=== PATIENT | female | born 1965 | race Caucasian/White ===

== ENCOUNTER 2020-08-06 10:39 | Outpatient (REF) | payer OTHER, SELFPAY ==
[2020-08-07 11:37] LABS: BV Int Neg Control Negative (Negative); BV Int Pos Control Positive (Positive)
[2020-08-08 18:33] LABS: HPV mRNA E6/E7 rflx Not Detected (Not Detected)
== END 2020-08-06 10:40 | disposition home or self-care (01) ==
LOC: HO.LAB 10:39
PROVIDERS: PCP Internal Medicine; Visit Provider Advanced Practice Midwife
DX: Z01.419 Encounter for gynecological examination (general) (routine) without abnormal findings (principal); N81.10 Cystocele, unspecified; N94.9 Unspecified condition associated with female genital organs and menstrual cycle; Z79.899 Other long term (current) drug therapy
CPT/HCPCS: 87480; 87510; 87624; 87625; 87660; 88142

== ENCOUNTER 2020-08-29 08:09 | Outpatient (REF) | payer OTHER, SELFPAY ==
--- NOTE | 2020-08-29 08:12 | MM_ITS ---
EXAMINATION: MM SCREENING DIGITAL BREAST TOMOSYNTHESIS, BILATERAL CLINICAL INFORMATION: Screening. Asymptomatic. The lifetime risk of breast cancer based on the Tyrer-Cuzick Model is 7%. COMPARISON: Mammography: 07/27/2018; outside exam 10/10/2008 ([facility] [place]). TECHNIQUE: Digital breast tomosynthesis is performed in both the craniocaudal and mediolateral oblique views along with computer-aided detection (CAD). Synthesized 2D images are generated from the tomosynthesis. FINDINGS: There are scattered areas of fibroglandular density (ACR BI-RADS breast composition Category b). There are no significant masses, abnormal calcifications, or other abnormalities. Parenchymal pattern is similar to prior exam. No developing density. No significant changes. MM/MM tomosynthesis screening BI IMPRESSION: No mammographic evidence of malignancy. ASSESSMENT: BI-RADS 1: Negative RECOMMENDATION: Routine annual mammography screening. This patient's information was entered into a reminder system with a target due date for their next mammogram.
== END 2020-08-29 08:10 | disposition home or self-care (01) ==
LOC: HO.MAMMO 08:09
PROVIDERS: PCP Internal Medicine; Visit Provider Internal Medicine
DX: Z12.31 Encounter for screening mammogram for malignant neoplasm of breast (principal)
CPT/HCPCS: 77063; 77067

== ENCOUNTER 2021-09-10 11:27 | Outpatient (REF) | payer OTHER, SELFPAY ==
[2021-09-10 13:49] LABS: Basophils Absolute Auto 0.1 X10*3/uL (0.0-0.2); Basophils Percent Auto 0.5 % (0-2); Eosinophils Absolute Auto 0.2 X10*3/uL (0.0-0.4); Eosinophils Percent Auto 1.9 % (0-4); Hematocrit 43.3 % (37.0-47.0); Hemoglobin 14.8 g/dl (12.0-16.0); Imm Gran Abs Auto 0.03 X10*3/uL (0.00-0.03); Imm Gran Pct Auto 0.3 % (0.0-0.4); Lymphocytes Absolute Auto 2.8 X10*3/uL (1.2-4.9); Lymphocytes Percent Auto 30.1 % (20-40); MANUAL DIFF FLAG NO; Mean Corpuscular HGB Conc 34.2 g/dl (31.0-35.0); Mean Corpuscular Hemoglobin 32.7 pg (27.0-33.0); Mean Corpuscular Volume 95.6 fL (80.0-98.0); Mean Platelet Volume 11.4 fL (9.4-12.3); Monocytes Absolute Auto 0.6 X10*3/uL (0.1-1.2); Monocytes Percent Auto 6.8 % (2-11); Neutrophils Absolute Auto 5.6 x10*3/uL (2.0-8.3); Neutrophils Percent Auto 60.4 % (45-73); Platelet Count 249 X10*3/uL (160-400); Red Blood Count 4.53 X10*6/uL (4.20-5.50); Red Cell Distribution Width 13.5 % (11.0-16.0); White Blood Count 9.3 X10*3/uL (4.8-10.8)
[2021-09-10 14:17] LABS: Alanine Aminotransferase 19 U/L (0-31); Albumin Level 4.4 g/dL (3.5-5.0); Alkaline Phosphatase 105 U/L (39-117); Anion Gap 13 (12-20); Aspartate Amino Transferase 19 U/L (5-31); Bilirubin Total 0.3 mg/dL (0.0-1.0); Blood Urea Nitrogen 17 mg/dL (9-16); Calcium 9.6 mg/dL (8.4-10.2); Carbon Dioxide 30 mmol/L (22-29); Chloride 105 mmol/L (96-108); Cholesterol 248 mg/dL; Estimated Glomerular Filt Rate > 60; Glucose Fasting 78 mg/dL (60-99); HDL Cholesterol 65 mg/dL; LDL Cholesterol Calculated 155 mg/dl; Potassium 4.4 mmol/L (3.3-5.1); Sodium 144 mmol/L (135-145); Total Protein 7.3 g/dL (6.5-8.0); Triglycerides 142 mg/dL
[2021-09-10 14:38] LABS: Ferritin 301 ng/mL (10-250)
[2021-09-10 14:52] LABS: Vitamin B12 729 pg/mL (200-900)
[2021-09-15 11:02] LABS: Vitamin D 25-OH, D2 <4 ng/mL; Vitamin D 25-OH, D3 26 ng/mL; Vitamin D 25-OH, Total 26 ng/mL (30-100)
== END 2021-09-10 11:28 | disposition home or self-care (01) ==
LOC: HO.HMGCLDS 11:27
PROVIDERS: PCP Internal Medicine; Visit Provider Internal Medicine
DX: Z00.01 Encounter for general adult medical examination with abnormal findings (principal); M79.7 Fibromyalgia; M19.90 Unspecified osteoarthritis, unspecified site; K21.9 Gastro-esophageal reflux disease without esophagitis; F40.10 Social phobia, unspecified; E66.09 Other obesity due to excess calories
CPT/HCPCS: 36415; 80053; 80061; 82306; 82607; 82728; 84443; 85025

== ENCOUNTER 2021-10-06 08:58 | Outpatient (REF) | payer OTHER, SELFPAY ==
--- NOTE | ~2021-10-06 | US_ITS ---
EXAMINATION: US ABDOMEN COMPLETE CLINICAL INFORMATION: Right upper quadrant pain. COMPARISON: None. TECHNIQUE: Real-time imaging of the abdominal viscera. FINDINGS: PANCREAS: Normal. ABDOMINAL AORTA: The proximal, mid, and distal segments are normal in caliber. INFERIOR VENA CAVA: Visualized portions are normal. LIVER: The liver is normal in size. The liver contour is normal. There is mild increased hepatic echogenicity. No focal hepatic lesion. There is no intrahepatic biliary duct dilatation seen. GALLBLADDER: The gallbladder is physiologically distended. Multiple mobile gallstones are present. No evidence of gallbladder wall thickening or pericholecystic fluid. Gallbladder wall thickness is 0.32 cm. COMMON BILE DUCT: Normal in caliber measuring 0.93 cm in diameter. RIGHT KIDNEY: Normal. No hydronephrosis. No renal calculi or focal parenchymal lesions. The kidney measures 10.7 cm in maximum dimension. LEFT KIDNEY: There is anechoic cyst midpole measuring 1.8 x 2.3 x 2.0 cm and upper pole cyst measuring 1.7 x 1.7 x 1.7 cm with echogenic wall calcification/septation likely complex cyst. No hydronephrosis or renal calculi. The kidney measures 10.5 cm in maximum dimension. SPLEEN: Normal. The spleen measures 9.5 cm in maximum dimension. FREE FLUID: None. US/US abdomen complete IMPRESSION: Simple and complex cysts left kidney. Cholelithiasis with mild wall thickening. Hepatic steatosis without focal lesion.
== END 2021-10-06 08:59 | disposition home or self-care (01) ==
LOC: HO.HMGCX 08:58
PROVIDERS: PCP Internal Medicine; Visit Provider Internal Medicine
DX: R10.11 Right upper quadrant pain (principal)
CPT/HCPCS: 76700

== ENCOUNTER 2021-10-17 15:11 | Outpatient (REF) | payer OTHER, SELFPAY ==
--- NOTE | ~2021-10-17 | MM_ITS ---
EXAMINATION: MM SCREENING DIGITAL BREAST TOMOSYNTHESIS, BILATERAL CLINICAL INFORMATION: Screening. Asymptomatic. The lifetime risk of breast cancer based on the Tyrer-Cuzick Model is 7%. COMPARISON: Mammography: 08/29/2020, 07/27/2018, outside exam 10/10/2008 ([place], [place] TECHNIQUE: Digital breast tomosynthesis is performed in both the craniocaudal and mediolateral oblique views along with computer-aided detection (CAD). Synthesized 2D images are generated from the tomosynthesis. FINDINGS: There are scattered areas of fibroglandular density (ACR BI-RADS breast composition Category b). There are no significant masses, abnormal calcifications, or other abnormalities. Parenchymal pattern is similar to prior studies. There is no developing density or architectural abnormality. The axilla and skin contours are unremarkable. No significant changes. MM/MM tomosynthesis screening BI IMPRESSION: No mammographic evidence of malignancy. ASSESSMENT: BI-RADS 1: Negative RECOMMENDATION: Routine annual mammography screening. This patient's information was entered into a reminder system with a target due date for their next mammogram.
== END 2021-10-17 15:12 | disposition home or self-care (01) ==
LOC: HO.MAMMO 15:11
PROVIDERS: Visit Provider Internal Medicine
DX: Z12.31 Encounter for screening mammogram for malignant neoplasm of breast (principal)
CPT/HCPCS: 77063; 77067

== ENCOUNTER → 2021-11-20 11:08 | Outpatient (BNVA) | payer OTHER, SELFPAY | PROVIDERS: PCP Internal Medicine; Referring Provider Internal Medicine; Visit Provider Surgery | DX: K80.20 Calculus of gallbladder without cholecystitis without obstruction (principal); K80.50 Calculus of bile duct without cholangitis or cholecystitis without obstruction | CPT/HCPCS: 99202 ==

== ENCOUNTER 2021-12-17 06:53 | Day surgery (SDC) | payer OTHER, SELFPAY ==
[2021-12-10 18:56] VITALS: BMI 35.7
--- NOTE | 2021-12-16 09:02 | P.CONAN_ITS ---
Documented by User: Cait Robertson NP 12/16/21 09:04 HPI - Anesthesia Eval Consult details Narrative: 56yo F for Cholecystectomy Laparoscopic,poss open PMFSH Active Problems Active Problems: All Active Problems (Updated 12/10/21 @ 18:55 by Maribel Fonseca RN) Well woman exam with routine gynecological exam (Acute) Cystocele without uterine prolapse (Acute) Vaginal burning (Acute) Fibromyalgia (Acute) Encounter for general adult medical examination with abnormal findings (Acute) Arthrosis (Acute) Obesity due to excess calories (Acute) Social anxiety disorder (Acute) Acid reflux (Acute) RUQ abdominal pain (Acute) Cholelithiasis (Acute) Complex renal cyst (Acute) Fatty liver (Acute) Biliary colic (Acute) Past Medical History Medical History (Updated 12/10/21 @ 18:55 by Maribel Fonseca RN) Arthritis Depression with anxiety GERD (gastroesophageal reflux disease) History of fibromyalgia Hypothyroid Family History Family History Mother Hypertension Other Mental health disorder Substance use disorder Surgical History Surgical History Hx of gastric bypass Hx of tubal ligation Social History Social History Housing: Apartment Alcohol intake: never Patient Tobacco Use Status: Never used Tobacco Use of substances other than those prescribed or required for medical reasons: No Are you DNR?: No Advance Directives: No Advance Directives Information Provided: No Advance Directives on File: No Recently lost weight without trying: No Nutrition Risks: No Nutritional Risk Patient : No Current occupational status: unemployed Meds Allergies Allergy/AdvReac Type Severity Reaction Status Date / Time Seasonal Allergy Unknown Unknown Uncoded 12/16/21 08:57 Home Medications Medication Instructions Recorded Confirmed Last Taken Type amitriptyline 75 mg tablet 75 mg PO BEDTIME 08/06/20 12/10/21 Unknown History duloxetine 30 mg capsule,delayed 30 mg PO QPM 11/20/21 12/10/21 Unknown History release duloxetine 60 mg capsule,delayed 60 mg PO DAILY 11/20/21 12/10/21 12/17/21 History release trazodone 100 mg tablet 100 mg PO BEDTIME 11/20/21 12/10/21 Unknown History Exam Exam Date and Time: December 16, 2021 0902 Height,Weight and Vital Signs: Height 4 ft 11 in Weight 80.286 kg Pertinent Lab Results Pertinent Lab Results: Laboratory Tests 09/10/21 09/10/21 11:34 11:34 WBC 9.3 Hgb 14.8 Hct 43.3 Plt Count 249 Sodium 144 Potassium 4.4 Chloride 105 Carbon Dioxide 30 H BUN 17 H Creatinine 0.82 Assessment and Plan Assessment Anesthesia Assessment: Chart Reviewed Documented by User: Austyn Coker MD 12/17/21 08:12 [facility] Past Medical History Medical History (Updated 12/10/21 @ 18:55 by Maribel Fonseca RN) Arthritis Depression with anxiety GERD (gastroesophageal reflux disease) History of fibromyalgia Hypothyroid Functional capacity: independent ambulation Family History Family History Mother Hypertension Other Mental health disorder Substance use disorder Family history of problems with anesthesia: No Surgical History Surgical History Hx of gastric bypass Hx of tubal ligation History of Problems with Anesthesia: No Social History Social History Housing: Apartment Alcohol intake: never Patient Tobacco Use Status: Never used Tobacco Use of substances other than those prescribed or required for medical reasons: No Are you DNR?: No Advance Directives: No Advance Directives Information Provided: No Advance Directives on File: No Recently lost weight without trying: No Nutrition Risks: No Nutritional Risk Patient : No Current occupational status: unemployed Meds Allergies Allergy/AdvReac Type Severity Reaction Status Date / Time Seasonal Allergy Unknown Unknown Uncoded 12/16/21 08:57 Home Medications Medication Instructions Recorded Confirmed Last Taken Type amitriptyline 75 mg tablet 75 mg PO BEDTIME 08/06/20 12/10/21 Unknown History duloxetine 30 mg capsule,delayed 30 mg PO QPM 11/20/21 12/10/21 Unknown History release duloxetine 60 mg capsule,delayed 60 mg PO DAILY 11/20/21 12/10/21 12/17/21 History release trazodone 100 mg tablet 100 mg PO BEDTIME 11/20/21 12/10/21 Unknown History Exam Airway Mallampati Class: I TM Dist: >3cm Neck ROM: Full Loose/Missing/Broken Teeth: Yes Heart: RRR Lungs: b/l breath sounds Assessment and Plan Assessment Anesthesia Assessment: Anesthesia Plan Discussed Final Anesthetic Review Family History of Problems with Anesthesia: No History of Problems with Anesthesia: No NPO: Yes ASA Class: II Final Preanesthetic Review: No Changes in Pt Med Stat, Meds/Allgs Chart Reviewed, Consent Obtained/Reviewed and Anes Risks/Benef Reviewed Patient Risk: Intermediate Procedure Risk: Intermediate Anesthetic Plan Anesthetic Plan: GA Disposition: Standard PACU
[2021-12-17] VITALS (14 sets, daily range): BP systolic 120–158; BP diastolic 67–87; PULSE 82–97; RESP 14–16; TEMP 36.4–37.3; O2SAT 93–100
[2021-12-17] MEDS: Lactated Ringers 1,000 ML 100 ML IVCONT (07:43)
--- NOTE | 2021-12-17 08:20 | MHC.SHP ---
Pre-Procedural Eval Section A Date of Service: 12/17/21 The patient is an INPATIENT: No Changes since office visit: Yes Patient answered all questions; No Cold of Flu in the past 2 weeks, No New Medical Problems and No Changes in Medication The History & Physical has been completed within 30 days and I have reviewed it.: Yes Section B Chief Complaint: calculus of bile duct and gallbladder Allergies: Allergies Allergy/AdvReac Type Severity Reaction Status Date / Time Seasonal Allergy Unknown Unknown Uncoded 12/16/21 08:57 Plan Diagnosis/Plan: Unchanged I have reviewed the history and physical and performed a pertinent physical examination on my patient. No changes have occurred unless specified.
--- NOTE | 2021-12-17 09:41 | W.PM.OPN ---
Operative Note Operative Note Date of Service: 12/17/21 Narrative: Preoperative diagnosis: Postoperative diagnosis: Same Procedure: Laparoscopic cholecystectomy Surgeon: Yovany Law MD Football Pad Repairer: JOHN Rodríguez Anesthesia: General endotracheal Indications for procedure: Operative findings: Specimen: gallbladder Estimated blood loss: Complications: Procedure details: Patient was brought to the OR and placed in a supine position. After administering general anesthesia the patient's abdomen was prepped with ChloraPrep and draped in a sterile fashion. Local anesthesia consisting of 0.5% Sensorcaine without epinephrine was infiltrated in a periumbilical region. A 5 mm incision was made above the umbilicus in a transverse fashion. The Veress needle was then inserted while elevating abdominal cavity with towel clips. After positive drop test the abdomen was insufflated to a pressure of 15 mm of mercury. The Veress needle was then removed and a 5 mm trocar inserted. The camera was inserted in the abdomen explored. A 12 mm trocar was then placed in the epigastrium. Two 5 mm trocars placed in the right upper quadrant by the pharmacy innovation assistant. The patient was placed in reverse Trendelenburg positioning and rotated to the left. The gallbladder was grasped with the fundus and retracted cephalad by the pharmacy innovation assistant. The infundibulum was then grasped and retracted away from the liver bed, also by the pharmacy innovation assistant. The Dolgracen dissector was then used by the surgeon to dissect the peritoneum off the infundibulum to reveal the junction with the cystic duct. Cystic artery was noted slightly medial and posterior to the cystic duct. After obtaining a critical view the cystic duct was doubly clipped and divided. The cystic artery was then doubly clipped and divided. The gallbladder was then dissected off the liver bed using electrocautery with an L hook. Hemostasis was assured all times using the electrocautery. When the gallbladder is completely dissected off the liver bed was placed in an Endo-Catch bag and brought out through the epigastric incision. The gallbladder was sent to pathology for further examination. The abdomen was then re-examined. The liver bed was irrigated and suctioned dry. No bleeding or bile leak could be identified. CO2 was then evacuated and all trocars removed. Fascia was closed at the epigastric incision using a [id number] 0 Polysorb suture. Skin was closed in all incisions using a subcuticular 4 0 Polysorb suture by both the surgeon and pharmacy innovation assistant. Sterile dressings consisting of Steri-Strips, 2 x 2 gauze, and Tegaderm were then applied. The patient tolerated the procedure well. Sponge instrument and needle counts reported as correct. The patient was transferred to PACU in stable condition.
[2021-12-17] MEDS: fentaNYL citrate/PF 100 MCG/2 ML VIAL 25 MCG IVPUSH ×4 (10:41→10:56)
[2021-12-17] MEDS: oxyCODONE HCl Immed Release 5 MG TABLET PO (10:44)
[2021-12-17] MEDS: Acetaminophen 325 MG TABLET 650 MG PO (10:44)
== END 2021-12-17 12:44 | disposition home or self-care (01) ==
PROVIDERS: PCP Internal Medicine; Visit Provider Surgery
PROC: 0FT44ZZ Resection of Gallbladder, Percutaneous Endoscopic Approach (ICD-10-PCS; CPT 47562; principal; 2021-12-17 08:40)
DX: K80.66 Calculus of gallbladder and bile duct with acute and chronic cholecystitis without obstruction (principal); E03.9 Hypothyroidism, unspecified; M79.7 Fibromyalgia; Z79.899 Other long term (current) drug therapy; Z98.84 Bariatric surgery status
CPT/HCPCS: 47562; 88304; J1100; J2250; J2405; J3010

== ENCOUNTER → 2021-12-25 11:11 | Outpatient (BNVA) | payer OTHER, SELFPAY | PROVIDERS: PCP Internal Medicine; Referring Provider Internal Medicine; Visit Provider Surgery | DX: Z09 Encounter for follow-up examination after completed treatment for conditions other than malignant neoplasm (principal); Z87.19 Personal history of other diseases of the digestive system; Z90.49 Acquired absence of other specified parts of digestive tract | CPT/HCPCS: 99212 ==

== ENCOUNTER 2022-01-21 10:19 | Outpatient (REF) | payer OTHER, SELFPAY ==
[2022-01-21 14:39] LABS: CT PCR NOT DETECTED (Not Detect.); NG PCR NOT DETECTED (Not Detect.)
[2022-01-22 09:18] LABS: BV Int Neg Control Negative (Negative); BV Int Pos Control Positive (Positive)
[2022-01-28 06:58] LABS: HPV 16 RNA NOT DETECTED (NOT DETECTED); HPV mRNA E6/E7 rflx Detected (Not Detected)
== END 2022-01-21 10:20 | disposition home or self-care (01) ==
LOC: HO.LAB 10:19
PROVIDERS: PCP Internal Medicine; Visit Provider Advanced Practice Midwife
DX: Z01.411 Encounter for gynecological examination (general) (routine) with abnormal findings (principal); Z11.51 Encounter for screening for human papillomavirus (HPV); Z20.2 Contact with and (suspected) exposure to infections with a predominantly sexual mode of transmission; N93.9 Abnormal uterine and vaginal bleeding, unspecified
CPT/HCPCS: 87480; 87491; 87510; 87591; 87624; 87625; 87660; 88142

== ENCOUNTER 2022-02-03 08:29 | Outpatient (REF) | payer OTHER, SELFPAY ==
--- NOTE | ~2022-02-03 | US_ITS ---
EXAMINATION: US PELVIS CLINICAL INFORMATION: Abnormal vaginal bleeding. LMP 2 years ago. COMPARISON: No similar priors. TECHNIQUE: Ultrasound of the pelvis is performed using both transabdominal and transvaginal transducers along with Doppler. Transvaginal imaging is performed due to inadequate visualization transabdominally. FINDINGS: Uterus: The uterus is anteverted and measures 8.2 x 4 x 4.9 cm. No fibroids are identified. The endometrium measures 0.5 cm in thickness without discrete focal abnormalities. A 0.6 cm Nabothian cyst is identified in the pelvic. Adnexa: Both ovaries are visualized. There is normal color flow to the adnexa. There is no pelvic ascites or fluid collection. Right ovary measures 2 x 1.0 x 1.5 cm. Left ovary measures 2.5 x 1.5 x 1.5 cm. US/US pelvic and transvaginal IMPRESSION: The endometrium is thickened for a postmenopausal patient. Recommend [employer] consultation to determine further management.
== END 2022-02-03 08:30 | disposition home or self-care (01) ==
LOC: HO.HMGCX 08:29
PROVIDERS: Visit Provider Advanced Practice Midwife
DX: N93.9 Abnormal uterine and vaginal bleeding, unspecified (principal)
CPT/HCPCS: 76830; 76856

== ENCOUNTER 2022-02-17 09:20 | Outpatient (REF) | payer OTHER, SELFPAY | END 2022-02-17 09:21 | disposition home or self-care (01) | LOC: HO.LAB 09:20 | PROVIDERS: PCP Internal Medicine; Visit Provider Advanced Practice Midwife | DX: N93.9 Abnormal uterine and vaginal bleeding, unspecified (principal); N95.0 Postmenopausal bleeding; Z71.2 Person consulting for explanation of examination or test findings | CPT/HCPCS: 58100; 88305 ==

== ENCOUNTER 2022-02-20 08:37 | Outpatient (REF) | payer OTHER, SELFPAY ==
[2022-02-20 08:50] LABS: MANUAL DIFF FLAG NO
[2022-02-20 10:30] LABS: Basophils Absolute Auto 0.1 X10*3/uL (0.0-0.2); Basophils Percent Auto 0.5 % (0-2); Eosinophils Absolute Auto 0.4 X10*3/uL (0.0-0.4); Eosinophils Percent Auto 3.9 % (0-4); Hematocrit 41.6 % (37.0-47.0); Hemoglobin 14.3 g/dl (12.0-16.0); Imm Gran Abs Auto 0.04 X10*3/uL (0.00-0.03); Imm Gran Pct Auto 0.4 % (0.0-0.4); Lymphocytes Absolute Auto 3.5 X10*3/uL (1.2-4.9); Lymphocytes Percent Auto 38.4 % (20-40); Mean Corpuscular HGB Conc 34.4 g/dl (31.0-35.0); Mean Corpuscular Volume 93.1 fL (80.0-98.0); Monocytes Absolute Auto 0.6 X10*3/uL (0.1-1.2); Monocytes Percent Auto 6.9 % (2-11); Neutrophils Absolute Auto 4.6 x10*3/uL (2.0-8.3); Neutrophils Percent Auto 49.9 % (45-73); Platelet Count 305 X10*3/uL (160-400); Red Blood Count 4.47 X10*6/uL (4.20-5.50); Red Cell Distribution Width 13.3 % (11.0-16.0); White Blood Count 9.2 X10*3/uL (4.8-10.8)
== END 2022-02-20 08:38 | disposition home or self-care (01) ==
LOC: HO.LAB 08:37
PROVIDERS: PCP Internal Medicine; Visit Provider Advanced Practice Midwife
DX: N95.0 Postmenopausal bleeding (principal); Z71.2 Person consulting for explanation of examination or test findings
CPT/HCPCS: 36415; 85025; 99212

== ENCOUNTER → 2022-02-26 08:52 | Outpatient (BNVA) | payer OTHER, SELFPAY | PROVIDERS: PCP Internal Medicine; Visit Provider Advanced Practice Midwife | DX: N95.0 Postmenopausal bleeding (principal) | CPT/HCPCS: 99212 ==

== ENCOUNTER 2022-04-27 10:16 | Outpatient (REF) | payer OTHER, SELFPAY ==
--- NOTE | ~2022-04-27 | XR_ITS ---
EXAMINATION: XR KNEE, BILATERAL XR HIP, BILATERAL CLINICAL INFORMATION: Chronic bilateral hip and knee pain. COMPARISON: None TECHNIQUE: 3 views each knee. 2 views each hip. FINDINGS: Right Hip: There is normal right hip alignment. No visible acute fracture, dislocation or bony erosive changes. The soft tissues are normal. Left Hip: The left hip joint space is maintained normal. No fracture, dislocation or bony erosive changes seen. Right Knee: There is minimal loss of medial compartment joint space. No bony erosive changes, acute fracture or lytic process. There is mild suprapatellar spurring. No joint effusion seen. Left Knee: Minimal loss of medial compartment joint space seen. The lateral and the patellofemoral compartment joint spaces are normal. There is no abnormal joint effusion. No bony erosive changes. No loose bodies. XR/XR knee RT 3V IMPRESSION: Medial compartment both knees. No visible acute fracture, bony erosive changes or joint effusion. Unremarkable bilateral hip exam.
--- NOTE | ~2022-04-27 | XR_ITS ---
EXAMINATION: XR KNEE, BILATERAL XR HIP, BILATERAL CLINICAL INFORMATION: Chronic bilateral hip and knee pain. COMPARISON: None TECHNIQUE: 3 views each knee. 2 views each hip. FINDINGS: Right Hip: There is normal right hip alignment. No visible acute fracture, dislocation or bony erosive changes. The soft tissues are normal. Left Hip: The left hip joint space is maintained normal. No fracture, dislocation or bony erosive changes seen. Right Knee: There is minimal loss of medial compartment joint space. No bony erosive changes, acute fracture or lytic process. There is mild suprapatellar spurring. No joint effusion seen. Left Knee: Minimal loss of medial compartment joint space seen. The lateral and the patellofemoral compartment joint spaces are normal. There is no abnormal joint effusion. No bony erosive changes. No loose bodies. XR/XR hip RT min 2V IMPRESSION: Medial compartment both knees. No visible acute fracture, bony erosive changes or joint effusion. Unremarkable bilateral hip exam.
--- NOTE | ~2022-04-27 | XR_ITS ---
EXAMINATION: XR KNEE, BILATERAL XR HIP, BILATERAL CLINICAL INFORMATION: Chronic bilateral hip and knee pain. COMPARISON: None TECHNIQUE: 3 views each knee. 2 views each hip. FINDINGS: Right Hip: There is normal right hip alignment. No visible acute fracture, dislocation or bony erosive changes. The soft tissues are normal. Left Hip: The left hip joint space is maintained normal. No fracture, dislocation or bony erosive changes seen. Right Knee: There is minimal loss of medial compartment joint space. No bony erosive changes, acute fracture or lytic process. There is mild suprapatellar spurring. No joint effusion seen. Left Knee: Minimal loss of medial compartment joint space seen. The lateral and the patellofemoral compartment joint spaces are normal. There is no abnormal joint effusion. No bony erosive changes. No loose bodies. XR/XR knee LT 3V IMPRESSION: Medial compartment both knees. No visible acute fracture, bony erosive changes or joint effusion. Unremarkable bilateral hip exam.
--- NOTE | ~2022-04-27 | XR_ITS ---
EXAMINATION: XR KNEE, BILATERAL XR HIP, BILATERAL CLINICAL INFORMATION: Chronic bilateral hip and knee pain. COMPARISON: None TECHNIQUE: 3 views each knee. 2 views each hip. FINDINGS: Right Hip: There is normal right hip alignment. No visible acute fracture, dislocation or bony erosive changes. The soft tissues are normal. Left Hip: The left hip joint space is maintained normal. No fracture, dislocation or bony erosive changes seen. Right Knee: There is minimal loss of medial compartment joint space. No bony erosive changes, acute fracture or lytic process. There is mild suprapatellar spurring. No joint effusion seen. Left Knee: Minimal loss of medial compartment joint space seen. The lateral and the patellofemoral compartment joint spaces are normal. There is no abnormal joint effusion. No bony erosive changes. No loose bodies. XR/XR hip LT min 2V IMPRESSION: Medial compartment both knees. No visible acute fracture, bony erosive changes or joint effusion. Unremarkable bilateral hip exam.
== END 2022-04-27 10:17 | disposition home or self-care (01) ==
LOC: HO.XRAY 10:16
PROVIDERS: PCP Internal Medicine; Visit Provider Internal Medicine Rheumatology
DX: M25.561 Pain in right knee (principal); M25.562 Pain in left knee; M25.552 Pain in left hip; M25.551 Pain in right hip; M79.7 Fibromyalgia; Z79.899 Other long term (current) drug therapy
CPT/HCPCS: 73502; 73562; 99202

== ENCOUNTER 2022-06-09 08:41 | Outpatient (REF) | payer OTHER, SELFPAY ==
[2022-06-09 12:22] LABS: Alanine Aminotransferase 30 U/L (0-31); Albumin Level 4.1 g/dL (3.5-5.0); Alkaline Phosphatase 98 U/L (39-117); Anion Gap 18 (12-20); Aspartate Amino Transferase 23 U/L (5-31); Bilirubin Total 0.3 mg/dL (0.0-1.0); Blood Urea Nitrogen 17 mg/dL (9-16); Calcium 9.4 mg/dL (8.4-10.2); Carbon Dioxide 25 mmol/L (22-29); Chloride 105 mmol/L (96-108); Estimated Glomerular Filt Rate > 60; Glucose Random 95 mg/dL (60-115); Potassium 5.1 mmol/L (3.3-5.1); Sodium 143 mmol/L (135-145); Total Protein 6.4 g/dL (6.5-8.0)
[2022-06-09 12:23] LABS: TSH reflex Free T4 3.66 uIU/mL (0.32-4.0)
[2022-06-11 03:56] LABS: LDL Cholesterol Direct 138 mg/dL (<100)
== END 2022-06-09 08:42 | disposition home or self-care (01) ==
LOC: HO.HMGCLDS 08:41
PROVIDERS: PCP Internal Medicine; Visit Provider Internal Medicine
DX: E66.09 Other obesity due to excess calories (principal); E78.9 Disorder of lipoprotein metabolism, unspecified; F40.10 Social phobia, unspecified; G25.81 Restless legs syndrome; K21.9 Gastro-esophageal reflux disease without esophagitis; M79.7 Fibromyalgia; R87.619 Unspecified abnormal cytological findings in specimens from cervix uteri; Z91.09 Other allergy status, other than to drugs and biological substances
CPT/HCPCS: 36415; 80053; 83721; 84443

== ENCOUNTER → 2022-08-17 08:54 | Outpatient (BNVA) | payer OTHER, SELFPAY | PROVIDERS: PCP Internal Medicine; Referring Provider Internal Medicine; Visit Provider Internal Medicine Rheumatology | DX: M17.0 Bilateral primary osteoarthritis of knee (principal); M79.7 Fibromyalgia; G25.81 Restless legs syndrome; M18.0 Bilateral primary osteoarthritis of first carpometacarpal joints; Z79.899 Other long term (current) drug therapy; Z23 Encounter for immunization | CPT/HCPCS: 90471; 90686; 99212 ==

== ENCOUNTER 2022-10-23 10:18 | Outpatient (REF) | payer OTHER, SELFPAY ==
--- NOTE | ~2022-10-23 | MM_ITS ---
EXAMINATION: MM SCREENING DIGITAL BREAST TOMOSYNTHESIS, BILATERAL CLINICAL INFORMATION: Screening. Asymptomatic. The lifetime risk of breast cancer based on the Tyrer-Cuzick Model is 7%. COMPARISON: Mammography: 10/17/2021, 08/29/2020, 07/27/2018 TECHNIQUE: Digital breast tomosynthesis is performed in both the craniocaudal and mediolateral oblique views along with computer-aided detection (CAD). Synthesized 2D images are generated from the tomosynthesis. Additional bilateral CC views are provided. FINDINGS: There are scattered areas of fibroglandular density (ACR BI-RADS breast composition Category b). Parenchymal pattern shows some scattered minor asymmetries similar to prior studies. No developing density or interval mass or architectural abnormality. There are scattered benign-appearing relatively coarse calcifications. The axilla and skin contours are unremarkable. No significant changes. MM/MM tomosynthesis screening BI IMPRESSION: No mammographic evidence of malignancy. ASSESSMENT: BI-RADS 2: Benign RECOMMENDATION: Routine annual mammography screening. This patient's information was entered into a reminder system with a target due date for their next mammogram.
== END 2022-10-23 10:19 | disposition home or self-care (01) ==
LOC: HO.MAMMO 10:18
PROVIDERS: Visit Provider Internal Medicine
DX: Z12.31 Encounter for screening mammogram for malignant neoplasm of breast (principal)
CPT/HCPCS: 77063; 77067

== ENCOUNTER 2022-12-21 11:43 | Outpatient (REF) | payer OTHER, SELFPAY ==
[2022-12-21 14:12] LABS: MANUAL DIFF FLAG NO
[2022-12-21 14:18] LABS: Basophils Absolute Auto 0.1 X10*3/uL (0.0-0.2); Basophils Percent Auto 0.8 % (0-2); Eosinophils Absolute Auto 0.4 X10*3/uL (0.0-0.4); Eosinophils Percent Auto 5.5 % (0-4); Hematocrit 40.3 % (37.0-47.0); Hemoglobin 13.9 g/dl (12.0-16.0); Imm Gran Abs Auto 0.02 X10*3/uL (0.00-0.03); Imm Gran Pct Auto 0.3 % (0.0-0.4); Lymphocytes Absolute Auto 2.5 X10*3/uL (1.2-4.9); Lymphocytes Percent Auto 37.4 % (20-40); Mean Corpuscular HGB Conc 34.5 g/dl (31.0-35.0); Mean Corpuscular Hemoglobin 32.4 pg (27.0-33.0); Mean Corpuscular Volume 93.9 fL (80.0-98.0); Mean Platelet Volume 11.5 fL (9.4-12.3); Monocytes Absolute Auto 0.6 X10*3/uL (0.1-1.2); Monocytes Percent Auto 8.4 % (2-11); Neutrophils Absolute Auto 3.1 x10*3/uL (2.0-8.3); Neutrophils Percent Auto 47.6 % (45-73); Platelet Count 279 X10*3/uL (160-400); Red Blood Count 4.29 X10*6/uL (4.20-5.50); Red Cell Distribution Width 12.8 % (11.0-16.0); White Blood Count 6.6 X10*3/uL (4.8-10.8)
[2022-12-21 14:38] LABS: Alanine Aminotransferase 24 U/L (0-31); Alkaline Phosphatase 91 U/L (39-117); Anion Gap 9 (12-20); Aspartate Amino Transferase 19 U/L (5-31); Bilirubin Total 0.4 mg/dL (0.0-1.0); Blood Urea Nitrogen 19 mg/dL (9-16); Calcium 9.2 mg/dL (8.4-10.2); Carbon Dioxide 32 mmol/L (22-29); Chloride 109 mmol/L (96-108); Estimated Glomerular Filt Rate > 60; Glucose Random 92 mg/dL (60-115); Potassium 4.9 mmol/L (3.3-5.1); Sodium 145 mmol/L (135-145); Total Protein 6.1 g/dL (6.5-8.0)
[2022-12-21 14:59] LABS: TSH reflex Free T4 1.01 uIU/mL (0.32-4.0)
== END 2022-12-21 11:44 | disposition home or self-care (01) ==
LOC: HO.HMGCLDS 11:43
PROVIDERS: PCP Internal Medicine; Visit Provider Internal Medicine
DX: G25.81 Restless legs syndrome (principal); J30.9 Allergic rhinitis, unspecified; K21.9 Gastro-esophageal reflux disease without esophagitis; M79.7 Fibromyalgia; Z91.09 Other allergy status, other than to drugs and biological substances
CPT/HCPCS: 36415; 80053; 84443; 85025

== ENCOUNTER 2022-12-29 13:48 | Outpatient (REF) | payer OTHER, SELFPAY ==
--- NOTE | ~2022-12-29 | US_ITS ---
EXAMINATION: US ABDOMEN COMPLETE CLINICAL INFORMATION: Epigastric pain. COMPARISON: Ultrasound abdomen complete 10/06/2021. TECHNIQUE: Real-time imaging of the abdominal viscera. FINDINGS: PANCREAS: The pancreatic tail is obscured by gas. The head and body are homogeneous in echotexture. ABDOMINAL AORTA: The proximal, mid, and distal segments are normal in caliber. INFERIOR VENA CAVA: Visualized portions are normal. LIVER: Normal. The liver is normal in size. The liver contour is normal. Parenchymal echogenicity is normal. No focal hepatic lesion. There is no intrahepatic biliary duct dilatation seen. GALLBLADDER: Surgically absent. COMMON BILE DUCT: Normal in caliber measuring 0.7 cm in diameter. RIGHT KIDNEY: Normal. No hydronephrosis. No renal calculi or focal parenchymal lesions. The kidney measures 11.0 cm in maximum dimension. LEFT KIDNEY: There is an anechoic cyst in the upper pole measuring 2.2 x 2.3 x 2.3 cm which has echogenic wall calcification. No hydronephrosis or renal calculi. The kidney measures 10.1 cm in maximum dimension. SPLEEN: Normal. The spleen measures 10.6 cm in maximum dimension. FREE FLUID: None. US/US abdomen complete IMPRESSION: 1. Complex Bosniak type II cyst upper pole left kidney. 2. The rest of the abdominal ultrasound is unremarkable.
== END 2022-12-29 13:49 | disposition home or self-care (01) ==
LOC: HO.HMGCX 13:48
PROVIDERS: PCP Internal Medicine; Visit Provider Internal Medicine
DX: R10.13 Epigastric pain (principal)
CPT/HCPCS: 76700

== ENCOUNTER 2023-01-26 10:59 | Outpatient (REF) | payer OTHER, SELFPAY ==
[2023-01-29 02:29] LABS: HPV mRNA E6/E7 rflx Not Detected (Not Detected)
== END 2023-01-26 11:00 | disposition home or self-care (01) ==
LOC: HO.LNP 10:59
PROVIDERS: PCP Internal Medicine; Visit Provider Advanced Practice Midwife
DX: Z01.419 Encounter for gynecological examination (general) (routine) without abnormal findings (principal)
CPT/HCPCS: 87624; 88142

== ENCOUNTER → 2023-02-02 09:10 | Outpatient (BNVA) | payer OTHER, SELFPAY | PROVIDERS: PCP Internal Medicine; Visit Provider Internal Medicine Rheumatology | DX: M79.7 Fibromyalgia (principal); M18.0 Bilateral primary osteoarthritis of first carpometacarpal joints; M17.0 Bilateral primary osteoarthritis of knee; Z79.899 Other long term (current) drug therapy | CPT/HCPCS: 99212 ==

== ENCOUNTER 2023-06-09 09:08 | Outpatient (AMB) | payer OTHER, SELFPAY ==
--- NOTE | 2023-06-09 09:05 | A.OFFPC_ITS ---
Intake Visit Reasons: 4 month follow up [facility] [phone] Allergies Seasonal Allergy (Unknown, Uncoded 02/02/23 09:21) Unknown Tobacco use date assessed: 06/09/23 Dental Screening Dental Screen Date: 06/09/23 Did you have a dental visit in the last 12 months?: No Did you have a dental problem in the last 6 months where you did not have access to dental care?: No Was dental information given to patient?: Patient has dentist HPI 4 month follow up Iphone [phone] [facility] Details Patient is a 58-year-old female this is a telemedicine video conference follow-up Patient was last seen January of this year She is currently taking duloxetine 60 mg which is helping her with her mood stability as well as pain She has a diagnosis of fibromyalgia and osteoarthritis multiple joints she is currently seeing a field nurse case manager and is taking gabapentin as well through them. Sleeping difficulty: She is to continue mirtazapine 15 mg which has helped her. Hypothyroidism is treated with levothyroxine 88 mcg Allergies: Patient is on cetirizine 10 mg and montelukast 10 mg which is helping her. GERD is stable with omeprazole 20 mg Restless leg syndrome: Patient is taking ropinirole 0.5 mg at bedtime and is benefitting from it. She will be seen again in 3 months. She offers no new complaints today. [facility] Medical History Arthritis GERD (gastroesophageal reflux disease) Depression with anxiety Hypothyroid History of fibromyalgia Surgical History History of laparoscopic cholecystectomy (12/17/21) Hx of gastric bypass Hx of tubal ligation Family History Mother Hypertension Other Mental health disorder Substance use disorder Social History Housing: Apartment Alcohol intake: never Patient Tobacco Use Status: Never used Tobacco e-Cigarette/Vaping Use: Never Used service: No Current occupational status: unemployed Sexual orientation: Straight/Heterosexual Gender identity: Female Cognitive needs: No Hearing needs: No Vision needs: Yes Female Reproductive History Menstrual Age of Menarche: 11 Questionnaire PHQ-9 Over the last 2 weeks, how often have you been bothered by any of the following problems? 1. Little interest or pleasure in doing things: several days 2. Feeling down, depressed, or hopeless: several days 3. Trouble falling or staying asleep, or sleeping too much: not at all 4. Feeling tired or having little energy: several days 5. Poor appetite or overeating: not at all 6. Feeling bad about yourself - or that you are a failure or have let yourself or your family down: not at all 7. Trouble concentrating on things, such as reading the newspaper or watching television: several days 8. Moving or speaking so slowly that other people could have noticed. Or the opposite - being so fidgety or restless that you have been moving around a lot more than usual: not at all 9. Thoughts that you would be better off or of hurting yourself in some way: not at all Total score: 4 Depression Screening Interpretation: Negative Depression Screening Done: Yes 10563 - PHQ-9 Billing: Yes Source: Developed by Drs. Rios Lim, Katalina Martin, Jasper Main and colleagues, with an educational stacie from [email or web address]. Thrive Questionnaire Date Thrive assessed: 12/23/22 AUDIT C Alcohol Use Questionnaire (AUDIT-C) 1. How often do you have a drink containing alcohol?: Never 3. How often do you have six or more drinks on one occasion?: Never Total Score: 0 Score Reviewed/Action Taken: Yes JOHNNY-7 AMB Questionnaire JOHNNY-7 Date JOHNNY - 7 assessed: 12/23/22 Source: Developed by Drs. Rios Lim, Jasper Berumen and colleagues, with an educational stacie from [email or web address]. Review of Systems Const Denies chills and Denies fever(s) ENT Denies epistaxis and Denies nasal discharge Card Denies chest pain Resp Denies chest congestion, Denies cough and Denies hemoptysis GI Denies diarrhea and Denies nausea Skin/Breast Denies rash Neuro Reports no additional complaints Psych Reports no additional complaints Endo Reports no additional complaints Physical exam (Primary Care) Tobacco/Smoking Status: Tobacco use Status Tobacco use date assessed 06/09/23 06/09/23 09:08 Patient Tobacco Use Status Never used Tobacco 06/09/23 09:08 e-Cigarette/Vaping Use Never Used 06/09/23 09:08 PHQ-9: PHQ-9 Score PHQ-9: Total score 4 06/09/23 09:08 Depression Screening Interpretation: Negative Thrive Assessment: Date of Thrive Assessment Date Thrive assessed 12/23/22 06/09/23 09:08 Telehealth Telehealth Location of provider rendering services: practice address Location of patient: address on file Patient Identification confirmed using: Name, : Yes Telehealth method: video Patient verbally consented to treatment: Yes Patient verbally consented to billing insurance company: Yes Patient informed of any privacy concerns related to visit: Yes Assessment and Plan Assessment & Plan (1) Difficulty sleeping: Code(s): G47.9 - Sleep disorder, unspecified (2) Anxiety, generalized: Code(s): F41.1 - Generalized anxiety disorder (3) Chronic GERD: Code(s): K21.9 - Gastro-esophageal reflux disease without esophagitis (4) Environmental allergies: Code(s): Z91.09 - Other allergy status, other than to drugs and biological substances (5) Restless leg syndrome: Code(s): G25.81 - Restless legs syndrome (6) Fibromyalgia: Code(s): M79.7 - Fibromyalgia (7) Osteoarthritis of knees, bilateral: Code(s): M17.0 - Bilateral primary osteoarthritis of knee Qualifiers: Osteoarthritis type: primary Qualified Code(s): M17.0 - Bilateral primary osteoarthritis of knee (8) Environmental allergies: Code(s): Z91.09 - Other allergy status, other than to drugs and biological substances (9) Fibromyalgia, secondary: Code(s): M79.7 - Fibromyalgia Plan Patient is a 58-year-old female this is a telemedicine video conference follow- up Patient was last seen January of this year She is currently taking duloxetine 60 mg which is helping her with her mood stability as well as pain She has a diagnosis of fibromyalgia and osteoarthritis multiple joints she is currently seeing a field nurse case manager and is taking gabapentin as well through them. Sleeping difficulty: She is to continue mirtazapine 15 mg which has helped her. Hypothyroidism is treated with levothyroxine 88 mcg Allergies: Patient is on cetirizine 10 mg and montelukast 10 mg which is helping her. GERD is stable with omeprazole 20 mg Restless leg syndrome: Patient is taking ropinirole 0.5 mg at bedtime and is benefitting from it. She will be seen again in 3 months. She offers no new complaints today. Coding Level of Care Code Tele Est Pt Level 4 (05656) Diagnoses Difficulty sleeping G47.9 Anxiety, generalized F41.1 Chronic GERD K21.9 Environmental allergies Z91.09 Restless leg syndrome G25.81 Fibromyalgia M79.7 Primary osteoarthritis of both knees M17.0 Osteoarthritis type: primary Fibromyalgia, secondary M79.7 Comment 5 prep, 14 with patient. 7 charting
== END 2023-06-09 10:08 | disposition home or self-care (01) ==
LOC: HO.HMGC 09:08
PROVIDERS: PCP Internal Medicine; Visit Provider Internal Medicine
DX: G47.9 Sleep disorder, unspecified (principal); F41.1 Generalized anxiety disorder; K21.9 Gastro-esophageal reflux disease without esophagitis; Z91.09 Other allergy status, other than to drugs and biological substances; G25.81 Restless legs syndrome; M79.7 Fibromyalgia; M17.0 Bilateral primary osteoarthritis of knee
CPT/HCPCS: 99214

== ENCOUNTER 2023-06-16 09:27 | Outpatient (AMB) | payer OTHER, SELFPAY ==
--- NOTE | 2023-06-16 09:36 | A.OFFVIS_ITS ---
Intake Vital Signs 06/16/23 09:51 Height 5 ft Weight 144 lb 2.917 oz BMI 28.2 BP 114/60 Blood Pressure Location Lt brachial Position Sitting Pulse 98 Pulse Source Pulse Oximeter Temp 97.7 F Temp Source Skin Pulse Oximetry (%) 96 Oxygen Delivery Method Room Air Intake Visit Reasons: fm Intake Note: Patient presents today for fibromyalgia follow up. Student Financial Services Counselor Required: No Accompanied by: Self / Same As Patient Allergies Seasonal Allergy (Unknown, Uncoded 06/16/23 09:40) Unknown Medication List - Last Reconciled 06/16/23 by José Miguel Muller MD cetirizine 10 mg PO DAILY duloxetine 60 mg PO DAILY 90 days gabapentin One capsule every morning, one cap in afternoon and 2 capsules every evening levothyroxine 88 mcg PO DAILY 90 days mirtazapine 15 mg PO BEDTIME montelukast 10 mg PO DAILY 30 days omeprazole 20 mg PO DAILY ropinirole 0.5 mg PO BEDTIME 30 days HPI HPI Comments History of Present Illness Details The patient returns for evaluation of her fibromyalgia and osteoarthritis. She remains on duloxetine, mirtazapine, ropinirole and gabapentin. We had increased her gabapentin up to 300 b.i.d. and 600 mg at night. That seems to be helpful. She is taking still quite a bit of ibuprofen, sometimes as much as 800 mg 4 times a day on some days she says she takes 6 of the 650 mg Tylenol Arthritis tablets. This is mostly for shoulder, back, and knee pain. [facility] Medical History Arthritis GERD (gastroesophageal reflux disease) Depression with anxiety Hypothyroid History of fibromyalgia Surgical History History of laparoscopic cholecystectomy (12/17/21) Hx of gastric bypass Hx of tubal ligation Family History Mother Hypertension Other Mental health disorder Substance use disorder Social History Housing: Apartment Alcohol intake: never Patient Tobacco Use Status: Never used Tobacco e-Cigarette/Vaping Use: Never Used service: No Current occupational status: unemployed Sexual orientation: Straight/Heterosexual Gender identity: Female Cognitive needs: No Hearing needs: No Vision needs: Yes Female Reproductive History Menstrual Age of Menarche: 11 Review of Systems Const Details: Negative for appetite change, weight change, fever, chills, malaise and fatigue Eyes Details: Negative for vision change, dry eyes,headaches and dizziness Card Details: Negative chest pain, edema and syncope Resp Details: Negative for SOB, cough and wheezing GI Details: Negative indigestion/heartburn, nausea, abdominal pain, bowel changes, diarrhea, constipation and bloody stool. Endo Details: Negative for polyuria and polydypsia Mikael/Lymph Details: Negative for excessive bruising or bleeding. Physical Exam Vital Signs: Last Vital Signs Temp 97.7 F 06/16/23 09:51 Pulse 98 06/16/23 09:51 BP 114/60 06/16/23 09:51 Pulse Ox 96 06/16/23 09:51 Oxygen Delivery Method Room Air 06/16/23 09:51 BMI result Body Mass Index 28.2 APPEARANCE: Patient in no acute distress EYES no redness, pupils equal and reactive to light, eyelids normal EXTREMITIES:? No edema, no calf tenderness, normal peripheral pulses. JOINT EXAM: Cervical Spine:.? Full range of motion with mild discomfort.? There is some posterior cervical muscle tenderness. Thoracic Spine:.? No scoliosis.? No tenderness on palpation. Lumbar Spine:.? Alignment normal.? Full range of motion with mild pain at 75 degrees flexion.? No tenderness. Chest Wall:.? No tenderness, swelling, increased warmth or erythema. Hands:.? Right:? There is slight tenderness with minimal swelling at the base of the thumb.? There is mild bony enlargement without tenderness at the thumb IP joint and the 3rd PIP joint. There is some nontender but slight bony enlargement at the PIP joints 2, 3, and 5. Elsewhere range of motion is normal without pain.? There is no swelling or tenderness, thenar atrophy, or sensory loss.? Left: Slight tenderness without swelling at the base of the thumb.? Elsewhere no tenderness or swelling.? Pain-free range of motion with no flexor tendon triggering, thenar atrophy or sensory loss. Wrists:.? Mild pain with 75 degrees flexion or the extension with some slight dorsal tenderness but no swelling, increased warmth or erythema. Elbows: Normal pain-free range of motion without tenderness, swelling, increased warmth or erythema. Shoulders:?Full range of motion with slight pain felt over the trapezius at the extremes of normal range of motion.? There is some mild tenderness anteriorly and over the trapezius muscle.? No abductor weakness, swelling or adenopathy. Hips:.? Full range of motion with slight pain laterally and in the buttocks with the extremes of normal range of motion.? No groin pain with range of motion.? No adenopathy. Hip bursa:.? [id number] right and slight left trochanteric tenderness. Knees:.?? Normal pain-free range of motion with mild to moderate patellofemoral crepitus.? There is mild medial tenderness without effusion, increased warmth or erythema.? Ankles:.? Normal pain-free range of motion without tenderness, swelling, increased warmth or erythema. Feet:.? Normal pain-free range of motion with some slight tenderness on the proximal part of the 5th metatarsal bilaterally.? That metatarsal may be a bit more prominent.? Elsewhere there is no tenderness, swelling, increased warmth or erythema. Tender points.? Mild tenderness to digital palpation at the occiput, trapezius, second rib, lateral epicondyle, knees, greater trochanter and gluteal area bilaterally. ? Results Reviewed Results Reviewed: [address] [address] XRay Report Signed Patient: Ninfa Miner MR#: [id number] : 1965 Acct:[id number] Age/Sex: 57 / F ADM Date: 04/27/[address]: José Miguel Muller MD Ordering Physician: José Miguel Muller MD Date of Service: 04/27/22 Procedure(s): XR knee RT 3V Accession Number(s): [id number] cc: José Miguel Muller MD~ EXAMINATION: XR KNEE, BILATERAL XR HIP, BILATERAL CLINICAL INFORMATION: Chronic bilateral hip and knee pain. COMPARISON: None TECHNIQUE: 3 views each knee. 2 views each hip. FINDINGS: Right Hip: There is normal right hip alignment. No visible acute fracture, dislocation or bony erosive changes. The soft tissues are normal. Left Hip: The left hip joint space is maintained normal. No fracture, dislocation or bony erosive changes seen. Right Knee: There is minimal loss of medial compartment joint space. No bony erosive changes, acute fracture or lytic process. There is mild suprapatellar spurring. No joint effusion seen. Left Knee: Minimal loss of medial compartment joint space seen. The lateral and the patellofemoral compartment joint spaces are normal. There is no abnormal joint effusion. No bony erosive changes. No loose bodies. XR/XR knee RT 3V IMPRESSION: Medial compartment both knees. No visible acute fracture, bony erosive changes or joint effusion. Unremarkable bilateral hip exam. Dictated By: Bob Giron MD Assessment & Plan Assessment & Plan (1) Osteoarthritis of knees, bilateral: Code(s): M17.0 - Bilateral primary osteoarthritis of knee Qualifiers: Osteoarthritis type: primary Qualified Code(s): M17.0 - Bilateral primary osteoarthritis of knee (2) NSAID long-term use: Code(s): Z79.1 - half-way (current) use of non-steroidal anti-inflammatories (NSAID) (3) Osteoarthritis of thumbs, bilateral: Code(s): M18.0 - Bilateral primary osteoarthritis of first carpometacarpal joints (4) Fibromyalgia: Code(s): M79.7 - Fibromyalgia Plan Overall her widespread pains do continue although she seems to be functioning. She is exercising regularly but says she gets muscle pains in her legs when she does so. The patient has some signs of osteoarthritis in her hands and radiographic evidence of OA in the knees. She questions whether there are other medications to take. I said at present with her taking so much ibuprofen I would be worried about side effects with the GI tract so we will check Chem panel and CBC. There is also question whether she is taking too much acetaminophen. I told her not to take more than 5 of the 625 mg tablets per day. She should continue with light aerobic activity. She can continue with the antidepressants and the gabapentin as above. A follow-up in 6 months would be reasonable. Orders: Orders Complete Blood Count Auto Diff Today Z79.1 - half-way (current) use of non- steroidal anti-inflammatories (NSAID) Comprehensive Met. Panel Today Z79.1 - director software (current) use of non-steroidal anti-inflammatories (NSAID) Medications: New ibuprofen 400 - 800 mg (2 - 4 x 200 mg) PO Q8H 240 tabs 0RF M17.0 - Bilateral primary osteoarthritis of knee Coding Level of Care Code Est Pt Level 3 (67278) Diagnoses Primary osteoarthritis of both knees M17.0 Osteoarthritis type: primary NSAID long-term use Z79.1 Osteoarthritis of thumbs, bilateral M18.0 Fibromyalgia M79.7
[2023-06-16 09:51] VITALS: BP 114/60; PULSE 98; TEMP 36.5; O2SAT 96; BMI 28.2
== END 2023-06-16 10:20 | disposition home or self-care (01) ==
PROVIDERS: PCP Internal Medicine; Visit Provider Internal Medicine Rheumatology
DX: M17.0 Bilateral primary osteoarthritis of knee (principal); Z79.1 Long term (current) use of non-steroidal anti-inflammatories (NSAID); M18.0 Bilateral primary osteoarthritis of first carpometacarpal joints; M79.7 Fibromyalgia
CPT/HCPCS: 99213

== ENCOUNTER → 2023-06-16 09:27 | Outpatient (BNVA) | payer OTHER, SELFPAY | PROVIDERS: PCP Internal Medicine; Visit Provider Internal Medicine Rheumatology | DX: M17.0 Bilateral primary osteoarthritis of knee (principal); M18.0 Bilateral primary osteoarthritis of first carpometacarpal joints; M79.7 Fibromyalgia; Z79.1 Long term (current) use of non-steroidal anti-inflammatories (NSAID) | CPT/HCPCS: 99212 ==

== ENCOUNTER 2023-06-22 14:24 | Outpatient (REF) | payer OTHER, SELFPAY ==
[2023-06-22 16:15] LABS: MANUAL DIFF FLAG NO
[2023-06-22 16:25] LABS: Basophils Percent Auto 0.3 % (0-2); Eosinophils Absolute Auto 0.3 X10*3/uL (0.0-0.4); Eosinophils Percent Auto 3.5 % (0-4); Hematocrit 40.3 % (37.0-47.0); Hemoglobin 14.1 g/dl (12.0-16.0); Imm Gran Abs Auto 0.01 X10*3/uL (0.00-0.03); Imm Gran Pct Auto 0.1 % (0.0-0.4); Lymphocytes Absolute Auto 3.6 X10*3/uL (1.2-4.9); Lymphocytes Percent Auto 42.1 % (20-40); Mean Corpuscular Hemoglobin 31.1 pg (27.0-33.0); Mean Corpuscular Volume 88.8 fL (80.0-98.0); Mean Platelet Volume 10.7 fL (9.4-12.3); Monocytes Absolute Auto 0.7 X10*3/uL (0.1-1.2); Monocytes Percent Auto 7.8 % (2-11); Neutrophils Percent Auto 46.2 % (45-73); Platelet Count 323 X10*3/uL (160-400); Red Blood Count 4.54 X10*6/uL (4.20-5.50); Red Cell Distribution Width 13.2 % (11.0-16.0); White Blood Count 8.6 X10*3/uL (4.8-10.8)
[2023-06-22 16:43] LABS: Alanine Aminotransferase 23 U/L (0-31); Albumin Level 3.9 g/dL (3.5-5.0); Alkaline Phosphatase 119 U/L (39-117); Anion Gap 14 (12-20); Aspartate Amino Transferase 21 U/L (5-31); Bilirubin Total 0.2 mg/dL (0.0-1.0); Blood Urea Nitrogen 12 mg/dL (9-16); Calcium 9.5 mg/dL (8.4-10.2); Carbon Dioxide 27 mmol/L (22-29); Chloride 105 mmol/L (96-108); Estimated Glomerular Filt Rate > 60; Glucose Random 101 mg/dL (60-115); Potassium 4.9 mmol/L (3.3-5.1); Sodium 141 mmol/L (135-145); Total Protein 6.5 g/dL (6.5-8.0)
== END 2023-06-22 14:25 | disposition home or self-care (01) ==
LOC: HO.HMGCLDS 14:24
PROVIDERS: PCP Internal Medicine; Visit Provider Internal Medicine Rheumatology
DX: Z79.1 Long term (current) use of non-steroidal anti-inflammatories (NSAID) (principal)
CPT/HCPCS: 36415; 80053; 85025

== ENCOUNTER 2023-09-14 10:07 | Outpatient (AMB) | payer OTHER, SELFPAY ==
[2023-09-14 10:24] VITALS: BP 130/72; PULSE 91; O2SAT 97; BMI 27.1
--- NOTE | 2023-09-14 10:24 | A.OFFPC_ITS ---
Vital Signs 09/14/23 10:24 Height 5 ft 4 in Weight 158 lb 2 oz BMI 27.1 BP 130/72 Blood Pressure Location Rt brachial Position Sitting Pulse 91 Pulse Source Pulse Oximeter Pulse Oximetry (%) 97 Oxygen Delivery Method Room Air Intake Visit Reasons: 3 month follow up Allergies Seasonal Allergy (Unknown, Uncoded 06/16/23 09:40) Unknown Medication List - Last Reconciled 09/14/23 by Eddie Parks MD cetirizine 10 mg PO DAILY duloxetine 60 mg PO DAILY 90 days gabapentin Take one capsule by mouth every morning, one capsule in afternoon and 2 capsules every evening ibuprofen 400 - 800 mg (2 - 4 x 200 mg) PO Q8H levothyroxine 88 mcg PO DAILY 90 days mirtazapine 15 mg PO BEDTIME montelukast 10 mg PO DAILY 30 days omeprazole 20 mg PO DAILY ropinirole 0.5 mg PO BEDTIME 30 days Tobacco use date assessed: 09/14/23 Dental Screening Dental Screen Date: 09/14/23 Did you have a dental visit in the last 12 months?: Yes Did you have a dental problem in the last 6 months where you did not have access to dental care?: No Was dental information given to patient?: Patient has dentist HPI 3 month follow up HPI Details Patient is 58-year-old female came in today regular follow-up appointment Patient has history of anxiety, allergies, osteoarthritis multiple joints, lipid disorder, chronic GERD, fibromyalgia, fatty liver Patient is seeing Nephrology now for cyst on her kidney had a CT scan of abdomen with contrast That showed multiple left renal cysts measuring up to 2.2 cm But it also showed small bowel intussusception in the left upper quadrant Patient have a long history of cramping in her abdomen, I have placed a referral to Gastroenterology for further evaluation She is also complaining that ropinirole is no longer working for restless leg syndrome I have changed it to pramipexole 0.5 mg patient is to start with only half a tablet to see if that is enough. Medication list reviewed Lab order placed Patient has appointment for follow-up [facility] Medical History Arthritis GERD (gastroesophageal reflux disease) Depression with anxiety Hypothyroid History of fibromyalgia Surgical History History of laparoscopic cholecystectomy (12/17/21) Hx of gastric bypass Hx of tubal ligation Family History Mother Hypertension Other Mental health disorder Substance use disorder Social History Housing: Apartment Alcohol intake: never Patient Tobacco Use Status: Never used Tobacco e-Cigarette/Vaping Use: Never Used service: No Current occupational status: unemployed Sexual orientation: Straight/Heterosexual Gender identity: Female Cognitive needs: No Hearing needs: No Vision needs: Yes Female Reproductive History Menstrual Age of Menarche: 11 Questionnaire PHQ-9 Over the last 2 weeks, how often have you been bothered by any of the following problems? 1. Little interest or pleasure in doing things: several days 2. Feeling down, depressed, or hopeless: several days 3. Trouble falling or staying asleep, or sleeping too much: more than half the days 4. Feeling tired or having little energy: several days 5. Poor appetite or overeating: not at all 6. Feeling bad about yourself - or that you are a failure or have let yourself or your family down: not at all 7. Trouble concentrating on things, such as reading the newspaper or watching television: several days 8. Moving or speaking so slowly that other people could have noticed. Or the opposite - being so fidgety or restless that you have been moving around a lot more than usual: not at all 9. Thoughts that you would be better off or of hurting yourself in some way: not at all Total score: 6 Depression Screening Interpretation: Negative Depression Screening Done: Yes 82516 - PHQ-9 Billing: Yes Source: Developed by Drs. Rios Lim, Katalina Martin, Jasper Main and colleagues, with an educational stacie from [employer] Thrive Questionnaire Date Thrive assessed: 12/23/22 I am a: Patient What is your living situation today?: I have a steady place to live Within the past 12 months, did the food you bought not last and you didn't have the money to get more?: Never true Within the past 12 months, did you worry whether your food would run out before you got money to buy more?: Never true Do you have trouble paying for medicines?: No Do you have trouble getting transportation to medical appointments?: No Do you have trouble paying your heating and electricity bill?: No Do you have trouble taking care of your child, family member or friend?: No Do you have trouble with day-to-day activities such as bathing, preparing meals, shopping, managing finances, etc.?: No Are you currently unemployed and looking for a job?: No Are you interested in more education?: No Please select the resources that you would like help with: None Currently or been in a relationship where the following occur: no concerns reported AUDIT C Alcohol Use Questionnaire (AUDIT-C) 1. How often do you have a drink containing alcohol?: Never 3. How often do you have six or more drinks on one occasion?: Never Total Score: 0 Score Reviewed/Action Taken: Yes JOHNNY-7 AMB Questionnaire JOHNNY-7 Date JOHNNY - 7 assessed: 09/14/23 Feeling nervous, anxious, or on edge: 3 = Nearly every day Not being able to stop or control worryin = More than half the days Worrying too much about different things: 2 = More than half the days Trouble relaxin = Nearly every day Being so restless that it is hard to sit still: 1 = Several days Becoming easily annoyed or irritable: 2 = More than half the days Feeling afraid as if something awful might happen: 1 = Several days Total JOHNNY-7 score (0-4 normal; 5-9 mild; 10-14 moderate; 15-21 severe): 14 Source: Developed by Drs. Rios Lim, Katalina Martin, Jasper wright nd colleagues, with an educational stacie from [employer] JOHNNY-7 Assessment Billing JOHNNY-7 Assessment Tool: JOHNNY-7 Assessment 15065 Review of Systems Const Denies chills and Denies fever(s) ENT Denies epistaxis and Denies nasal discharge Card Denies chest pain Resp Denies chest congestion, Denies cough and Denies hemoptysis GI Denies diarrhea and Denies nausea Skin/Breast Denies rash Neuro Reports no additional complaints Psych Reports no additional complaints Endo Reports no additional complaints Physical exam (Primary Care) Vital Signs: Last Vital Signs Pulse 91 09/14/23 10:24 BP 130/72 09/14/23 10:24 Pulse Ox 97 09/14/23 10:24 Oxygen Delivery Method Room Air 09/14/23 10:24 BMI result Body Mass Index 27.1 Tobacco/Smoking Status: Tobacco use Status Tobacco use date assessed 09/14/23 09/14/23 10:29 Patient Tobacco Use Status Never used Tobacco 09/14/23 10:27 e-Cigarette/Vaping Use Never Used 09/14/23 10:27 PHQ-9: PHQ-9 Score PHQ-9: Total score 6 09/14/23 13:54 Depression Screening Interpretation: Negative Thrive Assessment: Date of Thrive Assessment Date Thrive assessed 12/23/22 09/14/23 10:27 Currently or been in a relationship where the following occur: no concerns reported Const General: cooperative, comfortable and no acute distress Orientation/consciousness: patient oriented x3 HENMT Head: Yes normocephalic Eyes General: appearance normal, both eyes and all related structures Neck Neck: Yes supple Resp Effort & Inspection: normal respiratory effort, no cough and no stridor Cardio Rhythm: regular rhythm Heart sounds: S1 normal heart sound present and S2 normal heart sound present GI Other: Abdomen soft nontender bowel sound positive Skin General skin exam: turgor normal Neuro General: patient oriented x3, tone normal and moves all extremities Extrem Right lower extremity: no edema Left lower extremity: no edema Assessment and Plan Assessment & Plan (1) Small bowel intussusception: Code(s): K56.1 - Intussusception (2) Anxiety, generalized: Code(s): F41.1 - Generalized anxiety disorder (3) Environmental allergies: Code(s): Z91.09 - Other allergy status, other than to drugs and biological substances (4) Osteoarthritis of knees, bilateral: Code(s): M17.0 - Bilateral primary osteoarthritis of knee Qualifiers: Osteoarthritis type: primary Qualified Code(s): M17.0 - Bilateral primary osteoarthritis of knee (5) Lipid disorder: Code(s): E78.9 - Disorder of lipoprotein metabolism, unspecified (6) Restless leg syndrome: Code(s): G25.81 - Restless legs syndrome (7) Chronic GERD: Code(s): K21.9 - Gastro-esophageal reflux disease without esophagitis (8) Fibromyalgia: Code(s): M79.7 - Fibromyalgia (9) Fatty liver: Code(s): K76.0 - Fatty (change of) liver, not elsewhere classified Plan Patient is 58-year-old female came in today regular follow-up appointment Patient has history of anxiety, allergies, osteoarthritis multiple joints, lipid disorder, chronic GERD, fibromyalgia, fatty liver Patient is seeing Nephrology now for cyst on her kidney had a CT scan of abdomen with contrast That showed multiple left renal cysts measuring up to 2.2 cm But it also showed small bowel intussusception in the left upper quadrant Patient have a long history of cramping in her abdomen, I have placed a referral to Gastroenterology for further evaluation She is also complaining that ropinirole is no longer working for restless leg syndrome I have changed it to pramipexole 0.5 mg patient is to start with only half a tablet to see if that is enough. Medication list reviewed Lab order placed Patient has appointment for follow-up Orders: Orders Complete Blood Count Auto Diff Today E78.9 - Disorder of lipoprotein metabolism, unspecified, F41.1 - Generalized anxiety disorder, G25.81 - Restless legs syndrome, K21.9 - Gastro-esophageal reflux disease without esophagitis, K56.1 - Intussusception, K76.0 - Fatty (change of) liver, not elsewhere classified, M17.0 - Bilateral primary osteoarthritis of knee, M79.7 - Fibromyalgia, Z91.09 - Other allergy status, other than to drugs and biological substances Comprehensive Met. Panel Today E78.9 - Disorder of lipoprotein metabolism, unspecified, F41.1 - Generalized anxiety disorder, G25.81 - Restless legs syndrome, K21.9 - Gastro-esophageal reflux disease without esophagitis, K56.1 - Intussusception, K76.0 - Fatty (change of) liver, not elsewhere classified, M17.0 - Bilateral primary osteoarthritis of knee, M79.7 - Fibromyalgia, Z91.09 - Other allergy status, other than to drugs and biological substances LDL Cholesterol Direct Today E78.9 - Disorder of lipoprotein metabolism, unspecified, F41.1 - Generalized anxiety disorder, G25.81 - Restless legs syndrome, K21.9 - Gastro-esophageal reflux disease without esophagitis, K56.1 - Intussusception, K76.0 - Fatty (change of) liver, not elsewhere classified, M17. 0 - Bilateral primary osteoarthritis of knee, M79.7 - Fibromyalgia, Z91.09 - Other allergy status, other than to drugs and biological substances Referrals Gastroenterology Referral K56.1 - Intussusception Medications: New pramipexole administer 2 - 3 hours before bedtime 0.5 mg PO QPM 30 tabs 0RF restless leg Refilled levothyroxine 88 mcg PO DAILY 90 tabs 0RF 90 days Discontinued ropinirole administer 1-3 hours before bedtime Discontinued Reason: Doctor's Order 0.5 mg PO BEDTIME 30 days 90 tabs 0RF Coding Level of Care Code Est Pt Level 4 (09291) Diagnoses Small bowel intussusception K56.1 Anxiety, generalized F41.1 Environmental allergies Z91.09 Primary osteoarthritis of both knees M17.0 Osteoarthritis type: primary Lipid disorder E78.9 Restless leg syndrome G25.81 Chronic GERD K21.9 Fibromyalgia M79.7 Fatty liver K76.0 Additional Codes JOHNNY-7 Assessment Billing - JOHNNY-7 Assessment Tool: JOHNNY-7 Assessment 16994 ([id number])
== END 2023-09-14 12:37 | disposition home or self-care (01) ==
PROVIDERS: PCP Internal Medicine; Visit Provider Internal Medicine
DX: K56.1 Intussusception (principal); F41.1 Generalized anxiety disorder; Z91.09 Other allergy status, other than to drugs and biological substances; M17.0 Bilateral primary osteoarthritis of knee; E78.9 Disorder of lipoprotein metabolism, unspecified; G25.81 Restless legs syndrome; K21.9 Gastro-esophageal reflux disease without esophagitis; M79.7 Fibromyalgia; K76.0 Fatty (change of) liver, not elsewhere classified
CPT/HCPCS: 99214

== ENCOUNTER 2023-10-28 10:12 | Outpatient (REF) | payer OTHER, SELFPAY ==
--- NOTE | ~2023-10-28 | MM_ITS ---
EXAMINATION: MM SCREENING DIGITAL BREAST TOMOSYNTHESIS, BILATERAL CLINICAL INFORMATION: Screening. Asymptomatic. COMPARISON: Mammography: 10/23/2022, 10/17/2021, 08/29/2020, 07/27/2018 TECHNIQUE: Digital breast tomosynthesis is performed in both the craniocaudal and mediolateral oblique views along with computer-aided detection (CAD). Synthesized 2D images are generated from the tomosynthesis. FINDINGS: There are scattered areas of fibroglandular density (ACR BI-RADS breast composition Category b). There are a few scattered bilateral dystrophic breast calcifications, benign. No suspicious calcifications are identified. There are a few parenchymal asymmetries which have remained stable from prior exams and are benign. Otherwise, there are no suspicious masses, suspicious grouped calcifications, or areas of architectural distortion in either breast. The parenchymal pattern is stable from prior exams. No skin or axillary abnormality. MM/MM tomosynthesis screening BI IMPRESSION: No mammographic evidence of malignancy. Stable benign findings. ASSESSMENT: BI-RADS BI-RADS 2 - Benign Findings RECOMMENDATION: Routine annual mammography screening. 1 year F/U This examination should not preclude the clinical evaluation of a suspicious palpable abnormality. This patient's information was entered into a reminder system with a target due date for their next mammogram.
== END 2023-10-28 10:13 | disposition home or self-care (01) ==
LOC: HO.MAMMO 10:12
PROVIDERS: PCP Internal Medicine; Visit Provider Internal Medicine
DX: Z12.31 Encounter for screening mammogram for malignant neoplasm of breast (principal)
CPT/HCPCS: 77063; 77067

== ENCOUNTER → 2023-10-28 10:30 | Outpatient (BNV) | payer OTHER, SELFPAY | PROVIDERS: PCP Internal Medicine; Visit Provider Radiology Diagnostic Radiology | DX: Z12.31 Encounter for screening mammogram for malignant neoplasm of breast (principal) | CPT/HCPCS: 77063; 77067 ==

== ENCOUNTER 2023-11-12 14:48 | Outpatient (AMB) | payer OTHER, SELFPAY ==
--- NOTE | 2023-11-12 15:02 | MHC.OFFVIS ---
Intake Vital Signs 11/12/23 15:03 Height 5 ft 4 in Weight 158 lb 11.725 oz BMI 27.2 BP 143/67 H Blood Pressure Location Lt brachial Position Sitting Pulse 77 Intake Visit Reasons: Intussusception Intake Note: Ninfa presents in the office as a new patient for intussusception. CC: She states that she had a CT scan because of cysts on her kidneys and they found a small bowel insection? She keeps getting pains from it so she was sent here. Scooter Mechanic Required: No Allergies Seasonal Allergy (Unknown, Uncoded 11/12/23 15:04) Unknown HPI HPI Comments History of Present Illness Details 58 y.o F with PMH of hypothyroidism, hx of RYGB possibly 2012 ([facility]), who is here for abnormal imaging. Pt reports having intermittent left upper sided abdominal pain, assoc with occ nausea no vomiting, no unitentional weight loss. Last colo 2018 - HP polyp. 10 year interval. Gets interval imaging for renal cysts which she had done in Jun 2023 which incidentally showed intussusception in the LUQ incidentally. Pt did not have any severe abd pain, nausea, vomiting, blood in stool or fevers. THis was an outpatient scan. Unfortinatley images are not available to review - done at [facility] and only written report available. [facility] Medical History (Updated 11/12/23 @ 15:38 by Claudia Constantino MD) Arthritis GERD (gastroesophageal reflux disease) Depression with anxiety Hypothyroid History of fibromyalgia Surgical History (Updated 11/12/23 @ 15:04 by DONOVAN Cruz) Hx of colonoscopy History of laparoscopic cholecystectomy (12/17/21) Hx of gastric bypass Hx of tubal ligation Family History Mother Hypertension Other Mental health disorder Substance use disorder Social History Housing: Apartment Alcohol intake: never Patient Tobacco Use Status: Never used Tobacco e-Cigarette/Vaping Use: Never Used service: No Current occupational status: unemployed Sexual orientation: Straight/Heterosexual Gender identity: Female Cognitive needs: No Hearing needs: No Vision needs: Yes Female Reproductive History Menstrual Age of Menarche: 11 Review of Systems Const All systems reviewed & are unremarkable except as noted in HPI and below Physical Exam Vital Signs: Last Vital Signs Pulse 77 11/12/23 15:03 BP 143/67 H 11/12/23 15:03 BMI result Body Mass Index 27.2 Results Reviewed Results Reviewed: Assessment & Plan Assessment & Plan (1) Abnormal findings on imaging test: Code(s): R93.89 - Abnormal findings on diagnostic imaging of other specified body structures (2) Small bowel intussusception: Code(s): K56.1 - Intussusception Plan Reviewed with the pt that true intussusception tends to be quite painful and often requires hospitalisation for acute abd. Imaging not available to review and therefore difficult to discern what finding prompted the interpretation of intussusception however given her age and chronic sx of intermittent abd pain and cramping in that location x 1 year, will get a CTE to r/o small bowel polyp or mass causing intermittent telescoping. Follow up after CTE Orders: Orders CT enterography 11/12/23 K56.1 - Intussusception Coding Level of Care Code New Pt Level 4 (43240) Diagnoses Abnormal findings on imaging test R93.89 Small bowel intussusception K56.1
[2023-11-12 15:03] VITALS: BP 143/67; PULSE 77; BMI 27.2
== END 2023-11-12 15:59 | disposition home or self-care (01) ==
PROVIDERS: PCP Internal Medicine; Visit Provider Internal Medicine
DX: R93.89 Abnormal findings on diagnostic imaging of other specified body structures (principal); K56.1 Intussusception
CPT/HCPCS: 99204

== ENCOUNTER → 2023-11-12 14:48 | Outpatient (BNVA) | payer OTHER, SELFPAY | PROVIDERS: PCP Internal Medicine; Visit Provider Internal Medicine | DX: R93.89 Abnormal findings on diagnostic imaging of other specified body structures (principal); K56.1 Intussusception | CPT/HCPCS: 99202 ==

== ENCOUNTER 2023-12-14 09:36 | Outpatient (REF) | payer OTHER, SELFPAY ==
[2023-12-14 10:29] LABS: MANUAL DIFF FLAG NO
[2023-12-14 10:35] LABS: Basophils Absolute Auto 0.1 X10*3/uL (0.0-0.2); Basophils Percent Auto 0.8 % (0-2); Eosinophils Absolute Auto 0.4 X10*3/uL (0.0-0.4); Eosinophils Percent Auto 4.8 % (0-4); Hematocrit 40.6 % (37.0-47.0); Imm Gran Abs Auto 0.04 X10*3/uL (0.00-0.03); Imm Gran Pct Auto 0.5 % (0.0-0.4); Lymphocytes Absolute Auto 3.2 X10*3/uL (1.2-4.9); Lymphocytes Percent Auto 40.6 % (20-40); Mean Corpuscular HGB Conc 34.5 g/dl (31.0-35.0); Mean Corpuscular Hemoglobin 31.7 pg (27.0-33.0); Mean Corpuscular Volume 91.9 fL (80.0-98.0); Mean Platelet Volume 9.8 fL (9.4-12.3); Monocytes Absolute Auto 0.5 X10*3/uL (0.1-1.2); Monocytes Percent Auto 6.5 % (2-11); Neutrophils Absolute Auto 3.7 x10*3/uL (2.0-8.3); Neutrophils Percent Auto 46.8 % (45-73); Platelet Count 315 X10*3/uL (160-400); Red Blood Count 4.42 X10*6/uL (4.20-5.50); Red Cell Distribution Width 13.8 % (11.0-16.0); White Blood Count 7.9 X10*3/uL (4.8-10.8)
[2023-12-14 12:18] LABS: Alanine Aminotransferase 29 U/L (0-31); Albumin Level 3.9 g/dL (3.5-5.0); Alkaline Phosphatase 123 U/L (39-117); Anion Gap 13 (12-20); Aspartate Amino Transferase 25 U/L (5-31); Bilirubin Total 0.3 mg/dL (0.0-1.0); Blood Urea Nitrogen 16 mg/dL (9-16); Calcium 8.9 mg/dL (8.4-10.2); Carbon Dioxide 29 mmol/L (22-29); Chloride 105 mmol/L (96-108); Estimated Glomerular Filt Rate > 60; Glucose Random 88 mg/dL (60-115); Potassium 4.9 mmol/L (3.3-5.1); Sodium 142 mmol/L (135-145); Total Protein 6.4 g/dL (6.5-8.0)
[2023-12-15 10:08] LABS: LDL Cholesterol Direct 148 mg/dL (<100)
== END 2023-12-14 09:37 | disposition home or self-care (01) ==
LOC: HO.HMGCLDS 09:36
PROVIDERS: PCP Internal Medicine; Referring Provider Internal Medicine; Visit Provider Internal Medicine
DX: K56.1 Intussusception (principal); F41.1 Generalized anxiety disorder; M17.0 Bilateral primary osteoarthritis of knee; E78.9 Disorder of lipoprotein metabolism, unspecified; G25.81 Restless legs syndrome; K21.9 Gastro-esophageal reflux disease without esophagitis; M79.7 Fibromyalgia; K76.0 Fatty (change of) liver, not elsewhere classified; Z91.09 Other allergy status, other than to drugs and biological substances
CPT/HCPCS: 36415; 80053; 83721; 85025

== ENCOUNTER 2023-12-16 09:10 | Outpatient (AMB) | payer OTHER, SELFPAY ==
--- NOTE | 2023-12-16 09:13 | MHC.OFFVIS ---
Vital Signs 12/16/23 09:21 Height 5 ft 4 in Weight 163 lb 12.855 oz BMI 28.1 BP 134/68 Blood Pressure Location Rt brachial Position Sitting Pulse 93 Pulse Source Pulse Oximeter Pulse Oximetry (%) 97 Oxygen Delivery Method Room Air Intake Visit Reasons: oa/fm with household cook Intake Note: Patient last seen 06/16/[address] Muller, presents today for follow up and test results. c/o neck and left shoulder pain, tingling, and numbness Receptionist Doctor'S Office Required: No Accompanied by: Self / Same As Patient Allergies Seasonal Allergy (Unknown, Uncoded 12/16/23 09:14) Unknown HPI Comments Details: Ms. Ocasio 58 yoF returns for follow-up of her fibromyalgia and osteoarthritis. She remains on duloxetine, mirtazapine, ropinirole and gabapentin. She things the medications are helping. She is taking still quite a bit of ibuprofen, sometimes as much as 800 mg 4 times a day on some days she says she takes 6 of the 650 mg Tylenol Arthritis tablets. This is mostly for shoulder, back, and knee pain. [facility] Medical History (Updated 12/26/23 @ 22:44 by SUNDEEP Narvaez-MONICA) Flexor tendinitis of hand Bilateral hand pain Decreased range of motion (ROM) of shoulder Recurrent knee instability Generalized weakness Arthritis GERD (gastroesophageal reflux disease) Depression with anxiety Hypothyroid History of fibromyalgia Surgical History Hx of colonoscopy History of laparoscopic cholecystectomy (12/17/21) Hx of gastric bypass Hx of tubal ligation Family History Mother Hypertension Other Mental health disorder Substance use disorder Social History Housing: Apartment Alcohol intake: never Patient Tobacco Use Status: Never used Tobacco e-Cigarette/Vaping Use: Never Used service: No Current occupational status: unemployed Sexual orientation: Straight/Heterosexual Gender identity: Female Cognitive needs: No Hearing needs: No Vision needs: Yes Female Reproductive History Menstrual Age of Menarche: 11 Review of Systems Const All systems reviewed & are unremarkable except as noted in HPI and below Physical Exam Vital Signs: Last Vital Signs Pulse 93 12/16/23 09:21 BP 134/68 12/16/23 09:21 Pulse Ox 97 12/16/23 09:21 Oxygen Delivery Method Room Air 12/16/23 09:21 BMI result Body Mass Index 28.1 APPEARANCE: Patient in no acute distress EYES no redness, pupils equal and reactive to light, eyelids normal EXTREMITIES:? No edema, no calf tenderness, normal peripheral pulses. JOINT EXAM: Cervical Spine:.? Full range of motion with mild discomfort.? There is some posterior cervical muscle tenderness. Thoracic Spine:.? No scoliosis.? No tenderness on palpation. Lumbar Spine:.? Alignment normal.? Full range of motion with mild pain at 75 degrees flexion.? No tenderness. Chest Wall:.? No tenderness, swelling, increased warmth or erythema. Hands:.? Right:? There is slight tenderness with minimal swelling at the base of the thumb.? There is mild bony enlargement with tenderness at the thumb IP joint and the 3rd PIP joint and 2nd and 3rd MCP. There is tenderness but slight bony enlargement at the PIP joints 2, 3, and 5. Cannot make a fist without discomfort.? There is no swelling or tenderness, thenar atrophy, or sensory loss.? Left: Mild tenderness without swelling at the base of the thumb.?2nd MCP enlarged. Elsewhere no tenderness or swelling.? Pain-free range of motion with no flexor tendon triggering, thenar atrophy or sensory loss. Wrists:.? Mild pain with 75 degrees flexion or the extension with some slight dorsal tenderness but no swelling, increased warmth or erythema. Elbows: Normal pain-free range of motion without tenderness, swelling, increased warmth or erythema. Shoulders:?decreased range of motion - cannot excced 100 degrees and all plains. Has pain in shoulder joint and over the trapezius at the extremes of normal range of motion.? There is some mild tenderness anteriorly and over the trapezius muscle.? No abductor weakness, swelling or adenopathy. Hips:.? Full range of motion with slight pain laterally and in the buttocks with the extremes of normal range of motion.? No groin pain with range of motion.? No adenopathy. Hip bursa:.? Moderate right and mild left trochanteric tenderness. Knees:.?? Normal pain-free range of motion with mild to moderate patellofemoral crepitus.? There is moderate medial tenderness without effusion, increased warmth or erythema.? Ankles:.? Normal pain-free range of motion without tenderness, swelling, increased warmth or erythema. Feet:.? Normal pain-free range of motion with some slight tenderness on the proximal part of the 5th metatarsal bilaterally.? That metatarsal may be a bit more prominent.? Elsewhere there is no tenderness, swelling, increased warmth or erythema. Tender points.? Mild tenderness to digital palpation at the occiput, trapezius, second rib, lateral epicondyle, knees, greater trochanter and gluteal area bilaterally. ? Office Procedures Tendon Injection Tendon Injection [id number] Tendon Sheath Injection All charges added?: Procedure code (CPT) selection complete Assessment & Plan Assessment & Plan (1) Osteoarthritis of knees, bilateral: Code(s): M17.0 - Bilateral primary osteoarthritis of knee Category: Medical Qualifiers: Osteoarthritis type: primary Qualified Code(s): M17.0 - Bilateral primary osteoarthritis of knee (2) NSAID long-term use: Code(s): Z79.1 - group home (current) use of non-steroidal anti-inflammatories (NSAID) Category: Medical (3) Osteoarthritis of thumbs, bilateral: Code(s): M18.0 - Bilateral primary osteoarthritis of first carpometacarpal joints Category: Medical (4) Fibromyalgia: Code(s): M79.7 - Fibromyalgia Category: Medical (5) Generalized weakness: Code(s): R53.1 - Weakness Category: Medical (6) Bilateral hand pain: Code(s): M79.641 - Pain in right hand; M79.642 - Pain in left hand Category: Medical (7) Flexor tendinitis of hand: Code(s): M77.8 - Other enthesopathies, not elsewhere classified Category: Medical Plan #Fibromyalgia: The patient seems to be managing her fibromyalgia with her current level of medications. She does continue with overall widespread but she she seems to be functioning. She is exercising regularly but says she gets muscle pains in her legs when she does so. #OA multiple joint: The patient has osteoarthritis in her hands and radiographic evidence of OA in the knees and she uses ibuprofen to manage. She can continue with the antidepressants and the gabapentin as above. A follow-up in 6 months would be reasonabl2 #Dupuytren's/Flexor Tendonitis of the hand: Thickened tendon to her palm. She has some tenderness to her 3rd and 4th flexor tendon. This is painful for her so I injected the right 3rd flexor tendon with Kenalog 20 mg. The patient consented, aseptic technique.She tolerated the procedure. I spent 30 minutes reviewing history, evaluating patient and documenting F/U 3 months Orders: Orders Comprehensive Met. Panel 12/17/23 M79.641 - Pain in right hand, M79.642 - Pain in left hand C Reactive Protein 12/17/23 M79.641 - Pain in right hand, M79.642 - Pain in left hand Immunoglobulins,IgG IgA IgM 12/17/23 M79.641 - Pain in right hand, M79.642 - Pain in left hand Immunofixation Pnl, Serum 12/17/23 M79.641 - Pain in right hand, M79.642 - Pain in left hand Protein Electrophoresis, Serum 12/17/23 M79.641 - Pain in right hand, M79.642 - Pain in left hand PT Evaluation and Treatment 12/16/23 R53.1 - Weakness, M23.50 - Chronic instability of knee, unspecified knee, M25.619 - Stiffness of unspecified shoulder, not elsewhere classified Erythrocyte Sedimentation Rate 12/17/23 M79.641 - Pain in right hand, M79.642 - Pain in left hand AMB Injection-Tendon 12/16/23 M79.641 - Pain in right hand, M79.642 - Pain in left hand
[2023-12-16 09:21] VITALS: BP 134/68; PULSE 93; O2SAT 97; BMI 28.1
== END 2023-12-16 09:54 | disposition home or self-care (01) ==
PROVIDERS: PCP Internal Medicine; Visit Provider Nurse Practitioner Family
DX: M17.0 Bilateral primary osteoarthritis of knee (principal); M79.7 Fibromyalgia; Z79.1 Long term (current) use of non-steroidal anti-inflammatories (NSAID); M18.0 Bilateral primary osteoarthritis of first carpometacarpal joints; R53.1 Weakness; M79.641 Pain in right hand; M79.642 Pain in left hand; M77.8 Other enthesopathies, not elsewhere classified
CPT/HCPCS: 20550; 99214

== ENCOUNTER → 2023-12-16 09:10 | Outpatient (BNVA) | payer OTHER, SELFPAY | PROVIDERS: PCP Internal Medicine; Visit Provider Nurse Practitioner Family ==

== ENCOUNTER 2023-12-17 10:24 | Outpatient (REF) | payer OTHER, SELFPAY ==
[2023-12-17 14:14] LABS: Alanine Aminotransferase 26 U/L (0-31); Albumin Level 3.9 g/dL (3.5-5.0); Alkaline Phosphatase 133 U/L (39-117); Anion Gap 11 (12-20); Aspartate Amino Transferase 23 U/L (5-31); Bilirubin Total 0.2 mg/dL (0.0-1.0); Blood Urea Nitrogen 15 mg/dL (9-16); C Reactive Protein 0.15 mg/dL (< or = 0.50); Calcium 8.7 mg/dL (8.4-10.2); Carbon Dioxide 29 mmol/L (22-29); Chloride 107 mmol/L (96-108); Estimated Glomerular Filt Rate > 60; Glucose Random 81 mg/dL (60-115); Potassium 4.3 mmol/L (3.3-5.1); Sodium 143 mmol/L (135-145); Total Protein 6.7 g/dL (6.5-8.0)
[2023-12-17 14:26] LABS: Erythrocyte Sedimentation Rate 9 MM/HR (0-20)
[2023-12-20 21:47] LABS: Prot Elec - Alpha1 0.3 g/dL (0.2-0.3); Prot Elec - Alpha2 0.7 g/dL (0.5-0.9); Prot Elec - Beta 1 0.4 g/dL (0.4-0.6); Prot Elec - Beta 2 0.3 g/dL (0.2-0.5); Prot Elec - Gamma 0.7 g/dL (0.8-1.7); Prot Elec - Total Protein 6.3 g/dL (6.1-8.1)
[2023-12-22 15:43] LABS: IgA 102 mg/dL (47-310); IgG 520 mg/dL (600-1640); IgM 489 mg/dL (50-300)
== END 2023-12-17 10:25 | disposition home or self-care (01) ==
LOC: HO.HMGCLDS 10:24
PROVIDERS: PCP Internal Medicine; Visit Provider Nurse Practitioner Family
DX: M79.641 Pain in right hand (principal); M79.642 Pain in left hand
CPT/HCPCS: 36415; 80053; 82784; 84165; 85652; 86140; 86334

== ENCOUNTER 2023-12-21 09:19 | Outpatient (REF) | payer OTHER, SELFPAY ==
[2023-12-21 10:53] LABS: Blood Urea Nitrogen 14 mg/dL (9-16); Estimated Glomerular Filt Rate > 60
[2023-12-21 11:22] LABS: TSH reflex Free T4 5.47 uIU/mL (0.32-4.0)
[2023-12-21 12:08] LABS: Free T4 (Free Thyroxine) 0.67 ng/dL (0.71-1.85)
== END 2023-12-21 09:20 | disposition home or self-care (01) ==
LOC: HO.HMGCLDS 09:19
PROVIDERS: PCP Internal Medicine; Visit Provider Internal Medicine
DX: E03.9 Hypothyroidism, unspecified (principal); R93.89 Abnormal findings on diagnostic imaging of other specified body structures
CPT/HCPCS: 36415; 82565; 84439; 84443; 84520

== ENCOUNTER 2023-12-30 08:22 | Outpatient (REF) | payer OTHER, SELFPAY ==
--- NOTE | ~2023-12-30 | CT_ITS ---
EXAMINATION: CT ENTEROGRAPHY ABDOMEN AND PELVIS WITH CONTRAST CLINICAL INFORMATION: Crohn's disease. COMPARISON: Abdominal ultrasound 12/29/2022 TECHNIQUE: Study performed with oral VoLumen (1350 mL) and 480 mL of water to distend the abdomen. The patient was injected with 85 mL Omnipaque 350 intravenous contrast which was administered without adverse effect. Coronal and sagittal reformatted images were obtained at the technologist's workstation. This CT examination was performed using dose optimization techniques as appropriate, variously including the following: *Automated exposure control *Adjustment of mA and/or kV according to patient size (this includes techniques or standardized protocols for targeted exams where dose is matched to indication/reason for exam; i.e. extremities or head) *Use of iterative reconstruction technique DLP: 547 mGy-cm FINDINGS: GASTROINTESTINAL FINDINGS: Stomach: Suboptimally distended. Status post gastric bypass. Moderate hiatal hernia with wall thickening. Small intestine: Satisfactorily distended. No focal bowel wall thickening or abnormal enhancement. No small bowel obstruction. Large intestine: Marked fecal impaction from the splenic flexure through the rectosigmoid colon. No perirectal changes demonstrated. The appendix is within normal limits. Additional findings: No abnormal enhancement of the vasa recta or significant mesenteric or retroperitoneal lymphadenopathy is seen. No abdominal abscess or fistulous tract demonstrated. ABDOMINAL AND PELVIC CT FINDINGS: Liver, gallbladder, biliary tract: The liver is normal in size and contour. No focal hepatic lesion. No biliary ductal dilatation. The gallbladder is surgically absent. Pancreas: Unremarkable. Spleen: Unremarkable. Adrenal glands and kidneys: No adrenal mass. The kidneys enhance symmetrically. There are left renal cysts requiring no further imaging follow-up. No hydronephrosis. Ureters and bladder: Unremarkable. Lymphovascular structures: No bulky lymphadenopathy. Normal caliber abdominal aorta. Pelvic viscera: Unremarkable. Bilateral fallopian tube occlusion clips. Bones: No destructive bone lesions. Lung bases: No significant pleural or pericardial effusion. CT/CT enterography IMPRESSION: Moderate hiatal hernia with wall thickening. Constipation.
[2023-12-30] MEDS: iohexoL 350 MG/ML 100 ML INFUS..BTL IV (09:59)
[2023-12-30] MEDS: Sorbitol/Mannit/Xanth Imaging 500 ML LIQUID 1500 ML PO (10:00)
== END 2023-12-30 08:23 | disposition home or self-care (01) ==
LOC: HO.CT 08:22
PROVIDERS: PCP Internal Medicine; Visit Provider Internal Medicine
DX: K56.1 Intussusception (principal)
CPT/HCPCS: 74177; Q9967

== ENCOUNTER 2023-12-31 09:53 | Outpatient (AMB) | payer OTHER, SELFPAY ==
[2023-12-31 10:00] VITALS: BP 130/72; PULSE 78; O2SAT 98; BMI 28.7
--- NOTE | 2023-12-31 10:00 | MHC.PC.OV ---
Vital Signs 12/31/23 10:00 Height 5 ft 4 in Weight 167 lb BMI 28.7 BP 130/72 Blood Pressure Location Lt brachial Position Sitting Pulse 78 Pulse Source Pulse Oximeter Pulse Oximetry (%) 98 Oxygen Delivery Method Room Air Intake Visit Reasons: PE Allergies Seasonal Allergy (Unknown, Uncoded 12/16/23 09:14) Unknown Medication List - Last Reconciled 12/31/23 by Eddie Parks MD cetirizine 10 mg PO DAILY duloxetine 60 mg PO DAILY 90 days gabapentin Take one capsule by mouth every morning, one capsule in afternoon and 2 capsules every evening ibuprofen 400 - 800 mg (2 - 4 x 200 mg) PO Q8H levothyroxine 100 mcg PO DAILY 90 days mirtazapine 15 mg PO BEDTIME montelukast 10 mg PO DAILY 30 days omeprazole 20 mg PO DAILY pramipexole 0.5 mg PO QPM Tobacco use date assessed: 12/31/23 Dental Screening Dental Screen Date: 12/31/23 Did you have a dental visit in the last 12 months?: Yes Did you have a dental problem in the last 6 months where you did not have access to dental care?: No Was dental information given to patient?: Patient has dentist HPI PE HPI Details Patient is a 58-year-old female came in today for physical exam Pap smear and breast exam through OBGYN Mammogram is up-to-date Colonoscopies up-to-date Patient suffers from fibromyalgia and is on gabapentin through Rheumatology She is also taking pramipexole for restless leg syndrome For the past 2 months she is suffering from left shoulder pain which has limited range of motion, I have placed a referral to orthopedic Meanwhile patient will have x-ray of her shoulder done and will start physical therapy Allergies are stable she is on cetirizine and montelukast Also take duloxetine for fibromyalgia and depression Hypothyroidism continue levothyroxine 100 mcg we recently adjusted the dose when her TSH level came back high She will repeat TSH again in 6 weeks Patient take mirtazapine to sleep at night GERD is stable with omeprazole 20 mg, refill sent Patient will return in 3 months for follow-up appointment [facility] Medical History Flexor tendinitis of hand Bilateral hand pain Decreased range of motion (ROM) of shoulder Recurrent knee instability Generalized weakness Arthritis GERD (gastroesophageal reflux disease) Depression with anxiety Hypothyroid History of fibromyalgia Surgical History Hx of colonoscopy History of laparoscopic cholecystectomy (12/17/21) Hx of gastric bypass Hx of tubal ligation Family History Mother Hypertension Other Mental health disorder Substance use disorder Social History Housing: Apartment Alcohol intake: never Patient Tobacco Use Status: Never used Tobacco e-Cigarette/Vaping Use: Never Used service: No Current occupational status: unemployed Sexual orientation: Straight/Heterosexual Gender identity: Female Cognitive needs: No Hearing needs: No Vision needs: Yes Female Reproductive History Menstrual Age of Menarche: 11 Questionnaire PHQ-9 Over the last 2 weeks, how often have you been bothered by any of the following problems? 1. Little interest or pleasure in doing things: more than half the days 2. Feeling down, depressed, or hopeless: nearly every day 3. Trouble falling or staying asleep, or sleeping too much: more than half the days 4. Feeling tired or having little energy: nearly every day 5. Poor appetite or overeating: nearly every day 6. Feeling bad about yourself - or that you are a failure or have let yourself or your family down: several days 7. Trouble concentrating on things, such as reading the newspaper or watching television: nearly every day 8. Moving or speaking so slowly that other people could have noticed. Or the opposite - being so fidgety or restless that you have been moving around a lot more than usual: several days 9. Thoughts that you would be better off or of hurting yourself in some way: not at all Total score: 18 Depression Screening Interpretation: Positive Depression Screening Follow-up: Existing condition and In treatment Depression Screening Done: Yes 45917 - PHQ-9 Billing: Yes Source: Developed by Drs. Rios Lim, Katalina Martin, Jasper Main and colleagues, with an educational stacie from [employer]. Thrive Questionnaire Date Thrive assessed: 12/31/23 I am a: Patient What is your living situation today?: I have a steady place to live Within the past 12 months, did the food you bought not last and you didn't have the money to get more?: Never true Within the past 12 months, did you worry whether your food would run out before you got money to buy more?: Never true Do you have trouble paying for medicines?: No Do you have trouble getting transportation to medical appointments?: No Do you have trouble paying your heating and electricity bill?: No Do you have trouble taking care of your child, family member or friend?: No Do you have trouble with day-to-day activities such as bathing, preparing meals, shopping, managing finances, etc.?: No Are you currently unemployed and looking for a job?: No Are you interested in more education?: No Please select the resources that you would like help with: None Currently or been in a relationship where the following occur: no concerns reported THRIVE Score: 0 AUDIT C Alcohol Use Questionnaire (AUDIT-C) 1. How often do you have a drink containing alcohol?: Never 3. How often do you have six or more drinks on one occasion?: Never Total Score: 0 Score Reviewed/Action Taken: Yes JOHNNY-7 AMB Questionnaire JOHNNY-7 Date JOHNNY - 7 assessed: 12/31/23 Feeling nervous, anxious, or on edge: 3 = Nearly every day Not being able to stop or control worryin = More than half the days Worrying too much about different things: 2 = More than half the days Trouble relaxin = More than half the days Being so restless that it is hard to sit still: 2 = More than half the days Becoming easily annoyed or irritable: 2 = More than half the days Feeling afraid as if something awful might happen: 0 = Not at all Total JOHNNY-7 score (0-4 normal; 5-9 mild; 10-14 moderate; 15-21 severe): 13 Source: Developed by Drs. Rios Lim, Katalina Martin, Jasper Main and colleagues, with an educational stacie from [employer]. JOHNNY-7 Assessment Billing JOHNNY-7 Assessment Tool: JOHNNY-7 Assessment 52945 Review of Systems Const Denies chills, Denies fever(s) and Denies headache(s) Eyes Denies blurry vision ENT Denies headache(s), Denies nasal discharge, Denies nasal obstruction, Denies odynophagia and Denies sinus pain Card Denies chest pain at rest and Denies chest pain with activity Resp Denies cough and Denies hemoptysis GI Denies diarrhea, Denies odynophagia, Denies vomiting and Denies hematemesis Reports as per HPI Musc Denies abnormal gait Skin/Breast Reports as per HPI Neuro Denies Neuro-related abnormal movements, Denies Abnormal speech present, Denies abnormal gait and Denies headache(s) Psych Denies mood swings and Denies paranoia Endo Reports as per HPI Mikael/Lymph Reports as per HPI Aller/Immun Reports as per HPI Physical exam (Primary Care) Vital Signs: Last Vital Signs Pulse 78 12/31/23 10:00 BP 130/72 12/31/23 10:00 Pulse Ox 98 12/31/23 10:00 Oxygen Delivery Method Room Air 12/31/23 10:00 BMI result Body Mass Index 28.7 Tobacco/Smoking Status: Tobacco use Status Tobacco use date assessed 12/31/23 12/31/23 10:03 Patient Tobacco Use Status Never used Tobacco 12/31/23 10:03 e-Cigarette/Vaping Use Never Used 12/31/23 10:03 PHQ-9: PHQ-9 Score PHQ-9: Total score 18 12/31/23 10:31 Depression Screening Interpretation: Positive Depression Screening Follow-up: Existing condition and In treatment Thrive Assessment: Date of Thrive Assessment Date Thrive assessed 12/31/23 12/31/23 10:11 Currently or been in a relationship where the following occur: no concerns reported Const General: cooperative, comfortable and no acute distress Orientation/consciousness: patient oriented x3 HENMT Head: Yes normocephalic and Yes atraumatic Eyes General: appearance normal, both eyes and all related structures Pupils: Equal, round and reactive pupils present EOM: EOMs intact bilaterally Neck Neck: Yes supple and No lymphadenopathy Thyroid: Thyroid normal Lymphatic: no lymphadenopathy noted Resp Effort & Inspection: normal respiratory effort and able to speak in complete sentences Auscultation: clear to auscultation bilaterally Cardio Heart sounds: S1 normal heart sound present and S2 normal heart sound present GI Palpation (GI): Soft to palpation and nontender Auscultation: normal bowel sounds General: Yes no CVA tenderness Back/Spine/Pelvis Back: no CVA tenderness Skin General skin exam: elasticity normal and turgor normal Neuro General: patient oriented x3 and gait normal Cranial nerves: Yes Equal, round and reactive pupils present Speech: No Abnormal speech present Coordination: tandem gait normal and Romberg test negative Extrem General: Yes normal exam except as noted and No edema Assessment and Plan Assessment & Plan (1) Encounter for general adult medical examination with abnormal findings: Code(s): Z00.01 - Encounter for general adult medical examination with abnormal findings (2) Hypothyroid: Code(s): E03.9 - Hypothyroidism, unspecified Qualifiers: Hypothyroidism type: other Qualified Code(s): E03.8 - Other specified hypothyroidism (3) Shoulder pain, left: Code(s): M25.512 - Pain in left shoulder Qualifiers: Chronicity: acute Qualified Code(s): M25.512 - Pain in left shoulder (4) Small bowel intussusception: Code(s): K56.1 - Intussusception (5) NSAID long-term use: Code(s): Z79.1 - nursing home (current) use of non-steroidal anti-inflammatories (NSAID) (6) Environmental allergies: Code(s): Z91.09 - Other allergy status, other than to drugs and biological substances (7) Anxiety, generalized: Code(s): F41.1 - Generalized anxiety disorder (8) Lipid disorder: Code(s): E78.9 - Disorder of lipoprotein metabolism, unspecified (9) Restless leg syndrome: Code(s): G25.81 - Restless legs syndrome (10) Chronic GERD: Code(s): K21.9 - Gastro-esophageal reflux disease without esophagitis (11) Fibromyalgia: Code(s): M79.7 - Fibromyalgia Plan Patient is a 58-year-old female came in today for physical exam Pap smear and breast exam through OBGYN Mammogram is up-to-date Colonoscopies up-to-date Patient suffers from fibromyalgia and is on gabapentin through Rheumatology She is also taking pramipexole for restless leg syndrome For the past 2 months she is suffering from left shoulder pain which has limited range of motion, I have placed a referral to orthopedic Meanwhile patient will have x-ray of her shoulder done and will start physical therapy Allergies are stable she is on cetirizine and montelukast Also take duloxetine for fibromyalgia and depression Hypothyroidism continue levothyroxine 100 mcg we recently adjusted the dose when her TSH level came back high She will repeat TSH again in 6 weeks Patient take mirtazapine to sleep at night GERD is stable with omeprazole 20 mg, refill sent Patient will return in 3 months for follow-up appointment Orders: Orders TSH reflex Free T4 6 Weeks E03.9 - Hypothyroidism, unspecified PT Evaluation and Treatment Today M25.512 - Pain in left shoulder XR shoulder LT min 2V Today M25.512 - Pain in left shoulder Referrals Orthopedics Referral M25.512 - Pain in left shoulder Medications: Refilled omeprazole 20 mg PO DAILY 90 caps 2RF Coding Level of Care Code Est Pt Prev Care 40-64y(22428) Diagnoses Encounter for general adult medical examination with abnormal findings Z00.01 Other specified hypothyroidism E03.8 Hypothyroidism type: other Acute pain of left shoulder M25.512 Chronicity: acute Small bowel intussusception K56.1 NSAID long-term use Z79.1 Environmental allergies Z91.09 Anxiety, generalized F41.1 Lipid disorder E78.9 Restless leg syndrome G25.81 Chronic GERD K21.9 Fibromyalgia M79.7 Additional Codes JOHNNY-7 Assessment Billing - JOHNNY-7 Assessment Tool: JOHNNY-7 Assessment 53074 ([id number])
== END 2023-12-31 10:29 | disposition home or self-care (01) ==
PROVIDERS: Visit Provider Internal Medicine
DX: Z00.00 Encounter for general adult medical examination without abnormal findings (principal); E03.8 Other specified hypothyroidism; M25.512 Pain in left shoulder; K56.1 Intussusception; Z79.1 Long term (current) use of non-steroidal anti-inflammatories (NSAID); Z91.09 Other allergy status, other than to drugs and biological substances; F41.1 Generalized anxiety disorder; E78.9 Disorder of lipoprotein metabolism, unspecified; G25.81 Restless legs syndrome; K21.9 Gastro-esophageal reflux disease without esophagitis; M79.7 Fibromyalgia
CPT/HCPCS: 99396

== ENCOUNTER 2023-12-31 10:30 | Outpatient (REF) | payer OTHER, SELFPAY ==
--- NOTE | ~2023-12-31 | XR_ITS ---
EXAMINATION: XR SHOULDER, LEFT CLINICAL INFORMATION: Pain in left shoulder COMPARISON: None available. TECHNIQUE: AP external rotation, Grashey, scapular Y, and axillary views of the left shoulder. FINDINGS: Mild arthrosis of the acromioclavicular joint. Glenohumeral joint normal. Surrounding bone and soft tissues unremarkable. XR/XR shoulder LT min 2V IMPRESSION: Mild arthrosis of the acromioclavicular joint.
== END 2023-12-31 10:31 | disposition home or self-care (01) ==
LOC: HO.HMGCX 10:30
PROVIDERS: PCP Internal Medicine; Visit Provider Internal Medicine
DX: M25.512 Pain in left shoulder (principal)
CPT/HCPCS: 73030

== ENCOUNTER 2024-01-21 09:51 | Outpatient (AMB) | payer OTHER, SELFPAY ==
--- NOTE | 2024-01-21 09:55 | MHC.OFFVIS ---
Vital Signs 01/21/24 10:00 Height 5 ft 4 in Weight 167 lb BMI 28.7 Intake Visit Reasons: New Pt - left shoulder pain Intake Note: Ninfa is a 58 year old right hand dominant female who presents today as anew patient for a evaluation of her left shoulder pain. Patient reports ongoing pain for 4 months. No hx of injury. She expresses hearing a popping when she lifted her arm. Pain is on the anterior aspect of the shoulder. She finds that her pain is worse at night and when she is pushing, pulling and lifting. Currently she is feeling some dull pain. Allergies Seasonal Allergy (Unknown, Uncoded 12/16/23 09:14) Unknown HPI HPI New Pt - left shoulder pain: Details: 58-year-old right hand dominant female who presents in the office today, as a new patient, for an evaluation of left shoulder pain. Patient was seen by her PCP on 12/31/2023 when she reported the pain has been present for 2 months, since 10/2023. While in the office today the patient reports ongoing pain for 4 months. She denies any known injury. Reports hearing a popping when lifting her right upper extremity. Pain along the anterior aspect of the right shoulder. Reports increase in pain at night and when pushing, pulling, or lifting. She describes her pain as dull in the office. Patient has a significant medical history of fibromyalgia. [facility] Medical History Flexor tendinitis of hand Bilateral hand pain Decreased range of motion (ROM) of shoulder Recurrent knee instability Generalized weakness Arthritis GERD (gastroesophageal reflux disease) Depression with anxiety Hypothyroid History of fibromyalgia Surgical History Hx of colonoscopy History of laparoscopic cholecystectomy (12/17/21) Hx of gastric bypass Hx of tubal ligation Family History Mother Hypertension Other Mental health disorder Substance use disorder Social History Housing: Apartment Alcohol intake: never Patient Tobacco Use Status: Never used Tobacco e-Cigarette/Vaping Use: Never Used service: No Current occupational status: unemployed Sexual orientation: Straight/Heterosexual Gender identity: Female Cognitive needs: No Hearing needs: No Vision needs: Yes Female Reproductive History Menstrual Age of Menarche: 11 Review of Systems Const All systems reviewed & are unremarkable except as noted in HPI and below Physical Exam Vital Signs: BMI result Body Mass Index 28.7 Const General: cooperative and no acute distress Orientation/consciousness: patient oriented x3 Resp Effort & Inspection: normal respiratory effort and able to speak in complete sentences Cardio Peripheral pulses: Peripheral pulses 2+ throughout Skin General skin exam: no rashes or lesions noted Neuro General: patient oriented x3 Extrem Other: Left shoulder: Normal to inspection. No ecchymosis, erythema, or edema. Forward flexion to 90 degrees. Abduction to 90 degrees. Stiffness noted with external rotation. Able to reach back pocket. Negative belly lift off. Negative cross-body reach. 3/5 strength with empty can. Negative drop arm. NVI. Office Procedures Joint Injection/Drain Joint Injection/Drain Primary Site: left shoulder Prep: site was prepped using aseptic technique, ethochloride spray was applied and injection warnings given Injected: 80 mg of, DepoMedrol, with 8 mL of (2% plain lido ) and in the subcromial space Approach Used: posterolateral Procedure: The patient tolerated the procedure well, but had some pain with the injection and there was some relief with the local anesthesia Coding 68900 - Large joint Procedure code (CPT) selection complete Assessment & Plan Assessment & Plan (1) Painful arc syndrome of left shoulder: Code(s): M75.102 - Unspecified rotator cuff tear or rupture of left shoulder, not specified as traumatic Category: Medical (2) Adhesive capsulitis of left shoulder: Code(s): M75.02 - Adhesive capsulitis of left shoulder Category: Medical Plan Ms. Miner is a 58-year-old right hand dominant female who presents in the office today, as a new patient, for an evaluation of left shoulder pain. Patient was seen by her PCP on 12/31/2023 when she reported the pain has been present for 2 months, since 10/2023. While in the office today the patient reports ongoing pain for 4 months. She denies any known injury. Reports hearing a popping when lifting her right upper extremity. Pain along the anterior aspect of the right shoulder. Reports increase in pain at night and when pushing, pulling, or lifting. She describes her pain as dull in the office. Patient has a significant medical history of fibromyalgia. The patient was offered a cortisone injection in the left shoulder with 80 mg of DepoMedrol. The patient was explained the risk, benefits, and alternatives to receiving this injection. After receiving consent for the injection, the patient had the procedure done while in the office today. The patient tolerated the procedure well with no complications. A referral to physical therapy was placed in the office today. Follow up will be in 6 weeks, or sooner if needed. X-rays of the left shoulder, obtained on 01/08/2024, and were reviewed by me revealed: No acute fracture or dislocation. Patient Instructions: Scribed by María Fuentes director of medical review, for Christiana Griffith PA-C on 01/21/2024 at 10:20 am, EST. Coding Level of Care Code New Pt Level 4 (52397) Diagnoses Painful arc syndrome of left shoulder M75.102 Adhesive capsulitis of left shoulder M75.02 CPT Codes Coding - 78310 Large joint: 58020 - Large joint ([id number])
[2024-01-21 10:00] VITALS: BMI 28.7
== END 2024-01-21 10:25 | disposition home or self-care (01) ==
PROVIDERS: PCP Internal Medicine; Visit Provider Physician Assistant
DX: M75.102 Unspecified rotator cuff tear or rupture of left shoulder, not specified as traumatic (principal); M75.02 Adhesive capsulitis of left shoulder
CPT/HCPCS: 20610; 99204

== ENCOUNTER → 2024-01-21 09:51 | Outpatient (BNVA) | payer OTHER, SELFPAY | PROVIDERS: PCP Internal Medicine; Visit Provider Physician Assistant | DX: M75.102 Unspecified rotator cuff tear or rupture of left shoulder, not specified as traumatic (principal); M75.02 Adhesive capsulitis of left shoulder; M79.7 Fibromyalgia | CPT/HCPCS: 20610; 99202; J1010 ==

== ENCOUNTER 2024-02-15 14:24 | Outpatient (REF) | payer OTHER, SELFPAY ==
[2024-02-15 17:04] LABS: TSH reflex Free T4 1.08 uIU/mL (0.32-4.0)
== END 2024-02-15 14:25 | disposition home or self-care (01) ==
LOC: HO.HMGCLDS 14:24
PROVIDERS: PCP Internal Medicine; Visit Provider Internal Medicine
DX: E03.9 Hypothyroidism, unspecified (principal)
CPT/HCPCS: 36415; 84443

== ENCOUNTER 2024-03-28 10:19 | Outpatient (AMB) | payer OTHER, SELFPAY ==
--- NOTE | 2024-03-28 10:32 | MHC.OFFVIS ---
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 She is doing well with no concerns. Attempting to eat a healthy diet with calcium and vitamin D and stays active with exercise. Currently not sexually active, has medical concerns. Denies any vaginal dryness or irritation. Last pap smear; 2019. Last mammogram; 2023. Colonoscopy is UTD. Denies any family history of breast, ovarian or colon cancer. REPLACED BY [facility] Medical History Flexor tendinitis of hand Bilateral hand pain Decreased range of motion (ROM) of shoulder Recurrent knee instability Generalized weakness Arthritis GERD (gastroesophageal reflux disease) Depression with anxiety Hypothyroid History of fibromyalgia Surgical History Hx of colonoscopy History of laparoscopic cholecystectomy (12/17/21) Hx of gastric bypass Hx of tubal ligation Family History Mother Hypertension Other Mental health disorder Substance use disorder Social History Housing: Apartment Alcohol intake: never Patient Tobacco Use Status: Never used Tobacco e-Cigarette/Vaping Use: Never Used service: No Current occupational status: unemployed Sexual orientation: Straight/Heterosexual Gender identity: Female Cognitive needs: No Hearing needs: No Vision needs: Yes Female Reproductive History Menstrual Age of Menarche: 11 control method: permanent sterilization Permanent Sterilization: BTL Total pregnancies: 3 Full term: 3 Number of Living Children: 3 Date of last pap smear: 01/26/23 (neg pap and hpv) History of abnormal pap smear: Yes (01/25 +hpv) Date of Mammogram: 10/30/23 (Birad 2) Review of Systems Const All systems reviewed & are unremarkable except as noted in HPI and below Reports as per HPI Eyes Reports no additional complaints ENT Reports no additional complaints Card Reports no additional complaints Resp Reports no additional complaints GI Reports as per HPI and Reports no additional complaints Reports as per HPI Musc Reports no additional complaints Skin/Breast Reports as per HPI Neuro Reports no additional complaints Psych Reports no additional complaints Endo Reports no additional complaints Mikael/Lymph Reports no additional complaints Aller/Immun Reports no additional complaints Physical Exam Vital Signs: Last Vital Signs BP 112/62 03/28/24 10:36 BMI result Body Mass Index 30.0 Const General: cooperative, healthy appearing, no acute distress, well developed and alert Orientation/consciousness: patient oriented x3 HEENT Head: Yes normal to inspection Eyes General: appearance normal, both eyes and all related structures Neck Neck: Yes normal visual inspection Thyroid: Thyroid normal Chest Chest palpation & inspection: normal inspection of the chest and other (no puckering, dimpling, peau de orange, retraction, discharge, masses) Breast/axilla inspection: normal inspection of the breasts Breast/axilla palpation: normal palpation of the breasts Resp Effort & Inspection: normal respiratory effort GI Inspection: Yes normal to inspection Palpation (GI): Soft to palpation Rectal Exam - Female: deferred General: Yes bladder normal to palpation External Female Exam: normal external appearance and normal appearance of the urethra Speculum Exam - Vagina: normal appearance of the vagina, normal palpation and normal vaginal discharge Speculum Exam - Cervix: normal appearance of the cervix and normal palpation Bimanual exam- vagina & uterus: normal bimanual exam, normal palpation, uterine size normal, bladder normal to palpation, normal palpation and non-tender Bimanual Exam- Adnexa, other: no masses Skin General skin exam: no rashes or lesions noted Rashes: no rashes Neuro General: patient oriented x3 Cognition (Neuro): normal cognition Extrem General: Yes normal to inspection Psych Attitude: cooperative Thought process: Normal thought process present Assessment & Plan Assessment & Plan (1) Well woman exam with routine gynecological exam: Code(s): Z01.419 - Encounter for gynecological examination (general) (routine) without abnormal findings Category: Medical Plan Discussed: Current recommendations for pap smears per ASCCP guidelines. Breast awareness, periodic self breast exams and yearly mammogram. Maintain a healthy lifestyle, well balanced diet including Calcium 1,200 mg and Vitamin D 600 IU daily, and routine exercise. Contact the office with any postmenopausal bleeding. Patient verbalizes understanding and agrees to the plan of care. She was given opportunity to ask questions and all questions were answered to the best of my ability. 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 This note is constructed using voice recognition software. While every effort has been made to ensure accuracy, centrifugal chiller technician errors may have been included. Coding Level of Care Code Est Pt Prev Care 40-64y(41951) Diagnoses Well woman exam with routine gynecological exam Z01.419
[2024-03-28 10:36] VITALS: BP 112/62
== END 2024-03-28 11:21 | disposition home or self-care (01) ==
PROVIDERS: PCP Internal Medicine; Visit Provider Advanced Practice Midwife
DX: Z01.419 Encounter for gynecological examination (general) (routine) without abnormal findings (principal)
CPT/HCPCS: 99396

== ENCOUNTER → 2024-03-28 10:19 | Outpatient (BNVA) | payer OTHER, SELFPAY | PROVIDERS: PCP Internal Medicine; Visit Provider Advanced Practice Midwife | DX: Z01.419 Encounter for gynecological examination (general) (routine) without abnormal findings (principal) | CPT/HCPCS: 99396 ==

== ENCOUNTER 2024-03-31 08:10 | Outpatient (AMB) | payer OTHER, SELFPAY ==
--- NOTE | 2024-03-31 08:12 | MHC.PC.OV ---
Vital Signs 03/31/24 08:13 Height 5 ft 4 in Weight 175 lb BMI 30.0 BP 124/62 Blood Pressure Location Rt brachial Position Sitting Pulse 95 Pulse Source Pulse Oximeter Pulse Oximetry (%) 98 Oxygen Delivery Method Room Air Intake Visit Reasons: 3 month follow up Allergies Seasonal Allergy (Unknown, Uncoded 03/31/24 08:15) Unknown Medication List - Last Reconciled 03/31/24 by Eddie Parks MD cetirizine 10 mg PO DAILY duloxetine 60 mg PO DAILY 90 days gabapentin Take one capsule by mouth every morning, one capsule in afternoon and 2 capsules every evening ibuprofen 400 - 800 mg (2 - 4 x 200 mg) PO Q8H levothyroxine 100 mcg PO DAILY 90 days mirtazapine 15 mg PO BEDTIME montelukast 10 mg PO DAILY omeprazole 20 mg PO DAILY pramipexole 0.5 mg PO QPM sucralfate (Carafate) 1 g PO BID Tobacco use date assessed: 03/31/24 Dental Screening Dental Screen Date: 12/31/23 HPI 3 month follow up HPI Details Patient is a 59-year-old female came in today with a chief complaint of not feeling well Patient says that she is feeling very tired which has started gradually since December She can fall asleep any where easily, she says that she does sleep well at night as well She does not know if she snores She also feels tingling in her lower extremity I noticed that she has gained more than 10 lb since December Patient says that it is because she is not exercising because she is not feeling well Last set of lab was in February when we repeated her thyroid test as it was abnormal before Currently she is on levothyroxine 100 mcg She is taking all her medications regularly Her blood pressure is stable pulse ox is 98 on room air However BMI is now 30.0 Allergies are stable Anxiety and depression is stable Patient have fibromyalgia and is taking gabapentin through Rheumatology She also take mirtazapine at night as a sleep aid Patient also have a GERD and is going to have endoscopy done in few days through Gastroenterology Restless leg syndrome: Taking pramipexole 0.5 mg at night I have ordered labs for today I am also ordering sleep study for the patient Further management after the reports [facility] Medical History Flexor tendinitis of hand Bilateral hand pain Decreased range of motion (ROM) of shoulder Recurrent knee instability Generalized weakness Arthritis GERD (gastroesophageal reflux disease) Depression with anxiety Hypothyroid History of fibromyalgia Surgical History Hx of colonoscopy History of laparoscopic cholecystectomy (12/17/21) Hx of gastric bypass Hx of tubal ligation Family History Mother Hypertension Other Mental health disorder Substance use disorder Social History Housing: Apartment Alcohol intake: never Patient Tobacco Use Status: Never used Tobacco e-Cigarette/Vaping Use: Never Used service: No Current occupational status: unemployed Sexual orientation: Straight/Heterosexual Gender identity: Female Cognitive needs: No Hearing needs: No Vision needs: Yes Female Reproductive History Menstrual Age of Menarche: 11 Questionnaire PHQ-9 Over the last 2 weeks, how often have you been bothered by any of the following problems? 1. Little interest or pleasure in doing things: several days 2. Feeling down, depressed, or hopeless: several days 3. Trouble falling or staying asleep, or sleeping too much: nearly every day 4. Feeling tired or having little energy: nearly every day 5. Poor appetite or overeating: several days 6. Feeling bad about yourself - or that you are a failure or have let yourself or your family down: not at all 7. Trouble concentrating on things, such as reading the newspaper or watching television: more than half the days 8. Moving or speaking so slowly that other people could have noticed. Or the opposite - being so fidgety or restless that you have been moving around a lot more than usual: not at all 9. Thoughts that you would be better off or of hurting yourself in some way: not at all Total score: 11 Depression Screening Interpretation: Positive Depression Screening Follow-up: Existing condition and In treatment Depression Screening Done: Yes 34586 - PHQ-9 Billing: Yes Source: Developed by Drs. Rios Lim, Katalina Martin, Jasper Main and colleagues, with an educational stacie from [employer]. Thrive Questionnaire Date Thrive assessed: 03/28/24 I am a: Patient What is your living situation today?: I have a steady place to live Within the past 12 months, did the food you bought not last and you didn't have the money to get more?: Never true Within the past 12 months, did you worry whether your food would run out before you got money to buy more?: Never true Do you have trouble paying for medicines?: No Do you have trouble getting transportation to medical appointments?: No Do you have trouble paying your heating and electricity bill?: No Do you have trouble taking care of your child, family member or friend?: No Do you have trouble with day-to-day activities such as bathing, preparing meals, shopping, managing finances, etc.?: No Are you currently unemployed and looking for a job?: No Are you interested in more education?: No Please select the resources that you would like help with: Housing/Detention Currently or been in a relationship where the following occur: No concerns reported THRIVE Score: 0 AUDIT C Alcohol Use Questionnaire (AUDIT-C) 1. How often do you have a drink containing alcohol?: Never 3. How often do you have six or more drinks on one occasion?: Never Total Score: 0 JOHNNY-7 AMB Questionnaire JOHNNY-7 Date JOHNNY - 7 assessed: 03/31/24 Feeling nervous, anxious, or on edge: 1 = Several days Not being able to stop or control worryin = Several days Worrying too much about different things: 1 = Several days Trouble relaxin = Several days Being so restless that it is hard to sit still: 1 = Several days Becoming easily annoyed or irritable: 1 = Several days Feeling afraid as if something awful might happen: 0 = Not at all Total JOHNNY-7 score (0-4 normal; 5-9 mild; 10-14 moderate; 15-21 severe): 6 Source: Developed by Drs. Rios Lim, Katalina Martin, Jasper Main and colleagues, with an educational stacie from [employer]. Review of Systems Const Denies chills and Denies fever(s) ENT Denies epistaxis and Denies nasal discharge Card Denies chest pain Resp Denies chest congestion, Denies cough and Denies hemoptysis GI Denies diarrhea and Denies nausea Skin/Breast Denies rash Neuro Reports no additional complaints Psych Reports no additional complaints Endo Reports no additional complaints Physical exam (Primary Care) Vital Signs: Last Vital Signs Pulse 95 03/31/24 08:13 BP 124/62 03/31/24 08:13 Pulse Ox 98 03/31/24 08:13 Oxygen Delivery Method Room Air 03/31/24 08:13 BMI result Body Mass Index 30.0 Tobacco/Smoking Status: Tobacco use Status Tobacco use date assessed 03/31/24 03/31/24 08:18 Patient Tobacco Use Status Never used Tobacco 03/31/24 08:18 e-Cigarette/Vaping Use Never Used 03/31/24 08:18 PHQ-9: PHQ-9 Score PHQ-9: Total score 11 03/31/24 08:28 Depression Screening Interpretation: Positive Depression Screening Follow-up: Existing condition and In treatment Thrive Assessment: Date of Thrive Assessment Date Thrive assessed 03/28/24 03/31/24 08:18 Currently or been in a relationship where the following occur: No concerns reported Const General: cooperative, comfortable and no acute distress Orientation/consciousness: patient oriented x3 HENMT Head: Yes normocephalic Eyes General: appearance normal, both eyes and all related structures Neck Neck: Yes supple Resp Effort & Inspection: normal respiratory effort, no cough and no stridor Cardio Rhythm: regular rhythm Heart sounds: S1 normal heart sound present and S2 normal heart sound present Skin General skin exam: turgor normal Neuro General: patient oriented x3, tone normal and moves all extremities Extrem Right lower extremity: no edema Left lower extremity: no edema Assessment and Plan Assessment & Plan (1) Feeling unwell: Code(s): R68.89 - Other general symptoms and signs (2) Tired: Code(s): R53.83 - Other fatigue (3) Excessive sleepiness: Code(s): G47.10 - Hypersomnia, unspecified (4) Paresthesia of lower extremity: Code(s): R20.2 - Paresthesia of skin (5) Fibromyalgia: Code(s): M79.7 - Fibromyalgia (6) Muscle cramping: Code(s): R25.2 - Cramp and spasm (7) Obesity due to excess calories: Code(s): E66.09 - Other obesity due to excess calories Qualifiers: Body mass index: BMI 30.0-30.9 Obesity classification: adult class 1 (BMI 30 - 34.9) Serious obesity comorbidity presence: without serious comorbidity Qualified Code(s): E66.09 - Other obesity due to excess calories; Z68.30 - Body mass index [BMI] 30.0-30.9, adult (8) Fatty liver: Code(s): K76.0 - Fatty (change of) liver, not elsewhere classified (9) Chronic GERD: Code(s): K21.9 - Gastro-esophageal reflux disease without esophagitis (10) Restless leg syndrome: Code(s): G25.81 - Restless legs syndrome (11) Lipid disorder: Code(s): E78.9 - Disorder of lipoprotein metabolism, unspecified (12) Environmental allergies: Code(s): Z91.09 - Other allergy status, other than to drugs and biological substances Plan Patient is a 59-year-old female came in today with a chief complaint of not feeling well Patient says that she is feeling very tired which has started gradually since December She can fall asleep any where easily, she says that she does sleep well at night as well She does not know if she snores She also feels tingling in her lower extremity I noticed that she has gained more than 10 lb since December Patient says that it is because she is not exercising because she is not feeling well Last set of lab was in February when we repeated her thyroid test as it was abnormal before Currently she is on levothyroxine 100 mcg She is taking all her medications regularly Her blood pressure is stable pulse ox is 98 on room air However BMI is now 30.0 Allergies are stable Anxiety and depression is stable Patient have fibromyalgia and is taking gabapentin through Rheumatology She also take mirtazapine at night as a sleep aid Patient also have a GERD and is going to have endoscopy done in few days through Gastroenterology Restless leg syndrome: Taking pramipexole 0.5 mg at night I have ordered labs for today I am also ordering sleep study for the patient Further management after the reports 45 minute spent in care of this patient, including reviewing , labs, previous notes [id number] with the patient and coordination of care Orders: Orders Comprehensive Met. Panel Today E66.09 - Other obesity due to excess calories, E78.9 - Disorder of lipoprotein metabolism, unspecified, G25.81 - Restless legs syndrome, K21.9 - Gastro-esophageal reflux disease without esophagitis, K76.0 - Fatty (change of) liver, not elsewhere classified, M79.7 - Fibromyalgia, Z91.09 - Other allergy status, other than to drugs and biological substances Vitamin B12 Today E66.09 - Other obesity due to excess calories, E78.9 - Disorder of lipoprotein metabolism, unspecified, G25.81 - Restless legs syndrome, K21.9 - Gastro-esophageal reflux disease without esophagitis, K76.0 - Fatty (change of) liver, not elsewhere classified, M79.7 - Fibromyalgia, Z91.09 - Other allergy status, other than to drugs and biological substances Magnesium Today E66.09 - Other obesity due to excess calories, E78.9 - Disorder of lipoprotein metabolism, unspecified, G25.81 - Restless legs syndrome, K21.9 - Gastro-esophageal reflux disease without esophagitis, K76.0 - Fatty (change of) liver, not elsewhere classified, M79.7 - Fibromyalgia, Z91.09 - Other allergy status, other than to drugs and biological substances C Reactive Protein Today R25.2 - Cramp and spasm RT home sleep study Today E66.09 - Other obesity due to excess calories, G47.10 - Hypersomnia, unspecified, Z68.30 - Body mass index [BMI] 30.0-30.9, adult Complete Blood Count Auto Diff Today E66.09 - Other obesity due to excess calories, E78.9 - Disorder of lipoprotein metabolism, unspecified, G25.81 - Restless legs syndrome, K21.9 - Gastro-esophageal reflux disease without esophagitis, K76.0 - Fatty (change of) liver, not elsewhere classified, M79.7 - Fibromyalgia, Z91.09 - Other allergy status, other than to drugs and biological substances TSH reflex Free T4 Today E66.09 - Other obesity due to excess calories, E78.9 - Disorder of lipoprotein metabolism, unspecified, G25.81 - Restless legs syndrome, K21.9 - Gastro-esophageal reflux disease without esophagitis, K76.0 - Fatty (change of) liver, not elsewhere classified, M79.7 - Fibromyalgia, Z91.09 - Other allergy status, other than to drugs and biological substances Vitamin D 25-OH (D2 and D3) Today E66.09 - Other obesity due to excess calories, E78.9 - Disorder of lipoprotein metabolism, unspecified, G25.81 - Restless legs syndrome, K21.9 - Gastro-esophageal reflux disease without esophagitis, K76.0 - Fatty (change of) liver, not elsewhere classified, M79.7 - Fibromyalgia, Z91.09 - Other allergy status, other than to drugs and biological substances Coding Level of Care Code Est Pt Level 5 (14102) Complex EM visit Add On G2211 Diagnoses Feeling unwell R68.89 Tired R53.83 Excessive sleepiness G47.10 Paresthesia of lower extremity R20.2 Fibromyalgia M79.7 Muscle cramping R25.2 Class 1 obesity due to excess calories without serious comorbidity with body mass index (BMI) of 30.0 to 30.9 in adult E66.09; Z68.30 Body mass index: BMI 30.0-30.9 Obesity classification: adult class 1 (BMI 30 - 34.9) Serious obesity comorbidity presence: without serious comorbidity Fatty liver K76.0 Chronic GERD K21.9 Restless leg syndrome G25.81 Lipid disorder E78.9 Environmental allergies Z91.09
[2024-03-31 08:13] VITALS: BP 124/62; PULSE 95; O2SAT 98
== END 2024-03-31 17:41 | disposition home or self-care (01) ==
PROVIDERS: PCP Internal Medicine; Visit Provider Internal Medicine
DX: R53.83 Other fatigue (principal); G47.10 Hypersomnia, unspecified; R20.2 Paresthesia of skin; M79.7 Fibromyalgia; R25.2 Cramp and spasm; E66.09 Other obesity due to excess calories; Z68.30 Body mass index [BMI] 30.0-30.9, adult; K76.0 Fatty (change of) liver, not elsewhere classified; K21.9 Gastro-esophageal reflux disease without esophagitis; G25.81 Restless legs syndrome; E78.9 Disorder of lipoprotein metabolism, unspecified
CPT/HCPCS: 99215; G2211

== ENCOUNTER 2024-03-31 08:28 | Outpatient (REF) | payer OTHER, SELFPAY ==
[2024-03-31 10:27] LABS: MANUAL DIFF FLAG NO
[2024-03-31 10:37] LABS: Basophils Percent Auto 0.6 % (0-2); Eosinophils Absolute Auto 0.3 X10*3/uL (0.0-0.4); Eosinophils Percent Auto 4.8 % (0-4); Hematocrit 38.8 % (37.0-47.0); Hemoglobin 13.2 g/dl (12.0-16.0); Imm Gran Abs Auto 0.08 X10*3/uL (0.00-0.03); Imm Gran Pct Auto 1.2 % (0.0-0.4); Lymphocytes Percent Auto 31.2 % (20-40); Mean Corpuscular Hemoglobin 31.7 pg (27.0-33.0); Mean Corpuscular Volume 93.3 fL (80.0-98.0); Mean Platelet Volume 10.5 fL (9.4-12.3); Monocytes Absolute Auto 0.5 X10*3/uL (0.1-1.2); Neutrophils Absolute Auto 3.6 x10*3/uL (2.0-8.3); Neutrophils Percent Auto 55.2 % (45-73); Platelet Count 299 X10*3/uL (160-400); Red Blood Count 4.16 X10*6/uL (4.20-5.50); Red Cell Distribution Width 13.2 % (11.0-16.0); White Blood Count 6.5 X10*3/uL (4.8-10.8)
[2024-03-31 11:13] LABS: Alanine Aminotransferase 22 U/L (0-31); Albumin Level 3.8 g/dL (3.5-5.0); Alkaline Phosphatase 144 U/L (39-117); Anion Gap 15 (12-20); Aspartate Amino Transferase 22 U/L (5-31); Bilirubin Total 0.2 mg/dL (0.0-1.0); Blood Urea Nitrogen 14 mg/dL (9-16); C Reactive Protein 0.24 mg/dL (< or = 0.50); Calcium 8.7 mg/dL (8.4-10.2); Carbon Dioxide 25 mmol/L (22-29); Chloride 109 mmol/L (96-108); Estimated Glomerular Filt Rate > 60; Glucose Random 131 mg/dL (60-115); Magnesium 2.2 mg/dL (1.6-2.6); Sodium 145 mmol/L (135-145); TSH reflex Free T4 0.26 uIU/mL (0.32-4.0); Total Protein 6.5 g/dL (6.5-8.0)
[2024-03-31 11:29] LABS: Vitamin B12 476 pg/mL (200-900)
[2024-03-31 11:44] LABS: Free T4 (Free Thyroxine) 1.09 ng/dL (0.71-1.85)
[2024-04-06 13:53] LABS: Vitamin D 25-OH, D2 <4 ng/mL; Vitamin D 25-OH, D3 29 ng/mL; Vitamin D 25-OH, Total 29 ng/mL (30-100)
== END 2024-03-31 08:29 | disposition home or self-care (01) ==
LOC: HO.HMGCLDS 08:28
PROVIDERS: PCP Internal Medicine; Visit Provider Internal Medicine
DX: K76.0 Fatty (change of) liver, not elsewhere classified (principal); E66.09 Other obesity due to excess calories; M79.7 Fibromyalgia; K21.9 Gastro-esophageal reflux disease without esophagitis; G25.81 Restless legs syndrome; E78.9 Disorder of lipoprotein metabolism, unspecified; Z91.09 Other allergy status, other than to drugs and biological substances; R25.2 Cramp and spasm
CPT/HCPCS: 36415; 80053; 82306; 82607; 83735; 84439; 84443; 85025; 86140

== ENCOUNTER 2024-04-27 09:47 | Day surgery (SDC) | payer OTHER, SELFPAY ==
[2024-04-27 10:32] VITALS: BMI 35.3
[2024-04-27 10:34] VITALS: BP 128/65; PULSE 80; RESP 16; TEMP 36.8; O2SAT 97
--- NOTE | 2024-04-27 10:47 | MHC.SHP ---
Pre-Procedural Eval Section A - 24 Hr Update-Section A only Date of Service: 04/27/24 Section B - Complete if H&P > 30 days Chief Complaint: gerd, small bowel intussusception Relevant Family History (Specify if Yes): No Relevant Social History: None Present Medications: see Short Stay Collaborative assessment Medical History: Significant History (Arthritis Depression with anxiety GERD (gastroesophageal reflux disease) History of fibromyalgia Hypothyroid) History of Previous Operations: Relevant previous surgery/procedure and date(s) (Hx of gastric bypass Hx of tubal ligation) Allergies: Allergies Allergy/AdvReac Type Severity Reaction Status Date / Time Seasonal Allergy Unknown Unknown Uncoded 03/31/24 08:15 Review of Systems Sugical H&P ROS: Negative: Constitution, Cardiovascular, Respiratory, Neurological, Psychiatric, Hem-Onc, Allergic/Immunologic, Gastrointestinal, Genitourinary, Musculoskeletal, Integumentary, Endocrine and Eyes/Ears/Nose/Throat Exam Surgical H&P Exam: Normal: HEENT, Normal: Heart, Normal: Lungs, Normal: Extremities, Normal: Abdomen, Normal: Skin and Normal: Neurological Plan Diagnosis/Plan: Unchanged I have reviewed the history and physical and performed a pertinent physical examination on my patient. No changes have occurred unless specified. EGD and push enteroscopy Time Spent With Patient Time: Total time managing care of this patient today ____ minutes.
[2024-04-27] MEDS: Lactated Ringers 1,000 ML 100 ML IVCONT (10:56)
--- NOTE | 2024-04-27 11:00 | HO.ANESPROP2 ---
[facility] Active Problems Active Problems: All Active Problems LFT elevation (Acute) Tired (Acute) Feeling unwell (Acute) Paresthesia of lower extremity (Acute) Excessive sleepiness (Acute) Muscle cramping (Acute) Adhesive capsulitis of left shoulder (Acute) Painful arc syndrome of left shoulder (Acute) Shoulder pain, left (Acute) Flexor tendinitis of hand (Acute) Hypothyroid (Acute) Bilateral hand pain (Acute) Decreased range of motion (ROM) of shoulder (Acute) Recurrent knee instability (Acute) Generalized weakness (Acute) Abnormal findings on imaging test (Acute) Small bowel intussusception (Acute) NSAID long-term use (Acute) Environmental allergies (Acute) Anxiety, generalized (Acute) Epigastric pain (Acute) Osteoarthritis of thumbs, bilateral (Acute) Osteoarthritis of knees, bilateral (Acute) Allergic sinusitis (Acute) Lipid disorder (Acute) Abnormal Pap smear of cervix (Acute) Restless leg syndrome (Acute) Chronic GERD (Acute) Postmenopausal bleeding (Acute) Cystocele without uterine prolapse (Acute) Fibromyalgia (Acute) Obesity due to excess calories (Acute) Cholelithiasis (Acute) Complex renal cyst (Acute) Fatty liver (Acute) Past Medical History Medical History Flexor tendinitis of hand Bilateral hand pain Decreased range of motion (ROM) of shoulder Recurrent knee instability Generalized weakness Arthritis GERD (gastroesophageal reflux disease) Depression with anxiety Hypothyroid History of fibromyalgia Family History Family History Mother Hypertension Other Mental health disorder Substance use disorder Family history of problems with anesthesia: No Surgical History Surgical History Hx of colonoscopy History of laparoscopic cholecystectomy (12/17/21) Hx of gastric bypass Hx of tubal ligation History of Problems with Anesthesia: No Social History Social History Housing: Apartment Alcohol intake: never Patient Tobacco Use Status: Never used Tobacco e-Cigarette/Vaping Use: Never Used Use of substances other than those prescribed or required for medical reasons: No Have you been hit, kicked, punched, or otherwise hurt by someone within the past year? If so, by whom?: No Are you DNR?: No Advance Directives: No Advance Directives Information Provided: Yes Recently lost weight without trying: No Nutrition Risks: No Nutritional Risk service: No Current occupational status: unemployed Sexual orientation: Straight/Heterosexual Gender identity: Female Cognitive needs: No Hearing needs: No Vision needs: Yes Meds Allergies Allergy/AdvReac Type Severity Reaction Status Date / Time Seasonal Allergy Unknown Unknown Uncoded 03/31/24 08:15 Active Medications: Current Medications Lactated Ringer's (Lr) 1,000 mls @ 100 mls/hr IVCONT .Q10H FRANCHESKA Last Admin: 04/27/24 10:56 Dose: 100 mls/hr Exam Height,Weight and Vital Signs: Height 4 ft 11 in Weight 79.379 kg Last Vital Signs Temp 98.2 F 04/27/24 10:34 Pulse 80 04/27/24 10:34 Resp 16 04/27/24 10:34 BP 128/65 04/27/24 10:34 Pulse Ox 97 04/27/24 10:34 O2 Del Method Room Air 04/27/24 10:34 Airway Mallampati Class: II TM Dist: >3cm Neck ROM: Full Loose/Missing/Broken Teeth: No Heart: RRR Lungs: CTA Assessment and Plan Assessment Anesthesia Assessment: Anesthesia Plan Discussed and Chart Reviewed Final Anesthetic Review Family History of Problems with Anesthesia: No History of Problems with Anesthesia: No NPO: Yes ASA Class: II Final Preanesthetic Review: Meds/Allgs Chart Reviewed, Consent Obtained/Reviewed and Anes Risks/Benef Reviewed Patient Risk: Low Procedure Risk: Intermediate Anesthetic Plan Anesthetic Plan: MAC: Disposition: Standard PACU
--- NOTE | 2024-04-27 11:43 | W.PM.OPN ---
Operative Note Operative Note Date of Service: 04/27/24 Narrative: Procedure Description: EGD Indication: abdominal pain and GERD Anesthesia: MAC FLEXIBLE TRANSORAL UPPER GASTROINTESTINAL ENDOSCOPY and Push enteroscopy UPPER ENDOSCOPY Consent: Indications for the procedure and potential complications of bleeding, perforation, reaction to medications and missed diagnosis were discussed with the patient and informed consent was obtained. Instrument: Olympus GIF H 190 J mid size upper endoscope, pediatric colonoscope Monitoring: Vital signs and clinical assessment, continuous EKG monitoring, Pulse oximetry, Carbon Dioxide monitoring and blood pressure monitoring were done throughout the procedure. Procedure: The patient was placed in the left lateral decubitis position and pre-procedure medications were administered and a bite block was placed. The endoscope was inserted into the mouth and advanced under direct vision to the jejuno jejunal anastomosis and duodenum. A careful inspection was made as the upper endoscope was withdrawn including a retroflexed examination of the proximal stomach; Findings and interventions are described below. Hx of gastric bypass Findings: Larynx:normal Esophagus: GE junction at 31 cm, diaphragm hiatus at 36 cm, consistent with 5 cm fixed hiatal hernia, possible short segment barretts with islands of salmon pink tissue, bx taken Stomach pouch: mild erythema . Biopsies were obtained. Grade 2 flap valve on retroflexed examination of the cardia. Jejunum: normal, random bx taken Jejuno jejunal anastomosis: vigorous small bowel activity with macerated and denuded epithelium, bx taken, scope was also navigated to distal duodenum and bx taken. Intervention: Biopsies as noted above, Impression/Findings: gastritis jejuno jejunal inflammation, prob from intussusception hiatal hernia PLAN: refer for surgical treatment, hernia repair and possible enteropexy GERD precautions PPI- open capsule and mix with apple sauce
[2024-04-27 11:47] VITALS: BP 112/53; PULSE 100; RESP 18; TEMP 36.4; O2SAT 98
[2024-04-27 12:03] VITALS: BP 136/66; PULSE 93; RESP 18; TEMP 36.1; O2SAT 99
== END 2024-04-27 12:29 | disposition home or self-care (01) ==
PROVIDERS: PCP Internal Medicine; Visit Provider Internal Medicine Gastroenterology
PROC: 0DJ08ZZ Inspection of Upper Intestinal Tract, Via Natural or Artificial Opening Endoscopic (ICD-10-PCS; CPT 43235; principal; 2024-04-27 13:00)
DX: K29.70 Gastritis, unspecified, without bleeding (principal); K56.1 Intussusception; Z98.0 Intestinal bypass and anastomosis status; K21.9 Gastro-esophageal reflux disease without esophagitis; K44.9 Diaphragmatic hernia without obstruction or gangrene; N28.1 Cyst of kidney, acquired; E03.9 Hypothyroidism, unspecified; M79.7 Fibromyalgia; F41.8 Other specified anxiety disorders; Z79.899 Other long term (current) drug therapy; Z98.84 Bariatric surgery status; Z90.49 Acquired absence of other specified parts of digestive tract; Z56.0 Unemployment, unspecified
CPT/HCPCS: 43239; 88305; 88313; J2704

== ENCOUNTER → 2024-04-27 09:47 | Outpatient (BNV) | payer OTHER, SELFPAY | PROVIDERS: PCP Internal Medicine; Visit Provider Internal Medicine Gastroenterology | DX: K21.9 Gastro-esophageal reflux disease without esophagitis (principal); K29.70 Gastritis, unspecified, without bleeding | CPT/HCPCS: 43239 ==

== ENCOUNTER 2024-05-12 11:32 | Outpatient (AMB) | payer OTHER, SELFPAY ==
--- NOTE | 2024-05-12 11:36 | MHC.OFFVISWM ---
VS Expanded 05/12/24 11:49 BP 134/63 Blood Pressure Location Rt brachial Blood Pressure Position Sitting Pulse 80 Pulse Source Pulse Oximeter Temp 95.8 F L Temperature Source Temporal Artery Scan Pulse Oximetry 99 Oxygen Delivery Method Room Air Height 4 ft 11 in Weight 171 lb 9.6 oz BMI 34.7 Body Fat % 41.8 Body Fat Mass 71.6 Fat Free Mass 99.8 Visceral Fat Rating 12.0 Body Water % 41.3 Body Water Mass 70.8 Muscle Mass/Score 94.8 Basal Metabolic Rate/Score 1,386 Intake Visit Reasons: OV Hiatal Hernia - Dr. Kern Ref. Allergies Seasonal Allergy (Unknown, Uncoded 05/12/24 19:18) Unknown Medication List - Last Reconciled 05/12/24 by Jonathan Cramer MD cetirizine 10 mg PO DAILY duloxetine 60 mg PO DAILY 90 days gabapentin Take one capsule by mouth every morning, one capsule in afternoon and 2 capsules every evening ibuprofen 400 - 800 mg (2 - 4 x 200 mg) PO Q8H levothyroxine 88 mcg PO DAILY 90 days mirtazapine 15 mg PO BEDTIME montelukast 10 mg PO DAILY omeprazole 20 mg PO DAILY pramipexole 0.5 mg PO QPM sucralfate (Carafate) 1 g PO BID HPI Comments Details: Patient was referred for a fixed hiatal hernia. The patient is s/p open gastric bypass about 20 years ago in [employer]. The patient complains of mid epigastric abdominal pain as well as GERD. The pain occurs with and without food. Does report use of ibuprofen EGD: 5cm fixed hiatal hernia with portion of the pouch in the chest CT enterography: mod GERD PFSH Medical History Flexor tendinitis of hand Bilateral hand pain Decreased range of motion (ROM) of shoulder Recurrent knee instability Generalized weakness Arthritis GERD (gastroesophageal reflux disease) Depression with anxiety Hypothyroid History of fibromyalgia Surgical History Hx of colonoscopy History of laparoscopic cholecystectomy (12/17/21) Hx of gastric bypass Hx of tubal ligation Family History (Updated 05/12/24 @ 11:46 by Rachel Martinez CMA) Mother Hypertension Father Diabetes Dementia Substance use disorder Daughter No problems noted. Daughter No problems noted. Son No problems noted. Other Mental health disorder Social History Housing: Apartment Alcohol intake: never Patient Tobacco Use Status: Never used Tobacco e-Cigarette/Vaping Use: Never Used service: No Current occupational status: unemployed Sexual orientation: Straight/Heterosexual Gender identity: Female Cognitive needs: No Hearing needs: No Vision needs: Yes Female Reproductive History Menstrual Age of Menarche: 11 Physical Exam Vital Signs: Last Vital Signs Temp 95.8 F L 05/12/24 11:49 Pulse 80 05/12/24 11:49 BP 134/63 05/12/24 11:49 Pulse Ox 99 05/12/24 11:49 Oxygen Delivery Method Room Air 05/12/24 11:49 BMI result Body Mass Index 34.7 GI Inspection: Yes normal to inspection (Android body habitus), Yes incision and Yes obesity (Well healed midline incision) Palpation (GI): Soft to palpation Extrem Right lower extremity: normal to inspection Left lower extremity: normal to inspection Assessment & Plan Assessment & Plan (1) Chronic GERD: Code(s): K21.9 - Gastro-esophageal reflux disease without esophagitis Category: Medical Plan: 1. As we discussed, I think that the best first approach is to improve the meal plan and achieve weight loss. These may improve the pain and the GERD. Please start with 2 Celbrate Rebuild protein shakes with HALF scoop each in 8oz almond milk at 5am-7am and 8am-10am, 2 Celebrate protein bars at 11am-1pm and 2pm-4pm, dinner at 5pm (6 forks of protein and 6 forks of salad or vegetables) and one more Celebrate Rebuild protein shake with HALF scoop in 8oz almond milk at 7pm-9pm 2. Stop Ibuprofen
[2024-05-12 11:49] VITALS: BP 134/63; PULSE 80; TEMP 35.4; O2SAT 99; BMI 34.7
== END 2024-05-12 19:35 | disposition home or self-care (01) ==
PROVIDERS: PCP Internal Medicine; Visit Provider Surgery
DX: K21.9 Gastro-esophageal reflux disease without esophagitis (principal)
CPT/HCPCS: 99204

== ENCOUNTER → 2024-05-12 11:32 | Outpatient (BNVA) | payer OTHER, SELFPAY | PROVIDERS: PCP Internal Medicine; Visit Provider Surgery | DX: K21.9 Gastro-esophageal reflux disease without esophagitis (principal); R10.13 Epigastric pain | CPT/HCPCS: 99202 ==

== ENCOUNTER → 2024-05-16 10:52 | Outpatient (REF) | payer OTHER, SELFPAY | LOC: HO.SL 10:52 | PROVIDERS: PCP Internal Medicine; Visit Provider Internal Medicine | DX: G47.10 Hypersomnia, unspecified (principal); E66.09 Other obesity due to excess calories; Z68.30 Body mass index [BMI] 30.0-30.9, adult | CPT/HCPCS: 95806 ==

== ENCOUNTER → 2024-05-16 11:00 | Outpatient (BNV) | payer OTHER, SELFPAY | PROVIDERS: PCP Internal Medicine; Visit Provider Internal Medicine | DX: R06.83 Snoring (principal); G47.10 Hypersomnia, unspecified | CPT/HCPCS: 95806 ==

== ENCOUNTER 2024-06-05 08:15 | Outpatient (AMB) | payer OTHER, SELFPAY ==
[2024-06-05 08:52] VITALS: BMI 34.4
--- NOTE | 2024-06-05 08:52 | MHC.OFFVISWM ---
VS Expanded 06/05/24 08:52 Height 4 ft 11 in Weight 170 lb 8 oz BMI 34.4 Body Fat % 46 Body Fat Mass 78.5 Fat Free Mass 92.2 Visceral Fat Rating 17 Body Water % 37 Body Water Mass 63.1 Basal Metabolic Rate/Score 1,262 Intake Visit Reasons: TV Follow Op Hiatal Hernia Allergies Seasonal Allergy (Unknown, Uncoded 05/12/24 19:18) Unknown HPI HPI TV Follow Op Hiatal Hernia: Details: Start time: 8.40am, End time: 9am ?I spent 15 minutes speaking with the patient on the phone plus an additional 5 minutes reviewing and updating records for a total of 20 minutes HPI Comments Details: Overall weight loss: 0.8lbs Pain has improved since she stopped the Motrin Is doing 2 Celebrate Rebuild shakes (1 scoop each in 8oz almond milk), 2 Celebrate protein bars and one meal (6 forks of protein and 6 forks of salad or vegetables) Exercise: treadmill x2/wk for 30 minutes PFSH Medical History (Updated 06/05/24 @ 08:58 by Jonathan Cramer MD) Hiatal hernia Flexor tendinitis of hand Bilateral hand pain Decreased range of motion (ROM) of shoulder Recurrent knee instability Generalized weakness Arthritis GERD (gastroesophageal reflux disease) Depression with anxiety Hypothyroid History of fibromyalgia Surgical History Hx of colonoscopy History of laparoscopic cholecystectomy (12/17/21) Hx of gastric bypass Hx of tubal ligation Family History (Updated 05/12/24 @ 11:46 by Rachel Martinez CMA) Mother Hypertension Father Diabetes Dementia Substance use disorder Daughter No problems noted. Daughter No problems noted. Son No problems noted. Other Mental health disorder Social History Housing: Apartment Alcohol intake: never Patient Tobacco Use Status: Never used Tobacco e-Cigarette/Vaping Use: Never Used service: No Current occupational status: unemployed Sexual orientation: Straight/Heterosexual Gender identity: Female Cognitive needs: No Hearing needs: No Vision needs: Yes Female Reproductive History Menstrual Age of Menarche: 11 Telehealth Telehealth Telehealth Platform: Telephone Location of provider rendering services: practice address Location of patient: address on file Patient Identification confirmed using: Name, : Yes Telehealth method: voice only Patient verbally consented to treatment: Yes Patient verbally consented to billing insurance company: Yes Patient informed of any privacy concerns related to visit: Yes Minutes spent on Phone/Video with Pt.: 20 Assessment & Plan Assessment & Plan (1) Hiatal hernia: Code(s): K44.9 - Diaphragmatic hernia without obstruction or gangrene Category: Medical Plan: 1. Continue same nutritional plan of 2 Celebrate Rebuild shakes (1 scoop each in 8oz almond milk), 2 Celebrate protein bars and one meal (6 forks of protein and 6 forks of salad or vegetables). 2. Send me a picture of your plate daily after you measure it but before you eat it. 3. Exercise: continue treadmill but increase to daily for 15 minutes per session, 3 times per day 4. Continue to avoid Motrin 5. Continue to send me weight measurements weekly on Saturdays
== END 2024-06-05 09:00 | disposition home or self-care (01) ==
LOC: HO.HBS 08:15
PROVIDERS: PCP Internal Medicine; Visit Provider Surgery
DX: K44.9 Diaphragmatic hernia without obstruction or gangrene (principal)
CPT/HCPCS: 99213

== ENCOUNTER → 2024-06-05 08:15 | Outpatient (BNVA) | payer OTHER, SELFPAY | PROVIDERS: PCP Internal Medicine; Visit Provider Surgery ==

== ENCOUNTER 2024-06-06 13:50 | Outpatient (AMB) | payer OTHER, SELFPAY ==
[2024-06-06 14:06] VITALS: BP 126/78; PULSE 91; O2SAT 97; BMI 35.3
--- NOTE | 2024-06-06 14:06 | A.OFFPC_ITS ---
Vital Signs 06/06/24 14:06 Height 4 ft 11 in Weight 175 lb BMI 35.3 BP 126/78 Blood Pressure Location Lt brachial Position Sitting Pulse 91 Pulse Source Pulse Oximeter Pulse Oximetry (%) 97 Oxygen Delivery Method Room Air Intake Visit Reasons: F/U Allergies Seasonal Allergy (Unknown, Uncoded 05/12/24 19:18) Unknown Medication List - Last Reconciled 06/06/24 by Eddie Parks MD cetirizine 10 mg PO DAILY duloxetine 60 mg PO DAILY 90 days gabapentin Take one capsule by mouth every morning, one capsule in afternoon and 2 capsules every evening ibuprofen 400 - 800 mg (2 - 4 x 200 mg) PO Q8H levothyroxine 88 mcg PO DAILY 90 days mirtazapine 15 mg PO BEDTIME montelukast 10 mg PO DAILY omeprazole 20 mg PO DAILY pramipexole 0.5 mg PO QPM sucralfate (Carafate) 1 g PO BID Tobacco use date assessed: 06/06/24 Dental Screening Dental Screen Date: 06/06/24 Did you have a dental visit in the last 12 months?: Yes Did you have a dental problem in the last 6 months where you did not have access to dental care?: No Was dental information given to patient?: Patient has dentist HPI F/U HPI Details Patient is a 59-year-old female came in today for her regular follow-up appointment On exam today patient's heart rate is elevated She says that she does feel palpitations every now and then We did the EKG today which shows normal sinus rhythm, no acute findings, 87 beats per minute Patient is currently seeing bariatric surgery provider And is enrolled in weight loss program Hypothyroidism: Levothyroxine was reduced to 88 mcg when her TSH level came back low We will be repeating labs again today Blood pressure is stable Allergies are stable Anxiety and depression is stable Patient have fibromyalgia and is taking gabapentin through Rheumatology She also take mirtazapine at night as a sleep aid Patient also have a GERD had endoscopy, patient is waiting to see Gastroenterology to do the report Restless leg syndrome: Taking pramipexole 0.5 mg at night Sleep study came back normal Medications from PCP office are Cetirizine Levothyroxine Mirtazapine Montelukast And pramipexole Follow-up 4 months [facility] Medical History Hiatal hernia Flexor tendinitis of hand Bilateral hand pain Decreased range of motion (ROM) of shoulder Recurrent knee instability Generalized weakness Arthritis GERD (gastroesophageal reflux disease) Depression with anxiety Hypothyroid History of fibromyalgia Surgical History Hx of colonoscopy History of laparoscopic cholecystectomy (12/17/21) Hx of gastric bypass Hx of tubal ligation Family History Mother Hypertension Father Diabetes Dementia Substance use disorder Daughter No problems noted. Daughter No problems noted. Son No problems noted. Other Mental health disorder Social History Housing: Apartment Alcohol intake: never Patient Tobacco Use Status: Never used Tobacco e-Cigarette/Vaping Use: Never Used service: No Current occupational status: unemployed Sexual orientation: Straight/Heterosexual Gender identity: Female Cognitive needs: No Hearing needs: No Vision needs: Yes Female Reproductive History Menstrual Age of Menarche: 11 Questionnaire Thrive Questionnaire Date Thrive assessed: 06/06/24 I am a: Patient What is your living situation today?: I have a steady place to live Within the past 12 months, did the food you bought not last and you didn't have the money to get more?: Never true Within the past 12 months, did you worry whether your food would run out before you got money to buy more?: Never true Do you have trouble paying for medicines?: No Do you have trouble getting transportation to medical appointments?: No Do you have trouble paying your heating and electricity bill?: No Do you have trouble taking care of your child, family member or friend?: No Do you have trouble with day-to-day activities such as bathing, preparing meals, shopping, managing finances, etc.?: No Are you currently unemployed and looking for a job?: No Are you interested in more education?: No Please select the resources that you would like help with: None Currently or been in a relationship where the following occur: No concerns reported THRIVE Score: 0 AUDIT C Alcohol Use Questionnaire (AUDIT-C) 1. How often do you have a drink containing alcohol?: Never 3. How often do you have six or more drinks on one occasion?: Never Total Score: 0 Score Reviewed/Action Taken: Yes JOHNNY-7 AMB Questionnaire JOHNNY-7 Date JOHNNY - 7 assessed: 03/31/24 Source: Developed by Drs. Rios Lim, Katalina Martin, Jasper Main and colleagues, with an educational stacie from [employer] Review of Systems Const Denies chills and Denies fever(s) ENT Denies epistaxis and Denies nasal discharge Card Denies chest pain Resp Denies chest congestion, Denies cough and Denies hemoptysis GI Denies diarrhea and Denies nausea Skin/Breast Denies rash Neuro Reports no additional complaints Psych Reports no additional complaints Endo Reports no additional complaints Physical exam (Primary Care) Vital Signs: Last Vital Signs Pulse 91 06/06/24 14:06 BP 126/78 06/06/24 14:06 Pulse Ox 97 06/06/24 14:06 Oxygen Delivery Method Room Air 06/06/24 14:06 BMI result Body Mass Index 35.3 Tobacco/Smoking Status: Tobacco use Status Tobacco use date assessed 06/06/24 06/06/24 14:11 Patient Tobacco Use Status Never used Tobacco 06/06/24 14:06 e-Cigarette/Vaping Use Never Used 06/06/24 14:06 Thrive Assessment: Date of Thrive Assessment Date Thrive assessed 06/06/24 06/06/24 14:11 Currently or been in a relationship where the following occur: No concerns reported Const General: cooperative, comfortable and no acute distress Orientation/consciousness: patient oriented x3 HENMT Head: Yes normocephalic Eyes General: appearance normal, both eyes and all related structures Neck Neck: Yes supple Resp Effort & Inspection: normal respiratory effort, no cough and no stridor Cardio Rhythm: regular rhythm Heart sounds: S1 normal heart sound present and S2 normal heart sound present Skin General skin exam: turgor normal Neuro General: patient oriented x3, tone normal and moves all extremities Extrem Right lower extremity: no edema Left lower extremity: no edema Office Procedures EKG [id number], Complete Coding Level of Care Code Est Pt Level 5 (39402) Complex EM visit Add On G2211 Diagnoses Tachycardia R00.0 Other specified hypothyroidism E03.8 Hypothyroidism type: other Chronic GERD K21.9 Class 1 obesity due to excess calories without serious comorbidity with body mass index (BMI) of 30.0 to 30.9 in adult E66.09; Z68.30 Body mass index: BMI 30.0-30.9 Obesity classification: adult class 1 (BMI 30 - 34.9) Serious obesity comorbidity presence: without serious comorbidity Lipid disorder E78.9 Primary osteoarthritis of both knees M17.0 Osteoarthritis type: primary Anxiety, generalized F41.1 Hiatal hernia K44.9 CPT Codes EKG - CPT: [id number], Complete ([id number]) Assessment & Plan Assessment & Plan (1) Tachycardia: Code(s): R00.0 - Tachycardia, unspecified Category: Medical (2) Hypothyroid: Code(s): E03.9 - Hypothyroidism, unspecified Category: Medical Qualifiers: Hypothyroidism type: other Qualified Code(s): E03.8 - Other specified hypothyroidism (3) Chronic GERD: Code(s): K21.9 - Gastro-esophageal reflux disease without esophagitis Category: Medical (4) Obesity due to excess calories: Code(s): E66.09 - Other obesity due to excess calories Category: Medical Qualifiers: Body mass index: BMI 30.0-30.9 Obesity classification: adult class 1 (BMI 30 - 34.9) Serious obesity comorbidity presence: without serious comorbidity Qualified Code(s): E66.09 - Other obesity due to excess calories; Z68.30 - Body mass index [BMI] 30.0-30.9, adult (5) Lipid disorder: Code(s): E78.9 - Disorder of lipoprotein metabolism, unspecified Category: Medical (6) Osteoarthritis of knees, bilateral: Code(s): M17.0 - Bilateral primary osteoarthritis of knee Category: Medical Qualifiers: Osteoarthritis type: primary Qualified Code(s): M17.0 - Bilateral primary osteoarthritis of knee (7) Anxiety, generalized: Code(s): F41.1 - Generalized anxiety disorder Category: Medical (8) Hiatal hernia: Code(s): K44.9 - Diaphragmatic hernia without obstruction or gangrene Category: Medical Plan Patient is a 59-year-old female came in today for her regular follow-up appointment On exam today patient's heart rate is elevated She says that she does feel palpitations every now and then We did the EKG today which shows normal sinus rhythm, no acute findings, 87 beats per minute Patient is currently seeing bariatric surgery provider And is enrolled in weight loss program Hypothyroidism: Levothyroxine was reduced to 88 mcg when her TSH level came back low We will be repeating labs again today Blood pressure is stable Allergies are stable Anxiety and depression is stable Patient have fibromyalgia and is taking gabapentin through Rheumatology She also take mirtazapine at night as a sleep aid Patient also have a GERD had endoscopy, patient is waiting to see Gastroenterology to do the report Endoscopy report reviewed from 04/27/[address] Kern Small into sign mucosa with active inflammation at jejunum anastomosis site Duodenum normal limit , small intestine within normal limit Stomach punch biopsy small intestinal mucosa within normal limit, GE junction, cardiac type mucosa with moderate chronic inactive inflammation, no intestinal metaplasia Squamous mucosa within normal limit Postop diagnosis: Possible Mcgrath's esophagus, hiatal hernia, jejunal anastomosis inflammation Restless leg syndrome: Taking pramipexole 0.5 mg at night Sleep study came back normal Medications from PCP office are Cetirizine Levothyroxine Mirtazapine Montelukast And pramipexole Follow-up 4 months 45 minutes spent in care of this patient, including reviewing chart, reports, EKG, charting Coordination of care Orders: Orders TSH reflex Free T4 Today E03.8 - Other specified hypothyroidism, E78.9 - Disord er of lipoprotein metabolism, unspecified, F41.1 - Generalized anxiety disorder, K21.9 - Gastro-esophageal reflux disease without esophagitis, M17.0 - Bilateral primary osteoarthritis of knee Comprehensive Met. Panel Today E03.8 - Other specified hypothyroidism, E78.9 - Disorder of lipoprotein metabolism, unspecified, F41.1 - Generalized anxiety disorder, K21.9 - Gastro-esophageal reflux disease without esophagitis, M17.0 - Bilateral primary osteoarthritis of knee Complete Blood Count Auto Diff Today E03.8 - Other specified hypothyroidism, E78.9 - Disorder of lipoprotein metabolism, unspecified, F41.1 - Generalized anxiety disorder, K21.9 - Gastro-esophageal reflux disease without esophagitis, M17.0 - Bilateral primary osteoarthritis of knee Vitamin D 25-OH (D2 and D3) Today E03.8 - Other specified hypothyroidism, E78.9 - Disorder of lipoprotein metabolism, unspecified, F41.1 - Generalized anxiety disorder, K21.9 - Gastro-esophageal reflux disease without esophagitis, M17.0 - Bilateral primary osteoarthritis of knee
== END 2024-06-06 15:31 | disposition home or self-care (01) ==
PROVIDERS: PCP Internal Medicine; Visit Provider Internal Medicine
DX: R00.0 Tachycardia, unspecified (principal); E03.8 Other specified hypothyroidism; K21.9 Gastro-esophageal reflux disease without esophagitis; E66.09 Other obesity due to excess calories; Z68.30 Body mass index [BMI] 30.0-30.9, adult; E78.9 Disorder of lipoprotein metabolism, unspecified; M17.0 Bilateral primary osteoarthritis of knee; F41.1 Generalized anxiety disorder; K44.9 Diaphragmatic hernia without obstruction or gangrene

== ENCOUNTER → 2024-06-06 13:50 | Outpatient (BNVA) | payer OTHER, SELFPAY | PROVIDERS: PCP Internal Medicine; Visit Provider Internal Medicine | DX: R00.0 Tachycardia, unspecified (principal); E03.8 Other specified hypothyroidism; K21.9 Gastro-esophageal reflux disease without esophagitis; E66.09 Other obesity due to excess calories; Z68.30 Body mass index [BMI] 30.0-30.9, adult; M17.0 Bilateral primary osteoarthritis of knee; E78.9 Disorder of lipoprotein metabolism, unspecified; F41.1 Generalized anxiety disorder; K44.9 Diaphragmatic hernia without obstruction or gangrene | CPT/HCPCS: 93005; 99212 ==

== ENCOUNTER 2024-06-07 08:54 | Outpatient (REF) | payer OTHER, SELFPAY ==
[2024-06-07 09:59] LABS: MANUAL DIFF FLAG NO
[2024-06-07 10:07] LABS: Basophils Percent Auto 0.5 % (0-2); Eosinophils Absolute Auto 0.3 X10*3/uL (0.0-0.4); Eosinophils Percent Auto 4.3 % (0-4); Hematocrit 42.3 % (37.0-47.0); Hemoglobin 14.7 g/dl (12.0-16.0); Imm Gran Abs Auto 0.05 X10*3/uL (0.00-0.03); Imm Gran Pct Auto 0.6 % (0.0-0.4); Lymphocytes Absolute Auto 2.3 X10*3/uL (1.2-4.9); Lymphocytes Percent Auto 29.6 % (20-40); Mean Corpuscular HGB Conc 34.8 g/dl (31.0-35.0); Mean Corpuscular Hemoglobin 30.7 pg (27.0-33.0); Mean Corpuscular Volume 88.3 fL (80.0-98.0); Mean Platelet Volume 10.1 fL (9.4-12.3); Monocytes Absolute Auto 0.6 X10*3/uL (0.1-1.2); Neutrophils Absolute Auto 4.5 x10*3/uL (2.0-8.3); Platelet Count 329 X10*3/uL (160-400); Red Blood Count 4.79 X10*6/uL (4.20-5.50); Red Cell Distribution Width 13.7 % (11.0-16.0); White Blood Count 7.8 X10*3/uL (4.8-10.8)
[2024-06-07 10:51] LABS: Alanine Aminotransferase 20 U/L (0-31); Alkaline Phosphatase 118 U/L (39-117); Anion Gap 15 (12-20); Aspartate Amino Transferase 22 U/L (5-31); Bilirubin Total 0.3 mg/dL (0.0-1.0); Blood Urea Nitrogen 22 mg/dL (9-16); Calcium 9.6 mg/dL (8.4-10.2); Carbon Dioxide 27 mmol/L (22-29); Chloride 104 mmol/L (96-108); Estimated Glomerular Filt Rate > 60; Glucose Random 132 mg/dL (60-115); Potassium 5.1 mmol/L (3.3-5.1); Sodium 141 mmol/L (135-145); TSH reflex Free T4 1.25 uIU/mL (0.32-4.0)
[2024-06-13 14:24] LABS: Vitamin D 25-OH, D2 <4 ng/mL; Vitamin D 25-OH, D3 41 ng/mL; Vitamin D 25-OH, Total 41 ng/mL (30-100)
== END 2024-06-07 08:55 | disposition home or self-care (01) ==
LOC: HO.HMGCLDS 08:54
PROVIDERS: PCP Internal Medicine; Visit Provider Internal Medicine
DX: K21.9 Gastro-esophageal reflux disease without esophagitis (principal); E78.9 Disorder of lipoprotein metabolism, unspecified; M17.0 Bilateral primary osteoarthritis of knee; F41.1 Generalized anxiety disorder; E03.8 Other specified hypothyroidism
CPT/HCPCS: 36415; 80053; 82306; 84443; 85025

== ENCOUNTER 2024-06-30 08:28 | Outpatient (AMB) | payer OTHER, SELFPAY ==
--- NOTE | 2024-06-30 08:36 | MHC.OFFVIS ---
Vital Signs 06/30/24 08:38 Height 4 ft 11 in Weight 178 lb 2.136 oz BMI 36.0 BP 120/70 Blood Pressure Location Lt brachial Position Sitting Pulse 79 Pulse Source Pulse Oximeter Pulse Oximetry (%) 99 Oxygen Delivery Method Room Air Intake Visit Reasons: OA/CM Intake Note: Patient presents for OA. Allergies Seasonal Allergy (Unknown, Uncoded 05/12/24 19:18) Unknown Medication List - Last Reconciled 06/30/24 by Sarah Mayer MD cetirizine 10 mg PO DAILY duloxetine 60 mg PO DAILY 90 days gabapentin Take one capsule by mouth every morning, one capsule in afternoon and 2 capsules every evening levothyroxine 88 mcg PO DAILY 90 days mirtazapine 15 mg PO BEDTIME montelukast 10 mg PO DAILY omeprazole 20 mg PO DAILY pramipexole 0.5 mg PO QPM sucralfate (Carafate) 1 g PO BID HPI Comments Details: This is a 59-year-old female with fibromyalgia and osteoarthritis who presents for follow-up. She states that she continues to have diffuse pain, fatigue. She had a sleep study last month which was unremarkable. She gets knee pain especially with walking and standing up after sitting for some time. ON LICENSE OF [facility] Medical History Hiatal hernia Flexor tendinitis of hand Bilateral hand pain Decreased range of motion (ROM) of shoulder Recurrent knee instability Generalized weakness Arthritis GERD (gastroesophageal reflux disease) Depression with anxiety Hypothyroid History of fibromyalgia Surgical History Hx of colonoscopy History of laparoscopic cholecystectomy (12/17/21) Hx of gastric bypass Hx of tubal ligation Family History Mother Hypertension Father Diabetes Dementia Substance use disorder Daughter No problems noted. Daughter No problems noted. Son No problems noted. Other Mental health disorder Social History Housing: Apartment Alcohol intake: never Patient Tobacco Use Status: Never used Tobacco e-Cigarette/Vaping Use: Never Used service: No Current occupational status: unemployed Sexual orientation: Straight/Heterosexual Gender identity: Female Cognitive needs: No Hearing needs: No Vision needs: Yes Female Reproductive History Menstrual Age of Menarche: 11 Review of Systems Const Reports fatigue Musc Reports myalgias and Reports arthralgias Endo Reports fatigue Physical Exam Vital Signs: Last Vital Signs Pulse 79 06/30/24 08:38 BP 120/70 06/30/24 08:38 Pulse Ox 99 06/30/24 08:38 Oxygen Delivery Method Room Air 06/30/24 08:38 BMI result Body Mass Index 36.0 Const General: cooperative, healthy appearing and comfortable Nutritional Appearance: obese morbidly obese Orientation/consciousness: patient oriented x3 Limitations: no limitations HEENT Head: Yes normocephalic and Yes atraumatic Mouth: moist mucous membranes Resp Effort & Inspection: normal respiratory effort and able to speak in complete sentences Auscultation: clear to auscultation bilaterally Skin General skin exam: no rashes or lesions noted Neuro General: patient oriented x3 Extrem Other: Right knee pain with flexion and full extension Assessment & Plan Assessment & Plan (1) Fibromyalgia: Code(s): M79.7 - Fibromyalgia Category: Medical Plan: This is a 59-year-old female with fibromyalgia who presents for follow-up. She had a sleep study last month and it did not show sleep apnea Discussed management of fibromyalgia with patient. Is a noninflammatory, non-autoimmune central afferent processing disorder leading to a diffuse pain syndrome. I suggested that patient try to address her underlying psychiatric issues, anxiety/depression. I suggested evaluation by a therapist and/or a psychiatrist. Try to follow sleep hygiene practices. Discuss CBT for sleep with psychotherapist. Patient would benefit from increased physical activity, either through formal physical therapy or by joining a gym. Advised patient that she should start activity slowly and increase as tolerated. Consider low-impact exercises such as swimming, aqua therapy stretching, yoga I refilled her gabapentin (2) Osteoarthritis of right knee: Code(s): M17.11 - Unilateral primary osteoarthritis, right knee Category: Medical Qualifiers: Osteoarthritis type: primary Qualified Code(s): M17.11 - Unilateral primary osteoarthritis, right knee Plan: This is Voltaren gel twice a day. Advised patient to use Voltaren gel 4 times a day as a therapeutic trial Plan I spent 25 minutes reviewing patient's chart, evaluating patient, counseling patient and documenting in the chart Medications: Refilled gabapentin Take one capsule by mouth every morning, one capsule in afternoon and 2 capsules every evening 120 caps 5RF M79.7 - Fibromyalgia Coding Level of Care Code Est Pt Level 4 (27318) Diagnoses Fibromyalgia M79.7 Primary osteoarthritis of right knee M17.11 Osteoarthritis type: primary
[2024-06-30 08:38] VITALS: BP 120/70; PULSE 79; O2SAT 99; BMI 36.0
== END 2024-06-30 09:01 | disposition home or self-care (01) ==
PROVIDERS: PCP Internal Medicine; Visit Provider Student in an Organized Health Care Education/Training Program
DX: M79.7 Fibromyalgia (principal); M17.11 Unilateral primary osteoarthritis, right knee
CPT/HCPCS: 99214

== ENCOUNTER → 2024-06-30 08:28 | Outpatient (BNVA) | payer OTHER, SELFPAY | PROVIDERS: PCP Internal Medicine; Visit Provider Student in an Organized Health Care Education/Training Program | DX: M79.7 Fibromyalgia (principal); M17.11 Unilateral primary osteoarthritis, right knee | CPT/HCPCS: 99212 ==

== ENCOUNTER 2024-09-27 07:36 | Outpatient (REF) | payer OTHER, SELFPAY ==
--- OUTSIDE RECORDS SUMMARY | 2024-09-27 07:38 | XMS_ITS | Clinical Summary ---
Author Organization [facility] Address [address] [address] Phone Care Team Providers Care Cafeteria Helper Name Role Phone Eddie Parks MD Primary Care Provider [phone] Allergies No known active allergies Medications cetirizine (ZyrTEC) 10 MG chewable tablet Chew 10 mg 1 (one) time each day Active gabapentin (NEURONTIN) 800 MG tablet Take 800 mg by mouth in the morning and 800 mg in the evening and 800 mg before bedtime. Active levothyroxine sodium (TIROSINT) 88 MCG capsule Take 88 mcg by mouth 1 (one) time each day Active omeprazole (PriLOSEC) [address] capsule Take 20 mg by mouth 1 (one) time each day Do not crush or chew. Active DULoxetine (CYMBALTA) [address] capsule Take 60 mg by mouth 1 (one) time each day Do not crush or chew. In the AM Active Active Problems Problem Noted Date Diagnosed Date Complex renal cyst 06/20/2024 Fibromyalgia 11/19/2021 Hypothyroidism 11/19/2021 Family History Medical History Relation Comments Hypertension Mother Mental illness Other Other Other substance abuse disorder Relation Status Comments Mother Other Alive Social History Tobacco Use Types Packs/Day Years Used Date Smoking Tobacco: Never Smokeless Tobacco: Never Tobacco Cessation:Counseling Given: Not Answered Alcohol Use Standard Drinks/Week Comments Never 0 (1 standard drink = 0.6 oz pur e alcohol) Comments Unknown Sex and Gender Information Value Date Recorded Sex Assigned at Not on file Legal Sex Female 3:00 PM EST Gender Identity Not on file Sexual Orientation Not on file Last Filed Vital Signs Vital Sign Reading Time Taken Comments Blood Pressure 124/76 06/20/2024 9:05 AM EDT Pulse 77 06/20/2024 8:47 AM EDT Temperature - - Respiratory Rate - - Oxygen Saturation 99% 06/20/2024 8:47 AM EDT Inhaled Oxygen Concentration - - Weight 79.9 kg (176 lb 3.2 oz) 06/20/2024 8:47 A M EDT Height - - Body Mass Index - - Plan of Treatment Health Maintenance Due Date Last Done Comments Breast Cancer Screening 1965 Pneumococcal Vaccine: Pediat rics (0 to 5 Years) and At-Risk Patients (6 to 64 Years) (1 of 2 - PCV) 1971 Hepatitis B Vaccine (1 of 3 - 19+ 3-dose series) 03/30 Colorectal Cancer Screening: Annual FOBT 2014 Colorectal Cancer Screening: Colonoscopy 2014 Colorectal Cancer Screening: Sigmoidoscopy 2014 Influenza Vaccine (#1) 2024 Insurance Care Teams Cafeteria Helper Relationship Specialty Start Date End Date Eddie Parks MD [address] [place] [id number] PCP - General Internal Medicine 10/29/21
[2024-09-27 11:18] LABS: Alanine Aminotransferase 26 U/L (0-31); Albumin Level 3.8 g/dL (3.5-5.0); Alkaline Phosphatase 131 U/L (39-117); Anion Gap 9 (12-20); Aspartate Amino Transferase 27 U/L (5-31); Bilirubin Total 0.4 mg/dL (0.0-1.0); Blood Urea Nitrogen 20 mg/dL (9-16); Calcium 9.7 mg/dL (8.4-10.2); Carbon Dioxide 30 mmol/L (22-29); Chloride 106 mmol/L (96-108); Estimated Glomerular Filt Rate 58; Glucose Random 109 mg/dL (60-115); Potassium 5.3 mmol/L (3.3-5.1); Sodium 140 mmol/L (135-145); Total Protein 6.8 g/dL (6.5-8.0)
[2024-09-27 11:25] LABS: TSH reflex Free T4 9.16 uIU/mL (0.32-4.0)
[2024-09-27 12:03] LABS: Free T4 (Free Thyroxine) 0.61 ng/dL (0.71-1.85)
== END 2024-09-27 07:37 | disposition home or self-care (01) ==
LOC: HO.HMGCLDS 07:36
PROVIDERS: PCP Internal Medicine; Visit Provider Internal Medicine
DX: R79.89 Other specified abnormal findings of blood chemistry (principal); E03.8 Other specified hypothyroidism
CPT/HCPCS: 36415; 80053; 84439; 84443

== ENCOUNTER 2024-10-03 08:38 | Outpatient (AMB) | payer OTHER, SELFPAY ==
[2024-10-03 08:41] VITALS: BP 128/72; PULSE 88; O2SAT 97; BMI 37.4
--- NOTE | 2024-10-03 08:41 | A.OFFPC_ITS ---
Vital Signs 10/03/24 08:41 Height 4 ft 11 in Weight 185 lb BMI 37.4 BP 128/72 Blood Pressure Location Lt brachial Position Sitting Pulse 88 Pulse Source Pulse Oximeter Pulse Oximetry (%) 97 Oxygen Delivery Method Room Air Intake Visit Reasons: 3m follow up Allergies Seasonal Allergy (Unknown, Uncoded 05/12/24 19:18) Unknown Medication List - Last Reconciled 10/03/24 by Eddie Parks MD cetirizine 10 mg PO DAILY duloxetine 60 mg PO DAILY 90 days gabapentin Take one capsule by mouth every morning, one capsule in afternoon and 2 capsules every evening levothyroxine 88 mcg PO DAILY 90 days mirtazapine 15 mg PO BEDTIME montelukast 10 mg PO DAILY omeprazole 20 mg PO DAILY pramipexole 0.5 mg PO QPM sucralfate 1 g PO BID Tobacco use date assessed: 10/03/24 Dental Screening Dental Screen Date: 10/03/24 Did you have a dental visit in the last 12 months?: Yes Did you have a dental problem in the last 6 months where you did not have access to dental care?: No Was dental information given to patient?: Patient has dentist HPI 3m follow up HPI Details Follow-up appointment - The patient is a 59-year-old female pr esenting with exhaustion. - Exhaustion is reported to have progres sively worsened, manifesting as excessive daytime sleepiness. - The patient mentions having a prior sl eep study but reports no significant findings or interventions occurred. Sleep study has been normal perform last year 2023 - Her sleep is described as generally ad equate, with occasional snoring. - The patient has been on 88 micrograms of levothyroxine for hypothyroidism for several years; current lab results indicate thyroid hormone levels are suboptimal. - Thyroid dysfunction may be contributin g to the exhaustion. - A previously diagnosed hiatal hernia h as not shown significant symptomatic deterioration. - The patient opted out of a recommended nutritional regimen due to financial constraints. Through bariatric surgery placed, she has a history of bariatric surgery - Management for Restless Legs Syndrome continues with the medication pramipexole. - Fibromyalgia is under rheumatologic ca re; the patient had a recent appointment with follow-up scheduled in January Medications from PCP office are Cetirizine - Levothyroxine, 88 micrograms for hypot hyroidism - Mirtazapine at night - Montelukast - Pramipexole for Restless Legs Syndrome Gabapentin for fibromyalgia through [facility] Omeprazole and sucralfate through Gastroenterology Dr. Kern for hiatal hernia and GERD Problem List - Exhaustion secondary to suboptimal TSH level does need to be adjusted - Hiatal Hernia - Restless Legs Syndrome - Fibromyalgia - Hypothyroidism - allergies - obesity - history of bariatric surgery [facility] - anxiety and depression Diagnostic results - Labs: - Potassium level is slightly el evated at 5.3 mmol/L (normal < 5.1 mmol/L). - Alkaline phosphatase, one of the liver enzymes, is elevated. - Thyroid function tests: thyroid off, b eyond the normal range. - Tests and Diagnostics: - Prior endosco py revealed a hiatal hernia. [place] of Care: Dr. Kern and [facility] Patient Instructions - Continue taking levothyroxine, and inc rease the dosage to 100 micrograms as advised, due to insufficient hormone levels. - Repeat blood tests in six weeks to tamiko ssess thyroid function and monitor potassium levels. - Maintain sufficient hydration, emphasi zing increased water intake. - continue medications as prescribed Follow-up in January with physical exam appointment Review of Systems - General: Reports exhaustion, excessive daytime sleepiness. - ENT: Denies regular snoring. - Gastrointestinal: Reports previous yahir gnosis of hiatal hernia, denies current significant symptoms. - Neurological: Reports Restless Legs Sy ndrome, managed with medication. - Musculoskeletal: Reports fibromyalgia. - Endocrine: Reports thyroid dysfunction . - Psychiatric: Denies anxiety. neurological: No headaches no dizziness cardiovascular: No syncope, no chest pain, no palpitations genitourinary: No dysuria skin: No new complaints Physical Exam general: No acute distress HEENT: No acute findings neck: Supple, no lumps or anything respiratory system: Able to talk in full sentences, no audible wheeze no stridor cardiovascular: S1-S2 gastrointestinal: No pain extremities: No new findings WELDER PIPE MAKING: Alert awake oriented x3 motor sensory intact skin: Normal turgor PFSH Medical History Hiatal hernia Flexor tendinitis of hand Bilateral hand pain Decreased range of motion (ROM) of shoulder Recurrent knee instability Generalized weakness Arthritis GERD (gastroesophageal reflux disease) Depression with anxiety Hypothyroid History of fibromyalgia Surgical History Hx of colonoscopy History of laparoscopic cholecystectomy (12/17/21) Hx of gastric bypass Hx of tubal ligation Family History Mother Hypertension Father Diabetes Dementia Substance use disorder Daughter No problems noted. Daughter No problems noted. Son No problems noted. Other Mental health disorder Social History Housing: Apartment Alcohol intake: never Patient Tobacco Use Status: Never used Tobacco e-Cigarette/Vaping Use: Never Used service: No Current occupational status: unemployed Sexual orientation: Straight/Heterosexual Gender identity: Female Cognitive needs: No Hearing needs: No Vision needs: Yes Female Reproductive History Menstrual Age of Menarche: 11 Questionnaire PHQ-9 Over the last 2 weeks, how often have you been bothered by any of the following problems? 1. Little interest or pleasure in doing things: more than half the days 2. Feeling down, depressed, or hopeless: more than half the days 3. Trouble falling or staying asleep, or sleeping too much: not at all 4. Feeling tired or having little energy: nearly every day 5. Poor appetite or overeating: more than half the days 6. Feeling bad about yourself - or that you are a failure or have let yourself or your family down: not at all 7. Trouble concentrating on things, such as reading the newspaper or watching television: not at all 8. Moving or speaking so slowly that other people could have noticed. Or the opposite - being so fidgety or restless that you have been moving around a lot more than usual: not at all 9. Thoughts that you would be better off or of hurting yourself in some way: not at all Total score: 9 Depression Screening Interpretation: Negative Depression Screening Done: Yes 50101 - PHQ-9 Billing: Yes Source: Developed by Drs. Rios Lim, Katalina Martin, Jasper Main and colleagues, with an educational stacie from [employer]. Thrive Questionnaire Date Thrive assessed: 10/03/24 I am a: Patient What is your living situation today?: I have a steady place to live Within the past 12 months, did the food you bought not last and you didn't have the money to get more?: Never true Within the past 12 months, did you worry whether your food would run out before you got money to buy more?: Never true Do you have trouble paying for medicines?: No Do you have trouble getting transportation to medical appointments?: No Do you have trouble paying your heating and electricity bill?: No Do you have trouble taking care of your child, family member or friend?: No Do you have trouble with day-to-day activities such as bathing, preparing meals, shopping, managing finances, etc.?: No Are you currently unemployed and looking for a job?: No Are you interested in more education?: No Please select the resources that you would like help with: None Currently or been in a relationship where the following occur: No concerns reported THRIVE Score: 0 AUDIT C Alcohol Use Questionnaire (AUDIT-C) 1. How often do you have a drink containing alcohol?: Never 3. How often do you have six or more drinks on one occasion?: Never Total Score: 0 Score Reviewed/Action Taken: Yes JOHNNY-7 AMB Questionnaire JOHNNY-7 Date JOHNNY - 7 assessed: 10/03/24 Feeling nervous, anxious, or on edge: 1 = Several days Not being able to stop or control worryin = Not at all Worrying too much about different things: 1 = Several days Trouble relaxin = Several days Being so restless that it is hard to sit still: 0 = Not at all Becoming easily annoyed or irritable: 1 = Several days Feeling afraid as if something awful might happen: 0 = Not at all Total JOHNNY-7 score (0-4 normal; 5-9 mild; 10-14 moderate; 15-21 severe): 4 Source: Developed by Drs. Rios Lim, Katalina Martin, Jasper Main and colleagues, with an educational stacie from [employer]. JOHNNY-7 Assessment Billing JOHNNY-7 Assessment Tool: JOHNNY-7 Assessment 63747 Physical exam (Primary Care) Vital Signs: Last Vital Signs Pulse 88 10/03/24 08:41 BP 128/72 10/03/24 08:41 Pulse Ox 97 10/03/24 08:41 Oxygen Delivery Method Room Air 10/03/24 08:41 BMI result Body Mass Index 37.4 Tobacco/Smoking Status: Tobacco use Status Tobacco use date assessed 10/03/24 10/03/24 08:45 Patient Tobacco Use Status Never used Tobacco 10/03/24 08:45 e-Cigarette/Vaping Use Never Used 10/03/24 08:45 PHQ-9: PHQ-9 Score PHQ-9: Total score 9 10/03/24 08:45 Depression Screening Interpretation: Negative Thrive Assessment: Date of Thrive Assessment Date Thrive assessed 10/03/24 10/03/24 08:45 Currently or been in a relationship where the following occur: No concerns reported Coding Level of Care Code Est Pt Level 4 (65811) Complex EM visit Add On G2211 Diagnoses Other specified hypothyroidism E03.8 Hyperkalemia E87.5 Anxiety, generalized F41.1 Chronic GERD K21.9 Class 1 obesity due to excess calories without serious comorbidity with body mass index (BMI) of 30.0 to 30.9 in adult E66.09; Z68.30 Obesity classification: adult class 1 (BMI 30 - 34.9) Serious obesity comorbidity presence: without serious comorbidity Body mass index: BMI 30.0-30.9 Lipid disorder E78.9 Primary osteoarthritis of both knees M17.0 Osteoarthritis type: primary Hiatal hernia K44.9 Additional Codes JOHNNY-7 Assessment Billing - JOHNNY-7 Assessment Tool: JOHNNY-7 Assessment [id number] ([id number]) PHQ-9 - 57152 - PHQ-9 Billing: Yes ([id number]) Assessment & Plan Assessment & Plan (1) Other specified hypothyroidism: Code(s): E03.8 - Other specified hypothyroidism Category: Medical (2) Hyperkalemia: Code(s): E87.5 - Hyperkalemia Category: Medical (3) Anxiety, generalized: Code(s): F41.1 - Generalized anxiety disorder Category: Medical (4) Chronic GERD: Code(s): K21.9 - Gastro-esophageal reflux disease without esophagitis Category: Medical (5) Obesity due to excess calories: Code(s): E66.09 - Other obesity due to excess calories Category: Medical Qualifiers: Obesity classification: adult class 1 (BMI 30 - 34.9) Serious obesity comorbidity presence: without serious comorbidity Body mass index: BMI 30.0- 30.9 Qualified Code(s): E66.09 - Other obesity due to excess calories; Z68.30 - Body mass index [BMI] 30.0-30.9, adult (6) Lipid disorder: Code(s): E78.9 - Disorder of lipoprotein metabolism, unspecified Category: Medical (7) Osteoarthritis of knees, bilateral: Code(s): M17.0 - Bilateral primary osteoarthritis of knee Category: Medical Qualifiers: Osteoarthritis type: primary Qualified Code(s): M17.0 - Bilateral primary osteoarthritis of knee (8) Hiatal hernia: Code(s): K44.9 - Diaphragmatic hernia without obstruction or gangrene Category: Medical Plan Follow-up appointment - The patient is a 59-year-old female presenting with exhaustion. - Exhaustion is reported to have progressively worsened, manifesting as excessive daytime sleepiness. - The patient mentions having a prior sleep study but reports no significant findings or interventions occurred. Sleep study has been normal perform last year 2023 - Her sleep is described as generally adequate, with occasional snoring. - The patient has been on 88 micrograms of levothyroxine for hypothyroidism for several years; current lab results indicate thyroid hormone levels are suboptimal. - Thyroid dysfunction may be contributing to the exhaustion. - A previously diagnosed hiatal hernia has not shown significant symptomatic deterioration. - The patient opted out of a recommended nutritional regimen due to financial constraints. Through bariatric surgery placed, she has a history of bariatric surgery - Management for Restless Legs Syndrome continues with the medication pramipexole. - Fibromyalgia is under rheumatologic care; the patient had a recent appointment with follow-up scheduled in January Medications from PCP office are Cetirizine - Levothyroxine, 88 micrograms for hypothyroidism - Mirtazapine at night - Montelukast - Pramipexole for Restless Legs Syndrome Gabapentin for fibromyalgia through [facility] Omeprazole and sucralfate through Gastroenterology Dr. Kern for hiatal hernia and GERD Problem List - Exhaustion secondary to suboptimal TSH level does need to be adjusted - Hiatal Hernia - Restless Legs Syndrome - Fibromyalgia - Hypothyroidism - allergies - obesity - history of bariatric surgery [facility] - anxiety and depression - slightly elevated potassium on recent labs need to be repeated in 6 weeks along with TSH Diagnostic results - Labs: - Potassium level is slightly elevated at 5.3 mmol/L (normal < 5.1 mmol/L). - Alkaline phosphatase, one of the liver enzymes, is elevated. - Thyroid function tests: thyroid off, beyond the normal range. - Tests and Diagnostics: - Prior endoscopy revealed a hiatal hernia. [place] of Care: Dr. Kern and [facility] Patient Instructions - Continue taking levothyroxine, and increase the dosage to 100 micrograms as advised, due to insufficient hormone levels. - Repeat blood tests in six weeks to reassess thyroid function and monitor potassium levels. - Maintain sufficient hydration, emphasizing increased water intake. - continue medications as prescribed Follow-up in January with physical exam appointment Orders: Orders TSH reflex Free T4 6 Weeks E03.8 - Other specified hypothyroidism, E87.5 - Hyperkalemia Comprehensive Met. Panel Today E03.8 - Other specified hypothyroidism, E87.5 - Hyperkalemia Medications: Changed From levothyroxine 88 mcg PO DAILY 90 days 90 tabs 0RF To levothyroxine 100 mcg PO DAILY 90 days 90 tabs 0RF
--- OUTSIDE RECORDS SUMMARY | 2024-10-03 09:00 | XMS_ITS | Clinical Summary ---
Author Organization [facility] Address [address] [address] Phone Care Team Providers Care Sound Effects Supervisor Name Role Phone Eddie Parks MD Primary Care Provider [phone] Allergies No known active allergies Medications cetirizine [...] Influenza Vaccine (#1) 2024 Insurance Care Teams Sound Effects Supervisor Relationship Specialty Start Date End Date Eddie Parks MD [address] [place] [id number] PCP - General Internal Medicine 10/29/21
== END 2024-10-03 09:04 | disposition home or self-care (01) ==
PROVIDERS: PCP Internal Medicine; Visit Provider Internal Medicine
DX: E03.8 Other specified hypothyroidism (principal); E87.5 Hyperkalemia; F41.1 Generalized anxiety disorder; K21.9 Gastro-esophageal reflux disease without esophagitis; E66.09 Other obesity due to excess calories; Z68.30 Body mass index [BMI] 30.0-30.9, adult; E78.9 Disorder of lipoprotein metabolism, unspecified; M17.0 Bilateral primary osteoarthritis of knee; K44.9 Diaphragmatic hernia without obstruction or gangrene

== ENCOUNTER → 2024-10-03 08:38 | Outpatient (BNVA) | payer OTHER, SELFPAY | PROVIDERS: PCP Internal Medicine; Visit Provider Internal Medicine | DX: E03.8 Other specified hypothyroidism (principal); E87.5 Hyperkalemia; F41.1 Generalized anxiety disorder; K21.9 Gastro-esophageal reflux disease without esophagitis; E78.9 Disorder of lipoprotein metabolism, unspecified; M17.0 Bilateral primary osteoarthritis of knee; K44.9 Diaphragmatic hernia without obstruction or gangrene | CPT/HCPCS: 96127; 99212 ==

== ENCOUNTER 2024-10-30 09:53 | Outpatient (REF) | payer OTHER, SELFPAY ==
--- OUTSIDE RECORDS SUMMARY | 2024-10-30 10:58 | XMS_ITS | Clinical Summary ---
Author Organization [facility] Address [address] [address] Phone Care Team Providers Care Game Advisor Name Role Phone Eddie Parks MD Primary Care Provider [phone] Allergies No known active allergies Medications cetirizine [...] Influenza Vaccine (#1) 2024 Insurance Care Teams Game Advisor Relationship Specialty Start Date End Date Eddie Parks MD [address] [place] [id number] PCP - General Internal Medicine 10/29/21
== END 2024-10-30 09:54 | disposition home or self-care (01) ==
LOC: HO.MAMMO 09:53
PROVIDERS: PCP Internal Medicine; Visit Provider Internal Medicine
DX: Z12.31 Encounter for screening mammogram for malignant neoplasm of breast (principal)
CPT/HCPCS: 77063; 77067

== ENCOUNTER → 2024-10-30 10:15 | Outpatient (BNV) | payer OTHER, SELFPAY | PROVIDERS: PCP Internal Medicine; Visit Provider Internal Medicine | DX: Z12.31 Encounter for screening mammogram for malignant neoplasm of breast (principal) | CPT/HCPCS: 77063; 77067 ==

== ENCOUNTER 2024-11-17 11:24 | Outpatient (REF) | payer OTHER, SELFPAY ==
--- OUTSIDE RECORDS SUMMARY | 2024-11-17 13:10 | XMS_ITS | Clinical Summary ---
Author Organization [facility] ity Address [address] [place] [address] Care Team Providers Care Lion Tamer Name Role Phone Unavailable Primary Care Provider Unavailabl e Encounters Date Type Department Care Team Description 11/10/2024 Telephone Infusion Center [address] [place] [address] [place] [address] Ninfa Rodriguez RN from Last 3 Months Social History Tobacco Use Types Packs/Day Years Used Date Smoking Tobacco: Never Assessed Comments Unknown Sex and Gender Information Value Date Recorded Sex Assigned at Not on file Legal Sex Female 11:44 AM EST Gender Identity Not on file Sexual Orientation Not on file Plan of Treatment Health Maintenance Due Date Last Done Comments Breast Cancer Screening 1965 DTaP,Tdap,and Td Vaccines (1 - Tdap) 1984 Hepatitis B Vaccines (1 of 3 - 19+ 3-dose series) 1984 Cervical Cancer Screening: P ap Smear 1986 Pneumococcal Vaccine: 50+ Ye ars (1 of 1 - PCV) 2015 Zoster Vaccines (1 of 2) 2015 Colorectal Cancer Screening: Colonoscopy 08/04/2022 Depression Screening 08/04/2022 HIV Screening 08/04/2022 Hepatitis C Screening 08/04/2022 Social Influencers of Health Screening 08/04/2022 COVID-19 Vaccine ( - 2023-2 5 season) 2024 Influenza Vaccine (#1) 2024 RSV Immunization Patients 60 + Years Old (1 - 1-dose 75+ series) 2040 HIB Vaccines Aged Out No longer eligi ble based on patient's age to complete this topic HPV Vaccines Aged Out No longer eligi ble based on patient's age to complete this topic Hepatitis A Vaccines Aged Out No long er eligible based on patient's age to complete this topic IPV Vaccines Aged Out No longer eligi ble based on patient's age to complete this topic MMR Vaccines Aged Out No longer eligi ble based on patient's age to complete this topic Meningococcal ACWY Vaccine Aged Out N o longer eligible based on patient's age to complete this topic Meningococcal B Vacine Aged Out No lo nger eligible based on patient's age to complete this topic Pneumococcal Vaccine: Pediat rics (0 to 5 Years) and At-Risk Patients (6 to 64 Years) Aged Out No longer eligible b ased on patient's age to complete this topic RSV Immunization Patients Un tayla 20 months Aged Out No longer eligible b ased on patient's age to complete this topic Varicella Vaccines Aged Out No longer eligible based on patient's age to complete this topic
--- OUTSIDE RECORDS SUMMARY | 2024-11-17 13:10 | XMS_ITS | Clinical Summary ---
Author Organization [facility] Address [address] [address] Phone Care Team Providers Care Laundry Operator Finishing Name Role Phone Eddie Parks MD Primary Care Provider [phone] Allergies No known active allergies Medications cetirizine [...] Influenza Vaccine (#1) 2024 Insurance Care Teams Laundry Operator Finishing Relationship Specialty Start Date End Date Eddie Parks MD [address] [place] [id number] PCP - General Internal Medicine 10/29/21
--- OUTSIDE RECORDS SUMMARY | 2024-11-17 13:10 | XMS_ITS | Encounter Summary ---
Author Organization [facility] Address [address] [place] [address] Care Team Providers Care Industrial Fabric Cutter Name Role Phone Unavailable Primary Care Provider Unavailabl e Encounter Details Date Type Department Care Team (Late st Contact Info) Description 11/10/2024 Telephone Infusion Center [address] [place] [address] [place] [address] Ninfa Rodriguez, RN Social History Tobacco Use Types Packs/Day Years Used Date Smoking Tobacco: Never Assessed Comments Unknown Sex and Gender Information Value Date Recorded Sex Assigned at Not on file Legal Sex Female 11:44 AM EST Gender Identity Not on file Sexual Orientation Not on file documented as of this encounter Plan of Treatment Not on file documented as of this encounter Visit Diagnoses Not on filedocumented in this encounter
[2024-11-17 14:14] LABS: Alanine Aminotransferase 19 U/L (0-31); Albumin Level 3.6 g/dL (3.5-5.0); Alkaline Phosphatase 125 U/L (39-117); Anion Gap 13 (12-20); Aspartate Amino Transferase 23 U/L (5-31); Bilirubin Total 0.3 mg/dL (0.0-1.0); Blood Urea Nitrogen 20 mg/dL (9-16); Calcium 8.6 mg/dL (8.4-10.2); Carbon Dioxide 25 mmol/L (22-29); Chloride 107 mmol/L (96-108); Estimated Glomerular Filt Rate > 60; Glucose Random 127 mg/dL (60-115); Potassium 4.3 mmol/L (3.3-5.1); Sodium 141 mmol/L (135-145); Total Protein 6.5 g/dL (6.5-8.0)
[2024-11-17 14:31] LABS: TSH reflex Free T4 0.32 uIU/mL (0.32-4.0)
== END 2024-11-17 11:25 | disposition home or self-care (01) ==
LOC: HO.HMGCLDS 11:24
PROVIDERS: PCP Internal Medicine; Visit Provider Internal Medicine
DX: E03.8 Other specified hypothyroidism (principal); E87.5 Hyperkalemia
CPT/HCPCS: 36415; 80053; 84443

== ENCOUNTER 2024-11-20 08:27 | Outpatient (AMB) | payer OTHER, SELFPAY ==
[2024-11-20 08:28] VITALS: BP 120/80; PULSE 96; TEMP 37.2; O2SAT 98; BMI 37.4
--- NOTE | 2024-11-20 08:28 | AM.OFFWIN_ITS ---
Intake Vital Signs 11/20/24 08:28 Height 4 ft 11 in Weight 185 lb BMI 37.4 BP 120/80 Blood Pressure Location Lt brachial Position Sitting Pulse 96 Pulse Source Pulse Oximeter Temp 99.0 F Temp Source Oral Pulse Oximetry (%) 98 Intake Visit Reasons: EP Sinus congestion, RT knee pain Intake Note: pt is here for sinus congestion, and also c/o right knee pain denies injury Patient Tobacco Use Status: Never used Tobacco Allergies Seasonal Allergy (Unknown, Uncoded 11/20/24 08:28) Unknown Do you need a note to return to daycare/school/sports/work: Yes HPI HPI Comments History of Present Illness Details History of Present Illness The patient is a 59-year-old female presenting with acute sinusitis and knee pain. She reports sinus congestion and watery eyes over the past two weeks, consistent with prior sinus infections treated with Tylenol Sinus and neti pot usage. Denies fever and ear pain but notes typical headaches. No respiratory symptoms reported. Knee pain was worsening over the past weeks, impacting mobility; historical osteoarthritis and prior bursitis in same knee noted. Recent fall (fwd off a step on both knees) due to knee instability, though no new trauma confirmed. Pain localized to knee sides, exacerbated by movement; self-treated with Aleve and ibuprofen. Has not used a brace. Denies trauma to the knee prior to her fall. Physical Exam General: Cooperative, healthy appearing, comfortable, no acute distress and well developed Orientation: Patient oriented x3 Limitations: Difficulty bending the knee, pain on the sides of the knee Head: Normal to inspection Ears: Hearing grossly normal bilaterally, no ear pain Nose: Normal external nose present Face and sinus: TTP of maxillary sinuses bilaterally Mouth: Posterior oropharynx erythema, Eyes: Watery eyes, appearance normal otherwise Neck: Normal visual inspection and Yes full ROM Respiratory: Normal respiratory effort and able to speak in complete sentences. Skin: No rashes or lesions noted Neuro: Patient oriented x3 Extremities: Full ROM right knee, TTP medial and lateral right knee, slight joint laxity both medial and laterally, no TTP on bursas, no edema, no skin changes. [facility] Medical History Hiatal hernia Flexor tendinitis of hand Bilateral hand pain Decreased range of motion (ROM) of shoulder Recurrent knee instability Generalized weakness Arthritis GERD (gastroesophageal reflux disease) Depression with anxiety Hypothyroid History of fibromyalgia Surgical History Hx of colonoscopy History of laparoscopic cholecystectomy (12/17/21) Hx of gastric bypass Hx of tubal ligation Family History Mother Hypertension Father Diabetes Dementia Substance use disorder Daughter No problems noted. Daughter No problems noted. Son No problems noted. Other Mental health disorder Social History Housing: Apartment Alcohol intake: never Patient Tobacco Use Status: Never used Tobacco e-Cigarette/Vaping Use: Never Used service: No Current occupational status: unemployed Sexual orientation: Straight/Heterosexual Gender identity: Female Cognitive needs: No Hearing needs: No Vision needs: Yes Female Reproductive History Menstrual Age of Menarche: 11 Review of Systems Const All systems reviewed & are unremarkable except as noted in HPI and below Physical Exam Vital Signs: Last Vital Signs Temp 99.0 F 11/20/24 08:28 Pulse 96 11/20/24 08:28 BP 120/80 11/20/24 08:28 Pulse Ox 98 11/20/24 08:28 BMI result Body Mass Index 37.4 Assessment & Plan Assessment & Plan (1) Acute bacterial sinusitis: Code(s): J01.90 - Acute sinusitis, unspecified; B96.89 - Other specified bacterial agents as the cause of diseases classified elsewhere Plan: As it has been over 2 weeks, treatment of the acute bacterial sinusitis will be managed with Augmentin, and I advised the patient on the supportive use of a neti pot to relieve sinus congestion. Patient was informed and verbally consented to the use of an ambient scribe for clinic note documentation during this visit. (2) Right knee pain: Code(s): M25.561 - Pain in right knee Qualifiers: Chronicity: acute Qualified Code(s): M25.561 - Pain in right knee Plan: For knee pain related to potential sprain and osteoarthritis aggravation, I recommended an Sam wrap for joint support, along with naproxen 500 mg every 12 hours for pain management, and rest alongside ice application to minimize inflammation. Sam wrapped knee. A referral to orthopedics will be made available if symptoms remain unrelieved or escalate, ensuring specialized follow-up. Monitoring for any adverse reactions or new developments is advised. Orders: Referrals Orthopedics Referral M25.561 - Pain in right knee Medications: New naproxen 500 mg PO Q12H PRN 20 tabs 0RF pain amoxicillin-pot clavulanate 875-125 mg 1 tab PO Q12H 10 tabs 0RF Coding Level of Care Code Est Pt Level 4 (21661) Diagnoses Acute bacterial sinusitis J01.90; B96.89 Acute pain of right knee M25.561 Chronicity: acute
== END 2024-11-20 09:02 | disposition home or self-care (01) ==
PROVIDERS: PCP Internal Medicine; Visit Provider Physician Assistant
DX: J01.90 Acute sinusitis, unspecified (principal); B96.89 Other specified bacterial agents as the cause of diseases classified elsewhere; M25.561 Pain in right knee

== ENCOUNTER → 2024-11-20 08:27 | Outpatient (BNVA) | payer OTHER, SELFPAY | PROVIDERS: PCP Internal Medicine; Visit Provider Physician Assistant | DX: J01.90 Acute sinusitis, unspecified (principal); B96.89 Other specified bacterial agents as the cause of diseases classified elsewhere; M25.561 Pain in right knee | CPT/HCPCS: 99212 ==

== ENCOUNTER 2024-12-21 08:16 | Outpatient (REF) | payer OTHER, SELFPAY ==
--- NOTE | ~2024-12-21 | XR_ITS ---
EXAMINATION: XR KNEE, RIGHT CLINICAL INFORMATION: M25.569 - Pain in unspecified knee COMPARISON: April 27, 2022. TECHNIQUE: Three views of the right knee. FINDINGS: No acute cortical disruption or malalignment. Joint involving mostly the medial compartment with sclerosis of the articular surface medial tibial plateau. Marginal osteophyte formation and lateral femoral condyle. No gross suprapatellar bursa joint effusion. Well-corticated calcification in the right popliteal fossa. No lytic or blastic lesions. XR/XR knee RT 3V IMPRESSION: Moderate medial compartment osteoarthrosis. Electronically signed by: Dg Mckinney MD 12/21/2024 01:23 PM EDT
--- OUTSIDE RECORDS SUMMARY | 2024-12-22 08:34 | XMS_ITS | Clinical Summary ---
Author Organization [facility] ity Address [address] [place] [address] Care Team Providers Care Cutter Operator Tile Name Role Phone Unavailable Primary Care Provider Unavailabl e Encounters Date Type Department Care Team Description 11/10/2024 Telephone Infusion Center [address] [place] [address] [place] [address] Ninfa Rodriguez RN from Last [...]
--- OUTSIDE RECORDS SUMMARY | 2024-12-22 08:34 | XMS_ITS | Clinical Summary ---
Author Organization [facility] Address [address] [address] Phone Care Team Providers Care Customs Appraiser Name Role Phone Eddie Parks MD Primary Care Provider [phone] Allergies No known active allergies Medications cetirizine [...] Vaccine (Season Ended) 2025 Insurance Care Teams Customs Appraiser Relationship Specialty Start Date End Date Eddie Parks MD [facility] [place] [address] PCP - General Internal Medicine 10/29/21
== END 2024-12-21 08:17 | disposition home or self-care (01) ==
LOC: HO.HOSX 08:16
PROVIDERS: Visit Provider Physician Assistant
DX: M17.0 Bilateral primary osteoarthritis of knee (principal)
CPT/HCPCS: 20610; 73562; 99212; J1010; J2003

== ENCOUNTER 2024-12-21 10:50 | Outpatient (AMB) | payer OTHER, SELFPAY ==
--- NOTE | 2024-12-21 11:12 | A.OFFVIS_ITS ---
Vital Signs 12/21/24 11:16 Height 4 ft 11 in Weight 185 lb BMI 37.4 Intake Visit Reasons: New prob- Right knee pain Intake Note: Ninfa is a 59 year old female who presents today for a evaluation of her right knee pain. patient reports ongoing pain for about 6 months. She states that her pain is through out her whole knee and it goes to the back of her knee. She informs me that her knee gives out through out thew day and she hears a crunching noise. Patient notices that her pain is worse when she is walking, bending, standing and going up and down the stairs. She has tried and failed heat, Tylenol, topical cream and icing. Allergies Seasonal Allergy (Unknown, Uncoded 11/20/24 08:28) Unknown HPI HPI New prob- Right knee pain: Details: The patient is a 59-year-old female who presents to the office today for evaluation of right knee pain. She reports that the pain is located throughout the entirety of the knee. She denies any injury or trauma. Pain has been present for the past 6 months. She has tried and failed topical pain creams with no relief. She is using a cane to assist with ambulation. Additionally, she reports episodes of giving out. [facility] Medical History Hiatal hernia Flexor tendinitis of hand Bilateral hand pain Decreased range of motion (ROM) of shoulder Recurrent knee instability Generalized weakness Arthritis GERD (gastroesophageal reflux disease) Depression with anxiety Hypothyroid History of fibromyalgia Surgical History Hx of colonoscopy History of laparoscopic cholecystectomy (12/17/21) Hx of gastric bypass Hx of tubal ligation Family History Mother Hypertension Father Diabetes Dementia Substance use disorder Daughter No problems noted. Daughter No problems noted. Son No problems noted. Other Mental health disorder Social History Housing: Apartment Alcohol intake: never Patient Tobacco Use Status: Never used Tobacco e-Cigarette/Vaping Use: Never Used service: No Current occupational status: unemployed Sexual orientation: Straight/Heterosexual Gender identity: Female Cognitive needs: No Hearing needs: No Vision needs: Yes Female Reproductive History Menstrual Age of Menarche: 11 Review of Systems Const All systems reviewed & are unremarkable except as noted in HPI and below Physical Exam Vital Signs: BMI result Body Mass Index 37.4 Const General: cooperative, healthy appearing and no acute distress Resp Effort & Inspection: normal respiratory effort and able to speak in complete sentences Cardio Rate: regular rate Peripheral pulses: Peripheral pulses 2+ throughout Skin Lesions: no lesions Rashes: no rashes Extrem Other: Right knee normal to inspection no ecchymosis erythema or joint effusion. Range of motion is 10-90 degrees. NVI. Office Procedures AMB Joint Injection/Aspiration Joint Injection/Aspiration Primary Site: right knee Prep: site was prepped using aseptic technique, ethochloride spray was applied and injection warnings given Injected: 80 mg of, DepoMedrol, with 8 mL of (2% plain lido ) and in the joint Approach Used: anterolateral Procedure: The patient tolerated the procedure well, but had some pain with the injection and there was some relief with the local anesthesia Coding - Large joint Procedure code (CPT) selection complete Assessment & Plan Assessment & Plan (1) Osteoarthritis of knees, bilateral: Code(s): M17.0 - Bilateral primary osteoarthritis of knee Category: Medical Qualifiers: Osteoarthritis type: primary Qualified Code(s): M17.0 - Bilateral primary osteoarthritis of knee Plan The patient was offered a cortisone injection in the right knee with 80 mg of DepoMedrol. The patient was explained the risks, benefits, and alternatives to receiving this injection. After receiving consent for the injection, the patient had the procedure done while in the office today. The patient tolerated the procedure well with no complications. Follow-up will be PRN, or sooner if needed X-rays of the right knee which were obtained while in the office today and were reviewed by me, Christiana Griffith PA-C, revealed arthritic changes. Orders: Orders XR knee RT 3V Today M25.569 - Pain in unspecified knee Coding Level of Care Code Est Pt Level 3 (45464) Diagnoses Primary osteoarthritis of both knees M17.0 Osteoarthritis type: primary CPT Codes Coding - 73978 Large joint: 21458 - Large joint ([id number])
[2024-12-21 11:16] VITALS: BMI 37.4
--- OUTSIDE RECORDS SUMMARY | 2024-12-21 13:08 | XMS_ITS | Clinical Summary ---
Author Organization [facility] Address [address] [address] Phone Care Team Providers Care Harbor Boat Pilot Name Role Phone Eddie Parks MD Primary Care Provider [phone] Allergies No known active allergies Medications cetirizine [...] Last Done Comments Breast Cancer Screening 1965 Hepatitis B Vaccine (1 of 3 - 19+ 3-dose series) 03/30 Pneumococcal Vaccine: 50+ Years (1 of 2 - PCV) 984 Colorectal Cancer Screening: Annual FOBT 2014 Colorectal Cancer Screening: Colonoscopy 2014 Colorectal Cancer Screening: Sigmoidoscopy 2014 Influenza Vaccine (Season Ended) 2025 Insurance Care Teams Harbor Boat Pilot Relationship Specialty Start Date End Date Eddie Parks MD [facility] [address] PCP - General Internal Medicine 10/29/21
--- OUTSIDE RECORDS SUMMARY | 2024-12-21 13:08 | XMS_ITS | Clinical Summary ---
Author Organization [facility] ity Address [address] [place] [address] Care Team Providers Care Senior Cytotechnologist Name Role Phone Unavailable Primary Care Provider Unavailabl e Encounters Date Type Department Care Team Description 11/10/2024 Telephone Infusion Center [address] [place] [address] [place] [address] Ninfa Rodriguez RN from Last [...] Influencers of Health Screening 08/04/2022 COVID-19 Vaccine (1 - 2023-2 5 season) 2024 Influenza Vaccine (Season Ended) 2025 RSV Immunization Adult Patie nts (1 - 1-dose 75+ series) 2040 HIB [...] age to complete this topic Meningococcal B Vaccine Aged Out No l onger eligible based on patient's age to complete [...]
== END 2024-12-21 11:47 | disposition home or self-care (01) ==
LOC: HO.HOS 10:51
PROVIDERS: PCP Internal Medicine; Visit Provider Physician Assistant
DX: M17.0 Bilateral primary osteoarthritis of knee (principal)
CPT/HCPCS: 20610; 99213

== ENCOUNTER → 2024-12-21 10:53 | Outpatient (BNV) | payer OTHER, SELFPAY | PROVIDERS: Visit Provider Radiology Diagnostic Radiology | DX: M17.11 Unilateral primary osteoarthritis, right knee (principal) | CPT/HCPCS: 73562 ==

== ENCOUNTER 2024-12-29 07:17 | Outpatient (REF) | payer OTHER, SELFPAY ==
--- NOTE | ~2024-12-29 | XR_ITS ---
EXAMINATION: XR CERVICAL SPINE CLINICAL INFORMATION: M54.12 - Radiculopathy, cervical region COMPARISON: None available. TECHNIQUE: 4views of the cervical spine were obtained. FINDINGS: No significant scoliosis. There is a mild reversal of the normal lordosis centered at C5. No fracture, compression deformity, or suspicious bone lesion evident. Craniocervical junction and C1-2 articulation are intact and normally aligned. There is moderate degenerative arthrosis at the atlantoaxial articulation. There is a 3 mm degenerative anterolisthesis of C3 on C4, and 2 mm of C4 on C5. Alignment is otherwise anatomic. Severe disc degeneration focally at C6-7. There is otherwise only mild to moderate disc degeneration. Normal facet alignment. Right greater than left hypertrophic degenerative facet arthropathy, most notable on the right at C2-3 and C3-4. There is no prevertebral or paravertebral soft tissue abnormality. Imaged lung apices are clear. XR/XR cervical spine 4V IMPRESSION: 1. No acute bony abnormalities. 2. Moderate degenerative spondylosis as discussed. Disc degeneration most significant C6-7. Electronically signed by: Dexter Stephens MD 01/01/2025 11:03 AM EDT
--- OUTSIDE RECORDS SUMMARY | 2024-12-29 08:05 | XMS_ITS | Clinical Summary ---
Author Organization [facility] Address [address] [place] [address] Care Team Providers Care Cell Stripper Name Role Phone Unavailable Primary Care Provider Unavailabl e Encounters Date Type Department Care Team Description 11/10/2024 Telephone Infusion Center [address] [place] [address] [place] [address] Ninfa Rodriguez RN from Last [...]
--- OUTSIDE RECORDS SUMMARY | 2024-12-29 08:05 | XMS_ITS | Clinical Summary ---
Author Organization [facility] Address [address] [address] Phone Care Team Providers Care Booking Supervisor Name Role Phone Eddie Parks MD Primary Care Provider [phone] Allergies No known active allergies Medications cetirizine [...] Vaccine (Season Ended) 2025 Insurance Care Teams Booking Supervisor Relationship Specialty Start Date End Date Eddie Parks MD [facility] [place] [address] PCP - General Internal Medicine 10/29/21
== END 2024-12-29 07:18 | disposition home or self-care (01) ==
LOC: HO.XRAY 07:17
PROVIDERS: PCP Internal Medicine; Visit Provider Student in an Organized Health Care Education/Training Program
DX: M47.22 Other spondylosis with radiculopathy, cervical region (principal); M15.9 Polyosteoarthritis, unspecified; M79.7 Fibromyalgia
CPT/HCPCS: 72050; 99212

== ENCOUNTER 2024-12-29 07:17 | Outpatient (AMB) | payer OTHER, SELFPAY ==
--- OUTSIDE RECORDS SUMMARY | 2024-12-29 07:19 | XMS_ITS | Clinical Summary ---
Author Organization [facility] ity Address [address] [place] [address] Care Team Providers Care Wire Charger Name Role Phone Unavailable Primary Care Provider Unavailabl e Encounters Date Type Department Care Team Description 11/10/2024 Telephone Infusion Center [address] [place] [address] [place] [address] Ninfa Rodriguez RN from Last [...]
--- OUTSIDE RECORDS SUMMARY | 2024-12-29 07:19 | XMS_ITS | Clinical Summary ---
Author Organization [facility] Address [address] [address] Phone Care Team Providers Care Assistant Dean Of Students Name Role Phone Eddie Parks MD Primary Care Provider [phone] Allergies No known active allergies Medications cetirizine [...] Vaccine (Season Ended) 2025 Insurance Care Teams Assistant Dean Of Students Relationship Specialty Start Date End Date Eddie Parks MD [facility] [place] [address] PCP - General Internal Medicine 10/29/21
--- NOTE | 2024-12-29 07:24 | A.OFFVIS_ITS ---
Vital Signs 12/29/24 07:34 Height 4 ft 11 in Weight 183 lb 6.793 oz BMI 37.0 BP 118/70 Blood Pressure Location Lt brachial Position Sitting Pulse 89 Pulse Source Pulse Oximeter Pulse Oximetry (%) 96 Oxygen Delivery Method Room Air Intake Visit Reasons: FMS Intake Note: Patient presents for FMS. Allergies Seasonal Allergy (Unknown, Uncoded 11/20/24 08:28) Unknown Medication List - Last Reconciled 12/29/24 by Terra Sparrow MD cetirizine 10 mg PO DAILY clobetasol 0.05% 1 appl topical BID duloxetine 60 mg PO DAILY 90 days gabapentin Take one capsule by mouth every morning, one capsule in afternoon and 2 capsules every evening levothyroxine 100 mcg PO DAILY 90 days mirabegron ER (Myrbetriq) 50 mg PO DAILY mirtazapine 15 mg PO BEDTIME montelukast 10 mg PO DAILY naproxen 500 mg PO Q12H PRN omeprazole 20 mg PO DAILY pramipexole 0.5 mg PO QPM sucralfate 1 g PO BID tacrolimus 0.1% 1 appl topical BID HPI Comments Details: Patient is a 59 y.o. female with hypothyroidism, overactive bladder, GERD, polyarticular osteoarthritis and fibromyalgia here today for follow up Interval History: Patient last seen 06/30/[address] Mayer. At that time she was following up for her fibromyalgia and osteoarthritis. She continued to have diffuse pain and fatigue particularly knee pain. Changes were made to her medication at that time Saw orthopedics and received a steroid injection in her right knee 1 week ago Today, Head is tingling Legs also tingle and feel cold but are not cold when she touches them Extreme fatigue. Sleep study was normal Rheumatologic History: Initial history: The patient presents for evaluation of osteoarthritis and fibromyalgia. She had been followed by a [facility] in [place], [place]; she had last been seen in the fall. She was on Cymbalta 90 mg a day, 100 mg trazodone at night, and gabapentin with 800 mg in the morning and 1600 mg at night. Those medicines were somewhat helpful for her pains. She still had pain in the lateral hips, knees, neck, and feet. Occasionally the knees are swollen. With activity she had more knee pain. She does walk on a treadmill a few times a week. She had also takes some acetaminophen in the form of Tylenol Arthritis, 2 tablets twice a day. She has had a trochanteric injection in the past that helped for about a week. Recently her Cymbalta was cut back to 60 mg a day, trazodone was stopped, ropinirole was added for restless leg syndrome and gabapentin was restarted at 300 mg at night. The ropinirole rosales helped somewhat her restless leg syndrome symptoms. Says she is not sleeping well with current regimen in the evenings. She denies any daytime sedation with just taking that gabapentin at night. Current Rheumatology Medication(s): Duloxetine 60mg daily (PCP supplied) Gabapentin 300mg AM and Afternoon, 600mg PM FOR[facility] Medical History Hiatal hernia Flexor tendinitis of hand Bilateral hand pain Decreased range of motion (ROM) of shoulder Recurrent knee instability Generalized weakness Arthritis GERD (gastroesophageal reflux disease) Depression with anxiety Hypothyroid History of fibromyalgia Surgical History Hx of colonoscopy History of laparoscopic cholecystectomy (12/17/21) Hx of gastric bypass Hx of tubal ligation Family History Mother Hypertension Father Diabetes Dementia Substance use disorder Daughter No problems noted. Daughter No problems noted. Son No problems noted. Other Mental health disorder Social History Housing: Apartment Alcohol intake: never Patient Tobacco Use Status: Never used Tobacco e-Cigarette/Vaping Use: Never Used service: No Current occupational status: unemployed Sexual orientation: Straight/Heterosexual Gender identity: Female Cognitive needs: No Hearing needs: No Vision needs: Yes Female Reproductive History Menstrual Age of Menarche: 11 Review of Systems Const Details: Review of Systems Constitutional: Denies fever, chills, weight loss ENT: Denies vision changes, eye pain or eye redness, dental caries, dry mouth GI: Denies nausea, vomiting, diarrhea, abdominal pain, change in BM Pulm: Denies SOB, DE GUZMAN, hemoptysis, wheezing Cards: Denies chest pain, palpitations Skin: Denies Raynaud's, rash, nail changes, photosensitivity, [employer] SAMPLES AND REPAIRS: Denies headaches, weakness, paresthesias, recurrent falls MSK: as per HPI All other systems reviewed and are unremarkable except noted above Physical Exam Vital Signs: Last Vital Signs Pulse 89 12/29/24 07:34 BP 118/70 12/29/24 07:34 Pulse Ox 96 12/29/24 07:34 Oxygen Delivery Method Room Air 12/29/24 07:34 BMI result Body Mass Index 37.0 Vital signs reviewed Physical Examination CONSTITUITIONAL Patient alert and cooperative. Well appearing and in no apparent painful distress HEENT Conjunctiva and sclera clear. ?Pupils equal round and reactive to light. ?No lymphadenopathy. ? CHEST/RESPIRATORY SYSTEM Normal respiratory effort and able to speak in complete sentences. ?Clear to auscultation bilaterally. ?No crackles, rales, rhonchi, wheezes heard. CARDIAC SYSTEM Regular rate and rhythm. ?S1 and S2 heard no murmurs. ?Radial pulses intact bilaterally MSK Hands: ?Able to make a fist. No synovitis noted to the MCPs, PIPs or DIPs. ?No tenderness to palpation of these joints. No deformities noted. ? Wrists: ?Full range of motion at the wrists without pain. ?No tenderness to palpation or synovitis noted to the wrists. Elbows: Full range of motion without pain. No tenderness, weakness, swelling, increased warmth or erythema. Shoulders: Decreased active range of motion bilaterally. Full passive range of motion on the right with discomfort at the extreme of the range. Restricted passive range of motion up to about 120 degrees. Tenderness to palpation of bilateral AC joints Knees: ?Decreased range of motion of her right knee with tenderness to palpation of the joint line. Full range of motion of the left knee. Bilateral crepitations felt Ankles: Full range of motion. ?No tenderness, swelling, increased warmth or erythema.? Feet: ?Negative squeeze test. ?No tenderness to palpation or swelling of the MTPs. Tender points:?Tenderness to palpation of the bilateral trapezius, supraspinatus, greater trochanters, anterior costochondral junctions, bilateral gluteal areas, bilateral suboccipital muscle insertions SKIN Skin intact without rashes. Results Reviewed Results Reviewed: Laboratory Tests 12/17/23 06/07/24 11/17/24 10:30 09:00 11:28 WBC 7.8 RBC 4.79 Hgb 14.7 Hct 42.3 Plt Count 329 ESR 9 Sodium 141 Potassium 4.3 Chloride 107 Carbon Dioxide 25 BUN 20 H Creatinine 0.75 AST 23 ALT 19 Alkaline Phosphatase 125 H TSH 0.32 XR Right Knee 12/2024 FINDINGS: No acute cortical disruption or malalignment. Joint involving mostly the medial compartment with sclerosis of the articular surface medial tibial plateau. Marginal osteophyte formation and lateral femoral condyle. No gross suprapatellar bursa joint effusion. Well-corticated calcification in the right popliteal fossa. No lytic or blastic lesions. IMPRESSION: Moderate medial compartment osteoarthrosis. Assessment & Plan Assessment & Plan (1) Fibromyalgia: Code(s): M79.7 - Fibromyalgia Category: Medical Plan: #Fibromyalgia Patient is a 59-year-old female with fibromyalgia here today for follow up. Continues to have widespread pain but this is managed with her gabapentin. We will refill medication Plan - Gabapentin 300mg AM and Afternoon, 600mg PM - RTC 1 year or sooner if needed (2) Fatigue: Code(s): R53.83 - Other fatigue Qualifiers: Fatigue type: chronic, unspecified Qualified Code(s): R53.82 - Chronic fatigue, unspecified Plan: #Fatigue Patient complaining of worsening fatigue. I discussed with the patient that fatigue is a difficult symptom to treat in. She has a normal hemoglobin and no evidence of iron-deficiency anemia, normal sleep study, normal sleep hygiene getting 7 hours of sleep at night, active. Discussed that unfortunately there is a component of fatigue that occurs with fibromyalgia and this may not be something that can be treated. Discussed lifestyle modification as well as potentially using modafinil if symptoms get worse and impair her activities of daily living or work function Plan - Continue light exercise activity - Can consider modafinil in the future if symptoms are worse (3) Polyarticular osteoarthritis: Code(s): M15.9 - Polyosteoarthritis, unspecified Plan: #Polyarticular OA Patient with polyarticular osteoarthritis involving AC joints and knees. Currently following ortho for knee injections Continue topical diclofenac (4) Cervical radiculopathy: Code(s): M54.12 - Radiculopathy, cervical region Plan: #?Cervical radiculopathy Patient complaining of tingling to her head and neck. We will evaluate her for cervical degenerative disc disease. Plan - XR C spine Plan I spent 30 minutes reviewing the record and labs, taking a history, examining the patient, discussing the treatment plan, ordering diagnostic work up and documenting in the medical record Orders: Orders XR cervical spine 4V Today M54.12 - Radiculopathy, cervical region Medications: Refilled gabapentin Take one capsule by mouth every morning, one capsule in afternoon and 2 capsules every evening 120 caps 5RF M79.7 - Fibromyalgia Coding Level of Care Code Est Pt Level 4 (40557) Diagnoses Fibromyalgia M79.7 Chronic fatigue R53.82 Fatigue type: chronic, unspecified Polyarticular osteoarthritis M15.9 Cervical radiculopathy M54.12
[2024-12-29 07:34] VITALS: BP 118/70; PULSE 89; O2SAT 96; BMI 37.0
== END 2024-12-29 07:56 | disposition home or self-care (01) ==
LOC: HO.RHE 07:18
PROVIDERS: PCP Internal Medicine; Visit Provider Student in an Organized Health Care Education/Training Program
DX: M79.7 Fibromyalgia (principal); R53.82 Chronic fatigue, unspecified; M15.9 Polyosteoarthritis, unspecified; M54.12 Radiculopathy, cervical region
CPT/HCPCS: 99214

== ENCOUNTER → 2024-12-29 08:03 | Outpatient (BNV) | payer OTHER, SELFPAY | PROVIDERS: PCP Internal Medicine; Visit Provider Radiology Diagnostic Radiology | DX: M43.02 Spondylolysis, cervical region (principal) | CPT/HCPCS: 72050 ==

== ENCOUNTER 2025-01-16 10:13 | Outpatient (AMB) | payer OTHER, SELFPAY ==
[2025-01-16 10:24] VITALS: BP 122/68; PULSE 91; O2SAT 97; BMI 36.6
--- NOTE | 2025-01-16 10:24 | A.OFFPC_ITS ---
Vital Signs 01/16/25 10:24 Height 4 ft 11 in Weight 181 lb 6 oz BMI 36.6 BP 122/68 Blood Pressure Location Rt brachial Position Sitting Pulse 91 Pulse Source Pulse Oximeter Pulse Oximetry (%) 97 Oxygen Delivery Method Room Air Intake Visit Reasons: PE Allergies Seasonal Allergy (Unknown, Uncoded 01/16/25 10:24) Unknown Medication List - Last Reconciled 01/16/25 by Eddie Parks MD cetirizine 10 mg PO DAILY clobetasol 0.05% 1 appl topical BID duloxetine 60 mg PO DAILY 90 days gabapentin Take one capsule by mouth every morning, one capsule in afternoon and 2 capsules every evening levothyroxine 100 mcg PO DAILY 90 days mirabegron ER (Myrbetriq) 50 mg PO DAILY mirtazapine 15 mg PO BEDTIME montelukast 10 mg PO DAILY naproxen 500 mg PO Q12H PRN omeprazole 20 mg PO DAILY pramipexole 0.5 mg PO QPM sucralfate 1 g PO BID tacrolimus 0.1% 1 appl topical BID Tobacco use date assessed: 01/16/25 Dental Screening Dental Screen Date: 01/16/25 Did you have a dental visit in the last 12 months?: Yes Did you have a dental problem in the last 6 months where you did not have access to dental care?: No Was dental information given to patient?: Patient has dentist HPI PE HPI Details History of Present Illness - The patient is a 59-year-old female pr esenting for an annual physical examination with symptoms of shooting pain down the right leg. - The patient reported a history of tach ycardia with her pulse generally high at 91 bpm during the visit. - There is a history of hypercholesterol emia, managed with regular monitoring. - She has fibromyalgia, managed by a [facility] umatologist, contributing to joint pain. - The patient discussed shooting pain do wn her right leg, classified as sciatica. This has been ongoing for a few months with associated symptoms including tingling in the foot, loss of balance, and at times requiring the use of a cane. - The patient has a history of osteoarth ritis in her knee, which was treated with a cortisone injection, though this did not alleviate the shooting pain from the sciatica. - Hypothyroidism is managed with levothy roxine. - She experiences gastroesophageal reflu x disease for which she takes Omeprazole. - The patient has allergic rhinitis aba ged with Montelukast and Cetirizine for allergies. - She has a history of insomnia, for whi ch she takes mirtazapine at night. Health Maintenance - Last CBC and labs including electrolyt es and kidney functions done in June of the previous year, all results were within normal limits. - Liver enzyme alkaline phosphatase recu rrently slightly high but improved since September. - TSH level was 0.32 indicating stable t hyroid function. - Blood sugar level was 127, categorized under random sugar testing. - Mammogram completed October this year with normal results. - Last CONSUMER LENDING MANAGER visit in March last , w ith an upcoming appointment scheduled for this March. - Colonoscopy was conducted 11/23/2018 [facility] next 1 will be in 2028 - Discussed monitoring cholesterol level s. 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 Kern Diagnostic results - EKG performed in 2023, results were no rmal. - Last CBC and electrolyte labs performe d in June of the previous year, all within normal limits. - Random blood sugar level reported as 10 02. - Liver function showed slight elevation in alkaline phosphatase, but improved since September. - TSH recorded at 0.32. - Mammogram in October was normal. - Prior colonoscopy performed November Patient Instructions - Monitor pulse and report if it exceeds 90 bpm at rest. - Schedule and complete a back x-ray. - Arrange for and attend physical therap y sessions. - Return for a follow-up visit in three months after completing physical therapy. - Maintain the current medication regime n unless otherwise advised. - Seek medical attention if symptoms of shooting pain worsen or if there is notable weakness or foot drop. Follow-up 2 months after physical therapy to be evaluated for MRI imaging for right-sided lumbar radiculitis and weakness in leg Review of Systems - General: No fever no chills - Neurological: No headaches no dizzin ess - Ear nose throat: No sore throat no hearing difficulty no ear pain - Cardiovascular: No syncope, no chest pain, no palpitations - Gastrointestinal: No nausea vomiting or diarrhea - Endocrine: No polyuria polydipsia no heat intolerance - Genitourinary: No dysuria - Skin: No new complaints Physical Exam General: Cooperative, healthy appearing, comfortable, no acute distress Orientation: Patient oriented x3 Head: Normal to inspection Ears: Within normal limit visually Nose: Normal external nose present Face and sinus: Normal facial exam Eyes: Appearance normal, extraocular movement intact pupils reactive Neck: Normal visual inspection and supple Respiratory: Normal respiratory effort and able to speak in complete sentences. Clear to auscultation, no stridor Cardiovascular: S1 and S2 RRR, pulse is a little bit high at 91 GI: Normal to inspection. Soft to palpation and nontender Skin: Turgor normal, no acute findings Neuro: Patient oriented x3, motor sensory intact, balance intact, tandem pass. FORMERLY [facility], [facility] Medical History Hiatal hernia Flexor tendinitis of hand Bilateral hand pain Decreased range of motion (ROM) of shoulder Recurrent knee instability Generalized weakness Arthritis GERD (gastroesophageal reflux disease) Depression with anxiety Hypothyroid History of fibromyalgia Surgical History Hx of colonoscopy History of laparoscopic cholecystectomy (12/17/21) Hx of gastric bypass Hx of tubal ligation Family History Mother Hypertension Father Diabetes Dementia Substance use disorder Daughter No problems noted. Daughter No problems noted. Son No problems noted. Other Mental health disorder Social History Housing: Apartment Alcohol intake: never Patient Tobacco Use Status: Never used Tobacco e-Cigarette/Vaping Use: Never Used service: No Current occupational status: unemployed Sexual orientation: Straight/Heterosexual Gender identity: Female Cognitive needs: No Hearing needs: No Vision needs: Yes Female Reproductive History Menstrual Age of Menarche: 11 Questionnaire Thrive Questionnaire Date Thrive assessed: 01/16/25 I am a: Patient What is your living situation today?: I have a steady place to live Within the past 12 months, did the food you bought not last and you didn't have the money to get more?: Never true Within the past 12 months, did you worry whether your food would run out before you got money to buy more?: Never true Do you have trouble paying for medicines?: No Do you have trouble getting transportation to medical appointments?: No Do you have trouble paying your heating and electricity bill?: No Do you have trouble taking care of your child, family member or friend?: No Do you have trouble with day-to-day activities such as bathing, preparing meals, shopping, managing finances, etc.?: No Are you currently unemployed and looking for a job?: No Are you interested in more education?: No Please select the resources that you would like help with: None Currently or been in a relationship where the following occur: No concerns reported THRIVE Score: 0 AUDIT C Alcohol Use Questionnaire (AUDIT-C) 1. How often do you have a drink containing alcohol?: Never 3. How often do you have six or more drinks on one occasion?: Never Total Score: 0 Score Reviewed/Action Taken: Yes JOHNNY-7 AMB Questionnaire JOHNNY-7 Date JOHNNY - 7 assessed: 10/03/24 Source: Developed by Drs. Rios Lim, Katalina Martin, Jasper Main and colleagues, with an educational stacie from [employer]. Physical exam (Primary Care) Vital Signs: Last Vital Signs Pulse 91 01/16/25 10:24 BP 122/68 01/16/25 10:24 Pulse Ox 97 01/16/25 10:24 Oxygen Delivery Method Room Air 01/16/25 10:24 BMI result Body Mass Index 36.6 Tobacco/Smoking Status: Tobacco use Status Tobacco use date assessed 01/16/25 01/16/25 10:25 Patient Tobacco Use Status Never used Tobacco 01/16/25 10:24 e-Cigarette/Vaping Use Never Used 01/16/25 10:24 Thrive Assessment: Date of Thrive Assessment Date Thrive assessed 01/16/25 01/16/25 10:25 Currently or been in a relationship where the following occur: No concerns reported Coding Level of Care Code Est Pt Level 4 (02244) Est Pt Prev Care 40-64y(27931) Diagnoses Encounter for general adult medical examination with abnormal findings Z00.01 Right lumbar radiculitis M54.16 Weakness of right leg R29.898 Lumbar pain M54.50 Other specified hypothyroidism E03.8 Tachycardia R00.0 LFT elevation R79.89 Environmental allergies Z91.09 Anxiety, generalized F41.1 Lipid disorder E78.9 Restless leg syndrome G25.81 Chronic GERD K21.9 Fibromyalgia M79.7 Class 1 obesity due to excess calories without serious comorbidity with body mass index (BMI) of 30.0 to 30.9 in adult E66.09; Z68.30 Obesity classification: adult class 1 (BMI 30 - 34.9) Serious obesity comorbidity presence: without serious comorbidity Body mass index: BMI 30.0-30.9 Assessment & Plan Assessment & Plan (1) Encounter for general adult medical examination with abnormal findings: Code(s): Z00.01 - Encounter for general adult medical examination with abnormal findings Category: Medical (2) Right lumbar radiculitis: Code(s): M54.16 - Radiculopathy, lumbar region Category: Medical (3) Weakness of right leg: Code(s): R29.898 - Other symptoms and signs involving the musculoskeletal system Category: Medical (4) Lumbar pain: Code(s): M54.50 - Low back pain, unspecified Category: Medical (5) Other specified hypothyroidism: Code(s): E03.8 - Other specified hypothyroidism Category: Medical (6) Tachycardia: Code(s): R00.0 - Tachycardia, unspecified Category: Medical (7) LFT elevation: Code(s): R79.89 - Other specified abnormal findings of blood chemistry Category: Medical (8) Environmental allergies: Code(s): Z91.09 - Other allergy status, other than to drugs and biological substances Category: Medical (9) Anxiety, generalized: Code(s): F41.1 - Generalized anxiety disorder Category: Medical (10) Lipid disorder: Code(s): E78.9 - Disorder of lipoprotein metabolism, unspecified Category: Medical (11) Restless leg syndrome: Code(s): G25.81 - Restless legs syndrome Category: Medical (12) Chronic GERD: Code(s): K21.9 - Gastro-esophageal reflux disease without esophagitis Category: Medical (13) Fibromyalgia: Code(s): M79.7 - Fibromyalgia Category: Medical (14) Obesity due to excess calories: Code(s): E66.09 - Other obesity due to excess calories Category: Medical Qualifiers: Obesity classification: adult class 1 (BMI 30 - 34.9) Serious obesity comorbidity presence: without serious comorbidity Body mass index: BMI 30.0- 30.9 Qualified Code(s): E66.09 - Other obesity due to excess calories; Z68.30 - Body mass index [BMI] 30.0-30.9, adult Plan History of Present Illness - The patient is a 59-year-old female presenting for an annual physical examination with symptoms of shooting pain down the right leg. - The patient reported a history of tachycardia with her pulse generally high at 91 bpm during the visit. - There is a history of hypercholesterolemia, managed with regular monitoring. 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 - The patient discussed shooting pain down her right leg, classified as sciatica. This has been ongoing for a few months with associated symptoms including tingling in the foot, loss of balance, and at times requiring the use of a cane. - The patient has a history of osteoarthritis in her knee, which was treated with a cortisone injection, though this did not alleviate the shooting pain from the sciatica. - Hypothyroidism is managed with levothyroxine. - She experiences gastroesophageal reflux disease for which she takes Omeprazole. - The patient has allergic rhinitis managed with Montelukast and Cetirizine for allergies. - She has a history of insomnia, for which she takes mirtazapine at night. Health Maintenance - Last CBC and labs including electrolytes and kidney functions done in June of the previous year, all results were within normal limits. - Liver enzyme alkaline phosphatase recurrently slightly high but improved since September. - TSH level was 0.32 indicating stable thyroid function. - Blood sugar level was 127, categorized under random sugar testing. - Mammogram completed October this year with normal results. - Last CONSUMER LENDING MANAGER visit in March last year, with an upcoming appointment scheduled for this March. - Colonoscopy was conducted 11/23/2018 [facility] next 1 will be in 2028 - Discussed monitoring cholesterol levels. 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 Kern Diagnostic results - EKG performed in 2023, results were normal. - Last CBC and electrolyte labs performed in June of the previous year, all within normal limits. - Random blood sugar level reported as 127. - Liver function showed slight elevation in alkaline phosphatase, but improved since September. - TSH recorded at 0.32. - Mammogram in October was normal. - Prior colonoscopy performed November of 2018 Patient Instructions - Monitor pulse and report if it exceeds 90 bpm at rest. - Schedule and complete a back x-ray. - Arrange for and attend physical therapy sessions. - Return for a follow-up visit in three months after completing physical therapy. - Maintain the current medication regimen unless otherwise advised. - Seek medical attention if symptoms of shooting pain worsen or if there is notable weakness or foot drop. Follow-up 2 months after physical therapy to be evaluated for MRI imaging for right-sided lumbar radiculitis and weakness in leg Orders: Orders PT Evaluation and Treatment Today M54.50 - Low back pain, unspecified XR lumbar spine 2-3V Today M54.50 - Low back pain, unspecified
--- OUTSIDE RECORDS SUMMARY | 2025-01-16 11:19 | XMS_ITS | Clinical Summary ---
Author Organization [facility][1] Address [address] [address] Phone Care Team Providers Care Project Crew Worker Name Role Phone Eddie Parks MD Primary Care Provider [phone] Allergies No known active allergies Medications cetirizine [...] Vaccine (Season Ended) 2025 Insurance Care Teams Project Crew Worker Relationship Specialty Start Date End Date Eddie Parks MD [place] [address] PCP - General Internal Medicine 10/29/21
--- OUTSIDE RECORDS SUMMARY | 2025-01-16 11:19 | XMS_ITS | Clinical Summary ---
Author Organization [facility] ity Address [address] [place] [address] Care Team Providers Care Plant Technical Specialist Name Role Phone Unavailable Primary Care Provider Unavailabl e Encounters Date Type Department Care Team Description 11/10/2024 Telephone [facility]fusion [facility] [address] [place] [address] [place] [address] Ninfa Rodriguez RN from Last [...]
== END 2025-01-16 10:59 | disposition home or self-care (01) ==
LOC: HO.HMCC 10:14
PROVIDERS: PCP Internal Medicine; Visit Provider Internal Medicine
DX: Z00.01 Encounter for general adult medical examination with abnormal findings (principal); M54.16 Radiculopathy, lumbar region; R29.898 Other symptoms and signs involving the musculoskeletal system; M54.50 Low back pain, unspecified; E03.8 Other specified hypothyroidism; R00.0 Tachycardia, unspecified; R79.89 Other specified abnormal findings of blood chemistry; Z91.09 Other allergy status, other than to drugs and biological substances; F41.1 Generalized anxiety disorder; G25.81 Restless legs syndrome; E66.09 Other obesity due to excess calories; Z68.30 Body mass index [BMI] 30.0-30.9, adult

== ENCOUNTER 2025-01-16 10:13 | Outpatient (REF) | payer OTHER, SELFPAY ==
--- NOTE | ~2025-01-16 | XR_ITS ---
EXAMINATION: XR LUMBOSACRAL SPINE CLINICAL INFORMATION: M54.50 - Low back pain, unspecified COMPARISON: None available. TECHNIQUE: Three views of the lumbosacral spine. FINDINGS: There is a very minimal levoconvex thoracolumbar scoliosis. There is a normal lumbar lordosis. There is a 2 mm anterolisthesis of L5 on S1. Alignment is otherwise anatomic. No fracture, compression deformity, or suspicious bone lesion. Severe disc degeneration noted at L4-5 and L5-S1. Moderate disc degeneration noted at L3-4. Mild changes noted T12-L1 and L1-L2. Facets are normally aligned. There are multilevel degenerative facet changes L3-S1. Sacrum is intact. There are mild arthritic changes in the SI joints. Soft tissues demonstrate cholecystectomy clips, surgical clips abutting the stomach, and tubal ligation clips within the pelvis. XR/XR lumbar spine 2-3V IMPRESSION: 1. No acute finding of the lumbar spine. 2. Moderate lumbar spondylosis. Electronically signed by: Dexter Stephens MD 01/16/2025 11:35 AM EDT
--- OUTSIDE RECORDS SUMMARY | 2025-01-16 12:28 | XMS_ITS | Clinical Summary ---
Author Organization [facility] Address [address] [address] Phone Care Team Providers Care Vulnerability Assessment Analyst Name Role Phone Eddie Parks MD Primary Care Provider [phone] Allergies No known active allergies Medications cetirizine [...] Vaccine (Season Ended) 2025 Insurance Care Teams Vulnerability Assessment Analyst Relationship Specialty Start Date End Date Eddie Parks MD [facility] [place] [address] PCP - General Internal Medicine 10/29/21
--- OUTSIDE RECORDS SUMMARY | 2025-01-16 12:28 | XMS_ITS | Clinical Summary ---
Author Organization [facility] ity Address [address] [place] [address] Care Team Providers Care Domestic Helper Name Role Phone Unavailable Primary Care Provider Unavailabl e Encounters Date Type Department Care Team Description 11/10/2024 Telephone Infusion Center [address] [place] [address] [place] [address] Ninfa Rodriguez RN from Last [...]
== END 2025-01-16 10:14 | disposition home or self-care (01) ==
LOC: HO.HMGCX 10:13
PROVIDERS: PCP Internal Medicine; Visit Provider Internal Medicine
DX: Z00.01 Encounter for general adult medical examination with abnormal findings (principal); M54.16 Radiculopathy, lumbar region; R29.898 Other symptoms and signs involving the musculoskeletal system; M54.50 Low back pain, unspecified; E03.8 Other specified hypothyroidism; R00.0 Tachycardia, unspecified; R79.89 Other specified abnormal findings of blood chemistry; F41.1 Generalized anxiety disorder; E78.9 Disorder of lipoprotein metabolism, unspecified; G25.81 Restless legs syndrome; K21.9 Gastro-esophageal reflux disease without esophagitis; M79.7 Fibromyalgia; E66.09 Other obesity due to excess calories; Z68.30 Body mass index [BMI] 30.0-30.9, adult; Z79.899 Other long term (current) drug therapy; Z91.09 Other allergy status, other than to drugs and biological substances
CPT/HCPCS: 72100; 99212; 99396

== ENCOUNTER → 2025-01-16 11:03 | Outpatient (BNV) | payer OTHER, SELFPAY | PROVIDERS: PCP Internal Medicine; Visit Provider Radiology Diagnostic Radiology | DX: M54.50 Low back pain, unspecified (principal) | CPT/HCPCS: 72100 ==

== ENCOUNTER 2025-02-09 11:12 | Outpatient (AMB) | payer OTHER, SELFPAY ==
--- NOTE | 2025-02-09 11:13 | A.OFFVIS_ITS ---
Vital Signs 02/09/25 11:17 Height 4 ft 11 in Weight 179 lb BMI 36.1 Intake Visit Reasons: Cant bend knee Intake Note: Ninfa is a 59 year old female who presents today for a evaluation of her right knee OA, last injection 12/21/24. Patient reports she is unable to bend her knee and put full weight. She expresses extreme pain on the medial aspect of the right knee. She describes her symptoms as her leg feels on fire. Prolonged ambulation and ambulation of stairs exacerbate her burning pain. OTC medication does not alleviate her symptoms. She says the injection did help her OA but then this new problem started 2 weeks after her injection. She states it does not feel like it is her OA. Allergies Seasonal Allergy (Unknown, Uncoded 02/09/25 11:16) Unknown HPI HPI Cant bend knee: Details: Ms. Miner is a 59-year-old female who presents to the office today for evaluation of a burning sensation that is occurring over the area of the left 25% of the distal femur, knee, proximal 25% of the tibia. She denies any injury or trauma. She states that she was seen by another provider which diagnosed her with sciatica and recommended physical therapy for her lower back. She has attended roughly 4 sessions to date. She has not noticed any improvement so far. Her symptoms began roughly around the time of January 04. Two weeks prior she was seen in our office in a right knee cortisone injection was administered. She reports that the injection helped her and that this is a separate issue that is different than pain she was experiencing prior. [facility] Medical History Hiatal hernia Flexor tendinitis of hand Bilateral hand pain Decreased range of motion (ROM) of shoulder Recurrent knee instability Generalized weakness Arthritis GERD (gastroesophageal reflux disease) Depression with anxiety Hypothyroid History of fibromyalgia Surgical History Hx of colonoscopy History of laparoscopic cholecystectomy (12/17/21) Hx of gastric bypass Hx of tubal ligation Family History Mother Hypertension Father Diabetes Dementia Substance use disorder Daughter No problems noted. Daughter No problems noted. Son No problems noted. Other Mental health disorder Social History (Reviewed 02/09/25 @ 11:17 by RENETTA Loja Housing: Apartment Alcohol intake: never Patient Tobacco Use Status: Never used Tobacco e-Cigarette/Vaping Use: Never Used service: No Current occupational status: unemployed Sexual orientation: Straight/Heterosexual Gender identity: Female Cognitive needs: No Hearing needs: No Vision needs: Yes Female Reproductive History Menstrual Age of Menarche: 11 Review of Systems Const All systems reviewed & are unremarkable except as noted in HPI and below Physical Exam Vital Signs: BMI result Body Mass Index 36.1 Const General: cooperative, healthy appearing and no acute distress Resp Effort & Inspection: normal respiratory effort and able to speak in complete sentences Extrem Other: Right knee normal to inspection no ecchymosis erythema or joint effusion. Range of motion is 10-90 degrees. 3/5 strength with resisted hip flexion, knee flexion and extension. Denies numbness or tingling. Assessment & Plan Assessment & Plan (1) Weakness of right leg: Code(s): R29.898 - Other symptoms and signs involving the musculoskeletal system Category: Medical (2) Right lumbar radiculitis: Code(s): M54.16 - Radiculopathy, lumbar region Category: Medical Plan Ms. Miner is a 59-year-old female who presents to the office today for evaluation of a burning sensation that is occurring over the area of the left 25% of the distal femur, knee, proximal 25% of the tibia. She denies any injury or trauma. She states that she was seen by another provider which diagnosed her with sciatica and recommended physical therapy for her lower back. She has attended roughly 4 sessions to date. She has not noticed any improvement so far. Her symptoms began roughly around the time of January 04. Two weeks prior she was seen in our office in a right knee cortisone injection was administered. She reports that the injection helped her and that this is a separate issue that is different than pain she was experiencing prior. While in the office today, I briefly discussed the radiologist's impression of her L-spine x-rays that were obtained on 01/16/2025. There are findings that are suggestive of spondylosis that is likely contributing to her symptoms. I encouraged the patient to continue attending physical therapy for her lower back. I advised on any concerning symptoms including but not limited to any bowel or bladder incontinence, or numbness and tingling in the perineal area. Patient is not experiencing the symptoms at this time and understands that if they do occur she should present to the emergency department immediately for further care. She reports that the right lower extremity is progressing with weakness and is extremely concerned about this. I have sent a prescription for a Medrol Dosepak to the pharmacy to see if this helps aid with her symptoms and pain. At this time I have placed a stat referral to Dr. Davidson for further evaluation and treatment of her lower back. She will follow up with Dr. Davidson. X-rays of the lumbar spine obtained on 01/16/2025: IMPRESSION: 1. No acute finding of the lumbar spine. 2. Moderate lumbar spondylosis. Medications: New methylprednisolone (Medrol (Dmitri)) PO PER PKG DIR for 6 days 21 ea 0RF Coding Level of Care Code Est Pt Level 3 (22626) Diagnoses Weakness of right leg R29.898 Right lumbar radiculitis M54.16
[2025-02-09 11:17] VITALS: BMI 36.1
--- OUTSIDE RECORDS SUMMARY | 2025-02-09 12:03 | XMS_ITS | Clinical Summary ---
Author Organization [facility] Address [address] [address] Phone Care Team Providers Care Drafter Electrical Name Role Phone Eddie Parks MD Primary Care Provider [phone] Allergies No known active allergies Medications cetirizine [...] Vaccine (Season Ended) 2025 Insurance Care Teams Drafter Electrical Relationship Specialty Start Date End Date Eddie Parks MD [facility] [place] [address] PCP - General Internal Medicine 10/29/21
== END 2025-02-09 11:39 | disposition home or self-care (01) ==
LOC: HO.HOS 11:13
PROVIDERS: PCP Internal Medicine; Visit Provider Physician Assistant
DX: R29.898 Other symptoms and signs involving the musculoskeletal system (principal); M54.16 Radiculopathy, lumbar region
CPT/HCPCS: 99213

== ENCOUNTER → 2025-02-09 11:12 | Outpatient (BNVA) | payer OTHER, SELFPAY | PROVIDERS: PCP Internal Medicine; Visit Provider Physician Assistant | DX: R29.898 Other symptoms and signs involving the musculoskeletal system (principal); M54.16 Radiculopathy, lumbar region | CPT/HCPCS: 99212 ==

== ENCOUNTER 2025-02-12 16:28 | Outpatient (REF) | payer OTHER, SELFPAY ==
--- NOTE | ~2025-02-12 | CT_ITS ---
CLINICAL HISTORY: M54.12 - Radiculopathy, cervical region CT cervical spine without contrast Comparison: None Findings: Straightening and mild reversal of the normal cervical lordosis on degenerative basis. Moderate multilevel spondylosis with disc space narrowing, endplate sclerosis, osteophytosis and facet arthropathy, most notably at C6-C7 level, causing moderate spinal canal and neural foraminal narrowing. No acute fractures or dislocations. No acute findings on limited view of the intracranial contents. No cervical fluid collections or masses. No consolidation or effusion at the lung apices. Vertebral body heights are well-maintained. IMPRESSION: No acute findings. Moderate multilevel spondylosis with disc space narrowing, endplate sclerosis, osteophytosis and facet arthropathy, most notably at C6-C7 level, causing moderate spinal canal and neural foraminal narrowing. This document has been electronically signed by: Jean Carlos Bush MD on 02/13/2025 20:05:10
--- OUTSIDE RECORDS SUMMARY | 2025-02-12 17:47 | XMS_ITS | Clinical Summary ---
Author Organization [facility] Address [address] [address] Phone Care Team Providers Care Training And Development Head Name Role Phone Eddie Parks MD Primary Care Provider [phone] Allergies No known active allergies Medications cetirizine [...] Vaccine (Season Ended) 2025 Insurance Care Teams Training And Development Head Relationship Specialty Start Date End Date Eddie Parks MD [facility] [place] [address] PCP - General Internal Medicine 10/29/21
== END 2025-02-12 16:29 | disposition home or self-care (01) ==
LOC: HO.CT 16:28
PROVIDERS: PCP Internal Medicine; Visit Provider Student in an Organized Health Care Education/Training Program
DX: M54.12 Radiculopathy, cervical region (principal)
CPT/HCPCS: 72125

== ENCOUNTER → 2025-02-12 16:32 | Outpatient (BNV) | payer OTHER, SELFPAY | PROVIDERS: PCP Internal Medicine; Visit Provider Student in an Organized Health Care Education/Training Program | DX: M47.812 Spondylosis without myelopathy or radiculopathy, cervical region (principal) | CPT/HCPCS: 72125 ==

== ENCOUNTER 2025-02-22 10:00 | Outpatient (RCR) | payer OTHER, SELFPAY ==
--- NOTE | 2025-02-01 13:39 | MHC.PT.EP ---
[facility] [place] Office [place] Office [place] Office [address] Hai Rodrigez [address] [phone] F: [phone] F: [phone] F: [phone] F: [phone] Physical Therapy Plan of Care Date of Evaluation: 02/01/25 Date of Surgery: n/a Diagnosis: low back pain Assessment: Patient is a 59 year old female presenting to PT with complaints of pain in her low back. Pt reports onset of pain began worsening a few months ago due to insidious onset. She presents today with impairments in pain, lumbar ROM, hip strength, core strength, radicular sx. Pt's current occupation is none, with baseline physical activities including ADLs, household activities, bending, lifting. Pt expresses fpc goal of reducing pain, and is motivated to work towards this in PT. Clinical presentation today is most consistent with signs and sx associated with low back pain and pt will benefit from skilled PT 2 week x 4 weeks to address the following problems and impairments noted upon evaluation: pain, lumbar ROM, hip strength, core strength, radicular sx. These problems limit the patient with the following functional activities: ADLs, household activities, bending, lifting. The prescribed treatment plan of care is medically necessary. Co-morbidities of fibromyalgia were identified and taken into considerations of plan of care. Pt was educated on HEP, role of PT, prognosis, POC. Frequency and Duration: The patient will be seen 2 x week x 4 weeks Short Term Goals: Pt will demonstrate centralization of sx in 2 weeks. Pt will demonstrate improved hip MMT strength by 1/3 grade in 2 weeks. Pt will demonstrate ability to move through lumbar ROM in available range with min to no pain in 2 weeks. Dynamics Ax Consultant Goals: Pt will demonstrate improved Judah score by 10% in 4 weeks for improved functional mobility. Pt will demonstrate ability to complete ADLs with min to no pain in 4 weeks for return to PLOF. Pt will demonstrate ability to bend and lift with min to no pain in 4 weeks for improved tolerance to household activities. Treatment Plan: Modalities to reduce pain, spasms and effusion. Manual therapy to restore motion and function. Therapeutic exercise to improve strength and flexibility. Neuromuscular re-education for posture and balance. Therapeutic activities to return to functional activities of daily living. Electronically signed by: Pushpa Aldana, PT, DPT, ATC Please sign and return to therapist. Thank you for your referral.
--- NOTE | 2025-03-19 10:56 | MHC.PT.DC ---
[facility] [place] Office [place] Office [place] Office [address] Hai Rodrigez [address] [phone] F: [phone] F: [phone] F: [phone] F: [phone] Physical Therapy Discharge Report Diagnosis: low back pain Date of Surgery: n/a Date of Evaluation: 02/01/25 Date of Discharge: 03/19/25 Treatments to Date: 4 Cancellations to Date: 0 No Shows to Date: 0 Discharge Status: Patient Elected to Stop Discharge Summary: Pt wants to be d/c so she can be scheduled for her neck. Pt to be d/c per her request. Electronically signed by: Pushpa Aldana, PT, DPT, ATC Please sign and return to therapist. Thank you for your referral.
== END 2025-03-19 10:57 | disposition home or self-care (01) ==
LOC: HO.PTCHIC 10:00
PROVIDERS: PCP Internal Medicine; Visit Provider Internal Medicine
DX: M54.50 Low back pain, unspecified (principal)
CPT/HCPCS: 97110; 97161

== ENCOUNTER 2025-03-01 09:30 | Outpatient (AMB) | payer OTHER, SELFPAY ==
--- NOTE | 2025-03-01 09:34 | A.OFFVIS_ITS ---
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 Patient was referred to [facility] Physical Therapy on 02/01/25 and last visit was 02/14/25. At last visit on 12/29 she was given an injection and then at next visit on 02/09/25 with she was prescribed for a Medrol Dosepak. Patient stated with that she felt her symptoms started to occur January [id number] and couldn't recall if she had an injury. Patient reports that she has noticed a big difference with the prednisone, mild to no pain . She states that the pain is staring to flair up and affecting daily activities. Allergies Seasonal Allergy (Unknown, Uncoded 03/01/25 09:40) Unknown Medication List - Last Reconciled 03/01/25 by Agata Carmichael MD cetirizine 10 mg PO DAILY clobetasol 0.05% 1 appl topical BID duloxetine 60 mg PO DAILY 90 days gabapentin Take one capsule by mouth every morning, one capsule in afternoon and 2 capsules every evening levothyroxine 100 mcg PO DAILY 90 days methylprednisolone (Medrol (Dmitri)) PO PER PKG DIR for 6 days mirabegron ER (Myrbetriq) 50 mg PO DAILY mirtazapine 15 mg PO BEDTIME modafinil 200 mg PO DAILY montelukast 10 mg PO DAILY omeprazole 20 mg PO DAILY pramipexole 0.5 mg PO QPM sucralfate 1 g PO BID tacrolimus 0.1% 1 appl topical BID HPI Comments Details: Gradual progressive right lower leg symptoms over the past year. No inciting injuries. Thought to be from fibromyalgia. At first, it was just a slight burn and ache on medial right thigh/knee, and then this May became more severe, on fire , still middle thigh going down to calf and anterior leg, hypersensitive to touch. Not to the foot. But has abnormal sensation over of the right foot. Did not have footdrop or hip flexion weakness. But had difficulty flexing right knee. Had fallen a few times due to suddent lost of balane or the knee let go . She also has associated lower back axial, non radicular, this is chronic and possibly separate issue. She has been using a cane to avoid falls. Treatment done so far: PT for sciatica - but not improved Medrol dose pack - sensation improved temporarily PFSH Medical History Hiatal hernia Flexor tendinitis of hand Bilateral hand pain Decreased range of motion (ROM) of shoulder Recurrent knee instability Generalized weakness Arthritis GERD (gastroesophageal reflux disease) Depression with anxiety Hypothyroid History of fibromyalgia Surgical History Hx of colonoscopy History of laparoscopic cholecystectomy (12/17/21) Hx of gastric bypass Hx of tubal ligation Family History Mother Hypertension Father Diabetes Dementia Substance use disorder Daughter No problems noted. Daughter No problems noted. Son No problems noted. Other Mental health disorder Social History Housing: Apartment Alcohol intake: never Patient Tobacco Use Status: Never used Tobacco e-Cigarette/Vaping Use: Never Used service: No Current occupational status: unemployed Sexual orientation: Straight/Heterosexual Gender identity: Female Cognitive needs: No Hearing needs: No Vision needs: Yes Female Reproductive History Menstrual Age of Menarche: 11 Review of Systems Const All systems reviewed & are unremarkable except as noted in HPI and below Physical Exam Constitutional: Patient appears to be in no acute distress, well nourished and well developed. Patient was appropriately conversant and oriented. Good historian. MSK: No specific abnormalities found on inspection of the spine and all extremities. Tender over lower spinous processes, and right lumbar paraspinals. Right SI is slightly tender. Lumbar ROM was full. Bilateral hip, knee and ankle ROM WNL. No ligamentous laxity or crepitance. No increased effusion. Straight-leg raising test negative. FABERE test negative. No footdrop. Hypersensitive to light touch but not allodynia on right medial thigh, and mostly anterior right lower leg/melendrez area, and dorsal foot. No change in temperature, skin, or color. Neurological: Neurologic examination of the upper and lower extremities was nonfocal with intact sensation, muscle stretch reflexes and without focal motor deficits . Luciano?s negative bilaterally. Babinski was down going bilaterally. Clonus was negative. Gait is antalgic without loss of balance, using cane. Results Reviewed Results Reviewed: I independently reviewed the results of the following: Lumbar x-rays showed decreased disc space L4-5 and L5-S1. Per rheumatology notes: Patient has history of hypothyroidism, overactive bladder, GERD, polyarticular osteoarthritis and fibromyalgia. Gabapentin is prescribed for fibromyalgia. Ordering Physician: Terra Sparrow MD Date of Service: 02/12/25 Procedure(s): CT cervical spine wo IV con Accession Number(s): [id number] cc: Terra Sparrow MD; Eddie Parks MD~ Report Number: [id number]: Total DLP = 483.00 mGy-cm CLINICAL HISTORY: M54.12 - Radiculopathy, cervical region CT cervical spine without contrast Comparison: None Findings: Straightening and mild reversal of the normal cervical lordosis on degenerative basis. Moderate multilevel spondylosis with disc space narrowing, endplate sclerosis, osteophytosis and facet arthropathy, most notably at C6-C7 level, causing moderate spinal canal and neural foraminal narrowing. No acute fractures or dislocations. No acute findings on limited view of the intracranial contents. No cervical fluid collections or masses. No consolidation or effusion at the lung apices. Vertebral body heights are well-maintained. IMPRESSION: No acute findings. Moderate multilevel spondylosis with disc space narrowing, endplate sclerosis, osteophytosis and facet arthropathy, most notably at C6-C7 level, causing moderate spinal canal and neural foraminal narrowing. This document has been electronically signed by: Jean Carlos Bush MD on 02/13/2025 20:05:10 Ordering Physician: Eddie Parks MD Date of Service: 01/16/25 Procedure(s): XR lumbar spine 2-3V Accession Number(s): [id number] cc: Eddie Parks MD~ EXAMINATION: XR LUMBOSACRAL SPINE CLINICAL INFORMATION: M54.50 - Low back pain, unspecified COMPARISON: None available. TECHNIQUE: Three views of the lumbosacral spine. FINDINGS: There is a very minimal levoconvex thoracolumbar scoliosis. There is a normal lumbar lordosis. There is a 2 mm anterolisthesis of L5 on S1. Alignment is otherwise anatomic. No fracture, compression deformity, or suspicious bone lesion. Severe disc degeneration noted at L4-5 and L5-S1. Moderate disc degeneration noted at L3-4. Mild changes noted T12-L1 and L1-L2. Facets are normally aligned. There are multilevel degenerative facet changes L3-S1. Sacrum is intact. There are mild arthritic changes in the SI joints. Soft tissues demonstrate cholecystectomy clips, surgical clips abutting the stomach, and tubal ligation clips within the pelvis. XR/XR lumbar spine 2-3V IMPRESSION: 1. No acute finding of the lumbar spine. 2. Moderate lumbar spondylosis. Electronically signed by: Dexter Stephens MD 01/16/2025 11:35 AM EDT RP Assessment & Plan Assessment & Plan (1) Lumbar radiculopathy: Code(s): M54.16 - Radiculopathy, lumbar region Category: Medical (2) Sciatic neuropathy: Code(s): G57.00 - Lesion of sciatic nerve, unspecified lower limb Category: Medical Qualifiers: Laterality: right Qualified Code(s): G57.01 - Lesion of sciatic nerve, right lower limb (3) Peroneal neuropathy: Code(s): G57.30 - Lesion of lateral popliteal nerve, unspecified lower limb Category: Medical Qualifiers: Laterality: right Qualified Code(s): G57.31 - Lesion of lateral popliteal nerve, right lower limb Plan Differential diagnosis include right lumbar radiculopathy versus sciatic neuropathy versus peroneal neuropathy. Lumbar radiculopathy from a disc herniation would be the most common etiology. Through sciatic neuropathy is actually rare. No footdrop. We discussed the difference between the 3. Patient had undergone adequate conservative management including PT without improvement of condition. It would be reasonable to obtain further imaging such as MRI. An MRI would help rule out any serious condition, guide treatment and assess prognosis for recovery. Specifically ruling out right L5-S1 disc herniation causing nerve impingement. We will schedule for EMG to rule out sciatic versus peroneal neuropathy versus radiculopathy. Medrol Dosepak only worked temporarily. She is unable to take NSAIDs. We opted to start her on a short dose of oral prednisone. Side effects discussed. Instructions discussed. Assessment and plan discussed with patient, and patient was agreeable. All questions were answered thoroughly. I will see here either during EMG or after MRI. Agata Carmichael MD, MEKHI Board Certified, [place] [employer] and Rehabilitation (ABPMR) Board Certified, [place] [employer] Electrodiagnostic [employer] (ABEM) Orders: Orders NE nerve conduction velocity Today G57.00 - Lesion of sciatic nerve, unspecified lower limb, G57.30 - Lesion of lateral popliteal nerve, unspecified lower limb, M54.16 - Radiculopathy, lumbar region MR lumbar spine wo con Today G57.00 - Lesion of sciatic nerve, unspecified lower limb, G57.30 - Lesion of lateral popliteal nerve, unspecified lower limb, M54.16 - Radiculopathy, lumbar region NE electromyogram (EMG) Today G57.00 - Lesion of sciatic nerve, unspecified lower limb, G57.30 - Lesion of lateral popliteal nerve, unspecified lower limb, M54.16 - Radiculopathy, lumbar region Medications: New prednisone see taper instructions; 40 mg Daily for three days, 30 mg daily for three days, 20 mg daily for three days, 10 mg daily for three days 5 mg PO DIRECTED 60 tabs 0RF Discontinued methylprednisolone (Medrol (Dmitri)) Discontinued Reason: Patient Completed Course PO PER PKG DIR for 6 days 21 ea 0RF Coding Level of Care Code New Pt Level 4 (83398) Complex EM visit Add On G2211 Diagnoses Lumbar radiculopathy M54.16 Neuropathy of right sciatic nerve G57.01 Laterality: right Neuropathy of right peroneal nerve G57.31 Laterality: right
--- OUTSIDE RECORDS SUMMARY | 2025-03-01 10:33 | XMS_ITS | Clinical Summary ---
Author Organization [facility] Address [address] [address] Phone Care Team Providers Care Oil Well Logger Name Role Phone Eddie Parks MD Primary Care Provider [phone] Allergies No known active allergies Medications cetirizine [...] Vaccine (Season Ended) 2025 Insurance Care Teams Oil Well Logger Relationship Specialty Start Date End Date Eddie Parks MD [facility] [place] [address] PCP - General Internal Medicine 10/29/21
== END 2025-03-01 10:33 | disposition home or self-care (01) ==
LOC: HO.HOS 09:31
PROVIDERS: PCP Internal Medicine; Visit Provider Physical Medicine & Rehabilitation
DX: M54.16 Radiculopathy, lumbar region (principal); G57.01 Lesion of sciatic nerve, right lower limb; G57.31 Lesion of lateral popliteal nerve, right lower limb
CPT/HCPCS: 99204; G2211

== ENCOUNTER → 2025-03-01 09:30 | Outpatient (BNVA) | payer OTHER, SELFPAY | PROVIDERS: PCP Internal Medicine; Visit Provider Physical Medicine & Rehabilitation | DX: G57.31 Lesion of lateral popliteal nerve, right lower limb (principal); G57.01 Lesion of sciatic nerve, right lower limb | CPT/HCPCS: 99202 ==

== ENCOUNTER 2025-03-02 09:32 | Outpatient (AMB) | payer OTHER, SELFPAY ==
--- NOTE | 2025-03-02 09:36 | MHC.OFFVIS ---
Vital Signs 03/02/25 09:45 Height 4 ft 11 in Weight 178 lb 6 oz BMI 36.0 BP 140/82 H Blood Pressure Location Lt brachial Position Sitting Pulse 94 Pulse Source Pulse Oximeter Pulse Oximetry (%) 100 Oxygen Delivery Method Room Air Intake Visit Reasons: Spondylosis without myelopathy, cervical region Intake Note: Pain today 7/10 Staying Machine Operator Required: No Accompanied by: Self / Same As Patient Allergies Seasonal Allergy (Unknown, Uncoded 03/01/25 09:40) Unknown HPI Comments Details: The patient is a 59-year-old female presenting with chronic neck pain and associated symptoms. The neck pain has been persistent for approximately 15 years, with a gradual worsening over time. The pain is described as constant, pulsing, throbbing, and aching, rated at 8/10 in severity. Denies any recent or past trauma, injury or falls. The patient reports numbness in the back of the head and tingling in the right arm, which have been ongoing for several years. She has been evaluated by Rheumatologists, who referred her to us for further evaluation. Recent imaging revealed cervical spondylosis with degenerative changes, most significant at C6-C7, causing moderate spinal canal and neuroforaminal narrowing. The patient has not undergone physical therapy for her neck, although she has been receiving therapy for her back and has upcoming lumbar spine MRI and EMG testing per Physicatry services. She has not received any neck-specific treatments, and past medications such as tramadol and ibuprofen have been used for pain management. However, ibuprofen use was discontinued due to gastrointestinal issues following gastric bypass surgery in 2003. The patient also experiences anxiety and depression, managed with Cymbalta, and reports chronic fatigue and difficulty concentrating due to pain. She denies any hallucinations or unmanaged depression at present. - Onset: Approximately 15 years ago, gradually worsening - Quality: Constant, pulsing, throbbing, aching, pins and needles, stabbing, tingling, tiring - Severity: Rated 8/10 - Location: Neck, radiating to the back of the head and right arm - Exacerbating factors: Turning head sideways, particularly to the right - Relieving factors: Tramadol, heat application, gabapentin, rest, activity modifications - Interference: Affects sleep, concentration, and ability to perform daily activities - Affect: Reports anxiety and depression, managed with Cymbalta - Analgesia: Uses tramadol; ibuprofen discontinued due to gastric bypass complications - Adverse Effects: Gastrointestinal issues from ibuprofen - Activities of Daily Living: Pain affects sleep, concentration, and ability to perform daily activities - Aberrant Drug Related Behaviors: None reported Oswestry Neck Pain Disability Score=25 [facility] Medical History Hiatal hernia Flexor tendinitis of hand Bilateral hand pain Decreased range of motion (ROM) of shoulder Recurrent knee instability Generalized weakness Arthritis GERD (gastroesophageal reflux disease) Depression with anxiety Hypothyroid History of fibromyalgia Surgical History Hx of colonoscopy History of laparoscopic cholecystectomy (12/17/21) Hx of gastric bypass Hx of tubal ligation Family History Mother Hypertension Father Diabetes Dementia Substance use disorder Daughter No problems noted. Daughter No problems noted. Son No problems noted. Other Mental health disorder Social History Housing: Apartment Alcohol intake: never Patient Tobacco Use Status: Never used Tobacco e-Cigarette/Vaping Use: Never Used service: No Current occupational status: unemployed Sexual orientation: Straight/Heterosexual Gender identity: Female Cognitive needs: No Hearing needs: No Vision needs: Yes Female Reproductive History Menstrual Age of Menarche: 11 Review of Systems Const Details: - Musculoskeletal: Reports chronic neck pain, weakness in right hand, tingling in right arm - Neurological: Reports numbness in the back of the head, difficulty concentrating - Psychiatric: Reports anxiety and depression, denies hallucinations - Gastrointestinal: Reports history of gastric bypass, denies current gastrointestinal symptoms - Respiratory: Denies cough, dyspnea - Cardiovascular: Denies chest pain, palpitations - Allergic/Immunologic: Reports allergies, sinus infections All systems reviewed & are unremarkable except as noted in HPI and below Physical Exam General: Appears afebrile. Alert and oriented. Mood and affect appropriate. Follows and participates in conversation appropriately. Respiratory effort is unlabored. No cough. No nasal discharge. Able to transition from sit to stand unassisted. Ambulates with bilaterally normal heel strike and toe off. Neck Other: Patient with decreased cervical ROM in all planes/especially with right>left lateral rotation. Reports increased pain with cervical extension. Spurling compression test negative. Elvey's tension test positive bilaterally, with radiation of pain from neck to wrist. Lhermitte's test was negative. DTR intact, +2 and symmetrical. Patient demonstrated 5/5 motor strength of bilateral upper extremities. 2 + radial pulses. Significant tightness throughout right upper trapezius as well as TTP throughout bilateral upper trapezius muscles. No paravertebral tenderness over facet joints bilaterally. Multiple widespread TTPs 16/16 bilaterally, including upper and lower extremities. Neck: Yes normal visual inspection, Yes no lymphadenopathy, Yes supple, No anterior neck swelling, No torticollis, Yes no JVD, No prominent supraclavicular fat pad and Yes prominent dorsocervical fat pad Back/Spine/Pelvis Cervical Spine: No Lhermitte's sign positive, loss of normal cervical lordosis, cervical muscular tenderness, pain with cervical ROM, No Cervical spine scars present, cervical spasm, No Cervical spine tenderness and No step off deformity Extrem General: Yes capillary refill normal, Yes no clubbing, cyanosis or edema and Yes no calf tenderness Psych Appearance: grossly normal and well kempt Mental Status: mental status grossly normal Speech and movement: Normal speech and movement present and Clear speech present Affect: normal affect Attitude: cooperative Thought process: Normal thought process present Thought content: Normal thought content present, suicidality (none) and Depressive thoughts present Insight: Good insight present (Psych) Judgement: Good judgement present (Psych) Results Reviewed Results Reviewed: CT cervical spine wo IV con 02/13/25 CLINICAL HISTORY: M54.12 - Radiculopathy, cervical region CT cervical spine without contrast Comparison: None Findings: Straightening and mild reversal of the normal cervical lordosis on degenerative basis. Moderate multilevel spondylosis with disc space narrowing, endplate sclerosis, osteophytosis and facet arthropathy, most notably at C6-C7 level, causing moderate spinal canal and neural foraminal narrowing. No acute fractures or dislocations. No acute findings on limited view of the intracranial contents. No cervical fluid collections or masses. No consolidation or effusion at the lung apices. Vertebral body heights are well-maintained. IMPRESSION: No acute findings. Moderate multilevel spondylosis with disc space narrowing, endplate sclerosis, osteophytosis and facet arthropathy, most notably at C6-C7 level, causing moderate spinal canal and neural foraminal narrowing. XR CERVICAL SPINE 12/29/24 CLINICAL INFORMATION: M54.12 - Radiculopathy, cervical region COMPARISON: None available. TECHNIQUE: 4views of the cervical spine were obtained. FINDINGS: No significant scoliosis. There is a mild reversal of the normal lordosis centered at C5. No fracture, compression deformity, or suspicious bone lesion evident. Craniocervical junction and C1-2 articulation are intact and normally aligned. There is moderate degenerative arthrosis at the atlantoaxial articulation. There is a 3 mm degenerative anterolisthesis of C3 on C4, and 2 mm of C4 on C5. Alignment is otherwise anatomic. Severe disc degeneration focally at C6-7. There is otherwise only mild to moderate disc degeneration. Normal facet alignment. Right greater than left hypertrophic degenerative facet arthropathy, most notable on the right at C2-3 and C3-4. There is no prevertebral or paravertebral soft tissue abnormality. Imaged lung apices are clear. IMPRESSION: 1. No acute bony abnormalities. 2. Moderate degenerative spondylosis as discussed. Disc degeneration most significant C6-7. Assessment & Plan Assessment & Plan (1) Fibromyalgia: Code(s): M79.7 - Fibromyalgia Category: Medical (2) Cervical spondylosis: Code(s): M47.812 - Spondylosis without myelopathy or radiculopathy, cervical region Category: Medical (3) Degenerative disc disease, cervical: Code(s): M50.30 - Other cervical disc degeneration, unspecified cervical region Category: Medical (4) Cervicalgia: Code(s): M54.2 - Cervicalgia Category: Medical (5) Cervical stenosis of spine: Code(s): M48.02 - Spinal stenosis, cervical region Category: Medical (6) Muscle spasms of neck: Code(s): M62.838 - Other muscle spasm Category: Medical Plan The patient will be referred for physical therapy specifically targeting the neck to address the chronic pain and improve range of motion and posture awareness. Consideration for interventional procedures such as diagnostic cervical medial branch blocks for potential RFA vs Sprint PNS will be made if physical therapy does not yield sufficient relief. The patient is advised to continue using gabapentin for pain management and to apply heat to the affected areas to alleviate discomfort. Script provided for methocarbamol and lidocaine patches 5%. Side effects and precautions were discussed with patient. A cervical neck support pillow or roll is recommended to maintain proper neck alignment during sleep. The patient is encouraged to perform neck exercises at home to enhance flexibility and reduce pain. All questions and concerns have been answered and patient agreed with the plan. Follow up after PT and sooner as needed. Patient was informed and verbally consented to the use of an ambient scribe for clinic note documentation during this visit. Orders: Orders PT Evaluation and Treatment Today M47.812 - Spondylosis without myelopathy or radiculopathy, cervical region, M48.02 - Spinal stenosis, cervical region, M50.30 - Other cervical disc degeneration, unspecified cervical region, M54.2 - Cervicalgia Medications: New lidocaine 5% apply to affected areas up to 12 hours per day 1 patch topical DAILY 30 ea 0RF pain 30 days M47.812 - Spondylosis without myelopathy or radiculopathy, cervical region, M50.30 - Other cervical disc degeneration, unspecified cervical region, M54.2 - Cervicalgia methocarbamol 750 mg PO BID PRN 60 tabs 0RF muscle spasm 30 days M62.838 - Other muscle spasm Patient Instructions: - Attend physical therapy sessions for neck pain management. - Use gabapentin as prescribed for pain relief. - Start methocarbamol for neck spasms, monitor for any side effects such as excessive drowsiness. - Apply heat to the neck and back as needed for pain relief. Lidocaine patches as needed. - Use a cervical neck support pillow or roll during sleep. Avoid stomach sleeping positions. - Perform neck exercises at home regularly. Coding Level of Care Code New Pt Level 4 (36310) Diagnoses Fibromyalgia M79.7 Cervical spondylosis M47.812 Degenerative disc disease, cervical M50.30 Cervicalgia M54.2 Cervical stenosis of spine M48.02 Muscle spasms of neck M62.838
[2025-03-02 09:45] VITALS: BP 140/82; PULSE 94; O2SAT 100; BMI 36.0
--- OUTSIDE RECORDS SUMMARY | 2025-03-02 09:57 | XMS_ITS | Clinical Summary ---
Author Organization [facility] Address [address] [address] Phone Care Team Providers Care Manager Lsw Name Role Phone Eddie Parks MD Primary Care Provider [phone] Allergies No known active allergies Medications cetirizine [...] Vaccine (Season Ended) 2025 Insurance Care Teams Manager Lsw Relationship Specialty Start Date End Date Eddie Parks MD [facility] [place] [address] PCP - General Internal Medicine 10/29/21
== END 2025-03-02 10:13 | disposition home or self-care (01) ==
LOC: HO.PMC 09:32
PROVIDERS: PCP Internal Medicine; Referring Provider Student in an Organized Health Care Education/Training Program; Visit Provider Nurse Practitioner Family
DX: M79.7 Fibromyalgia (principal); M47.812 Spondylosis without myelopathy or radiculopathy, cervical region; M50.30 Other cervical disc degeneration, unspecified cervical region; M48.02 Spinal stenosis, cervical region; M62.838 Other muscle spasm
CPT/HCPCS: 99204

== ENCOUNTER → 2025-03-02 09:32 | Outpatient (BNVA) | payer OTHER, SELFPAY | PROVIDERS: PCP Internal Medicine; Referring Provider Student in an Organized Health Care Education/Training Program; Visit Provider Nurse Practitioner Family | DX: M47.812 Spondylosis without myelopathy or radiculopathy, cervical region (principal); M48.02 Spinal stenosis, cervical region; M50.30 Other cervical disc degeneration, unspecified cervical region; M62.838 Other muscle spasm | CPT/HCPCS: 99202 ==

== ENCOUNTER → 2025-03-07 10:07 | Outpatient (BNV) | payer OTHER, SELFPAY | PROVIDERS: PCP Internal Medicine; Visit Provider Radiology Diagnostic Radiology | DX: M48.062 Spinal stenosis, lumbar region with neurogenic claudication (principal) | CPT/HCPCS: 72148 ==

== ENCOUNTER 2025-03-07 10:09 | Outpatient (REF) | payer OTHER, SELFPAY ==
--- NOTE | ~2025-03-07 | MR_ITS ---
EXAMINATION: MR LUMBAR SPINE WITHOUT CONTRAST CLINICAL INFORMATION: Radiculopathy, lumbar region. COMPARISON: None available. TECHNIQUE: MRI of the lumbar spine was obtained using routine sequences without contrast. FINDINGS: Last rib-bearing vertebra labeled T12. No gross bone marrow STIR signal abnormality. Multilevel marginal osteophyte formation and disc desiccation decreased disc height more pronounced at L4-5. Modic type II endplate changes at L4-5. Grade 1 anterolisthesis L5-S1. Conus pneumonitis ends at pedicle of L1 with normal signal. Spina bifida occulta S1. T12-L1: Central herniated disc with cephalad migration beneath the posterior longitudinal ligament resulting in ventral indentation to the thecal sac. There is no compression upon conus medullaris. No neuroforamina stenosis. L1-2: Facet joint and ligamentum flavum hypertrophy. Broad-based disc bulging. Reduced AP diameter of the thecal sac. Bilateral neuroforamina stenosis likely encroaching the neural elements. L2-3: Broad-based disc bulging. Facet joint and ligamentum flavum hypertrophy. Reduced AP diameter of the thecal sac and neuroforamina. No compression upon neural elements. L3-4: Broad-based disc bulging. Facet joint and ligamentum flavum hypertrophy. Reduced AP diameter of the thecal sac and neuroforamina likely encroaching the neural elements. L4-5: There is a central, left subarticular foraminal and extraforaminal disc herniation encroaching the left L5 and likely compressing the left L4 exiting nerve roots. Facet joint and ligamentum flavum hypertrophy. Right neuroforamina narrowing. Central spinal canal stenosis. L5-S1: Broad-based disc bulging. Facet joint hypertrophy. Reduced AP diameter of the thecal sac. Bilateral neuroforamina stenosis encroaching the exiting nerve roots. No prevertebral compartment hematoma, mass or fluid collection. There is a 3.5 cm exophytic hyperintense T2 cystic lesion, posterior upper pole midportion junction left kidney. Fatty atrophy of the lower lumbar muscles from L4 to sacrum. MR/MR lumbar spine wo con IMPRESSION: Multilevel thoracolumbar spondylosis resulting in central spinal canal and left neuroforamina stenosis at L4-5 and to a lesser extent L3-4. Central/midline extruded disc with cephalad migration at T12-L1. No compression upon neural elements. Central left subarticular foraminal and extraforaminal broad-based disc herniation L4-5 encroaching the left L5 and likely L4 exiting nerve roots. 3.5 cm exophytic cyst, left kidney. Electronically signed by: Dg Mckinney MD 03/07/2025 11:33 AM EDT
--- OUTSIDE RECORDS SUMMARY | 2025-03-07 10:40 | XMS_ITS | Clinical Summary ---
Author Organization [facility] ity Address [address] [place] [address] Care Team Providers Care Ob Gyn Physician Assistant Name Role Phone Unavailable Primary Care Provider Unavailabl e Social History Tobacco Use Types Packs/Day Years [...]
--- OUTSIDE RECORDS SUMMARY | 2025-03-07 10:40 | XMS_ITS | Clinical Summary ---
Author Organization [facility] Address [address] [address] Phone Care Team Providers Care Pro Shop Attendant Name Role Phone Eddie Parks MD Primary Care Provider [phone] Allergies No known active allergies Medications cetirizine [...] Vaccine (Season Ended) 2025 Insurance Care Teams Pro Shop Attendant Relationship Specialty Start Date End Date Eddie Parks MD [facility] [place] [address] PCP - General Internal Medicine 10/29/21
== END 2025-03-07 10:10 | disposition home or self-care (01) ==
LOC: HO.MRI 10:09
PROVIDERS: PCP Internal Medicine; Visit Provider Physical Medicine & Rehabilitation
DX: M54.16 Radiculopathy, lumbar region (principal)
CPT/HCPCS: 72148

== ENCOUNTER 2025-03-15 08:37 | Outpatient (AMB) | payer OTHER, SELFPAY ==
--- OUTSIDE RECORDS SUMMARY | 2025-03-15 08:47 | XMS_ITS | Clinical Summary ---
Author Organization [facility] Address [address] [address] Phone Care Team Providers Care Neuropsychology Medical Consultant Name Role Phone Eddie Parks MD Primary Care Provider [phone] Allergies No known active allergies Medications cetirizine [...] Cancer Screening: Sigmoidoscopy 2014 Influenza Vaccine (#1) 2025 Insurance Care Teams Neuropsychology Medical Consultant Relationship Specialty Start Date End Date Eddie Parks MD [facility] [place] [address] PCP - General Internal Medicine 10/29/21
--- OUTSIDE RECORDS SUMMARY | 2025-03-15 08:47 | XMS_ITS | Clinical Summary ---
Author Organization [facility] ity Address [address] [place] [address] Care Team Providers Care Compliance Professional Name Role Phone Unavailable Primary Care Provider [...] 2023-2 5 season) 2024 Influenza Vaccine (#1) 2025 RSV Immunization Adult Patie nts (1 [...]
--- NOTE | 2025-03-15 08:57 | MHC.OFFWIV ---
Intake Vital Signs 03/15/25 08:59 Height 4 ft 11 in Weight 180 lb BMI 36.4 BP 132/70 Blood Pressure Location Lt brachial Position Sitting Pulse 100 Pulse Source Pulse Oximeter Temp 98.1 F Temp Source Oral Pulse Oximetry (%) 95 Oxygen Delivery Method Room Air Intake Visit Reasons: EP mouth sores Intake Note: presents with mouth sores, feels like a lump in her throat, tongue feels dry and swollen after 12 day course of prednisone Patient Tobacco Use Status: Never used Tobacco Allergies Seasonal Allergy (Mild, Uncoded 03/15/25 09:03) sneezing HPI HPI Comments History of Present Illness Details 59 y/o Female patient who presents to the walk in clinic with c/o Mouth Sores for 2 days. Pt was on Prolonged Oral Steroids for about 1 month due to OA (on back and Knees). Reports Sore-tongue and Throat pain with Swallowing. Denies fevers, chills, nausea or vomiting. [facility] Medical History (Updated 03/15/25 @ 09:35 by Ariana Cohen NP) Tongue sore Hiatal hernia Flexor tendinitis of hand Bilateral hand pain Decreased range of motion (ROM) of shoulder Recurrent knee instability Generalized weakness Arthritis GERD (gastroesophageal reflux disease) Depression with anxiety Hypothyroid History of fibromyalgia Surgical History Hx of colonoscopy History of laparoscopic cholecystectomy (12/17/21) Hx of gastric bypass Hx of tubal ligation Family History Mother Hypertension Father Diabetes Dementia Substance use disorder Daughter No problems noted. Daughter No problems noted. Son No problems noted. Other Mental health disorder Social History Housing: Apartment Alcohol intake: never Patient Tobacco Use Status: Never used Tobacco e-Cigarette/Vaping Use: Never Used service: No Current occupational status: unemployed Sexual orientation: Straight/Heterosexual Gender identity: Female Cognitive needs: No Hearing needs: No Vision needs: Yes Female Reproductive History Menstrual Age of Menarche: 11 Review of Systems Const All systems reviewed & are unremarkable except as noted in HPI and below Physical Exam Vital Signs: Last Vital Signs Temp 98.1 F 03/15/25 08:59 Pulse 100 03/15/25 08:59 BP 132/70 03/15/25 08:59 Pulse Ox 95 03/15/25 08:59 Oxygen Delivery Method Room Air 03/15/25 08:59 BMI result Body Mass Index 36.4 Const General: no acute distress Nutritional Appearance: well nourished Orientation/consciousness: patient oriented x3 HEENT Head: Yes normocephalic Ears: hearing grossly normal bilaterally, external ears normal and TM abnormal with fluid behind the TM bilateral General nose exam: Normal nasal mucous membranes and turbinates present Face and sinus: Yes sinuses nontender Mouth: moist mucous membranes and tongue abnormal with lesion noted (Two Small lesions at the Tip of tongue) Throat: Yes uvula midline Neuro General: patient oriented x3 Assessment & Plan Assessment & Plan (1) Tongue sore: Code(s): K14.6 - Glossodynia Plan: Avoid Prednisone - it is Immunosuppressive Ordered Mouth Wash Advised to avoid Hot and Spicy foods. Avoid Citric Fruits. Maintain Good Oral Hygiene. Medications: New Magic Mouthwash Diphen/Lido/Antacid 1:1:1 Swish in the mouth for 1-2 minutes then Spit out the contents. 10 mL PO Q6-8H 240 mL 0RF 7 days K14.6 - Glossodynia Coding Level of Care Code Est Pt Level 4 (82822) Diagnoses Tongue sore K14.6 Time Spent (min) 20
[2025-03-15 08:59] VITALS: BP 132/70; PULSE 100; TEMP 36.7; O2SAT 95; BMI 36.4
== END 2025-03-15 09:33 | disposition home or self-care (01) ==
PROVIDERS: PCP Internal Medicine; Visit Provider Nurse Practitioner Family
DX: K14.6 Glossodynia (principal)

== ENCOUNTER → 2025-03-15 08:37 | Outpatient (BNVA) | payer OTHER, SELFPAY | PROVIDERS: PCP Internal Medicine; Visit Provider Nurse Practitioner Family | DX: K14.6 Glossodynia (principal) | CPT/HCPCS: 99212 ==

== ENCOUNTER 2025-03-29 09:51 | Outpatient (AMB) | payer OTHER, SELFPAY ==
--- NOTE | 2025-03-29 10:02 | A.OFFVIS_ITS ---
Vital Signs 03/29/25 10:07 Height 4 ft 11 in Weight 170 lb BMI 34.3 Intake Visit Reasons: OV-Lumbar Spine MRI Review Intake Note: Ninfa is a 59 year old female who presents today for a lumbar spine MRI Review, 03/07/25. At last visit it was discussed to schedule for EMG and physical therapy her last appointment was 02/22/25. At today's visit she states that her lower back pain is still radiating down the right leg and for the past few weeks she has noticed left inner thigh pain. Patient added that on 03/30/25 she has an appointment with physical therapy for her neck,referred by pain management. Allergies Seasonal Allergy (Mild, Uncoded 03/15/25 09:03) sneezing Medication List - Last Reconciled 03/29/25 by Agata Carmichael MD cetirizine 10 mg PO DAILY clobetasol 0.05% 1 appl topical BID duloxetine 60 mg PO DAILY 90 days gabapentin Take one capsule by mouth every morning, one capsule in afternoon and 2 capsules every evening levothyroxine 100 mcg PO DAILY 90 days lidocaine 5% 1 patch topical DAILY 30 days Magic Mouthwash Diphen/Lido/Antacid 1:1:1 10 mL PO Q6-8H 7 days methocarbamol 750 mg PO BID PRN 30 days mirabegron ER (Myrbetriq) 50 mg PO DAILY mirtazapine 15 mg PO BEDTIME modafinil 200 mg PO DAILY montelukast 10 mg PO DAILY nystatin 1 mL PO DAILY omeprazole 20 mg PO DAILY pramipexole 0.5 mg PO QPM sucralfate 1 g PO BID tacrolimus 0.1% 1 appl topical BID HPI Comments Details: Gradual progressive right lower leg symptoms over the past year. No inciting injuries. Thought to be from fibromyalgia. At first, it was just a slight burn and ache on medial right thigh/knee, and then this May became more severe, on fire , still middle thigh going down to calf and anterior leg, hypersensitive to touch. Not to the foot. But has abnormal sensation over of the right foot. Did not have footdrop or hip flexion weakness. But had difficulty flexing right knee. Had fallen a few times due to suddent lost of balane or the knee let go . She also has associated lower back axial, non radicular, this is chronic and possibly separate issue. She has been using a cane to avoid falls. Treatment done so far: PT for sciatica - but not improved Medrol dose pack - sensation improved temporarily Differential diagnosis include right lumbar radiculopathy versus sciatic neuropathy versus peroneal neuropathy. Lumbar radiculopathy from a disc herniation would be the most common etiology. Through sciatic neuropathy is actually rare. No footdrop. Because she was not such pain and discomfort, we started her on oral prednisone small dose. Despite being on Medrol Dosepak on a 2 months prior. Unfortunately she noticed white plaque/ulcers on her tongue. She had to go to urgent care and send me portal messages. I prescribed her with nystatin swish and swallow. She is feeling better but still has a couple ulcers on her tongue. Overall much comfortable in terms of lower back pain. Managing/tolerating. No new weakness. No new numbness. Maintains that her pain is right-sided. Lumbar MRI showed a disc herniation L4-5 but SI showed the patient, it is more left-sided than right-sided. [facility] Medical History (Updated 03/29/25 @ 11:48 by Agata Carmichael MD) Tongue sore Hiatal hernia Flexor tendinitis of hand Bilateral hand pain Decreased range of motion (ROM) of shoulder Recurrent knee instability Generalized weakness Arthritis GERD (gastroesophageal reflux disease) Depression with anxiety Hypothyroid History of fibromyalgia Surgical History Hx of colonoscopy History of laparoscopic cholecystectomy (12/17/21) Hx of gastric bypass Hx of tubal ligation Family History Mother Hypertension Father Diabetes Dementia Substance use disorder Daughter No problems noted. Daughter No problems noted. Son No problems noted. Other Mental health disorder Social History Housing: Apartment Alcohol intake: never Patient Tobacco Use Status: Never used Tobacco e-Cigarette/Vaping Use: Never Used service: No Current occupational status: unemployed Sexual orientation: Straight/Heterosexual Gender identity: Female Cognitive needs: No Hearing needs: No Vision needs: Yes Female Reproductive History Menstrual Age of Menarche: 11 Physical Exam Vital Signs: BMI result Body Mass Index 34.3 Constitutional: Patient appears to be in no acute distress, well nourished and well developed. Patient was appropriately conversant and oriented. Good historian. Two small whitish plaque on tongue. MSK: No specific abnormalities found on inspection of the spine and all extremities. Right SI joint remains to be tender. No footdrop. She appeared much more comfortable today. No tenderness or hypersensitivity to touch today. Neurological: Neurologic examination of the upper and lower extremities was nonfocal with intact sensation, muscle stretch reflexes and without focal motor deficits . Babinski was down going bilaterally. Clonus was negative. Gait is none antalgic without loss of balance, using cane. Results Reviewed Results Reviewed: Reviewed images together. L4-5 disc herniation is left-sided, not consistent with her right-sided pain. Ordering Physician: Agata Davidson Date of Service: 03/07/25 Procedure(s): MR lumbar spine wo con Accession Number(s): [id number] cc: Eddie Parks MD; Agata Davidson~ EXAMINATION: MR LUMBAR SPINE WITHOUT CONTRAST CLINICAL INFORMATION: Radiculopathy, lumbar region. COMPARISON: None available. TECHNIQUE: MRI of the lumbar spine was obtained using routine sequences without contrast. FINDINGS: Last rib-bearing vertebra labeled T12. No gross bone marrow STIR signal abnormality. Multilevel marginal osteophyte formation and disc desiccation decreased disc height more pronounced at L4-5. Modic type II endplate changes at L4-5. Grade 1 anterolisthesis L5-S1. Conus pneumonitis ends at pedicle of L1 with normal signal. Spina bifida occulta S1. T12-L1: Central herniated disc with cephalad migration beneath the posterior longitudinal ligament resulting in ventral indentation to the thecal sac. There is no compression upon conus medullaris. No neuroforamina stenosis. L1-2: Facet joint and ligamentum flavum hypertrophy. Broad-based disc bulging. Reduced AP diameter of the thecal sac. Bilateral neuroforamina stenosis likely encroaching the neural elements. L2-3: Broad-based disc bulging. Facet joint and ligamentum flavum hypertrophy. Reduced AP diameter of the thecal sac and neuroforamina. No compression upon neural elements. L3-4: Broad-based disc bulging. Facet joint and ligamentum flavum hypertrophy. Reduced AP diameter of the thecal sac and neuroforamina likely encroaching the neural elements. L4-5: There is a central, left subarticular foraminal and extraforaminal disc herniation encroaching the left L5 and likely compressing the left L4 exiting nerve roots. Facet joint and ligamentum flavum hypertrophy. Right neuroforamina narrowing. Central spinal canal stenosis. L5-S1: Broad-based disc bulging. Facet joint hypertrophy. Reduced AP diameter of the thecal sac. Bilateral neuroforamina stenosis encroaching the exiting nerve roots. No prevertebral compartment hematoma, mass or fluid collection. There is a 3.5 cm exophytic hyperintense T2 cystic lesion, posterior upper pole midportion junction left kidney. Fatty atrophy of the lower lumbar muscles from L4 to sacrum. MR/MR lumbar spine wo con IMPRESSION: Multilevel thoracolumbar spondylosis resulting in central spinal canal and left neuroforamina stenosis at L4-5 and to a lesser extent L3-4. Central/midline extruded disc with cephalad migration at T12-L1. No compression upon neural elements. Central left subarticular foraminal and extraforaminal broad-based disc herniation L4-5 encroaching the left L5 and likely L4 exiting nerve roots. 3.5 cm exophytic cyst, left kidney. Electronically signed by: Dg Mckinney MD 03/07/2025 11:33 AM EDT Assessment & Plan Assessment & Plan (1) Lumbar disc herniation: Code(s): M51.26 - Other intervertebral disc displacement, lumbar region Category: Medical (2) Pain of right sacroiliac joint: Code(s): M53.3 - Sacrococcygeal disorders, not elsewhere classified Category: Medical (3) Oral thrush: Code(s): B37.0 - Candidal stomatitis Category: Medical Plan Lumbar MRI showed a disc herniation L4-5 but SI showed the patient, it is more left-sided than right-sided. She does have tenderness on palpation on right SI joint. Overall she is looking better, much more comfortable, able to tolerate sitting and standing better. No signs of neurologic deficits. After being a Medrol Dosepak and oral prednisone, she unfortunately developed oral thrush. Currently being treated with nystatin swish and swallow. Because of this, would not aguilar to sending her for steroid injections/epidural for now. We will continue to watch her lower back pain, again looking much better than when I 1st met her. Encouraged to continue PT and home exercises. Scheduled for EMG in a few weeks to rule out peroneal neuropathy. Assessment and plan discussed with patient, and patient was agreeable. All questions were answered thoroughly. Follow up in 1-2 months. Agata Carmichael MD, MEKHI Board Certified, [place] [employer] and [employer] (ABPMR) Board Certified, [place] [employer] Electro[employer] (ABEM) Coding Level of Care Code Est Pt Level 4 (97079) Diagnoses Lumbar disc herniation M51.26 Pain of right sacroiliac joint M53.3 Oral thrush B37.0
[2025-03-29 10:07] VITALS: BMI 34.3
--- OUTSIDE RECORDS SUMMARY | 2025-03-29 10:32 | XMS_ITS | Clinical Summary ---
Author Organization [facility] Address [address] [address] Phone Care Team Providers Care Coremaker Helper Name Role Phone Eddie Parks MD Primary Care Provider [phone] Allergies No known active allergies Medications cetirizine [...] Influenza Vaccine (#1) 2025 Insurance Care Teams Coremaker Helper Relationship Specialty Start Date End Date Eddie Parks MD [facility] [place] [address] PCP - General Internal Medicine 10/29/21
--- OUTSIDE RECORDS SUMMARY | 2025-03-29 10:32 | XMS_ITS | Clinical Summary ---
Author Organization [facility] Address [address] [place] [address] Care Team Providers Care Hose Finisher Name Role Phone Unavailable Primary Care Provider [...] 2) 2015 Colorectal Cancer Screening: Colonoscopy 08/04/2022 HIV Screening 08/04/2022 Hepatitis C Screening 08/04/2022 Social Influencers of Health Screening 08/04/2022 COVID-19 Vaccine (1 - 2023-2 5 season) 2024 Depression Screening 09/06/2024 Influenza Vaccine (#1) 2025 RSV Immunization Adult [...]
== END 2025-03-29 10:34 | disposition home or self-care (01) ==
LOC: HO.HOS 09:51
PROVIDERS: PCP Internal Medicine; Visit Provider Physical Medicine & Rehabilitation
DX: M51.26 Other intervertebral disc displacement, lumbar region (principal); M53.3 Sacrococcygeal disorders, not elsewhere classified; B37.0 Candidal stomatitis
CPT/HCPCS: 99214

== ENCOUNTER → 2025-03-29 09:51 | Outpatient (BNVA) | payer OTHER, SELFPAY | PROVIDERS: PCP Internal Medicine; Visit Provider Physical Medicine & Rehabilitation | DX: M51.26 Other intervertebral disc displacement, lumbar region (principal); M53.3 Sacrococcygeal disorders, not elsewhere classified; B37.0 Candidal stomatitis | CPT/HCPCS: 99212 ==

== ENCOUNTER 2025-04-19 09:03 | Outpatient (AMB) | payer OTHER, SELFPAY ==
--- NOTE | 2025-04-19 09:11 | A.OFFVIS_ITS ---
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 The neck pain has been persistent and is accompanied by headaches and radiculopathy affecting the right arm. The patient reports that physical therapy provides temporary relief, but symptoms return shortly after sessions. She also reports certain PT and home exercises increase her symptoms so she paused PT at this time. The patient has moderate cervical spinal stenosis and cervical spondylosis, confirmed by a CT scan showing C6-C7 moderate stenosis. She experiences tingling and numbness in the right arm, particularly in the middle and fourth fingers, which is intermittent. The patient is right-hand dominant, and the symptoms interfere with her daily activities. The patient has previously been prescribed prednisone for lumbar radicular symptoms per Physiatry, which led to the development of rash, necessitating discontinuation of the medication. She has also stopped taking muscle relaxants due to adverse effects, specifically drowsiness. The patient continues to take gabapentin for symptom management. Denies any recent cough, cold, infection, fever or any significant changes in medical history since last office visit. PRIOR: The patient is a 59-year-old female presenting with chronic neck pain and associated symptoms. The neck pain has been persistent for approximately 15 years, with a gradual worsening over time. The pain is described as constant, pulsing, throbbing, and aching, rated at 8/10 in severity. Denies any recent or past trauma, injury or falls. The patient reports numbness in the back of the head and tingling in the right arm, which have been ongoing for several years. She has been evaluated by Rheumatologists, who referred her to us for further evaluation. Recent imaging revealed cervical spondylosis with degenerative changes, most significant at C6- C7, causing moderate spinal canal and neuroforaminal narrowing. The patient has not undergone physical therapy for her neck, although she has been receiving therapy for her back and has upcoming lumbar spine MRI and EMG testing per Physicatry services. She has not received any neck-specific treatments, and past medications such as tramadol and ibuprofen have been used for pain management. However, ibuprofen use was discontinued due to gastrointestinal issues following gastric bypass surgery in 2003. The patient also experiences anxiety and depression, managed with Cymbalta, and reports chronic fatigue and difficulty concentrating due to pain. She denies any hallucinations or unmanaged depression at present. - Onset: Approximately 15 years ago, gradually worsening - Quality: Constant, pulsing, throbbing, aching, pins and needles, stabbing, tingling, tiring - Severity: Rated 8/10 - Location: Neck, radiating to the back of the head and right arm - Exacerbating factors: Turning head sideways, particularly to the right - Relieving factors: Tramadol, heat application, gabapentin, rest, activity modifications - Interference: Affects sleep, concentration, and ability to perform daily activities - Affect: Reports anxiety and depression, managed with Cymbalta - Analgesia: Uses tramadol; ibuprofen discontinued due to gastric bypass complications - Adverse Effects: Gastrointestinal issues from ibuprofen - Activities of Daily Living: Pain affects sleep, concentration, and ability to perform daily activities - Aberrant Drug Related Behaviors: None reported Oswestry Neck Pain Disability Score=25 [facility] Medical History Tongue sore Hiatal hernia Flexor tendinitis of hand Bilateral hand pain Decreased range of motion (ROM) of shoulder Recurrent knee instability Generalized weakness Arthritis GERD (gastroesophageal reflux disease) Depression with anxiety Hypothyroid History of fibromyalgia Surgical History Hx of colonoscopy History of laparoscopic cholecystectomy (12/17/21) Hx of gastric bypass Hx of tubal ligation Family History Mother Hypertension Father Diabetes Dementia Substance use disorder Daughter No problems noted. Daughter No problems noted. Son No problems noted. Other Mental health disorder Social History Housing: Apartment Alcohol intake: never Patient Tobacco Use Status: Never used Tobacco e-Cigarette/Vaping Use: Never Used service: No Current occupational status: unemployed Sexual orientation: Straight/Heterosexual Gender identity: Female Cognitive needs: No Hearing needs: No Vision needs: Yes Female Reproductive History Menstrual Age of Menarche: 11 Review of Systems Const Details: - Neurological: Reports headaches and intermittent tingling in the right arm; denies constant numbness. - Musculoskeletal: Reports persistent neck pain and right shoulder pain; denies pain or tingling in the thumb. All systems reviewed & are unremarkable except as noted in HPI and below Physical Exam Vital Signs: Last Vital Signs Pulse 92 04/19/25 09:15 BP 146/70 H 04/19/25 09:15 Pulse Ox 100 04/19/25 09:15 Oxygen Delivery Method Room Air 04/19/25 09:15 BMI result Body Mass Index 36.2 General: Appears afebrile. Alert and oriented. Mood and affect appropriate. Clear speech. Follows and participates in conversation appropriately. Respiratory effort is unlabored. No cough. Able to transition from sit to stand unassisted. Ambulates with bilaterally normal heel strike and toe off. Neck Other: Patient with decreased cervical ROM in all planes/especially with right lateral rotation. Reports increased pain with cervical extension. Spurling compression test negative. Elvey's tension test positive on the right, with radiation of pain from neck to wrist and right 4th and 5th fingers. Lhermitte's test was nega tive. DTR intact, +2 and symmetrical. Patient demonstrated 5/5 left and 4/5 right motor strength of bilateral upper extremities. 2 + radial pulses. Significant tightness throughout right upper trapezius as well as TTP throughout bilateral upper trapezius muscles. No paravertebral tenderness over facet joints bilaterally. Multiple widespread TTPs 16/16 bilaterally, including upper and lower extremities. Neck: Yes normal visual inspection, Yes no lymphadenopathy, Yes supple, No anterior neck swelling, No torticollis, Yes no JVD, No prominent supraclavicular fat pad and Yes prominent dorsocervical fat pad Back/Spine/Pelvis Cervical Spine: No Lhermitte's sign positive, cervical muscular tenderness, pain with cervical ROM, No Cervical spine scars present, cervical spasm, No Cervical spine tenderness and No step off deformity Extrem General: Yes capillary refill normal, Yes no clubbing, cyanosis or edema and Yes no calf tenderness Results Reviewed Results Reviewed: CT cervical spine wo IV con 02/13/25 CLINICAL HISTORY: M54.12 - Radiculopathy, cervical region CT cervical spine without contrast Comparison: None Findings: Straightening and mild reversal of the normal cervical lordosis on degenerative basis. Moderate multilevel spondylosis with disc space narrowing, endplate sclerosis, osteophytosis and facet arthropathy, most notably at C6-C7 level, causing moderate spinal canal and neural foraminal narrowing. No acute fractures or dislocations. No acute findings on limited view of the intracranial contents. No cervical fluid collections or masses. No consolidation or effusion at the lung apices. Vertebral body heights are well-maintained. IMPRESSION: No acute findings. Moderate multilevel spondylosis with disc space narrowing, endplate sclerosis, osteophytosis and facet arthropathy, most notably at C6-C7 level, causing moderate spinal canal and neural foraminal narrowing. XR CERVICAL SPINE 12/29/24 CLINICAL INFORMATION: M54.12 - Radiculopathy, cervical region COMPARISON: None available. TECHNIQUE: 4views of the cervical spine were obtained. FINDINGS: No significant scoliosis. There is a mild reversal of the normal lordosis centered at C5. No fracture, compression deformity, or suspicious bone lesion evident. Craniocervical junction and C1-2 articulation are intact and normally aligned. There is moderate degenerative arthrosis at the atlantoaxial articulation. There is a 3 mm degenerative anterolisthesis of C3 on C4, and 2 mm of C4 on C5. Alignment is otherwise anatomic. Severe disc degeneration focally at C6-7. There is otherwise only mild to moderate disc degeneration. Normal facet alignment. Right greater than left hypertrophic degenerative facet arthropathy, most notable on the right at C2-3 and C3-4. There is no prevertebral or paravertebral soft tissue abnormality. Imaged lung apices are clear. IMPRESSION: 1. No acute bony abnormalities. 2. Moderate degenerative spondylosis as discussed. Disc degeneration most significant C6-7. Assessment & Plan Assessment & Plan (1) Fibromyalgia: Code(s): M79.7 - Fibromyalgia Category: Medical (2) Cervical spondylosis: Code(s): M47.812 - Spondylosis without myelopathy or radiculopathy, cervical region Category: Medical (3) Degenerative disc disease, cervical: Code(s): M50.30 - Other cervical disc degeneration, unspecified cervical region Category: Medical (4) Cervicalgia: Code(s): M54.2 - Cervicalgia Category: Medical (5) Cervical stenosis of spine: Code(s): M48.02 - Spinal stenosis, cervical region Category: Medical (6) Muscle spasms of neck: Code(s): M62.838 - Other muscle spasm Category: Medical (7) Paresthesia of lower extremity: Code(s): R20.2 - Paresthesia of skin Category: Medical Plan The plan includes obtaining an MRI of the neck to further evaluate the extent of spinal stenosis and any potential nerve compression. If the MRI confirms significant stenosis, a referral to Neurosurgery will be made for further evaluation and management. Due to the patient's adverse reaction to prednisone, alternative treatments for inflammation and pain management will be considered. Previously discussed cervical medial branch RFA and Sprint PNS treatments for axial neck pain. Continue lidocaine patches, gabapentin, cervical neck support pillow and gentle neck exercises at home to enhance flexibility and reduce pain. All questions and concerns have been answered and patient agreed with the plan. Follow up for MRI results and sooner as needed. Patient was informed and verbally consented to the use of an ambient scribe for clinic note documentation during this visit. Orders: Orders MR cervical spine wo con Today M47.812 - Spondylosis without myelopathy or radiculopathy, cervical region, M48.02 - Spinal stenosis, cervical region, M50.30 - Other cervical disc degeneration, unspecified cervical region, R20.2 - Paresthesia of skin Medications: Discontinued methocarbamol Discontinued Reason: Patient Completed Course 750 mg PO BID 30 days PRN 60 tabs 2RF muscle spasm M62.838 - Other muscle spasm Coding Level of Care Code Est Pt Level 4 (74810) Complex EM visit Add On G2211 Diagnoses Fibromyalgia M79.7 Cervical spondylosis M47.812 Degenerative disc disease, cervical M50.30 Cervicalgia M54.2 Cervical stenosis of spine M48.02 Muscle spasms of neck M62.838 Paresthesia of lower extremity R20.2
[2025-04-19 09:15] VITALS: BP 146/70; PULSE 92; O2SAT 100; BMI 36.2
--- OUTSIDE RECORDS SUMMARY | 2025-04-19 09:31 | XMS_ITS | Clinical Summary ---
Author Organization [facility] ity Address [address] [place] [address] Care Team Providers Care Farm Machine Tender Name Role Phone Unavailable Primary Care Provider [...] DTaP,Tdap,and Td Vaccines (1 - Tdap) 1984 Cervical Cancer Screening: P ap Smear 1986 Pneumococcal Vaccine: 50+ Ye ars (1 of 1 - PCV) 2015 Zoster Vaccines (1 of 2) 2015 Colorectal Cancer Screening: Colonoscopy 08/04/2022 HIV Screening 08/04/2022 Hepatitis C Screening 08/04/2022 Social Influencers of Health Screening 08/04/2022 COVID-19 Vaccine ( - 2023-2 5 season) 2024 Depression Screening [...] patient's age to complete this topic Hepatitis B Vaccines Aged Out No long er eligible [...]
--- OUTSIDE RECORDS SUMMARY | 2025-04-19 09:31 | XMS_ITS | Clinical Summary ---
Author Organization [facility] Address [address] [address] Phone Care Team Providers Care Corrugator Name Role Phone Eddie Parks MD Primary Care Provider [phone] Allergies No known active allergies Medications cetirizine [...] Comments Breast Cancer Screening 1965 Pneumococcal Vaccine: 50+ Ye ars (1 of 2 - PCV) 1984 Colorectal Cancer Screening: Annual FOBT 2014 Colorectal Cancer Screening: Colonoscopy 2014 Colorectal Cancer Screening: Sigmoidoscopy 2014 Influenza Vaccine (#1) 2025 Hepatitis B Vaccine Aged Out No longe r eligible based on patient's age to complete this topic Insurance Care Teams Corrugator Relationship Specialty Start Date End Date Eddie Parks MD [address] [place] [id number] PCP - General Internal Medicine 10/29/21
== END 2025-04-19 09:26 | disposition home or self-care (01) ==
LOC: HO.PMC 09:08
PROVIDERS: PCP Internal Medicine; Visit Provider Nurse Practitioner Family
DX: M79.7 Fibromyalgia (principal); M47.812 Spondylosis without myelopathy or radiculopathy, cervical region; M50.30 Other cervical disc degeneration, unspecified cervical region; M48.02 Spinal stenosis, cervical region; M62.838 Other muscle spasm; R20.2 Paresthesia of skin
CPT/HCPCS: 99214

== ENCOUNTER 2025-04-19 12:55 | Outpatient (REF) | payer OTHER, SELFPAY ==
--- NOTE | 2025-04-19 12:59 | EMG_ITS ---
Chief complaint: Continues to have electrical symptoms going down right leg and right lower back pain. Please see my past notes for more details. MRI reviewed with patient. Reason for referral: Evaluate for peroneal neuropathy versus sciatic neuropathy Procedure done: Right lower extremity NCS/EMG Precautions and/or limitations: None The limb temperature was monitored continuously and remained between 32-36 degrees C during the performance of the NCS. Nerve Conduction Studies Anti Sensory Summary Table ?Stim Site NR Onset (ms) Norm Onset (ms) Peak (ms) Norm Peak (ms) O-P Amp (?V) Norm O-P Amp Site1 Site2 Delta-0 (ms) Dist (cm) Felix (m/s) Norm Felix (m/s) Right Sural Anti Sensory (Lat Mall) Calf ? 2.4 3.1 <4.0 24.7 >5.0 Calf Lat Mall 2.4 14.0 58 Motor Summary Table ?Stim Site NR Onset (ms) Norm Onset (ms) O-P Amp (mV) Norm O-P Amp iAmp (mV) Amp (1st) (%) Site1 Site2 Delta-0 (ms) Dist (cm) Felix (m/s) Norm Felix (m/s) Right Peroneal Motor (Ext Dig Brev) Ankle ? 3.3 <4.0 5.3 >2.5 6.4 100.0 Ankle Ext Dig Brev 3.3 0.0 B Fib ? 8.4 5.2 6.2 98.1 B Fib Ankle 5.1 28.5 56 >40 Poplt ? 9.0 5.4 6.5 101.9 Poplt B Fib 0.6 5.0 83 >40 Right Tibial Motor (Abd Melgoza Brev) Ankle ? 3.3 <5 12.8 >2.5 17.5 100.0 Ankle Abd Melgoza Brev 3.3 0.0 Knee ? 9.0 8.7 11.8 68.0 Knee Ankle 5.7 34.0 60 >40 EMG ?Side Muscle Nerve Root Ins Act Fibs Psw Amp Dur Poly Recrt Int Pat Comment Right AbdHallucis MedPlantar S1-2 Nml Nml Nml Nml Nml 0 Nml Complete Right AntTibialis Dp Br Peron L4-5 Nml Nml Nml Nml Nml 0 Nml Complete Right PostTibialis Tibial L5, S1 Nml Nml Nml Nml Nml 0 Nml Complete Right MedGastroc Tibial S1-2 Nml Nml Nml Nml Nml 0 Nml Complete Right VastusMed Femoral L2-4 Nml Nml Nml Nml Nml 0 Nml Complete Paraspinal EMG ?Side Muscle Nerve Root Ins Act Fibs Psw Comment Right Lumbar Upper Rami Nml Nml Nml Right Lumbar Mid Rami Nml Nml Nml Right Lumbar Lower Rami Nml Nml Nml FINDINGS: All motor and sensory nerves tested showed normal latencies, amplitudes and conduction velocities. Concentric needle EMG was performed in selected muscles of the right lower extremity and lumbar paraspinals. Study did not reveal signs of electric abnormalities as shown in the table above. IMPRESSION: 1. This is a normal study. 2. There is no electrodiagnostic evidence for peroneal neuropathy, tibial neuropathy, lumbosacral plexopathy, lumbar radiculopathy, or peripheral neuropathy. CLINICAL COMMENT: We have at least ruled out peroneal neuropathy, sciatic neuropathy or plexopathy.. Suggested lumbar epidural injection but patient had recent oral thrush from taking oral steroids. We can get opinion from neuro spine if there is any surgical management to this before we consider injections. Patient agrees. Thank you for your kind referral. Agata Carmichael MD, MEKHI Board Certified, [place] Board of Physical Medicine and Rehabilitation (ABPMR) Board Certified, [place] Board of Electrodiagnostic Medicine (ABEM) [place] [id number] [facility]ITAL[facility]
== END 2025-04-19 12:56 | disposition home or self-care (01) ==
LOC: HO.NEURO 12:55
PROVIDERS: PCP Internal Medicine; Visit Provider Physical Medicine & Rehabilitation
DX: M54.16 Radiculopathy, lumbar region (principal); R20.2 Paresthesia of skin; M62.838 Other muscle spasm; M48.02 Spinal stenosis, cervical region; M54.2 Cervicalgia; M47.812 Spondylosis without myelopathy or radiculopathy, cervical region; M79.7 Fibromyalgia
CPT/HCPCS: 95886; 95908; 99212

== ENCOUNTER → 2025-04-19 12:59 | Outpatient (BNV) | payer OTHER, SELFPAY | PROVIDERS: PCP Internal Medicine; Visit Provider Physical Medicine & Rehabilitation | DX: M54.50 Low back pain, unspecified (principal); R20.2 Paresthesia of skin | CPT/HCPCS: 95886; 95908 ==

== ENCOUNTER 2025-04-24 09:00 | Outpatient (RCR) | payer OTHER, SELFPAY ==
--- NOTE | 2025-03-30 11:40 | MHC.PT.EP ---
[facility] [place] Office [place] Office [place] Office [address] Hai Rodrigez [address] [phone] F: [phone] F: [phone] F: [phone] F: [phone] Physical Therapy Plan of Care Date of Evaluation: 03/30/25 Date of Surgery: n/a Diagnosis: cervicalgia Assessment: Patient is a 60 year old female presenting to PT with complaints of pain in her neck. Pt reports onset of pain began years ago due to insidious onset. She presents today with impairments in pain, ROM, posture. Pt's current occupation is none, with baseline physical activities including household duties, ADLs, using phone. Pt expresses retirement goal of reducing pain, and is motivated to work towards this in PT. Clinical presentation today is most consistent with signs and sx associated with neck pain and pt will benefit from skilled PT 2 week x 4 weeks to address the following problems and impairments noted upon evaluation: pain, ROM, posture. These problems limit the patient with the following functional activities: household duties, ADLs, using phone. The prescribed treatment plan of care is medically necessary. Co-morbidities of fibromyalgia were identified and taken into considerations of plan of care. Pt was educated on HEP, role of PT, prognosis, POC. Frequency and Duration: The patient will be seen 2 x week x 4 weeks Short Term Goals: Pt will demonstrate less incidence of headaches in 2 weeks. Pt will demonstrate less cues with posture during exercises in 2 weeks. Pt will demonstrate ability to move through available ROM with min to no pain in 2 weeks. [facility] Specialist Goals: Pt will demonstrate improved NDI score by 10% in 4 weeks for improved functional mobility. Pt will demonstrate ability to complete household duties with min to no pain in 4 weeks for return to PLOF. Pt will demonstrate ability to complete ADLs with min to no pain in 4 weeks for return to PLOF. Treatment Plan: Modalities to reduce pain, spasms and effusion. Manual therapy to restore motion and function. Therapeutic exercise to improve strength and flexibility. Neuromuscular re-education for posture and balance. Therapeutic activities to return to functional activities of daily living. Electronically signed by: Pushpa Aldana, PT, DPT, ATC Please sign and return to therapist. Thank you for your referral.
--- NOTE | 2025-04-24 09:48 | MHC.PT.DC ---
[facility] [place] Office [place] Office [place] Office [address] Hai Rodrigez [address] [phone] F: [phone] F: [phone] F: [phone] F: [phone] Physical Therapy Discharge Report Diagnosis: cervicalgia Date of Surgery: n/a Date of Evaluation: 03/30/25 Date of Discharge: 04/24/25 Treatments to Date: 7 Cancellations to Date: 0 No Shows to Date: 0 Discharge Status: Patient Elected to Stop Recommend MD Follow-up Discharge Summary: 04/23/2025: She is not feeling relief since starting PT and states she is being referred to a neurosurgeon. She would like to stop PT while she is attending these appointments and figuring out next steps. I feel this is reasonable as she has not gotten relief despite compliance with PT to this point. Encouraged continuing with HEP to maintain strength gains. Electronically signed by: Pushpa Aldana, PT, DPT, ATC Please sign and return to therapist. Thank you for your referral.
== END 2025-04-24 09:48 | disposition home or self-care (01) ==
LOC: HO.PTCHIC 09:00
PROVIDERS: PCP Internal Medicine; Visit Provider Nurse Practitioner Family
DX: M47.812 Spondylosis without myelopathy or radiculopathy, cervical region (principal); M54.2 Cervicalgia
CPT/HCPCS: 97110; 97116; 97140; 97162

== ENCOUNTER 2025-04-30 08:48 | Outpatient (AMB) | payer OTHER, SELFPAY ==
[2025-04-30 08:54] VITALS: BMI 34.9
--- NOTE | 2025-04-30 08:54 | A.SPINEOV_ITS ---
Vital Signs 04/30/25 08:54 Height 4 ft 11 in Weight 173 lb BMI 34.9 Intake Visit Reasons: lumbar radiculopathy Intake Note: Ms. Miner is here today c/o low back pain that radiates to the legs. Data Analysis Assistant Required: No Allergies Seasonal Allergies Allergy (Unknown, Verified 04/30/25 08:55) Unknown Physical Exam Vital Signs: BMI result Body Mass Index 34.9 Assessment & Plan Assessment & Plan (1) Degenerative disc disease (DDD) of lumbar region with discogenic back pain and leg pain: Code(s): M51.362 - Other intervertebral disc degeneration, lumbar region with discogenic back pain and lower extremity pain Category: Medical Plan Dear Dr. Carmichael, Thank you for referring Ninfa to our office today. She is a pleasant 60-year-old female that comes in today for evaluation of severe axial low back pain and leg pain. She reports her main concern for evaluation today is her severe low back pain, however she does also report a low grade shooting pain into her bilateral anterior/medial thighs, and right lateral leg. She reports this has been ongoing for the past 10+ years, but has worsened over the course of the last 1-2 years, leading to significant reduction in her ADLs and meaningful/enjoyable activities in life. She states that her pain is most severe toward the end of the day, or after increased episodes of activity. It is best first thing in the morning after a period of rest. She rates her pain as an 8/10 constant, with flare ups to 10/10 pain. She does also report some nu mbness/tingling in her bilateral toes. She states that she is still able to complete activities such as grocery shopping or walks around the store, but needs to utilize either a cane or shopping cart for support due to her worsening low back pain with activity. She does report that she attempted physical therapy in an effort to help treat this, but needed to stop treatment about 1 month ago due to worsening pain. She reports she was discharged by the physical therapist that continued PT will not be helpful for her. She does utilize Tylenol at home to help control her pain, and states that she can not take ibuprofen/NSAIDs due to a gastric bypass surgery. She most recently attempted a course of prednisone, which was helpful while she was taking it, but did not provide any longstanding relief. She reports that she is hoping to find a permanent surgical solution for her pain, which prompted her to come in for evaluation today. PMH: Hiatal hernia, Flexor tendinitis of hand, Recurrent knee instability, Arthritis, GERD (gastroesophageal reflux disease), Depression with anxiety, Hypothyroid, History of fibromyalgia. History of laparoscopic cholecystectomy (12/17/21), Hx of gastric bypass, Hx of tubal ligation. Social hx: Patient does not smoke, reports no substance use. Medications: Cetirizine, clobetasol, duloxetine, gabapentin, levothyroxine, lidocaine, magic mouthwash, mirabegron, mirtazapine, modafinil, montelukast, nystatin, omeprazole, pramipexole, sucralfate, tacrolimus. Allergies: NKDA Physical exam: The patient has about 4/5 strength with right-sided knee flexion and iliopsoas testing. Her left-sided dorsiflexion is 4/5 compared to right- sided. The rest of her upper and lower extremity strength is 5/5. She ambulates slowly and slightly hunched over but does not appear to have an antalgic / spastic gait. She is able to rise from a seated position with the assistance of a chair, and gets up onto the examination table without much issue. (-) Luciano's, (-) clonus, (-) bilateral straight leg raise. Imaging review: MRI of the lumbar spine completed here at [facility] shows a broad based primarily left-sided disc herniation at L4-5 causing severe left-sided foraminal stenosis, and moderate-severe right-sided foraminal stenosis. There is notable loss of disc height at this level when compared to surrounding akiak discs; this is likely due to DDD. There is also mild-moderate bilateral foraminal stenosis at L3-4, and there is a posterior disc bulge at t12-L1 however it does not appear to be compressing the neural elements. Impression: Ninfa is a pleasant 60-year-old female comes in today for evaluation and surgical recommendations regarding her severe axial low back pain and shooting pain into her lower extremities. She reports this has been ongoing for the past 10+ years and recently worsened over the course of the last 1-2 years. 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 I do believe that the L4-5 space is the causative segment for her pain. Given this, there is no way to accurately date the onset of her disc herniation seen at L4-5. I am concerned giving the longstanding nature of her pain that this is been a problem for quite some time. It is very common for us to see disc herniations calcify over periods of multiple years. Therefore, I would like to send the patient for a lumbar spine CT to evaluate for osseous overgrowth around the L4-5 segment. Given that her pain is primarily severe low back pain, we tentatively discussed the possibility of lumbar fusion to address the disc degeneration, loss of disc height, and disc herniation seen at L4-5. The obvious alternative to this would be lumbar decompression / microdiscectomy at L4-5. I will review her CT scan imaging when it is complete with my attending neurosurgeon Dr. Kaur, then see the patient back in office for follow / surgical discussion thereafter. We did discuss continuing to pursue pain relief via injections or other conservative measures, but the patient reports she would prefer to proceed with surgery. Thank you for allowing us to care for your patient. The total time spent with this visit with this patient was 45 minutes reviewing history, physical exam, MRI imaging review, and implementation of treatment plan or further diagnostic testing Fred Kaur MD,PhD [address] [facility] Orders: Orders CT lumbar spine wo IV con Today M51.362 - Other intervertebral disc degeneration, lumbar region with discogenic back pain and lower extremity pain Coding Level of Care Code New Pt Level 4 (26415) Diagnoses Degenerative disc disease (DDD) of lumbar region with discogenic back pain and leg pain M51.362
--- OUTSIDE RECORDS SUMMARY | 2025-04-30 09:18 | XMS_ITS | Clinical Summary ---
Author Organization [facility] ity Address [address] [place] [address] Care Team Providers Care Entry Driver Operator Name Role Phone Unavailable Primary Care Provider [...]
--- OUTSIDE RECORDS SUMMARY | 2025-04-30 09:18 | XMS_ITS | Clinical Summary ---
Author Organization [facility] Address [address] [address] Phone Care Team Providers Care Production Underwriter Name Role Phone Eddie Parks MD Primary Care Provider [phone] Allergies No known active allergies Medications cetirizine [...] to complete this topic Insurance Care Teams Production Underwriter Relationship Specialty Start Date End Date Eddie Parks MD [address] [place] [id number] PCP - General Internal Medicine 10/29/21
== END 2025-04-30 09:27 | disposition home or self-care (01) ==
LOC: HO.HNS 08:49
PROVIDERS: PCP Internal Medicine; Referring Provider Physical Medicine & Rehabilitation; Visit Provider Physician Assistant
DX: M51.362 Other intervertebral disc degeneration, lumbar region with discogenic back pain and lower extremity pain (principal)
CPT/HCPCS: 99204

== ENCOUNTER → 2025-04-30 08:48 | Outpatient (BNVA) | payer OTHER, SELFPAY | PROVIDERS: PCP Internal Medicine; Referring Provider Physical Medicine & Rehabilitation; Visit Provider Physician Assistant | DX: M51.362 Other intervertebral disc degeneration, lumbar region with discogenic back pain and lower extremity pain (principal) | CPT/HCPCS: 99202 ==

== ENCOUNTER 2025-05-08 09:41 | Outpatient (REF) | payer OTHER, SELFPAY ==
[2025-05-08 12:59] LABS: MANUAL DIFF FLAG NO
[2025-05-08 13:14] LABS: Hematocrit 40.6 % (37.0-47.0); Hemoglobin 14.0 g/dl (12.0-16.0); Imm Gran Abs Auto 0.03 X10*3/uL (0.00-0.03); Imm Gran Pct Auto 0.4 % (0.0-0.4); Lymphocytes Absolute Auto 2.9 X10*3/uL (1.2-4.9); Mean Corpuscular HGB Conc 34.5 g/dl (31.0-35.0); Mean Corpuscular Hemoglobin 30.7 pg (27.0-33.0); Mean Corpuscular Volume 89.0 fL (80.0-98.0); NRBC Abs Auto 0.000 X10*3/uL (0.0-0.012); NRBC Pct Auto 0.0 /100WBC (0.0-0.2); Platelet Count 336 X10*3/uL (160-400); Red Blood Count 4.56 X10*6/uL (4.20-5.50); White Blood Count 7.6 X10*3/uL (4.8-10.8)
[2025-05-08 13:42] LABS: Alanine Aminotransferase 23 U/L (0-31); Albumin Level 4.1 g/dL (3.5-5.0); Alkaline Phosphatase 119 U/L (39-117); Anion Gap 12 (12-20); Aspartate Amino Transferase 26 U/L (5-31); Blood Urea Nitrogen 18 mg/dL (9-16); Calcium 9.1 mg/dL (8.4-10.2); Carbon Dioxide 29 mmol/L (22-29); Chloride 104 mmol/L (96-108); Estimated Glomerular Filt Rate > 60; Potassium 4.3 mmol/L (3.3-5.1); Sodium 141 mmol/L (135-145); Total Protein 6.7 g/dL (6.5-8.0)
[2025-05-08 13:44] LABS: Vitamin B12 499 pg/mL (200-900)
[2025-05-12 15:18] LABS: Vitamin D 25-OH, D2 <4 ng/mL; Vitamin D 25-OH, D3 49 ng/mL; Vitamin D 25-OH, Total 49 ng/mL (30-100)
== END 2025-05-08 09:42 | disposition home or self-care (01) ==
LOC: HO.HMGCLDS 09:41
PROVIDERS: PCP Internal Medicine; Visit Provider Internal Medicine
DX: G25.81 Restless legs syndrome (principal); M50.30 Other cervical disc degeneration, unspecified cervical region; M79.7 Fibromyalgia; M17.0 Bilateral primary osteoarthritis of knee; R79.89 Other specified abnormal findings of blood chemistry; K21.9 Gastro-esophageal reflux disease without esophagitis; K44.9 Diaphragmatic hernia without obstruction or gangrene; J30.9 Allergic rhinitis, unspecified; E66.09 Other obesity due to excess calories; E03.8 Other specified hypothyroidism; E78.9 Disorder of lipoprotein metabolism, unspecified; F41.1 Generalized anxiety disorder; Z91.09 Other allergy status, other than to drugs and biological substances; Z68.36 Body mass index [BMI] 36.0-36.9, adult; Z79.890 Hormone replacement therapy; Z79.899 Other long term (current) drug therapy
CPT/HCPCS: 36415; 80053; 82306; 82607; 83721; 84443; 85025; 99212

== ENCOUNTER 2025-05-08 09:41 | Outpatient (AMB) | payer OTHER, SELFPAY ==
--- NOTE | 2025-05-08 09:45 | A.OFFPC_ITS ---
Vital Signs 05/08/25 09:46 Height 4 ft 11 in Weight 181 lb BMI 36.6 BP 132/78 Blood Pressure Location Lt brachial Position Sitting Pulse 82 Pulse Source Pulse Oximeter Pulse Oximetry (%) 95 Oxygen Delivery Method Room Air Intake Visit Reasons: 3m f/u Allergies Seasonal Allergies Allergy (Unknown, Verified 05/08/25 09:45) Unknown Medication List - Last Reconciled 05/08/25 by Eddie Parks MD cetirizine 10 mg PO DAILY clobetasol 0.05% 1 appl topical BID duloxetine 60 mg PO DAILY 90 days gabapentin Take one capsule by mouth every morning, one capsule in afternoon and 2 capsules every evening levothyroxine 100 mcg PO DAILY 90 days lidocaine 5% 1 patch topical DAILY 30 days Magic Mouthwash Diphen/Lido/Antacid 1:1:1 10 mL PO Q6-8H 7 days mirabegron ER (Myrbetriq) 50 mg PO DAILY mirtazapine 15 mg PO BEDTIME modafinil 200 mg PO DAILY montelukast 10 mg PO DAILY nystatin 1 mL PO DAILY omeprazole 20 mg PO DAILY pramipexole 0.5 mg PO QPM sucralfate 1 g PO BID tacrolimus 0.1% 1 appl topical BID Tobacco use date assessed: 01/16/25 Dental Screening Dental Screen Date: 01/16/25 HPI 3m f/u HPI Details History The patient is a 60-year-old female presenting with reg f.u for chronic conditions and back issues and degenerative disc disease of the lumbar spine Degenerative Disc Disease: - The patient has been experiencing butch re low back pain primarily related to degenerative disc disease in the lumbar spine. - The pain centers around the L4-L5 segm ent and does not travel all the way down the legs but radiates into the hips on one side. - An orthopedic opinion was sought, and a lumbar CT scan was ordered for further evaluation of osseous overgrowth around the L4-L5 region. - There have been discussions regarding the potential need for lumbar fusion surgery to address the loss of disc height and disc herniation. - The patient reports having visited a paeon who is currently awaiting CAT scan results for further surgical planning. - Denies sensations consistent with scia sabiha, and an EMG revealed normal nerve conduction suggesting the problem is localized to the lumbar region. Medical History: - Degenerative disc disease - Thyroid disorder managed with levothyr oxine - Urinary incontinence - Restless leg syndrome - Depression managed with mirtazapine - Known allergies, unspecified in detail Medications: - Levothyroxine 100 mcg for thyroid diso rder - Medication for urinary incontinence (u nspecified) - Mirtazapine for depression and sleep a id - Montelukast for unspecified indication - Omeprazole for gastric acid control - Pramipexole for restless leg syndrome - Gabapentin for pain, prescribed by [facility] umatologist - Duloxetine, cetirizine for unspecified indications Problem List - Degenerative Disc Disease, Lumbar Spin e - Urinary Incontinence - Restless Leg Syndrome - Thyroid Disorder - Major Depressive Disorder Diagnostic results - Electromyography (EMG): Normal; no dimitrios dence of peroneal, tibial, or lumbosacral neuropathy, no lumbar radiculopathy, or peripheral neuropathy. - Upcoming lumbar spine CT scan for eval uation of disc issues. [place] [facility] - Spine clinic, [facility] f or orthopedic management - Surgeon for potential lumbar surgery - Marketing Research Intern for ongoing pain manage ment with gabapentin - Urologist follow-up for urinary incont inence management Patient Instructions - Attend the scheduled follow-up appoint ment with the urologist. - Complete any recommended lab work, if not done already. - Attend future appointments and diagnos tic imaging as prescribed to monitor back health. - Continue current medications as prescr ibed. - Return for follow-up in three months o r as needed if new symptoms arise. Review of Systems General: No fever no chills neurological: No headaches no dizziness ear nose throat: No sore throat no hearing difficulty no ear pain cardiovascular: No syncope, no chest pain, no palpitations gastrointestinal: No nausea vomiting or diarrhea endocrine: No polyuria polydipsia no heat intolerance genitourinary: No dysuria skin: No new complaints Physical Exam general: No acute distress HEENT: No acute findings neck: Supple respiratory system: Able to talk in full sentences, no audible wheeze no stridor cardiovascular: S1-S2 RRR gastrointestinal: No pain Back: Pain over right flank area with percussion close to spine extremities: No new findings, no conduction in lower extremity ANALYTICAL RESEARCH PROGRAM MANAGER: Alert awake oriented x3 motor sensory intact skin: Normal turgor [facility] Medical History Tongue sore Hiatal hernia Flexor tendinitis of hand Bilateral hand pain Decreased range of motion (ROM) of shoulder Recurrent knee instability Generalized weakness Arthritis GERD (gastroesophageal reflux disease) Depression with anxiety Hypothyroid History of fibromyalgia Surgical History Hx of colonoscopy History of laparoscopic cholecystectomy (12/17/21) Hx of gastric bypass Hx of tubal ligation Family History Mother Hypertension Father Diabetes Dementia Substance use disorder Daughter No problems noted. Daughter No problems noted. Son No problems noted. Other Mental health disorder Social History Housing: Apartment Alcohol intake: never Patient Tobacco Use Status: Never used Tobacco e-Cigarette/Vaping Use: Never Used service: No Current occupational status: unemployed Sexual orientation: Straight/Heterosexual Gender identity: Female Cognitive needs: No Hearing needs: No Vision needs: Yes Female Reproductive History Menstrual Age of Menarche: 11 Questionnaire Thrive Questionnaire Date Thrive assessed: 09/26/24 I am a: Patient What is your living situation today?: I have a steady place to live Within the past 12 months, did the food you bought not last and you didn't have the money to get more?: Never true Within the past 12 months, did you worry whether your food would run out before you got money to buy more?: Never true Do you have trouble paying for medicines?: No Do you have trouble getting transportation to medical appointments?: No Do you have trouble paying your heating and electricity bill?: No Do you have trouble taking care of your child, family member or friend?: No Do you have trouble with day-to-day activities such as bathing, preparing meals, shopping, managing finances, etc.?: No Are you currently unemployed and looking for a job?: No Are you interested in more education?: No Please select the resources that you would like help with: None Currently or been in a relationship where the following occur: No concerns reported THRIVE Score: 0 JOHNNY-7 AMB Questionnaire JOHNNY-7 Date JOHNNY - 7 assessed: 10/03/24 Source: Developed by Drs. Rios Lim, Katalina B.W. Jasper Martin and colleagues, with an educational stacie from [employer]. Physical exam (Primary Care) Vital Signs: Last Vital Signs Pulse 82 05/08/25 09:46 BP 132/78 05/08/25 09:46 Pulse Ox 95 05/08/25 09:46 Oxygen Delivery Method Room Air 05/08/25 09:46 BMI result Body Mass Index 36.6 Tobacco/Smoking Status: Tobacco use Status Tobacco use date assessed 01/16/25 05/08/25 09:48 Patient Tobacco Use Status Never used Tobacco 05/08/25 09:48 e-Cigarette/Vaping Use Never Used 05/08/25 09:48 Thrive Assessment: Date of Thrive Assessment Date Thrive assessed 09/26/24 05/08/25 09:48 Currently or been in a relationship where the following occur: No concerns reported Coding Level of Care Code Est Pt Level 4 (06893) Complex EM visit Add On G2211 Diagnoses Other specified hypothyroidism E03.8 Lipid disorder E78.9 Environmental allergies Z91.09 Class 1 obesity due to excess calories without serious comorbidity with body m ass index (BMI) of 30.0 to 30.9 in adult E66.09; Z68.30 Body mass index: BMI 30.0-30.9 Obesity classification: adult class 1 (BMI 30 - 34.9) Serious obesity comorbidity presence: without serious comorbidity Restless leg syndrome G25.81 Degenerative disc disease, cervical M50.30 Fibromyalgia M79.7 Primary osteoarthritis of both knees M17.0 Osteoarthritis type: primary Chronic GERD K21.9 Hiatal hernia K44.9 Allergic sinusitis J30.9 Anxiety, generalized F41.1 Assessment & Plan Assessment & Plan (1) Other specified hypothyroidism: Code(s): E03.8 - Other specified hypothyroidism Category: Medical (2) Lipid disorder: Code(s): E78.9 - Disorder of lipoprotein metabolism, unspecified Category: Medical (3) Environmental allergies: Code(s): Z91.09 - Other allergy status, other than to drugs and biological substances Category: Medical (4) Obesity due to excess calories: Code(s): E66.09 - Other obesity due to excess calories Category: Medical Qualifiers: Body mass index: BMI 30.0-30.9 Obesity classification: adult class 1 (BMI 30 - 34.9) Serious obesity comorbidity presence: without serious comorbidity Qualified Code(s): E66.09 - Other obesity due to excess calories; Z68.30 - Body mass index [BMI] 30.0-30.9, adult (5) Restless leg syndrome: Code(s): G25.81 - Restless legs syndrome Category: Medical (6) Degenerative disc disease, cervical: Code(s): M50.30 - Other cervical disc degeneration, unspecified cervical region Category: Medical (7) Fibromyalgia: Code(s): M79.7 - Fibromyalgia Category: Medical (8) Osteoarthritis of knees, bilateral: Code(s): M17.0 - Bilateral primary osteoarthritis of knee Category: Medical Qualifiers: Osteoarthritis type: primary Qualified Code(s): M17.0 - Bilateral prim jen osteoarthritis of knee (9) Chronic GERD: Code(s): K21.9 - Gastro-esophageal reflux disease without esophagitis Category: Medical (10) Hiatal hernia: Code(s): K44.9 - Diaphragmatic hernia without obstruction or gangrene Category: Medical (11) Allergic sinusitis: Code(s): J30.9 - Allergic rhinitis, unspecified Category: Medical (12) Anxiety, generalized: Code(s): F41.1 - Generalized anxiety disorder Category: Medical Plan History The patient is a 60-year-old female presenting with reg f.u for chronic conditions and back issues and degenerative disc disease of the lumbar spine Degenerative Disc Disease: - The patient has been experiencing severe low back pain primarily related to degenerative disc disease in the lumbar spine. - The pain centers around the L4-L5 segment and does not travel all the way down the legs but radiates into the hips on one side. - An orthopedic opinion was sought, and a lumbar CT scan was ordered for further evaluation of osseous overgrowth around the L4-L5 region. - There have been discussions regarding the potential need for lumbar fusion surgery to address the loss of disc height and disc herniation. - The patient reports having visited a surgeon who is currently awaiting CAT scan results for further surgical planning. - Denies sensations consistent with sciatica, and an EMG revealed normal nerve conduction suggesting the problem is localized to the lumbar region. Medical History: - Degenerative disc disease - Thyroid disorder managed with levothyroxine - Urinary incontinence - Restless leg syndrome - Depression managed with mirtazapine - Known allergies, unspecified in detail Medications: - Levothyroxine 100 mcg for thyroid disorder - Medication for urinary incontinence (unspecified) - Mirtazapine for depression and sleep aid - Montelukast for unspecified indication - Omeprazole for gastric acid control - Pramipexole for restless leg syndrome - Gabapentin for pain, prescribed by desk representative - Duloxetine, cetirizine for unspecified indications Problem List - Degenerative Disc Disease, Lumbar Spine - Urinary Incontinence - Restless Leg Syndrome - Thyroid Disorder - Major Depressive Disorder Diagnostic results - Electromyography (EMG): Normal; no evidence of peroneal, tibial, or lumbosacral neuropathy, no lumbar radiculopathy, or peripheral neuropathy. - Upcoming lumbar spine CT scan for evaluation of disc issues. [facility] - Spine clinic, [facility] for orthopedic management - Surgeon for potential lumbar surgery - Marketing Research Intern for ongoing pain management with gabapentin - Urologist follow-up for urinary incontinence management Patient Instructions - Attend the scheduled follow-up appointment with the urologist. - Complete any recommended lab work, if not done already. - Attend future appointments and diagnostic imaging as prescribed to monitor back health. - Continue current medications as prescribed. - Return for follow-up in three months or as needed if new symptoms arise. Orders: Orders Complete Blood Count Auto Diff Today E03.8 - Other specified hypothyroidism, E66.09 - Other obesity due to excess calories, E78.9 - Disorder of lipoprotein metabolism, unspecified, F41.1 - Generalized anxiety disorder, G25.81 - Restless legs syndrome, J30.9 - Allergic rhinitis, unspecified, K21.9 - Gastro- esophageal reflux disease without esophagitis, K44.9 - Diaphragmatic hernia without obstruction or gangrene, M17.0 - Bilateral primary osteoarthritis of knee, M50.30 - Other cervical disc degeneration, unspecified cervical region, M79.7 - Fibromyalgia, R79.89 - Other specified abnormal findings of blood chemistry, Z68.30 - Body mass index [BMI] 30.0-30.9, adult, Z91.09 - Other al lergy status, other than to drugs and biological substances TSH reflex Free T4 Today E03.8 - Other specified hypothyroidism, E66.09 - Other obesity due to excess calories, E78.9 - Disorder of lipoprotein metabolism, unspecified, F41.1 - Generalized anxiety disorder, G25.81 - Restless legs syndrome, J30.9 - Allergic rhinitis, unspecified, K21.9 - Gastro-esophageal reflux disease without esophagitis, K44.9 - Diaphragmatic hernia without obstruction or gangrene, M17.0 - Bilateral primary osteoarthritis of knee, M50.30 - Other cervical disc degeneration, unspecified cervical region, M79.7 - Fibromyalgia, R79.89 - Other specified abnormal findings of blood chemistry, Z68.30 - Body mass index [BMI] 30.0-30.9, adult, Z91.09 - Other allergy status, other than to drugs and biological substances LDL Cholesterol Direct Today E03.8 - Other specified hypothyroidism, E66.09 - Other obesity due to excess calories, E78.9 - Disorder of lipoprotein m etabolism, unspecified, F41.1 - Generalized anxiety disorder, G25.81 - Restless legs syndrome, J30.9 - Allergic rhinitis, unspecified, K21.9 - Gastro-esophageal reflux disease without esophagitis, K44.9 - Diaphragmatic hernia without obstruction or gangrene, M17.0 - Bilateral primary osteoarthritis of knee, M50.30 - Other cervical disc degeneration, unspecified cervical region, M79.7 - Fibromyalgia, R79.89 - Other specified abnormal findings of blood chemistry, Z68.30 - Body mass index [BMI] 30.0-30.9, adult, Z91.09 - Other allergy status, other than to drugs and biological substances Vitamin D 25-OH (D2 and D3) Today E03.8 - Other specified hypothyroidism, E66.09 - Other obesity due to excess calories, E78.9 - Disorder of lipoprotein metabolism, unspecified, F41.1 - Generalized anxiety disorder, G25.81 - Restless legs syndrome, J30.9 - Allergic rhinitis, unspecified, K21.9 - Gastro- esophageal reflux disease without esophagitis, K44.9 - Diaphragmatic hernia w ithout obstruction or gangrene, M17.0 - Bilateral primary osteoarthritis of knee, M50.30 - Other cervical disc degeneration, unspecified cervical region, M79.7 - Fibromyalgia, R79.89 - Other specified abnormal findings of blood chemistry, Z68.30 - Body mass index [BMI] 30.0-30.9, adult, Z91.09 - Other allergy status, other than to drugs and biological substances Vitamin B12 Today E03.8 - Other specified hypothyroidism, E66.09 - Other obesity due to excess calories, E78.9 - Disorder of lipoprotein metabolism, unspecified, F41.1 - Generalized anxiety disorder, G25.81 - Restless legs syndrome, J30.9 - Allergic rhinitis, unspecified, K21.9 - Gastro-esophageal reflux disease without esophagitis, K44.9 - Diaphragmatic hernia without obstruction or gangrene, M17.0 - Bilateral primary osteoarthritis of knee, M50.30 - Other cervical disc degeneration, unspecified cervical region, M79.7 - Fibromyalgia, R79.89 - Other specified abnormal findings of blood chemistry, Z68.30 - Body mass index [BMI] 30.0-30.9, adult, Z91.09 - Other allergy status, other than to drugs and biological substances Comprehensive Met. Panel Today E03.8 - Other specified hypothyroidism, E66.09 - Other obesity due to excess calories, E78.9 - Disorder of lipoprotein metabolism, unspecified, F41.1 - Generalized anxiety disorder, G25.81 - Restless legs syndrome, J30.9 - Allergic rhinitis, unspecified, K21.9 - Gastro- esophageal reflux disease without esophagitis, K44.9 - Diaphragmatic hernia without obstruction or gangrene, M17.0 - Bilateral primary osteoarthritis of knee, M50.30 - Other cervical disc degeneration, unspecified cervical region, M79.7 - Fibromyalgia, R79.89 - Other specified abnormal findings of blood chemistry, Z68.30 - Body mass index [BMI] 30.0-30.9, adult, Z91.09 - Other allergy status, other than to drugs and biological substances
[2025-05-08 09:46] VITALS: BP 132/78; PULSE 82; O2SAT 95; BMI 36.6
--- OUTSIDE RECORDS SUMMARY | 2025-05-08 10:50 | XMS_ITS | Clinical Summary ---
Author Organization [facility] Address [address] [address] Phone Care Team Providers Care Airport Operations Duty Manager Name Role Phone Eddie Parks MD Primary Care Provider [phone] Allergies No known active allergies Medications cetirizine [...] to complete this topic Insurance Care Teams Airport Operations Duty Manager Relationship Specialty Start Date End Date Eddie Parks MD [address] [place] [id number] PCP - General Internal Medicine 10/29/21
--- OUTSIDE RECORDS SUMMARY | 2025-05-08 10:50 | XMS_ITS | Clinical Summary ---
Author Organization [facility] Address [address] [place] [address] Care Team Providers Care Sort Operations Supervisor Name Role Phone Unavailable Primary Care Provider [...]
== END 2025-05-08 10:07 | disposition home or self-care (01) ==
LOC: HO.HMCC 09:42
PROVIDERS: PCP Internal Medicine; Visit Provider Internal Medicine
DX: E03.8 Other specified hypothyroidism (principal); E78.9 Disorder of lipoprotein metabolism, unspecified; Z91.09 Other allergy status, other than to drugs and biological substances; E66.09 Other obesity due to excess calories; Z68.30 Body mass index [BMI] 30.0-30.9, adult; G25.81 Restless legs syndrome; M50.30 Other cervical disc degeneration, unspecified cervical region; M79.7 Fibromyalgia; M17.0 Bilateral primary osteoarthritis of knee; K21.9 Gastro-esophageal reflux disease without esophagitis; K44.9 Diaphragmatic hernia without obstruction or gangrene; J30.9 Allergic rhinitis, unspecified; F41.1 Generalized anxiety disorder

== ENCOUNTER 2025-05-12 08:05 | Outpatient (REF) | payer OTHER, SELFPAY ==
--- OUTSIDE RECORDS SUMMARY | 2025-05-12 08:10 | XMS_ITS | Clinical Summary ---
Author Organization [facility] Address [address] [address] Phone Care Team Providers Care Child Welfare Specialist Name Role Phone Eddie Parks MD Primary Care Provider [phone] Allergies No known active allergies Medications cetirizine [...] to complete this topic Insurance Care Teams Child Welfare Specialist Relationship Specialty Start Date End Date Eddie Parks MD [address] [place] [phone] PCP - General Internal Medicine 10/29/21
--- OUTSIDE RECORDS SUMMARY | 2025-05-12 08:10 | XMS_ITS | Clinical Summary ---
Author Organization [facility] Address [address] [place] [address] Care Team Providers Care Information Security Director Name Role Phone Unavailable Primary Care Provider [...] 08/04/2022 Social Influencers of Health Screening 08/04/2022 Depression Screening 09/06/2024 COVID-19 Vaccine (1 - 2023-2 5 season) 2025 Influenza Vaccine (#1) 2025 RSV Immunization Adult [...]
[2025-05-12 11:32] LABS: Hemoglobin A1C 136.1357 umol/L; Total Hemoglobin (HGBA1C) 3700.7544 umol/L
== END 2025-05-12 08:06 | disposition home or self-care (01) ==
LOC: HO.HMGCLDS 08:05
PROVIDERS: PCP Internal Medicine; Visit Provider Internal Medicine
DX: R73.9 Hyperglycemia, unspecified (principal)
CPT/HCPCS: 36415; 83036

== ENCOUNTER 2025-05-31 08:43 | Outpatient (AMB) | payer OTHER, SELFPAY ==
--- NOTE | 2025-05-31 08:53 | A.OFFPC_ITS ---
Intake Visit Reasons: 2 week f/up labs Allergies Seasonal Allergies Allergy (Unknown, Verified 05/08/25 09:45) Unknown Medication List - Last Reconciled 05/31/25 by Eddie Parks MD cetirizine 10 mg PO DAILY clobetasol 0.05% 1 appl topical BID duloxetine 60 mg PO DAILY 90 days gabapentin Take one capsule by mouth every morning, one capsule in afternoon and 2 capsules every evening levothyroxine 100 mcg PO DAILY 90 days lidocaine 5% 1 patch topical DAILY 30 days Magic Mouthwash Diphen/Lido/Antacid 1:1:1 10 mL PO Q6-8H 7 days mirabegron ER (Myrbetriq) 50 mg PO DAILY mirtazapine 15 mg PO BEDTIME modafinil 200 mg PO DAILY montelukast 10 mg PO DAILY nystatin 1 mL PO DAILY omeprazole 20 mg PO DAILY pramipexole 0.5 mg PO QPM sucralfate 1 g PO BID tacrolimus 0.1% 1 appl topical BID Tobacco use date assessed: 01/16/25 Dental Screening Dental Screen Date: 01/16/25 HPI 2 week f/up labs HPI Details History of Present Illness The patient is a 60-year-old female presenting with review of laboratory results and follow-up on back pain. Back Pain: - The patient reports ongoing back pain that is not improving. - She is awaiting a CT scan to evaluate the cause of her symptoms. - An MRI was initially considered, but t he patient is scheduled for a CT scan in June as it was the first available appointment. - She has already consulted a surgeon wh o will assess the diagnostic imaging results. Hypercholesterolemia: - The patient has a history of elevated cholesterol levels. - LDL cholesterol is currently 149 mg/dL , consistent with previous measurements (previously 148 mg/dL). Medical History: - Hypercholesterolemia - Gastroesophageal reflux disease (GERD) - Restless leg syndrome - Depression - Insomnia - Hypothyroidism - Allergies Medications: - Gabapentin for back pain - Levothyroxine 100 mg for hypothyroidis m - Mirtazapine for insomnia - Montelukast for allergies - Omeprazole for GERD - Pramipexole for restless leg syndrome - Duloxetine 60 mg - Cetirizine for allergies Diagnostic Results: - Labs: - Complete blood count (CBC) wit h normal findings, including white blood cell count and red blood cell count. - Electrolytes within normal limits. - Kidney function tests show normal resu lts. - Blood glucose levels within normal ran ge. - Liver enzymes are stable, with previou s minor abnormalities improved. - LDL cholesterol level at 149 mg/dL, co nsistent with previous measurement. - Vitamin B12 and Vitamin D levels stephanie l. - Thyroid function tests within normal l imits. Problem List - Back Pain - Hypercholesterolemia - Hypothyroidism - Depression - Insomnia - Allergies - Gastroesophageal Reflux Disease (GERD) - Restless Leg Syndrome Patient Instructions - Continue with current medications as p rescribed. - Await the scheduled CT scan for back p ain evaluation in June. - Maintain current lifestyle measures to help improve cholesterol levels. Review of Systems - Neurological: No headaches no dizziness - Ear nose throat: No sore throat no hearing difficulty no ear pain - Cardiovascular: No syncope, no chest pain, no palpitations - Gastrointestinal: No nausea vomiting or diarrhea PFSH Medical History Tongue sore Hiatal hernia Flexor tendinitis of hand Bilateral hand pain Decreased range of motion (ROM) of shoulder Recurrent knee instability Generalized weakness Arthritis GERD (gastroesophageal reflux disease) Depression with anxiety Hypothyroid History of fibromyalgia Surgical History Hx of colonoscopy History of laparoscopic cholecystectomy (12/17/21) Hx of gastric bypass Hx of tubal ligation Family History Mother Hypertension Father Diabetes Dementia Substance use disorder Daughter No problems noted. Daughter No problems noted. Son No problems noted. Other Mental health disorder Social History Housing: Apartment Alcohol intake: never Patient Tobacco Use Status: Never used Tobacco e-Cigarette/Vaping Use: Never Used service: No Current occupational status: unemployed Sexual orientation: Straight/Heterosexual Gender identity: Female Cognitive needs: No Hearing needs: No Vision needs: Yes Female Reproductive History Menstrual Age of Menarche: 11 Questionnaire Thrive Questionnaire Date Thrive assessed: 09/26/24 I am a: Patient What is your living situation today?: I have a steady place to live Within the past 12 months, did the food you bought not last and you didn't have the money to get more?: Never true Within the past 12 months, did you worry whether your food would run out before you got money to buy more?: Never true Do you have trouble paying for medicines?: No Do you have trouble getting transportation to medical appointments?: No Do you have trouble paying your heating and electricity bill?: No Do you have trouble taking care of your child, family member or friend?: No Do you have trouble with day-to-day activities such as bathing, preparing meals, shopping, managing finances, etc.?: No Are you currently unemployed and looking for a job?: No Are you interested in more education?: No Please select the resources that you would like help with: None Currently or been in a relationship where the following occur: No concerns reported THRIVE Score: 0 JOHNNY-7 AMB Questionnaire JOHNNY-7 Date JOHNNY - 7 assessed: 10/03/24 Source: Developed by Drs. Rios Lim, Katalina Martin, Jasper Main and colleagues, with an educational stacie from [employer]. Physical exam (Primary Care) Tobacco/Smoking Status: Tobacco use Status Tobacco use date assessed 01/16/25 05/31/25 08:53 Patient Tobacco Use Status Never used Tobacco 05/31/25 08:53 e-Cigarette/Vaping Use Never Used 05/31/25 08:53 Thrive Assessment: Date of Thrive Assessment Date Thrive assessed 09/26/24 05/31/25 08:53 Currently or been in a relationship where the following occur: No concerns reported Telehealth Telehealth Telehealth Platform: [facility] Location of provider rendering services: practice address Location of patient: address on file Patient Identification confirmed using: Name, : Yes Telehealth method: voice only Patient verbally consented to treatment: Yes Patient verbally consented to billing insurance company: Yes Patient informed of any privacy concerns related to visit: Yes Minutes spent on Phone/Video with Pt.: 12 Coding Level of Care Code Tele Est Pt Level 3 (98495) Diagnoses Lipid disorder E78.9 Degenerative disc disease, cervical M50.30 Assessment & Plan Assessment & Plan (1) Lipid disorder: Code(s): E78.9 - Disorder of lipoprotein metabolism, unspecified Category: Medical (2) Degenerative disc disease, cervical: Code(s): M50.30 - Other cervical disc degeneration, unspecified cervical region Category: Medical Plan History of Present Illness The patient is a 60-year-old female presenting with review of laboratory results and follow-up on back pain. Back Pain: - The patient reports ongoing back pain that is not improving. - She is awaiting a CT scan to evaluate the cause of her symptoms. - An MRI was initially considered, but the patient is scheduled for a CT scan in June as it was the first available appointment. - She has already consulted a surgeon who will assess the diagnostic imaging results. Hypercholesterolemia: - The patient has a history of elevated cholesterol levels. - LDL cholesterol is currently 149 mg/dL, consistent with previous measurements (previously 148 mg/dL). Medical History: - Hypercholesterolemia - Gastroesophageal reflux disease (GERD) - Restless leg syndrome - Depression - Insomnia - Hypothyroidism - Allergies Medications: - Gabapentin for back pain - Levothyroxine 100 mg for hypothyroidism - Mirtazapine for insomnia - Montelukast for allergies - Omeprazole for GERD - Pramipexole for restless leg syndrome - Duloxetine 60 mg - Cetirizine for allergies Diagnostic Results: - Labs: - Complete blood count (CBC) with normal findings, including white blood cell count and red blood cell count. - Electrolytes within normal limits. - Kidney function tests show normal results. - Blood glucose levels within normal range. - Liver enzymes are stable, with previous minor abnormalities improved. - LDL cholesterol level at 149 mg/dL, consistent with previous measurement. - Vitamin B12 and Vitamin D levels normal. - Thyroid function tests within normal limits. Problem List - Back Pain - Hypercholesterolemia Patient Instructions - Continue with current medications as prescribed. - Await the scheduled CT scan for back pain evaluation in June. - Maintain current lifestyle measures to help improve cholesterol levels.
--- OUTSIDE RECORDS SUMMARY | 2025-05-31 09:16 | XMS_ITS | Clinical Summary ---
Author Organization [facility] ity Address [address] [place] [address] Care Team Providers Care Wildlife Management Professor Name Role Phone Unavailable Primary Care Provider [...]
== END 2025-05-31 09:27 | disposition home or self-care (01) ==
PROVIDERS: PCP Internal Medicine; Visit Provider Internal Medicine
DX: E78.9 Disorder of lipoprotein metabolism, unspecified (principal); M50.30 Other cervical disc degeneration, unspecified cervical region

== ENCOUNTER 2025-06-14 10:06 | Outpatient (AMB) | payer OTHER, SELFPAY ==
--- NOTE | 2025-06-14 10:29 | A.OFFVIS_ITS ---
Intake Visit Reasons: OV-Lumbar Spine follow up Intake Note: Ninfa is a 60 year old female who presents today as a follow up for her lower back pain. At last visit we discussed to continue with the nystatin swish and swallow, because of this we would not aguilar to sending her for steroid injections/epidural for now. At today's visit she states that she did finish with physical therapy and did see improvements. She states that she is continuing with her at home exercises. She reports that since last visit the daniel martinez back pain has been very sporadic from being manageable to then increased pain. Allergies Seasonal Allergies Allergy (Unknown, Verified 06/14/25 10:32) Unknown Medication List - Last Reconciled 06/14/25 by Agata Carmichael MD cetirizine 10 mg PO DAILY clobetasol 0.05% 1 appl topical BID duloxetine 60 mg PO DAILY 90 days gabapentin Take one capsule by mouth every morning, one capsule in afternoon and 2 capsules every evening levothyroxine 100 mcg PO DAILY 90 days lidocaine 5% 1 patch topical DAILY 30 days Magic Mouthwash Diphen/Lido/Antacid 1:1:1 10 mL PO Q6-8H 7 days mirabegron ER (Myrbetriq) 50 mg PO DAILY mirtazapine 15 mg PO BEDTIME modafinil 200 mg PO DAILY montelukast 10 mg PO DAILY nystatin 1 mL PO DAILY omeprazole 20 mg PO DAILY pramipexole 0.5 mg PO QPM sucralfate 1 g PO BID tacrolimus 0.1% 1 appl topical BID HPI Comments Details: Gradual progressive right lower leg symptoms over the past year. No inciting injuries. Thought to be from fibromyalgia. At first, it was just a slight burn and ache on medial right thigh/knee, and then this May became more severe, on fire , still middle thigh going down to calf and anterior leg, hypersensitive to touch. Not to the foot. But has abnormal sensation over of the right foot. Did not have footdrop or hip flexion weakness. But had difficulty flexing right knee. Had fallen a few times due to suddent lost of balane or the knee let go . She also has associated lower back axial, non radicular, this is chronic and possibly separate issue. She has been using a cane to avoid falls. Treatment done so far: PT for sciatica - but not improved Medrol dose pack - sensation improved temporarily Differential diagnosis include right lumbar radiculopathy versus sciatic neuropathy versus peroneal neuropathy. Lumbar radiculopathy from a disc herni ation would be the most common etiology. Through sciatic neuropathy is actually rare. No footdrop. Because she was not such pain and discomfort, we started her on oral prednisone small dose. Despite being on Medrol Dosepak on a 2 months prior. Unfortunately she noticed white plaque/ulcers on her tongue. She had to go to urgent care and send me portal messages. I prescribed her with nystatin swish and swallow. She is feeling better but still has a couple ulcers on her tongue. Overall much comfortable in terms of lower back pain. Managing/tolerating. No new weakness. No new numbness. Maintains that her pain is right-sided. Lumbar MRI showed a disc herniation L4-5 but SI showed the patient, it is more left-sided than right-sided. Today she has right sided back pain, into right hip. Also with bilateral thigh pain. Getting up from sitting is most difficult for her. EMG done was normal for RLE. Has seen neurospine, surgery in consideratoin. Obtaining lumbar spine CT to evaluate for osseous overgrowth around the L4-5 segment. Scheduled in 2 weeks. Continues on gabapentin 300mg TID. Prescribed by rheumatology. [facility] Medical History Tongue sore Hiatal hernia Flexor tendinitis of hand Bilateral hand pain Decreased range of motion (ROM) of shoulder Recurrent knee instability Generalized weakness Arthritis GERD (gastroesophageal reflux disease) Depression with anxiety Hypothyroid History of fibromyalgia Surgical History Hx of colonoscopy History of laparoscopic cholecystectomy (12/17/21) Hx of gastric bypass Hx of tubal ligation Family History Mother Hypertension Father Diabetes Dementia Substance use disorder Daughter No problems noted. Daughter No problems noted. Son No problems noted. Other Mental health disorder Social History Housing: Apartment Alcohol intake: never Patient Tobacco Use Status: Never used Tobacco e-Cigarette/Vaping Use: Never Used service: No Current occupational status: unemployed Sexual orientation: Straight/Heterosexual Gender identity: Female Cognitive needs: No Hearing needs: No Vision needs: Yes Female Reproductive History Menstrual Age of Menarche: 11 Physical Exam Constitutional: Patient appears to be in no acute distress, well nourished and well developed. Patient was appropriately conversant and oriented. Good historian. Neurological: Noted more give-way weakness in right dorsiflexion 4/5. Rest of lower extremities 5/5. Noted depressed right patellar reflex as compared to left. Babinski was down going bilaterally. Clonus was negative. Gait is antalgic without loss of balance, using cane. Results Reviewed Results Reviewed: Ordering Physician: Agata Davidson Date of Service: 03/07/25 Procedure(s): MR lumbar spine wo con Accession Number(s): [id number] cc: Eddie Parks MD; Agata Davidson~ EXAMINATION: MR LUMBAR SPINE WITHOUT CONTRAST CLINICAL INFORMATION: Radiculopathy, lumbar region. COMPARISON: None available. TECHNIQUE: MRI of the lumbar spine was obtained using routine sequences without contrast. FINDINGS: Last rib-bearing vertebra labeled T12. No gross bone marrow STIR signal abnormality. Multilevel marginal osteophyte formation and disc desiccation decreased disc height more pronounced at L4-5. Modic type II endplate changes at L4-5. Grade 1 anterolisthesis L5-S1. Conus pneumonitis ends at pedicle of L1 with normal signal. Spina bifida occulta S1. T12-L1: Central herniated disc with cephalad migration beneath the posterior longitudinal ligament resulting in ventral indentation to the thecal sac. There is no compression upon conus medullaris. No neuroforamina stenosis. L1-2: Facet joint and ligamentum flavum hypertrophy. Broad-based disc bulging. Reduced AP diameter of the thecal sac. Bilateral neuroforamina stenosis likely encroaching the neural elements. L2-3: Broad-based disc bulging. Facet joint and ligamentum flavum hypertrophy. Reduced AP diameter of the thecal sac and neuroforamina. No compression upon neural elements. L3-4: Broad-based disc bulging. Facet joint and ligamentum flavum hypertrophy. Reduced AP diameter of the thecal sac and neuroforamina likely encroaching the neural elements. L4-5: There is a central, left subarticular foraminal and extraforaminal disc herniation encroaching the left L5 and likely compressing the left L4 exiting nerve roots. Facet joint and ligamentum flavum hypertrophy. Right neuroforamina narrowing. Central spinal canal stenosis. L5-S1: Broad-based disc bulging. Facet joint hypertrophy. Reduced AP diameter of the thecal sac. Bilateral neuroforamina stenosis encroaching the exiting nerve roots. No prevertebral compartment hematoma, mass or fluid collection. There is a 3.5 cm exophytic hyperintense T2 cystic lesion, posterior upper pole midportion junction left kidney. Fatty atrophy of the lower lumbar muscles from L4 to sacrum. MR/MR lumbar spine wo con IMPRESSION: Multilevel thoracolumbar spondylosis resulting in central spinal canal and left neuroforamina stenosis at L4-5 and to a lesser extent L3-4. Central/midline extruded disc with cephalad migration at T12-L1. No compression upon neural elements. Central left subarticular foraminal and extraforaminal broad-based disc herniation L4-5 encroaching the left L5 and likely L4 exiting nerve roots. 3.5 cm exophytic cyst, left kidney. Electronically signed by: Dg Mckinney MD 03/07/2025 11:33 AM EDT RP Assessment & Plan Assessment & Plan (1) Lumbar disc herniation: Code(s): M51.26 - Other intervertebral disc displacement, lumbar region Category: Medical (2) Pain of right sacroiliac joint: Code(s): M53.3 - Sacrococcygeal disorders, not elsewhere classified Category: Medical (3) Oral thrush: Code(s): B37.0 - Candidal stomatitis Category: Medical Plan She is waiting for CT scan to be done, and for neuro spine to make decision whether she is for surgery or not. Noted today that she has a little bit more footdrop and a new depressed right patellar reflex. Sending notes to neuro spine so that they are aware of some deterioration in her exam. Assessment and plan discussed with patient, and patient was agreeable. All questions were answered thoroughly. Agata Carmichael MD, MEKHI Board Certified, [place] Board of Physical Medicine and Rehabilitation (ABPMR) Board Certified, [place] Board of Electrodiagnostic Medicine (ABEM) Coding Level of Care Code Est Pt Level 4 (19190) Diagnoses Lumbar disc herniation M51.26 Pain of right sacroiliac joint M53.3 Oral thrush B37.0
== END 2025-06-14 10:55 | disposition home or self-care (01) ==
LOC: HO.HOS 10:07
PROVIDERS: PCP Internal Medicine; Visit Provider Physical Medicine & Rehabilitation
DX: M51.26 Other intervertebral disc displacement, lumbar region (principal); M53.3 Sacrococcygeal disorders, not elsewhere classified; B37.0 Candidal stomatitis
CPT/HCPCS: 99214

== ENCOUNTER → 2025-06-14 10:06 | Outpatient (BNVA) | payer OTHER, SELFPAY | PROVIDERS: PCP Internal Medicine; Visit Provider Physical Medicine & Rehabilitation | DX: M51.26 Other intervertebral disc displacement, lumbar region (principal); M53.3 Sacrococcygeal disorders, not elsewhere classified; B37.0 Candidal stomatitis | CPT/HCPCS: 99212 ==

== ENCOUNTER 2025-06-24 15:21 | Outpatient (REF) | payer OTHER, SELFPAY ==
--- NOTE | ~2025-06-24 | MR_ITS ---
EXAMINATION: MR CERVICAL SPINE WITHOUT CONTRAST CLINICAL INFORMATION: R 20.2. Paresthesia of skin. COMPARISON: Correlated to CT dated February 12, 2025. TECHNIQUE: MRI of the cervical spine was obtained using routine sequences without contrast. FINDINGS: Craniocervical junction is intact. Normal position of the cerebellar tonsils. 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 No bone marrow STIR signal abnormality. Marginal osteophyte formation and decreased intervertebral disc height and endplate irregularities at C6-7 and to a lesser extent C4-5, C5-6 and C3-4 levels. Grade 1 anterolisthesis C3-4. Grade 1 retrolisthesis C5-6 and likely C6-7. C2-3: No disc herniation. No neuroforamina stenosis. C3-4: Central disc osteophyte compresses formation resulting in ventral indentation to the thecal sac. No cord compression. No cord signal abnormality. No neuroforamina stenosis. C4-5: Central and left subarticular disc osteophyte compresses formation resulting in ventral indentation to the spinal cord. No cord signal abnormality. Right neuroforamina narrowing on a degenerative basis. C5-6: Central disc osteophyte complex formation resulting in ventral indentation to the spinal cord. No cord signal abnormality. No neuroforamina stenosis. C6-7: Broad-based disc osteophyte compresses formation resulting in spinal cord deformity. No cord signal abnormality. Bilateral neuroforamina narrowing on a degenerative basis. C7-T1: Broad-based disc osteophyte complex formation. Ventral spinal cord deformity. No cord signal abnormality. Bilateral neuroforamina narrowing. Bilateral perineural cysts. Perineural cyst, right T1-2. No prevertebral compartment hematoma, mass or fluid collection. Flow-void signal within the main vessels is normal. G artery slightly dominant. Bilateral prominent cervical lymph nodes. MR/MR cervical spine wo con IMPRESSION: Multilevel cervical spondylosis, C3-4 to C7-T1 pronounced at C5-6 and C6-7 levels and to a lesser extent C3-4 and C4-5. No cord edema and or myelopathy. Electronically signed by: Dg Mckinney MD 06/25/2025 08:19 AM EDT
--- OUTSIDE RECORDS SUMMARY | 2025-06-24 15:25 | XMS_ITS | Clinical Summary ---
Author Organization [facility] ity Address [address] [place] [address] Care Team Providers Care Replanting Machine Crewman Name Role Phone Unavailable Primary Care Provider [...] Last Done Comments Breast Cancer Screening 1965 Colorectal Cancer Screening: Colonoscopy 1965 DTaP,Tdap,and Td Vaccines (1 - Tdap) 1984 Cervical Cancer Screening: P ap Smear 1986 Pneumococcal Vaccine: 50+ Ye ars (1 of 1 - PCV) 2015 Zoster Vaccines (1 of 2) 2015 HIV Screening 08/04/2022 Hepatitis C Screening 08/04/2022 [...]
--- OUTSIDE RECORDS SUMMARY | 2025-06-24 15:25 | XMS_ITS | Clinical Summary ---
Author Organization [facility] Address [address] [address] Phone Care Team Providers Care Code Official Name Role Phone Eddie Parks MD Primary Care Provider [phone] Allergies No known active allergies Medications cetirizine [...] Colorectal Cancer Screening: Sigmoidoscopy 2014 Influenza Vaccine Completed 05/17/2025 Hepatitis B Vaccine Aged Out No longe r eligible based on patient's age to complete this topic Insurance Care Teams Code Official Relationship Specialty Start Date End Date Eddie Parks MD [address] [place] [id number] PCP - General Internal Medicine 10/29/21
== END 2025-06-24 15:22 | disposition home or self-care (01) ==
LOC: HO.MRI 15:21
PROVIDERS: PCP Internal Medicine; Visit Provider Nurse Practitioner Family
DX: R20.2 Paresthesia of skin (principal); M50.30 Other cervical disc degeneration, unspecified cervical region; M48.02 Spinal stenosis, cervical region; M47.812 Spondylosis without myelopathy or radiculopathy, cervical region
CPT/HCPCS: 72141

== ENCOUNTER → 2025-06-24 15:21 | Outpatient (BNV) | payer OTHER, SELFPAY | PROVIDERS: PCP Internal Medicine; Visit Provider Radiology Diagnostic Radiology | DX: M47.813 Spondylosis without myelopathy or radiculopathy, cervicothoracic region (principal) | CPT/HCPCS: 72141 ==

== ENCOUNTER 2025-06-28 15:42 | Outpatient (REF) | payer OTHER, SELFPAY ==
--- NOTE | ~2025-06-28 | CT_ITS ---
EXAMINATION: CT LUMBAR SPINE WITHOUT CONTRAST CLINICAL INFORMATION: M51.362 - Other intervertebral disc degeneration, lumbar region COMPARISON: MRI March 07, 2025 TECHNIQUE: Axial CT was performed from upper T12 through upper S2. No contrast Coronal and sagittal reformatted images were generated from the original axial data set. ALARA: The examination used one or more of the following radiation dose reduction techniques: Automated exposure control, iterative reconstruction, and/or adjustment of mA and/or KV. FINDINGS: Again seen are degenerative changes most pronounced at L3-4 and L4-5, better characterized on prior MRI. Vertebral body height and alignment is preserved. No acute fracture is identified. There are clips from cholecystectomy. There is atherosclerotic calcification in the aorta. CT/CT lumbar spine wo IV con IMPRESSION: Multilevel degenerative disc disease and facet osteoarthritis most advanced at L4-5, as described on MRI 3.5 months ago. Electronically signed by: Pro Shah MD 06/28/2025 05:00 PM EDT
--- OUTSIDE RECORDS SUMMARY | 2025-06-28 19:15 | XMS_ITS | Clinical Summary ---
Author Organization [facility] ity Address [address] [place] [address] Care Team Providers Care Compliance Field Technician Name Role Phone Unavailable Primary Care Provider [...]
--- OUTSIDE RECORDS SUMMARY | 2025-06-28 19:15 | XMS_ITS | Clinical Summary ---
Author Organization [facility] Address [address] [address] Phone Care Team Providers Care Hand Printed Circuit Board Assembler Name Role Phone Eddie Parks MD Primary Care Provider [phone] Allergies No known active allergies Medications cetirizine [...] to complete this topic Insurance Care Teams Hand Printed Circuit Board Assembler Relationship Specialty Start Date End Date Eddie Parks MD [address] [place] [id number] PCP - General Internal Medicine 10/29/21
== END 2025-06-28 15:43 | disposition home or self-care (01) ==
LOC: HO.CT 15:42
PROVIDERS: Visit Provider Physician Assistant
DX: M51.362 Other intervertebral disc degeneration, lumbar region with discogenic back pain and lower extremity pain (principal)
CPT/HCPCS: 72131

== ENCOUNTER → 2025-06-28 15:45 | Outpatient (BNV) | payer OTHER, SELFPAY | PROVIDERS: Visit Provider Radiology Diagnostic Radiology | DX: M51.362 Other intervertebral disc degeneration, lumbar region with discogenic back pain and lower extremity pain (principal); M47.816 Spondylosis without myelopathy or radiculopathy, lumbar region | CPT/HCPCS: 72131 ==

== ENCOUNTER 2025-07-05 08:03 | Outpatient (AMB) | payer OTHER, SELFPAY ==
[2025-07-05 08:03] VITALS: BP 140/90; PULSE 92; TEMP 36.8; O2SAT 98; BMI 35.3
--- NOTE | 2025-07-05 08:03 | MHC.OFFWIV ---
Intake Vital Signs 07/05/25 08:03 Height 4 ft 11 in Weight 175 lb BMI 35.3 BP 140/90 H Blood Pressure Location Lt brachial Position Sitting Pulse 92 Pulse Source Pulse Oximeter Temp 98.3 F Temp Source Oral Pulse Oximetry (%) 98 Oxygen Delivery Method Room Air Intake Visit Reasons: ep sty in left eye for ten days Intake Note: Patient presents with c/o stye in left eye x10 days. Patient Tobacco Use Status: Never used Tobacco Allergies Seasonal Allergies Allergy (Unknown, Verified 07/05/25 08:05) Unknown Do you need a note to return to daycare/school/sports/work: No HPI HPI Comments History of Present Illness Details History of Present Illness - The patient is a 60-year-old female presenting with a painful eye bump. - The issue began approximately 10 days ago and has progressively worsened. - The patient reports pain in the left eye and has been applying warm compresses every few hours without significant improvement. - There is no blurry vision reported. - The lesion appears to have a head with pus, but she has not had any drainage. - The patient has no known allergies. - She denies blurry or double vision. - She denies FB, contact lens, discharge or tearing. Physical Exam General: Cooperative, healthy appearing, comfortable, no acute distress and well developed Orientation: Patient oriented x3 Limitations: No limitations Eyes: Appearance normal, both eyes and all related structures. Small raised bump noted on the lower eyelid. No discharge noted. PERRLA, EOMI. Sclera is white, conjunctiva is pink. Neck: Normal visual inspection and Yes full ROM Respiratory: Normal respiratory effort and able to speak in complete sentences. Clear to auscultation bilaterally Cardiovascular: Regular rate and rhythm. Normal S1 and S2 Skin: No rashes or lesions noted Patient was informed and verbally consented to the use of an ambient scribe for clinic note documentation during this visit. [facility], LAT[facility] Medical History Tongue sore Hiatal hernia Flexor tendinitis of hand Bilateral hand pain Decreased range of motion (ROM) of shoulder Recurrent knee instability Generalized weakness Arthritis GERD (gastroesophageal reflux disease) Depression with anxiety Hypothyroid History of fibromyalgia Surgical History Hx of colonoscopy History of laparoscopic cholecystectomy (12/17/21) Hx of gastric bypass Hx of tubal ligation Family History Mother Hypertension Father Diabetes Dementia Substance use disorder Daughter No problems noted. Daughter No problems noted. Son No problems noted. Other Mental health disorder Social History Housing: Apartment Alcohol intake: never Patient Tobacco Use Status: Never used Tobacco e-Cigarette/Vaping Use: Never Used service: No Current occupational status: unemployed Sexual orientation: Straight/Heterosexual Gender identity: Female Cognitive needs: No Hearing needs: No Vision needs: Yes Female Reproductive History Menstrual Age of Menarche: 11 Review of Systems Const All systems reviewed & are unremarkable except as noted in HPI and below Physical Exam Vital Signs: Last Vital Signs Temp 98.3 F 07/05/25 08:03 Pulse 92 07/05/25 08:03 BP 140/90 H 07/05/25 08:03 Pulse Ox 98 07/05/25 08:03 Oxygen Delivery Method Room Air 07/05/25 08:03 BMI result Body Mass Index 35.3 Assessment & Plan Assessment & Plan (1) Eyelid abnormality: Code(s): H02.9 - Unspecified disorder of eyelid Plan Most likely hordeolum vs Chalazion - Initiate treatment with antibiotic eye drops. - Advise warm compresses and gentle massage to the affected area. - If no improvement, refer to an reheater helper for potential incision and drainage. Medications: New polymyxin B sulf-trimethoprim 10,000 unit- 1 mg/mL use every 3 hours while awake; do not exceed 6 doses in 24 hours 1 drp ophthalmic-Right Q3H 10 mL 0RF 7 days Coding Level of Care Code Est Pt Level 3 (08513) Diagnoses Eyelid abnormality H02.9
== END 2025-07-05 08:47 | disposition home or self-care (01) ==
PROVIDERS: PCP Nurse Practitioner Family; Visit Provider Physician Assistant Medical
DX: H02.9 Unspecified disorder of eyelid (principal)

== ENCOUNTER → 2025-07-05 08:03 | Outpatient (BNVA) | payer OTHER, SELFPAY | PROVIDERS: PCP Nurse Practitioner Family; Visit Provider Physician Assistant Medical | DX: K21.9 Gastro-esophageal reflux disease without esophagitis (principal); H02.89 Other specified disorders of eyelid | CPT/HCPCS: 99212 ==

== ENCOUNTER 2025-07-06 07:24 | Outpatient (AMB) | payer OTHER, SELFPAY ==
--- OUTSIDE RECORDS SUMMARY | 2025-07-06 07:26 | XMS_ITS | Clinical Summary ---
Author Organization [facility] Address [address] [id number] Phone Care Team Providers Care Manufacturer Agent Name Role Phone Eddie Parks MD Primary Care Provider [phone] Allergies No known active allergies Medications cetirizine [...] to complete this topic Insurance Care Teams Manufacturer Agent Relationship Specialty Start Date End Date Eddie Parks MD [address] [place] [id number] PCP - General Internal Medicine 10/29/21
--- OUTSIDE RECORDS SUMMARY | 2025-07-06 07:26 | XMS_ITS | Clinical Summary ---
Author Organization [facility] ity Address [address] [place] [address] Care Team Providers Care Technical Information Specialist Name Role Phone Unavailable Primary Care [...]
--- NOTE | 2025-07-06 07:33 | A.OFFVIS_ITS ---
Vital Signs 07/06/25 07:38 Height 4 ft 11 in Weight 174 lb 9.698 oz BMI 35.3 BP 132/84 Blood Pressure Location Lt brachial Position Sitting Pulse 78 Pulse Source Pulse Oximeter Pulse Oximetry (%) 96 Oxygen Delivery Method Room Air Intake Visit Reasons: 6 months Intake Note: Patient presents for FM/Polyarticular Arthritis follow up. Allergies Seasonal Allergies Allergy (Unknown, Verified 07/06/25 07:37) Unknown Medication List - Last Reconciled 07/06/25 by Terra Sparrow MD cetirizine 10 mg PO DAILY clobetasol 0.05% 1 appl topical BID duloxetine 60 mg PO DAILY 90 days gabapentin Take one capsule by mouth every morning, one capsule in afternoon and 2 capsules every evening levothyroxine 100 mcg PO DAILY 90 days lidocaine 5% 1 patch topical DAILY 30 days mirabegron ER (Myrbetriq) 50 mg PO DAILY mirtazapine 15 mg PO BEDTIME modafinil 200 mg PO DAILY montelukast 10 mg PO DAILY omeprazole 20 mg PO DAILY polymyxin B sulf-trimethoprim 10,000 unit- 1 mg/mL 1 drp ophthalmic-Right Q3H 7 days pramipexole 0.5 mg PO QPM sucralfate 1 g PO BID tacrolimus 0.1% 1 appl topical BID HPI Comments Details: Patient is a 60 y.o. female with hypothyroidism, overactive bladder, GERD, polyarticular osteoarthritis and fibromyalgia here today for follow up Interval History: Patient last seen 12/29/2024 with me - On gabapentin 300mg AM and 600mg PM - Head is tingling - Legs also tingle and feel cold but are not cold when she touches them - Extreme fatigue. Sleep study was normal - Started modafinil Today - On gabapentin 300mg AM and 600mg PM, modafinil 200mg daily - Following withpain management and spine surgery - Planning surgery for her L spine - Modafinil helps for about 2 hours in the AM but she crashes in the PM, does not think this is related to gabapentin - Still complaining of overall achyness especially in the legs Rheumatologic History: Initial history: The patient presents for evaluation of osteoarthritis and fibromyalgia. She had been followed by a in [place], [place]; she had last been seen in the fall. She was on Cymbalta 90 mg a day, 100 mg trazodone at night, and gabapentin with 800 mg in the morning and 1600 mg at night. Those medicines were somewhat helpful for her pains. She still had pain in the lateral hips, knees, neck, and feet. Occasionally the knees are swollen. With activity she had more knee pain. She does walk on a treadmill a few times a week. She had also takes some acetaminophen in the form of Tylenol Arthritis, 2 tablets twice a day. She has had a trochanteric injection in the past that helped for about a week. Recently her Cymbalta was cut back to 60 mg a day, trazodone was stopped, ropinirole was added for restless leg syndrome and gabapentin was restarted at 300 mg at night. The ropinirole rosales helped somewhat her restless leg syndrome symptoms. Says she is not sleeping well with current regimen in the evenings. She denies any daytime sedation with just taking that gabapentin at night. Current Rheumatology Medication(s): Duloxetine 60mg daily (PCP supplied) Gabapentin 300mg AM and Afternoon, 600mg PM [facility] Medical History Tongue sore Hiatal hernia Flexor tendinitis of hand Bilateral hand pain Decreased range of motion (ROM) of shoulder Recurrent knee instability Generalized weakness Arthritis GERD (gastroesophageal reflux disease) Depression with anxiety Hypothyroid History of fibromyalgia Surgical History Hx of colonoscopy History of laparoscopic cholecystectomy (12/17/21) Hx of gastric bypass Hx of tubal ligation Family History Mother Hypertension Father Diabetes Dementia Substance use disorder Daughter No problems noted. Daughter No problems noted. Son No problems noted. Other Mental health disorder Social History Housing: Apartment Alcohol intake: never Patient Tobacco Use Status: Never used Tobacco e-Cigarette/Vaping Use: Never Used service: No Current occupational status: unemployed Sexual orientation: Straight/Heterosexual Gender identity: Female Cognitive needs: No Hearing needs: No Vision needs: Yes Female Reproductive History Menstrual Age of Menarche: 11 Review of Systems Narrative Review of Systems Constitutional: Denies fever, chills, weight loss ENT: Denies vision changes, eye pain or eye redness, dental caries, dry mouth GI: Denies nausea, vomiting, diarrhea, abdominal pain, change in BM Pulm: Denies SOB, DE GUZMAN, hemoptysis, wheezing Cards: Denies chest pain, palpitations Skin: Denies Raynaud's, rash, nail changes, photosensitivity, RESIDENTIAL TECH: Denies headaches, weakness, paresthesias, recurrent falls MSK: as per HPI All other systems reviewed and are unremarkable except noted above Physical Exam Exam Exam: Vital signs reviewed Physical Examination CONSTITUITIONAL Patient alert and cooperative. Well appearing and in no apparent painful distress MSK Hands * Right Hand: Able to make a fist. No swelling or tenderness to palpation of the MCPs, PIPs or DIPs. * Left Hand: Able to make a fist. No swelling or tenderness to palpation of the MCPs, PIPs or DIPs. Wrists * Right Wrist: Full ROM to flexion and extension. No swelling or TTP * Left Wrist: Full ROM to flexion and extension. No swelling or TTP Elbows * Right Elbow: Full ROM. No swelling or TTP. No TTP of the medial epicondyle. No TTP of the lateral epicondyle * Left Elbow: Full ROM. No swelling or TTP. No TTP of the medial epicondyle. No TTP of the lateral epicondyle Shoulders * Right shoulder: Full ROM. No swelling noted. No TTP of the AC joint. No TTP of the subacromial bursa. No TTP of the posterior shoulder * Left shoulder: Full ROM. No swelling noted. No TTP of the AC joint. No TTP of the subacromial bursa. No TTP of the posterior shoulder Knees * Right knee: Decreased ROM. No swelling noted. TTP of the knee joint line. No TTP of pes anserine bursa * Left knee: Full ROM. No swelling noted. No TTP of the knee joint line. No TTP of pes anserine bursa. Ankles * Right ankle: Good ankle dorsiflexion and plantar flexion. No swelling. No TTP of the ankle joint * Left ankle: Good ankle dorsiflexion and plantar flexion. No swelling. No TTP of the ankle joint Feet * Right foot: Negative squeeze test * Left foot: Negative squeeze test Tender points? * Tenderness to palpation of the bilateral trapezius, supraspinatus, anterior costochondral junctions, bilateral suboccipital muscle insertions Vital Signs: Last Vital Signs Pulse 78 07/06/25 07:38 BP 132/84 07/06/25 07:38 Pulse Ox 96 07/06/25 07:38 Oxygen Delivery Method Room Air 07/06/25 07:38 BMI result Body Mass Index 35.3 Results Reviewed Results Reviewed: Laboratory Tests 05/08/25 10:14 WBC 7.6 RBC 4.56 Hgb 14.0 Hct 40.6 Plt Count 336 Sodium 141 Potassium 4.3 Chloride 104 Carbon Dioxide 29 BUN 18 H Creatinine 0.87 AST 26 ALT 23 Assessment & Plan Assessment & Plan (1) Fibromyalgia: Code(s): M79.7 - Fibromyalgia Category: Medical Plan: #Fibromyalgia Patient is a 60-year-old female with fibromyalgia here today for follow up. Continues to have widespread pain but this is managed with her gabapentin. Will add LDN to see if there is additional benefit Plan - Gabapentin 300mg AM and Afternoon, 600mg PM - Naltrexone 4.5mg nightly - RTC 6 months (2) Fatigue: Code(s): R53.83 - Other fatigue Qualifiers: Fatigue type: chronic, unspecified Qualified Code(s): R53.82 - Chronic fatigue, unspecified Plan: #Fatigue Modafinil is helpful, will continue Plan - Continue light exercise activity - Modafinil 200mg daily (3) Polyarticular osteoarthritis: Code(s): M15.9 - Polyosteoarthritis, unspecified Plan: #Polyarticular OA Patient with polyarticular osteoarthritis involving AC joints and knees. 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
[2025-07-06 07:38] VITALS: BP 132/84; PULSE 78; O2SAT 96; BMI 35.3
== END 2025-07-06 08:04 | disposition home or self-care (01) ==
LOC: HO.RHES 07:25
PROVIDERS: PCP Internal Medicine; Visit Provider Student in an Organized Health Care Education/Training Program
DX: M79.7 Fibromyalgia (principal); R53.82 Chronic fatigue, unspecified; M15.9 Polyosteoarthritis, unspecified
CPT/HCPCS: 99214

== ENCOUNTER → 2025-07-06 07:24 | Outpatient (BNVA) | payer OTHER, SELFPAY | PROVIDERS: PCP Internal Medicine; Visit Provider Student in an Organized Health Care Education/Training Program | DX: M79.7 Fibromyalgia (principal); M15.9 Polyosteoarthritis, unspecified; R53.82 Chronic fatigue, unspecified | CPT/HCPCS: 99212 ==

== ENCOUNTER 2025-07-09 10:08 | Outpatient (AMB) | payer OTHER, SELFPAY ==
--- NOTE | 2025-07-09 10:12 | MHC.OFFVIS ---
Vital Signs 07/09/25 10:15 Height 4 ft 11 in Weight 171 lb 8 oz BMI 34.6 BP 148/70 H Blood Pressure Location Rt brachial Position Sitting Pulse 100 Pulse Source Pulse Oximeter Pulse Oximetry (%) 100 Oxygen Delivery Method Room Air Intake Visit Reasons: MRI follow up Allergies Seasonal Allergies Allergy (Unknown, Verified 07/09/25 10:16) Unknown HPI Comments Details: The patient is a 60-year-old female presenting with neck pain with limited range of motion. The neck pain has been severe, rated at 8/10, and has been persistent since the last visit in April. The MRI revealed multilevel arthritis from C3-C4 through C7-T1, most pronounced at C5-6 and C7, with severe arthritis in the lower part of the neck and mild to moderate arthritis in the upper part. The patient has undergone physical therapy without relief and has been advised to maintain good posture and perform stretching exercises to prevent further degeneration. Patient is interested to undergo diagnostic ago cervical medial branch blocks for potential therapeutic injections or radiofrequency ablation procedure. Unfortunately, her insurance does not cover [employer] peripheral nerve stimulation therapy. PRIOR: The patient is a 60-year-old female presenting with neck pain and associated symptoms. The neck pain has been persistent and is accompanied by headaches and radiculopathy affecting the right arm. The patient reports that physical therapy provides temporary relief, but symptoms return shortly after sessions. She also reports certain PT and home exercises increase her symptoms so she paused PT at this time. The patient has moderate cervical spinal stenosis and cervical spondylosis, confirmed by a CT scan showing C6-C7 moderate stenosis. She experiences tingling and numbness in the right arm, particularly in the middle and fourth fingers, which is intermittent. The patient is right-hand dominant, and the symptoms interfere with her daily activities. The patient has previously been prescribed prednisone for lumbar radicular symptoms per Physiatry, which led to the development of rash, necessitating discontinuation of the medication. She has also stopped taking muscle relaxants due to adverse effects, specifically drowsiness. The patient continues to take gabapentin for symptom management. Denies any recent cough, cold, infection, fever or any significant changes in medical history since last office visit. PRIOR: The patient is a 59-year-old female presenting with chronic neck pain and associated symptoms. The neck pain has been persistent for approximately 15 years, with a gradual worsening over time. The pain is described as constant, pulsing, throbbing, and aching, rated at 8/10 in severity. Denies any recent or past trauma, injury or falls. The patient reports numbness in the back of the head and tingling in the right arm, which have been ongoing for several years. She has been evaluated by Rheumatologists, who referred her to us for further evaluation. Recent imaging revealed cervical spondylosis with degenerative changes, most significant at C6-C7, causing moderate spinal canal and neuroforaminal narrowing. The patient has not undergone physical therapy for her neck, although she has been receiving therapy for her back and has upcoming lumbar spine MRI and EMG testing per Physicatry services. She has not received any neck-specific treatments, and past medications such as tramadol and ibuprofen have been used for pain management. However, ibuprofen use was discontinued due to gastrointestinal issues following gastric bypass surgery in 2003. The patient also experiences anxiety and depression, managed with Cymbalta, and reports chronic fatigue and difficulty concentrating due to pain. She denies any hallucinations or unmanaged depression at present. - Onset: Approximately 15 years ago, gradually worsening - Quality: Constant, pulsing, throbbing, aching, pins and needles, stabbing, tingling, tiring - Severity: Rated 8/10 - Location: Neck, radiating to the back of the head and right arm - Exacerbating factors: Turning head sideways, particularly to the right - Relieving factors: Tramadol, heat application, gabapentin, rest, activity modifications - Interference: Affects sleep, concentration, and ability to perform daily activities - Affect: Reports anxiety and depression, managed with Cymbalta - Analgesia: Uses tramadol; ibuprofen discontinued due to gastric bypass complications - Adverse Effects: Gastrointestinal issues from ibuprofen - Activities of Daily Living: Pain affects sleep, concentration, and ability to perform daily activities - Aberrant Drug Related Behaviors: None reported Oswestry Neck Pain Disability Score=25 [facility] Medical History Tongue sore Hiatal hernia Flexor tendinitis of hand Bilateral hand pain Decreased range of motion (ROM) of shoulder Recurrent knee instability Generalized weakness Arthritis GERD (gastroesophageal reflux disease) Depression with anxiety Hypothyroid History of fibromyalgia Surgical History Hx of colonoscopy History of laparoscopic cholecystectomy (12/17/21) Hx of gastric bypass Hx of tubal ligation Family History Mother Hypertension Father Diabetes Dementia Substance use disorder Daughter No problems noted. Daughter No problems noted. Son No problems noted. Other Mental health disorder Social History Housing: Apartment Alcohol intake: never Patient Tobacco Use Status: Never used Tobacco e-Cigarette/Vaping Use: Never Used service: No Current occupational status: unemployed Sexual orientation: Straight/Heterosexual Gender identity: Female Cognitive needs: No Hearing needs: No Vision needs: Yes Female Reproductive History Menstrual Age of Menarche: 11 Review of Systems Const Details: - Musculoskeletal: Reports significant neck pain, denies relief from physical therapy - Endocrine: Denies diabetes and osteoporosis All systems reviewed & are unremarkable except as noted in HPI and below Physical Exam Vital Signs: Last Vital Signs Pulse 100 07/09/25 10:15 BP 148/70 H 07/09/25 10:15 Pulse Ox 100 07/09/25 10:15 Oxygen Delivery Method Room Air 07/09/25 10:15 BMI result Body Mass Index 34.6 General: Appears afebrile. Alert and oriented. Mood and affect appropriate. Clear speech. Follows and participates in conversation appropriately. Respiratory effort is unlabored. No cough. Able to transition from sit to stand unassisted. Ambulates with bilaterally normal heel strike and toe off. Neck Other: Patient with decreased cervical ROM in all planes/especially with lateral rotation. Reports increased pain with cervical extension. Spurling compression test negative. DTR intact, +2 and symmetrical. Patient demonstrated 5/5 motor strength of bilateral upper extremities. 2 + radial pulses. Significant tightness throughout right upper trapezius as well as TTP throughout bilateral upper trapezius muscles. No paravertebral tenderness over facet joints bilaterally. Multiple widespread TTPs 16/16 bilaterally, including upper and lower extremities. Neck: Yes normal visual inspection, Yes no lymphadenopathy, Yes supple, No anterior neck swelling, No torticollis, Yes no JVD, No prominent supraclavicular fat pad and Yes prominent dorsocervical fat pad Back/Spine/Pelvis Cervical Spine: No Lhermitte's sign positive, cervical muscular tenderness, pain with cervical ROM, No Cervical spine scars present, cervical spasm, No Cervical spine tenderness and No step off deformity Extrem General: Yes capillary refill normal, Yes no clubbing, cyanosis or edema and Yes no calf tenderness Results Reviewed Results Reviewed: CT cervical spine wo IV con 02/13/25 CLINICAL HISTORY: M54.12 - Radiculopathy, cervical region CT cervical spine without contrast Comparison: None Findings: Straightening and mild reversal of the normal cervical lordosis on degenerative basis. Moderate multilevel spondylosis with disc space narrowing, endplate sclerosis, osteophytosis and facet arthropathy, most notably at C6-C7 level, causing moderate spinal canal and neural foraminal narrowing. No acute fractures or dislocations. No acute findings on limited view of the intracranial contents. No cervical fluid collections or masses. No consolidation or effusion at the lung apices. Vertebral body heights are well-maintained. IMPRESSION: No acute findings. Moderate multilevel spondylosis with disc space narrowing, endplate sclerosis, osteophytosis and facet arthropathy, most notably at C6-C7 level, causing moderate spinal canal and neural foraminal narrowing. XR CERVICAL SPINE 12/29/24 CLINICAL INFORMATION: M54.12 - Radiculopathy, cervical region COMPARISON: None available. TECHNIQUE: 4views of the cervical spine were obtained. FINDINGS: No significant scoliosis. There is a mild reversal of the normal lordosis centered at C5. No fracture, compression deformity, or suspicious bone lesion evident. Craniocervical junction and C1-2 articulation are intact and normally aligned. There is moderate degenerative arthrosis at the atlantoaxial articulation. There is a 3 mm degenerative anterolisthesis of C3 on C4, and 2 mm of C4 on C5. Alignment is otherwise anatomic. Severe disc degeneration focally at C6-7. There is otherwise only mild to moderate disc degeneration. Normal facet alignment. Right greater than left hypertrophic degenerative facet arthropathy, most notable on the right at C2-3 and C3-4. There is no prevertebral or paravertebral soft tissue abnormality. Imaged lung apices are clear. IMPRESSION: 1. No acute bony abnormalities. 2. Moderate degenerative spondylosis as discussed. Disc degeneration most significant C6-7. MR CERVICAL SPINE WITHOUT CONTRAST 06/24/25 CLINICAL INFORMATION: R 20.2. Paresthesia of skin. COMPARISON: Correlated to CT dated February 12, 2025. TECHNIQUE: MRI of the cervical spine was obtained using routine sequences without contrast. FINDINGS: Craniocervical junction is intact. Normal position of the cerebellar tonsils. 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 No bone marrow STIR signal abnormality. Marginal osteophyte formation and decreased intervertebral disc height and endplate irregularities at C6-7 and to a lesser extent C4-5, C5-6 and C3-4 levels. Grade 1 anterolisthesis C3-4. Grade 1 retrolisthesis C5-6 and likely C6-7. C2-3: No disc herniation. No neuroforamina stenosis. C3-4: Central disc osteophyte compresses formation resulting in ventral indentation to the thecal sac. No cord compression. No cord signal abnormality. No neuroforamina stenosis. C4-5: Central and left subarticular disc osteophyte compresses formation resulting in ventral indentation to the spinal cord. No cord signal abnormality. Right neuroforamina narrowing on a degenerative basis. C5-6: Central disc osteophyte complex formation resulting in ventral indentation to the spinal cord. No cord signal abnormality. No neuroforamina stenosis. C6-7: Broad-based disc osteophyte compresses formation resulting in spinal cord deformity. No cord signal abnormality. Bilateral neuroforamina narrowing on a degenerative basis. C7-T1: Broad-based disc osteophyte complex formation. Ventral spinal cord deformity. No cord signal abnormality. Bilateral neuroforamina narrowing. Bilateral perineural cysts. Perineural cyst, right T1-2. No prevertebral compartment hematoma, mass or fluid collection. Flow-void signal within the main vessels is normal. G artery slightly dominant. Bilateral prominent cervical lymph nodes. IMPRESSION: Multilevel cervical spondylosis, C3-4 to C7-T1 pronounced at C5-6 and C6-7 levels and to a lesser extent C3-4 and C4-5. No cord edema and or myelopathy. Assessment & Plan Assessment & Plan (1) Cervical spondylosis: Code(s): M47.812 - Spondylosis without myelopathy or radiculopathy, cervical region Category: Medical (2) Degenerative disc disease, cervical: Code(s): M50.30 - Other cervical disc degeneration, unspecified cervical region Category: Medical (3) Cervicalgia: Code(s): M54.2 - Cervicalgia Category: Medical (4) Fibromyalgia: Code(s): M79.7 - Fibromyalgia Category: Medical Plan Cervical spine MRI results were discussed with patient today. The plan includes scheduling diagnostic bilateral C4-C5-C6 MBBs with local and fluoroscopy to confirm axial and facet mediated cervicalgia for potential for therapeutic injections vs radiofrequency ablation if successful. Due to insurance limitations, peripheral nerve stimulation is not covered under her plan. Expectations, risks and benefits were reviewed. Patient is aware she will be contacted to schedule this procedure. All questions and concerns have been answered and patient agreed with the treatment plan. Follow-up will be arranged after the injections to evaluate their effectiveness and discuss further management options. Patient was informed and verbally consented to the use of an ambient scribe for clinic note documentation during this visit. Coding Level of Care Code Est Pt Level 4 (82422) Complex EM visit Add On G2211 Diagnoses Cervical spondylosis M47.812 Degenerative disc disease, cervical M50.30 Cervicalgia M54.2 Fibromyalgia M79.7
[2025-07-09 10:15] VITALS: BP 148/70; PULSE 100; O2SAT 100; BMI 34.6
== END 2025-07-09 10:29 | disposition home or self-care (01) ==
LOC: HO.PMC 10:09
PROVIDERS: PCP Nurse Practitioner Family; Visit Provider Nurse Practitioner Family
DX: M47.812 Spondylosis without myelopathy or radiculopathy, cervical region (principal); M50.30 Other cervical disc degeneration, unspecified cervical region; M79.7 Fibromyalgia
CPT/HCPCS: 99214

== ENCOUNTER → 2025-07-09 10:08 | Outpatient (BNVA) | payer OTHER, SELFPAY | PROVIDERS: PCP Nurse Practitioner Family; Visit Provider Nurse Practitioner Family | DX: M47.812 Spondylosis without myelopathy or radiculopathy, cervical region (principal); M50.30 Other cervical disc degeneration, unspecified cervical region; M79.7 Fibromyalgia; M51.362 Other intervertebral disc degeneration, lumbar region with discogenic back pain and lower extremity pain | CPT/HCPCS: 99212 ==

== ENCOUNTER 2025-07-09 11:02 | Outpatient (AMB) | payer OTHER, SELFPAY ==
--- NOTE | 2025-07-09 11:26 | HO.SPINEOV ---
Intake Visit Reasons: Discuss sx Intake Note: Ms. Miner is here today to Discuss Surgery. Claims Adjuster Crop Required: No Allergies Seasonal Allergies Allergy (Unknown, Verified 07/09/25 10:16) Unknown Assessment & Plan Assessment & Plan (1) Degenerative disc disease (DDD) of lumbar region with discogenic back pain and leg pain: Code(s): M51.362 - Other intervertebral disc degeneration, lumbar region with discogenic back pain and lower extremity pain Category: Medical Plan Ninfa comes in today for a subsequent follow up appointment to discuss L4-5 OLIF. To recap she was offered L4-[address] Kaur after we reviewed her case together. We extensively discussed the OLIF procedure utilizing our spine models and sample instrumentation/interbody spacers that we have in the clinic. She was given the opportunity to ask questions relating to the procedure. She wishes to proceed. I did examine her abdominal incisions, she does have a large amount of striae on her abdomen but I could only identify one major incicion about 2-3cm above the umbilicus. Her abdomen is soft without rigidity or notable palpable scar tissue. Dr. Kaur is aware that the patient has had abdominal surgery but did not feel the types of surgeries she had would be an issue for OLIF approach. She has been tentatively scheduled for Wednesday08/21/2025. 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
--- OUTSIDE RECORDS SUMMARY | 2025-07-09 13:55 | XMS_ITS | Clinical Summary ---
Author Organization [facility] Address [address] [address] Phone Care Team Providers Care Clinical Research Specialist Name Role Phone Eddie Parks MD Primary Care Provider [phone] Allergies No known active allergies Medications cetirizine [...] to complete this topic Insurance Care Teams Clinical Research Specialist Relationship Specialty Start Date End Date Eddie Parks MD [address] [place] [id number] PCP - General Internal Medicine 10/29/21
--- OUTSIDE RECORDS SUMMARY | 2025-07-09 13:56 | XMS_ITS | Clinical Summary ---
Author Organization [facility] ity Address [address] [place] [address] Care Team Providers Care Rn Pool Name Role Phone Unavailable Primary Care Provider [...]
== END 2025-07-09 12:38 | disposition home or self-care (01) ==
LOC: HO.HNS 11:03
PROVIDERS: PCP Nurse Practitioner Family; Visit Provider Physician Assistant
DX: M51.362 Other intervertebral disc degeneration, lumbar region with discogenic back pain and lower extremity pain (principal)
CPT/HCPCS: 99212

== ENCOUNTER 2025-07-19 10:54 | Outpatient (AMB) | payer OTHER, SELFPAY ==
--- NOTE | 2025-07-19 11:01 | A.OFFVIS_ITS ---
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 annual Underwriter Solicitation Director Required: No Information Interpreted: non-clinical & clinical Digester Operator Helper: Digester Operator Helper Present (Dali) Accompanied by: Self / Same As Patient Allergies Seasonal Allergies Allergy (Unknown, Verified 07/19/25 11:04) Unknown Medication List - Last Reconciled 07/19/25 by Carmella Mclaughlin LPN cetirizine 10 mg PO DAILY clobetasol 0.05% 1 appl topical BID duloxetine 60 mg PO DAILY 90 days gabapentin Take one capsule by mouth every morning, one capsule in afternoon and 2 capsules every evening levothyroxine 100 mcg PO DAILY 90 days lidocaine 5% 1 patch topical DAILY 30 days mirabegron ER (Myrbetriq) 50 mg PO DAILY mirtazapine 15 mg PO BEDTIME modafinil 200 mg PO DAILY montelukast 10 mg PO DAILY naltrexone 4.5 mg PO .nightly omeprazole 20 mg PO DAILY polymyxin B sulf-trimethoprim 10,000 unit- 1 mg/mL 1 drp ophthalmic-Right Q3H 7 days pramipexole 0.5 mg PO QPM sucralfate 1 g PO BID tacrolimus 0.1% 1 appl topical BID Do you need a note to return to daycare/school/sports/work: No HPI Comments Details: Patient is a postmenopausal woman presenting for her 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 Pulmonary Function Technician concerns: none. Currently not sexually active due to 's medical concerns. Denies any vaginal dryness or irritation. Attempting to eat a healthy diet with calcium and vitamin D and stays active with exercise is limited due to back problems. Last pap smear; 2022, negative. Last mammogram; 2024. Colonoscopy is UTD. Denies any family history of breast, ovarian or colon cancer. [facility] Medical History Postmenopausal bleeding Tongue sore Hiatal hernia Flexor tendinitis of hand Bilateral hand pain Decreased range of motion (ROM) of shoulder Recurrent knee instability Generalized weakness Arthritis GERD (gastroesophageal reflux disease) Depression with anxiety Hypothyroid History of fibromyalgia Surgical History Hx of colonoscopy History of laparoscopic cholecystectomy (12/17/21) Hx of gastric bypass Hx of tubal ligation Family History Mother Hypertension Father Diabetes Dementia Substance use disorder Daughter No problems noted. Daughter No problems noted. Son No problems noted. Other Mental health disorder Social History Housing: Apartment Alcohol intake: never Patient Tobacco Use Status: Never used Tobacco e-Cigarette/Vaping Use: Never Used service: No Current occupational status: unemployed Sexual orientation: Straight/Heterosexual Gender identity: Female Cognitive needs: No Hearing needs: No Vision needs: Yes Female Reproductive History Menstrual Age of Menarche: 11 control method: permanent sterilization (1992) Permanent Sterilization: BTL Menopause type: natural Age of menopause: 55 Total pregnancies: 3 Number of Living Children: 2 Date of last pap smear: 01/07/23 Date of Mammogram: 10/30/24 History of abnormal mammogram: No Review of Systems Const All systems reviewed & are unremarkable except as noted in HPI and below Reports as per HPI Eyes Reports no additional complaints ENT Reports no additional complaints Card Reports no additional complaints Resp Reports no additional complaints GI Reports as per HPI and Reports no additional complaints Reports as per HPI Musc Reports no additional complaints Skin/Breast Reports as per HPI Neuro Reports no additional complaints Psych Reports no additional complaints Endo Reports no additional complaints Mikael/Lymph Reports no additional complaints Aller/Immun Reports no additional complaints Physical Exam Vital Signs: Last Vital Signs BP 126/68 07/19/25 11:03 BMI result Body Mass Index 34.3 Const General: cooperative, healthy appearing, no acute distress, well developed and alert Orientation/consciousness: patient oriented x3 HEENT Head: Yes normal to inspection Eyes General: appearance normal, both eyes and all related structures Neck Neck: Yes normal visual inspection Thyroid: Thyroid normal Chest Chest palpation & inspection: normal inspection of the chest and other (no puckering, dimpling, peau de orange, retraction, discharge, masses) Breast/axilla inspection: normal inspection of the breasts Breast/axilla palpation: normal palpation of the breasts Resp Effort & Inspection: normal respiratory effort GI Inspection: Yes normal to inspection and Yes scar Palpation (GI): Soft to palpation Rectal Exam - Female: deferred General: Yes bladder normal to palpation External Female Exam: normal external appearance and normal appearance of the urethra Speculum Exam - Vagina: normal appearance of the vagina, normal palpation, normal vaginal discharge and vagina atrophic Speculum Exam - Cervix: normal appearance of the cervix, normal palpation and Other cervical findings present (Atrophic, bled slightly with Pap) Bimanual exam- vagina & uterus: normal bimanual exam, normal palpation, uterine size normal, bladder normal to palpation, normal palpation and non-tender Bimanual Exam- Adnexa, other: no masses Skin General skin exam: no rashes or lesions noted Rashes: no rashes Neuro General: patient oriented x3 Cognition (Neuro): normal cognition Extrem General: Yes normal to inspection Psych Attitude: cooperative Thought process: Normal thought process present Assessment & Plan Assessment & Plan (1) Encounter for well woman exam with routine gynecological exam: Code(s): Z01.419 - Encounter for gynecological examination (general) (routine) without abnormal findings Category: Medical Plan Discussed: Current recommendations for pap smears per ASCCP guidelines. Pap obtained. Breast awareness, periodic self breast exams and yearly mammogram. Maintain a healthy lifestyle, well balanced diet including Calcium 1,200 mg and Vitamin D 600 IU daily, and routine exercise when capable. Contact the office with any postmenopausal bleeding. Patient verbalizes understanding and agrees to the plan of care. She was given opportunity to ask questions and all questions were answered to the best of my ability. RTO in 1 year for annual obstetrics and gynecology professor exam. This note is constructed using voice recognition software. While every effort has been made to ensure accuracy, machine packer errors may have been included. Coding Level of Care Code Est Pt Prev Care 40-64y(48616) Diagnoses Encounter for well woman exam with routine gynecological exam Z01.419
[2025-07-19 11:03] VITALS: BP 126/68; BMI 34.3
--- OUTSIDE RECORDS SUMMARY | 2025-07-19 13:36 | XMS_ITS | Clinical Summary ---
Author Organization [facility] ity Address [address] [place] [address] Care Team Providers Care Evp Head Of [employer] [place] Experience Strategy Name Role Phone Unavailable Primary Care Provider [...] Depression Screening 09/06/2024 COVID-19 Vaccine (1 - 2024-2 6 season) 2025 Influenza Vaccine (#1) 2025 RSV [...]
--- OUTSIDE RECORDS SUMMARY | 2025-07-19 13:36 | XMS_ITS | Clinical Summary ---
Author Organization [facility] Address [address] [address] Phone Care Team Providers Care Electronic Engraver Name Role Phone Eddie Parks MD Primary Care Provider [phone] Allergies No known active allergies Medications cetirizine [...] to complete this topic Insurance Care Teams Electronic Engraver Relationship Specialty Start Date End Date Eddie Parks MD [address] [place] [phone] PCP - General Internal Medicine 10/29/21
== END 2025-07-19 14:35 | disposition home or self-care (01) ==
LOC: HO.HWS 10:55
PROVIDERS: PCP Internal Medicine; Visit Provider Advanced Practice Midwife
DX: Z01.419 Encounter for gynecological examination (general) (routine) without abnormal findings (principal)
CPT/HCPCS: 99396; 99459

== ENCOUNTER 2025-07-19 10:54 | Outpatient (REF) | payer OTHER, SELFPAY | END 2025-07-19 10:55 | disposition home or self-care (01) | LOC: HO.LNP 10:54 | PROVIDERS: PCP Internal Medicine; Visit Provider Advanced Practice Midwife | DX: Z01.419 Encounter for gynecological examination (general) (routine) without abnormal findings (principal); Z11.51 Encounter for screening for human papillomavirus (HPV); Z98.51 Tubal ligation status; Z79.899 Other long term (current) drug therapy | CPT/HCPCS: 87626; 88175; 99396 ==

== ENCOUNTER 2025-08-09 10:47 | Outpatient (REF) | payer OTHER, SELFPAY | END 2025-08-09 10:48 | disposition home or self-care (01) | LOC: HO.LNP 10:47 | PROVIDERS: PCP Internal Medicine; Visit Provider Obstetrics & Gynecology | DX: R87.610 Atypical squamous cells of undetermined significance on cytologic smear of cervix (ASC-US) (principal) | CPT/HCPCS: 57454; 88305; 88341; 88342 ==

== ENCOUNTER 2025-08-09 10:47 | Outpatient (AMB) | payer OTHER, SELFPAY ==
[2025-08-09 11:01] VITALS: BP 120/68; BMI 34.3
--- NOTE | 2025-08-09 11:01 | A.OFFVIS_ITS ---
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: Substitute Crossing Guard Present (Raquel MAN) Accompanied by: Self / Same As Patient Allergies Seasonal Allergies Allergy (Intermediate, Verified 08/09/25 11:09) Runny Nose, watery eyes Post menopausal: Yes HPI Comments Details: Presenting for abnormal Pap smear showing ASCUS/HPV negative [facility] Medical History Back pain DDD (degenerative disc disease), lumbar OAB (overactive bladder) Depression Anxiety Fibromyalgia Restless leg syndrome Postmenopausal bleeding Tongue sore Hiatal hernia Flexor tendinitis of hand Bilateral hand pain Decreased range of motion (ROM) of shoulder Recurrent knee instability Generalized weakness Arthritis GERD (gastroesophageal reflux disease) Depression with anxiety Hypothyroid History of fibromyalgia Surgical History Hx of colonoscopy History of laparoscopic cholecystectomy (12/17/21) Hx of gastric bypass (~2004) Hx of tubal ligation Family History Mother Hypertension Father Diabetes Dementia Substance use disorder Daughter No problems noted. Daughter No problems noted. Son No problems noted. Other Mental health disorder Social History Household Members Other:: housemates Housing: House Are you a primary ocular care technician to a significant other at home: No Do you presently have visiting nurse or other home services: No Alcohol intake: never Comment: cane at times Patient Tobacco Use Status: Never used Tobacco e-Cigarette/Vaping Use: Never Used service: No Current occupational status: unemployed Sexual orientation: Straight/Heterosexual Gender identity: Female Cognitive needs: No Hearing needs: No Vision needs: Yes Female Reproductive History Menstrual Age of Menarche: 11 Review of Systems Const All systems reviewed & are unremarkable except as noted in HPI and below Reports as per HPI and Reports no additional complaints GI Reports no additional complaints Reports no additional complaints Physical Exam Vital Signs: Last Vital Signs BP 120/68 08/09/25 11:01 BMI result Body Mass Index 34.3 Office Procedures Colposcopy Colposcopy: Pre-Procedure Counseling: Before beginning the procedure, I conducted comprehensive counseling with the patient. We thoroughly discussed the procedure itself, including its details, alternatives, and all associated risks. This included but not limited to the following complications such as bleeding, infection, and injury to the vagina, bladder, and vessels, as well as the potential need for transfusion with all its associated risks. Subsequently, the patient sign the consent. Pap smear result: LSIL. Procedure: During the procedure, the following steps were performed: A speculum was inserted, and acetic acid was applied. Colposcopy was conducted, allowing visualization of the transformation zone. Acetowhite lesions were identified at the 11+ 12 +1 o'clock position. Cervical biopsies were obtained from the 1+ 12 +1 o'clock position, followed by an endocervical curettage (ECC). Vaginoscopy of the upper vagina revealed no evidence of aceto-white lesions. Hemostasis was achieved using Monsel solution, and the patient tolerated the procedure well. Post-Procedure Instructions: The patient was advised to promptly contact the office or the after hours answering service or go to the emergency room if experiencing a temperature exceeding 100.4?F, abdominal pain, nausea/vomiting, or bleeding. Additionally, the patient was instructed to abstain from vaginal intercourse and bathtub use. The patient confirmed understanding of these instructions. Discharge Instructions: The patient was instructed to schedule a follow-up appointment in 2 weeks for further evaluation and management. Please note that this note was generated using a voice recognition program, and errors may have occurred during bottom precipitator operator. [id number] of cervix including upper vagina with biopsy and ECC Procedure code (CPT) selection complete Assessment & Plan Assessment & Plan (1) ASCUS of cervix with negative high risk HPV: Code(s): R87.610 - Atypical squamous cells of undetermined significance on cytologic smear of cervix (ASC-US) Category: Medical Plan: Discussed with the patient the result of her abnormal pap, its significance, risk of progression, persistence, and regression. the false positive/negative rate of a Pap smear as a screening test in detecting cervical cancer and the indication for a diagnostic test -colposcopy, biopsy, endocervical curettage. The patient verbalized understanding and agreed with the plan, all questions answered. Colposcopy, biopsy /ECC done, see procedure note Orders: Orders AMB Colposcopy Today R87.610 - Atypical squamous cells of undetermined significance on cytologic smear of cervix (ASC-US) Coding Level of Care Code Procedure Only Diagnoses ASCUS of cervix with negative high risk HPV R87.610 CPT Codes Colposcopy - CPT: 83891-[id number] of cervix including upper vagina with biopsy and ECC ([id number])
--- OUTSIDE RECORDS SUMMARY | 2025-08-09 13:34 | XMS_ITS | Clinical Summary ---
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
== END 2025-08-09 11:30 | disposition home or self-care (01) ==
LOC: HO.HWS 10:48
PROVIDERS: PCP Internal Medicine; Visit Provider Obstetrics & Gynecology
DX: R87.610 Atypical squamous cells of undetermined significance on cytologic smear of cervix (ASC-US) (principal)
CPT/HCPCS: 57454

== ENCOUNTER 2025-08-14 07:56 | Outpatient (AMB) | payer OTHER, SELFPAY ==
--- OUTSIDE RECORDS SUMMARY | 2025-08-14 08:24 | XMS_ITS | Clinical Summary ---
Author Organization [facility] Address [address] [address] Phone Care Team Providers Care Cytology Manager Name Role Phone Eddie Parks MD Primary Care Provider [phone] Allergies No known active allergies Medications cetirizine [...] to complete this topic Insurance Care Teams Cytology Manager Relationship Specialty Start Date End Date Eddie Parks MD [address] [place] [id number] PCP - General Internal Medicine 10/29/21
--- OUTSIDE RECORDS SUMMARY | 2025-08-14 08:24 | XMS_ITS | Clinical Summary ---
Author Organization [facility] ity Address [address] [place] [address] Care Team Providers Care Discharge Planner Name Role Phone Unavailable Primary Care Provider [...]
--- NOTE | 2025-08-14 08:37 | A.OFFPC_ITS ---
Intake Visit Reasons: 3 month follow up Allergies Seasonal Allergies Allergy (Intermediate, Verified 08/09/25 11:09) Runny Nose, watery eyes Medication List - Last Reconciled 08/14/25 by Eddie Parks MD cetirizine 10 mg PO DAILY clobetasol 0.05% 1 appl topical BID duloxetine 60 mg PO DAILY 90 days gabapentin Take one capsule by mouth every morning, one capsule in afternoon and 2 capsules every evening levothyroxine 100 mcg PO DAILY 90 days lidocaine 5% 1 patch topical DAILY 30 days mirabegron ER (Myrbetriq) 50 mg PO DAILY mirtazapine 15 mg PO BEDTIME modafinil 200 mg PO DAILY montelukast 10 mg PO DAILY naltrexone 4.5 mg PO .nightly omeprazole 20 mg PO DAILY pramipexole 0.5 mg PO QPM sucralfate 1 g PO BID Tobacco use date assessed: 01/16/25 Dental Screening Dental Screen Date: 01/16/25 HPI 3 month follow up HPI Details History of Present Illness The patient is a 60-year-old female presenting with regular f.u apt Back Pain: - sechadule to have back surgery 08[place]21 [place] [facility] [place]cholesterolemia: - The patient has a history of elevated cholesterol levels. - rec to control diet allergies stable having difficulty sleep at night even with mirtazipine 15 mg Patient will increase the dose to 30 mg as needed depression is stable, duloxtine refill sent Medical History: - Hypercholesterolemia - Gastroesophageal reflux disease (GERD) - Restless leg syndrome - Depression - Insomnia - Hypothyroidism - Allergies Medications: - Gabapentin for back pain - Levothyroxine 100 mg for hypothyroidis m - Mirtazapine for insomnia - Montelukast for allergies - Omeprazole for GERD - Pramipexole for restless leg syndrome - Duloxetine 60 mg - Cetirizine for allergies Patient Instructions - Continue with current medications as p rescribed. - med refills sent - she has apt with me in January Review of Systems - Neurological: No headaches no dizziness - Ear nose throat: No sore throat no hearing difficulty no ear pain - Cardiovascular: No syncope, no chest pain, no palpitations - Gastrointestinal: No nausea vomiting or diarrhea PFSH Medical History Back pain DDD (degenerative disc disease), lumbar OAB (overactive bladder) Depression Anxiety Fibromyalgia Restless leg syndrome Postmenopausal bleeding Tongue sore Hiatal hernia Flexor tendinitis of hand Bilateral hand pain Decreased range of motion (ROM) of shoulder Recurrent knee instability Generalized weakness Arthritis GERD (gastroesophageal reflux disease) Depression with anxiety Hypothyroid History of fibromyalgia Surgical History Hx of colonoscopy History of laparoscopic cholecystectomy (12/17/21) Hx of gastric bypass (~2004) Hx of tubal ligation Family History Mother Hypertension Father Diabetes Dementia Substance use disorder Daughter No problems noted. Daughter No problems noted. Son No problems noted. Other Mental health disorder Social History Household Members Other:: housemates Housing: House Are you a primary care specialist to a significant other at home: No Do you presently have visiting nurse or other home services: No Alcohol intake: never Comment: cane at times Patient Tobacco Use Status: Never used Tobacco e-Cigarette/Vaping Use: Never Used service: No Current occupational status: unemployed Sexual orientation: Straight/Heterosexual Gender identity: Female Cognitive needs: No Hearing needs: No Vision needs: Yes Female Reproductive History Menstrual Age of Menarche: 11 Questionnaire Thrive Questionnaire Date Thrive assessed: 09/26/24 I am a: Patient What is your living situation today?: I have a steady place to live Within the past 12 months, did the food you bought not last and you didn't have the money to get more?: Never true Within the past 12 months, did you worry whether your food would run out before you got money to buy more?: Never true Do you have trouble paying for medicines?: No Do you have trouble getting transportation to medical appointments?: No Do you have trouble paying your heating and electricity bill?: No Do you have trouble taking care of your child, family member or friend?: No Do you have trouble with day-to-day activities such as bathing, preparing meals, shopping, managing finances, etc.?: No Are you currently unemployed and looking for a job?: No Are you interested in more education?: No Please select the resources that you would like help with: None Currently or been in a relationship where the following occur: No concerns reported THRIVE Score: 0 JOHNNY-7 AMB Questionnaire JOHNNY-7 Date JOHNNY - 7 assessed: 10/03/24 Source: Developed by Drs. Rios Lim, Katalina Martin, Jasper Main and colleagues, with an educational stacie from [employer]. Physical exam (Primary Care) Tobacco/Smoking Status: Tobacco use Status Tobacco use date assessed 01/16/25 08/14/25 08:42 Patient Tobacco Use Status Never used Tobacco 08/14/25 08:42 e-Cigarette/Vaping Use Never Used 08/14/25 08:42 Thrive Assessment: Date of Thrive Assessment Date Thrive assessed 09/26/24 08/14/25 08:42 Currently or been in a relationship where the following occur: No concerns reported Telehealth Telehealth Telehealth Platform: [facility] Location of provider rendering services: practice address Location of patient: address on file Patient Identification confirmed using: Name, : Yes Telehealth method: video (attempted) Patient verbally consented to treatment: Yes Patient verbally consented to billing insurance company: Yes Patient informed of any privacy concerns related to visit: Yes Minutes spent on Phone/Video with Pt.: 13 Coding Level of Care Code Tele Est Pt Level 3 (30307) Diagnoses Other specified hypothyroidism E03.8 Lipid disorder E78.9 Environmental allergies Z91.09 Restless leg syndrome G25.81 Degenerative disc disease, cervical M50.30 Fibromyalgia M79.7 Chronic GERD K21.9 Allergic sinusitis J30.9 Anxiety, generalized F41.1 Assessment & Plan Assessment & Plan (1) Other specified hypothyroidism: Code(s): E03.8 - Other specified hypothyroidism Category: Medical (2) Lipid disorder: Code(s): E78.9 - Disorder of lipoprotein metabolism, unspecified Category: Medical (3) Environmental allergies: Code(s): Z91.09 - Other allergy status, other than to drugs and biological substances Category: Medical (4) Restless leg syndrome: Code(s): G25.81 - Restless legs syndrome Category: Medical (5) Degenerative disc disease, cervical: Code(s): M50.30 - Other cervical disc degeneration, unspecified cervical region Category: Medical (6) Fibromyalgia: Code(s): M79.7 - Fibromyalgia Category: Medical (7) Chronic GERD: Code(s): K21.9 - Gastro-esophageal reflux disease without esophagitis Category: Medical (8) Allergic sinusitis: Code(s): J30.9 - Allergic rhinitis, unspecified Category: Medical (9) Anxiety, generalized: Code(s): F41.1 - Generalized anxiety disorder Category: Medical Plan Back Pain: - sechadule to have back [place] [facility] [place] Hypercholesterolemia: - The patient has a history of elevated cholesterol levels. - rec to control diet allergies stable having difficulty sleep at night even with mirtazipine 15 mg Patient will increase the dose to 30 mg as needed depression is stable, duloxtine refill sent Medical History: - Hypercholesterolemia - Gastroesophageal reflux disease (GERD) - Restless leg syndrome - Depression - Insomnia - Hypothyroidism - Allergies Patient Instructions - Continue with current medications as prescribed. - med refills sent - she has apt with me in January Medications: Refilled duloxetine 60 mg PO DAILY 90 caps 0RF 90 days
== END 2025-08-14 10:05 | disposition home or self-care (01) ==
LOC: HO.HMCC 07:56
PROVIDERS: PCP Internal Medicine; Visit Provider Internal Medicine
DX: E03.8 Other specified hypothyroidism (principal); E78.9 Disorder of lipoprotein metabolism, unspecified; Z91.09 Other allergy status, other than to drugs and biological substances; G25.81 Restless legs syndrome; M50.30 Other cervical disc degeneration, unspecified cervical region; M79.7 Fibromyalgia; K21.9 Gastro-esophageal reflux disease without esophagitis; J30.9 Allergic rhinitis, unspecified; F41.1 Generalized anxiety disorder

== ENCOUNTER 2025-08-21 06:18 | Inpatient (IN) | payer OTHER, SELFPAY ==
[2025-07-31 11:53] VITALS: BP 146/70; PULSE 81; RESP 16; O2SAT 97; BMI 34.9
[2025-08-21] VITALS (16 sets, daily range): BP systolic 95–122; BP diastolic 40–61; PULSE 78–106; RESP 7–18; TEMP 36.1–37.1; O2SAT 94–100; BMI 33.8
--- NOTE | ~2025-08-21 | FL_ITS ---
EXAMINATION: FLUOROSCOPY GUIDANCE FOR NEEDLE PLACEMENT CLINICAL INFORMATION: L4-5 OLIF COMPARISON: Previous x-ray of the lumbar spine January 2025, CT June 2025 MR March 2025 TECHNIQUE: Intraoperative fluoroscopy guidance provided for lumbar spine surgery. FINDINGS: 13 submitted fluoroscopic images. These demonstrate posterior fusion hardware with bilateral rods and interpedicular screws at L4-5 and disc interspacer. FLUOROSCOPY TIME: 1 minute 23 seconds DOSE AREA PRODUCT: 22 Gy-cm2 FL/FL guidance in OR IMPRESSION: Fluoroscopy guidance for lumbar spine surgery. Electronically signed by: Dorothy Serrato MD 08/21/2025 10:57 AM BREE
--- OUTSIDE RECORDS SUMMARY | 2025-08-21 06:25 | XMS_ITS | Clinical Summary ---
Author Organization [facility] ity Address [address] [place] [address] Care Team Providers Care Can Operator Name Role Phone Unavailable Primary Care [...]
[2025-08-21] MEDS: Lactated Ringers 1,000 ML 100 ML IVCONT (06:36)
--- NOTE | 2025-08-21 06:52 | PHA.MEDREC ---
Pharmacy Consult ? Medication Reconciliation Pharmacy has reviewed the medication reconciliation completed by nursing.
--- NOTE | 2025-08-21 07:06 | P.HPSUR_ITS ---
Pre-Procedural Eval Section A - 24 Hr Update-Section A only Date of Service: 08/21/25 The patient is an INPATIENT: No Changes since office visit: No Cold of Flu in the past 2 weeks, No New Medical Problems, No Changes in Medication and No Patient answered all questions The patient has been examined within 24 hours of the surgical procedure. The History & Physical has been completed within 30 days and I have reviewed it.: No Section B - Complete if H&P > 30 days Chief Complaint: a/p L4-5 OLIF Allergies: Allergies Allergy/AdvReac Type Severity Reaction Status Date / Time Seasonal Allergies Allergy Intermediate Runny Verified 08/09/25 11:09 Nose, watery eyes Review of Systems Sugical H&P ROS: Negative: Constitution, Cardiovascular, Respiratory, Neurological, Psychiatric, Hem-Onc, Allergic/Immunologic, Gastrointestinal, Genitourinary, Musculoskeletal, Integumentary, Endocrine and Eyes/Ear s/Nose/Throat Exam Surgical H&P Exam: Normal: HEENT, Normal: Heart, Normal: Lungs, Normal: Extremities, Normal: Abdomen, Normal: Skin and Normal: Neurological (awake, alert,oriented x 3 ) Plan Diagnosis/Plan: Unchanged L4-5 oblique lumbar interbody fusion Time Spent With Patient Time: Total time managing care of this patient today __6__ minutes.
--- NOTE | 2025-08-21 07:30 | P.CONAN_ITS ---
Documented by User: Cait Robertson NP 08/14/25 14:13 HPI - Anesthesia Eval Consult details Narrative: 60yo F for L4-5 Oblique Lumbar Interbody Fusion, 08/21/25 No recent illness No CP/SOB with walking on tread a little GERD: ppi controls Instructed to remove facial piercings. 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 with discogenic back pain and leg pain (Acute) Oral thrush (Acute) Pain of right sacroiliac joint (Acute) Lumbar disc herniation (Acute) Muscle spasms of neck (Acute) Cervical stenosis of spine (Acute) Cervicalgia (Acute) Degenerative disc disease, cervical (Acute) Cervical spondylosis (Acute) Peroneal neuropathy (Acute) Sciatic neuropathy (Acute) Lumbar radiculopathy (Acute) Weakness of right leg (Acute) Right lumbar radiculitis (Acute) Lumbar pain (Acute) Right knee pain (Acute) Acute bacterial sinusitis (Acute) Hyperkalemia (Acute) Other specified hypothyroidism (Acute) Osteoarthritis of right knee (Acute) Tachycardia (Acute) LFT elevation (Acute) Tired (Acute) Feeling unwell (Acute) Paresthesia of lower extremity (Acute) Excessive sleepiness (Acute) Muscle cramping (Acute) Adhesive capsulitis of left shoulder (Acute) Painful arc syndrome of left shoulder (Acute) Shoulder pain, left (Acute) Abnormal findings on imaging test (Acute) Small bowel intussusception (Acute) NSAID long-term use (Acute) Environmental allergies (Acute) Anxiety, generalized (Acute) Epigastric pain (Acute) Osteoarthritis of thumbs, bilateral (Acute) Osteoarthritis of knees, bilateral (Acute) Allergic sinusitis (Acute) Lipid disorder (Acute) Abnormal Pap smear of cervix (Acute) Restless leg syndrome (Acute) Chronic GERD (Acute) Fatty liver (Acute) Complex renal cyst (Acute) Cholelithiasis (Acute) Obesity due to excess calories (Acute) Fibromyalgia (Acute) Cystocele without uterine prolapse (Acute) Tongue sore (Acute) Hiatal hernia (Acute) Flexor tendinitis of hand (Acute) Hypothyroid (Acute) Bilateral hand pain (Acute) Decreased range of motion (ROM) of shoulder (Acute) Recurrent knee instability (Acute) Generalized weakness (Acute) Past Medical History Medical History Back pain DDD (degenerative disc disease), lumbar OAB (overactive bladder) Depression Anxiety Fibromyalgia Restless leg syndrome Postmenopausal bleeding Tongue sore Hiatal hernia Flexor tendinitis of hand Bilateral hand pain Decreased range of motion (ROM) of shoulder Recurrent knee instability Generalized weakness Arthritis GERD (gastroesophageal reflux disease) Depression with anxiety Hypothyroid History of fibromyalgia Family History Family History Mother Hypertension Father Diabetes Dementia Substance use disorder Daughter No problems noted. Daughter No problems noted. Son No problems noted. Other Mental health disorder Family history of problems with anesthesia: No Surgical History Surgical History Hx of colonoscopy History of laparoscopic cholecystectomy (12/17/21) Hx of gastric bypass (~2004) Hx of tubal ligation History of Problems with Anesthesia: No Social History Social History Household Members Other:: housemates Housing: House Are you a primary respiratory care program director to a significant other at home: No Do you presently have visiting nurse or other home services: No Alcohol intake: never Comment: cane at times Patient Tobacco Use Status: Never used Tobacco e-Cigarette/Vaping Use: Never Used Use of substances other than those prescribed or required for medical reasons: No Have you been hit, kicked, punched, or otherwise hurt by someone within the past year? If so, by whom?: No Are you DNR?: No Advance Directives: No Advance Directives Information Provided: Yes Advance Directives on File: No Patient : No : No service: No Current occupational status: unemployed Sexual orientation: Straight/Heterosexual Gender identity: Female Cognitive needs: No Hearing needs: No Vision needs: Yes Meds Allergies Allergy/AdvReac Type Severity Reaction Status Date / Time Seasonal Allergies Allergy Intermediate Runny Verified 08/09/25 11:09 Nose, watery eyes Home Medications ?Medication ?Instructions ?Recorded ?Confirmed ?Last Taken ?Type clobetasol 0.05 % topical ointment 1 appl topical BID PRN flares 11/20/2408/19/25 History mirabegron 50 mg tablet,extended 50 mg PO DAILY 08/21/25 08/20/25 History release 24 hr (Myrbetriq) Exam Height,Weight and Vital Signs: Height 4 ft 11 in Weight 78.471 kg Last Vital Signs Pulse 81 07/31/25 11:53 Resp 16 07/31/25 11:53 BP 146/70 H 07/31/25 11:53 Pulse Ox 97 07/31/25 11:53 O2 Del Method Room Air 07/31/25 11:53 Pertinent Lab Results Pertinent Lab Results: Lab Results 08/14/25 Range/Units 09:21 Blood Type B Positive Antibody Screen NEGATIVE Laboratory Tests 05/08/25 10:14 WBC 7.6 Hgb 14.0 Hct 40.6 Plt Count 336 Sodium 141 Potassium 4.3 Chloride 104 Carbon Dioxide 29 BUN 18 H Creatinine 0.87 Narrative Narrative: EKG 2023 NSR @ 83 Airway Mallampati Class: I TM Dist: >3cm Neck ROM: Full Partial: Upper Heart: RRR Lungs: CTAB Assessment and Plan Assessment Anesthesia Assessment: Anesthesia Plan Discussed and PAT Visit Final Anesthetic Review Family History of Problems with Anesthesia: No History of Problems with Anesthesia: No Documented by User: Shazia Armenta DO 08/21/25 07:32 PMFSH Past Medical History Medical History Back pain DDD (degenerative disc disease), lumbar OAB (overactive bladder) Depression Anxiety Fibromyalgia Restless leg syndrome Postmenopausal bleeding Tongue sore Hiatal hernia Flexor tendinitis of hand Bilateral hand pain Decreased range of motion (ROM) of shoulder Recurrent knee instability Generalized weakness Arthritis GERD (gastroesophageal reflux disease) Depression with anxiety Hypothyroid History of fibromyalgia Family History Family History Mother Hypertension Father Diabetes Dementia Substance use disorder Daughter No problems noted. Daughter No problems noted. Son No problems noted. Other Mental health disorder Family history of problems with anesthesia: No Surgical History Surgical History Hx of colonoscopy History of laparoscopic cholecystectomy (12/17/21) Hx of gastric bypass (~2004) Hx of tubal ligation History of Problems with Anesthesia: No Social History Social History Household Members Other:: housemates Housing: House Are you a primary respiratory care program director to a significant other at home: No Do you presently have visiting nurse or other home services: No Alcohol intake: never Comment: cane at times Patient Tobacco Use Status: Never used Tobacco e-Cigarette/Vaping Use: Never Used Use of substances other than those prescribed or required for medical reasons: No Have you been hit, kicked, punched, or otherwise hurt by someone within the past year? If so, by whom?: No Are you DNR?: No Advance Directives: No Advance Directives Information Provided: Yes Advance Directives on File: No Patient : No : No service: No Current occupational status: unemployed Sexual orientation: Straight/Heterosexual Gender identity: Female Cognitive needs: No Hearing needs: No Vision needs: Yes Meds Allergies Allergy/AdvReac Type Severity Reaction Status Date / Time Seasonal Allergies Allergy Intermediate Runny Verified 08/09/25 11:09 Nose, watery eyes Home Medications ?Medication ?Instructions ?Recorded ?Confirmed ?Last Taken ?Type clobetasol 0.05 % topical ointment 1 appl topical BID PRN flares 11/20/24 08/14/25 08/19/25 History mirabegron 50 mg tablet,extended 50 mg PO DAILY 08/21/25 08/20/25 History release 24 hr (Myrbetriq) Exam Exam Date and Time: 08/21/25 0730 Height,Weight and Vital Signs: Vital Signs Pulse Rate 81 07/31/25 11:53 Respiratory Rate 16 07/31/25 11:53 Blood Pressure 146/70 H 07/31/25 11:53 Pulse Oximetry 97 07/31/25 11:53 Oxygen Delivery Method Room Air 07/31/25 11:53 Temperature 98.4 F 08/21/25 06:46 Pulse Rate 80 08/21/25 06:46 Respiratory Rate 16 08/21/25 06:46 Blood Pressure 112/61 08/21/25 06:46 Pulse Oximetry 94 08/21/25 06:46 Oxygen Delivery Method Room Air 08/21/25 06:46 Height 4 ft 11 in Weight 78.471 kg Last Vital Signs Pulse 81 07/31/25 11:53 Resp 16 07/31/25 11:53 BP 146/70 H 07/31/25 11:53 Pulse Ox 97 07/31/25 11:53 O2 Del Method Room Air 07/31/25 11:53 Airway Mallampati Class: I TM Dist: >3cm Neck ROM: Full Partial: Upper Heart: S1S2 Assessment and Plan Assessment Anesthesia Assessment: Anesthesia Plan Discussed and Chart Reviewed Final Anesthetic Review Family History of Problems with Anesthesia: No History of Problems with Anesthesia: No NPO: Yes ASA Class: II Final Preanesthetic Review: No Changes in Pt Med Stat, Meds/Allgs Chart Reviewed, Consent Obtained/Reviewed and Anes Risks/Benef Reviewed Patient Risk: Low Procedure Risk: Intermediate Anesthetic Plan Anesthetic Plan: GA and Agree w/ Assess. and Plan Disposition: Standard PACU
--- NOTE | 2025-08-21 09:23 | W.PM.OPN ---
Operative Note Operative Note Date of Service: 08/21/25 Narrative: Preop Diagnosis: 1.) Spondylolisthesis 2.) Back pain neurogenic claudication Procedure: 1) L4-5 discectomy, arthrodesis and implantation cage through an anterolateral, retroperitoneal approach 2) L4-5 posterior instrumented fusion 3) allograft 4) Injection of 10 cc of Exparel at the transverse process for a muscular erector spinae block and additional Exparel in paravertebral tissue for postop management Consent Informed Consent was obtained for this operation. I have explained the nature, purpose and benefits of the operation. I have discussed the risks and benefit of the operation including possible complications or adverse events with patient/family. Alternative(s) were discussed with the patient with their relative benefits and risks as well as the consequences of not accepting the operation were included in obtaining consent. Surgeon: KIMMY LOPEZ MD, PHD Procedure Assisted By: edison Duran Description of Procedure This patient is suffering from back pain and neurogenic claudication. MRI shows an L4-5 spondylolisthesis with central stenosis. The patient was offered an oblique lumbar interbody fusion L4-5. The procedure and complications were explained. The patient was consented. The patient was brought to the operating room and endotracheally intubated. The patient was turned in a lateral position with the left side up. Prep and drape was done followed by timeout. A small incision was made in the left lower abdominal quadrant. The muscle fascia was opened after which the 3 muscle layer was split to enter the retroperitoneal space. Dilators were docked in the anterior one third of the L4-5 disc space followed by a retractor. The retractor was opened. The L4-5 disc space was exposed. An annulotomy was done after which an elevator Stark was used to release the disc material from its endplates and to perforate the contralateral side. A partial discectomy was done. An 8 mm height trial implant was inserted. The discectomy was completed. The endplates were prepared. An 10 x 45 mm with 6 degree lordosis 4 web cage filled with allograft was inserted into the disc space under fluoroscopic guidance. This resulted in correction of the spondylolisthesis. The retractor was removed. Hemostasis was done. The incision was closed in 2 layers. Steri-Strips used to approximate incision. An OpSite with Tegaderm was used to cover the incision. This marked first part of the procedure. The patient was turned prone on the Bandar spine table. 2C arms were installed for fluoroscopy. Prep and drape was done followed by a second timeout. Injection of 10 cc of Exparel at the bilateral L4 transverse processi for a muscular erector spinae block. Two paramedian incisions were made lateral from the L4 and L5 pedicles. The muscle fascia was opened after which the muscle layer was split bluntly to expose the posterolateral gutter. The following steps were taken. A pediguard tap was used to create a transpedicular trajectory into the vertebral body. A K wire was placed. A specially designed instrument was advanced over the K wire to decorticate the posterolateral gutter in preparation for the posterolateral fusion. A pedicle screw was advanced over the K wire and the K wire was removed. The steps were done for the bilateral L4 and L5 pedicles. A total of 4 screws were placed with a diameter of 6.5 x 40 mm. Pedicle screws were connected with 40 mm zaheer bilaterally and locked down with locking caps. The extension towers were removed. The posterolateral gutter was filled with allograft to complete the posterolateral L4-5 fusion Hemostasis was done and the incision was closed in 2 layers. Steri-Strips were used to approximate the incision. An OpSite with tegaderm was used to cover the incision. All sponge and needle counts were correct. Patient was extubated and transferred in stable is to recovery room. This procedure was done with the aid of physician offset press assistant, who participated in placement of the pedicle screws, interpretation of x-rays, placement of allograft and closure of the incisions. Anesthesia: General Estimated Blood Loss (ml): 30 Duration of Surgery: 1 hour 45 minutes Complications: None Postoperative Plan: Admit to inpatient for clinical observation
--- NOTE | 2025-08-21 12:51 | PC.NURSE ---
Neuros wnl, call hugo within reach, pt educated on req needs as she comes out of anesthesia
--- NOTE | 2025-08-21 16:05 | PC.NURSE ---
patient did well standing, ambulating to chair, up in recliner, pain a 2, neuro wnl
--- NOTE | 2025-08-21 17:32 | PC.NURSE ---
Pt with no sensation to void, patient drinking water PO,
--- NOTE | 2025-08-21 17:58 | PC.NURSE ---
pt voided large amount in bathroom, ambulated approx 800 feet on the unit.
[2025-08-22 03:27] VITALS: PULSE 83; RESP 16; TEMP 36; O2SAT 95
[2025-08-22 04:40] VITALS: BP 100/64
[2025-08-22] MEDS: oxyCODONE HCl Immed Release 5 MG TABLET 10 MG PO (04:51)
[2025-08-22 07:38] VITALS: BP 113/56; PULSE 85; RESP 18; TEMP 37; O2SAT 94
--- NOTE | 2025-08-22 07:38 | PM.DS ---
DS: Providers Provider Date of admission: 08/21/25 06:18 Primary care physician: Unknown Physician Physical Exam Vital Signs: Vital Signs: Last Vital Signs Temp 96.8 F 08/22/25 03:27 Pulse 83 08/22/25 03:27 Resp 16 08/22/25 03:27 BP 100/64 08/22/25 04:40 Pulse Ox 95 08/22/25 03:27 O2 Del Method Room Air 08/22/25 03:27 O2 Flow Rate 2 08/21/25 15:11 BMI result Body Mass Index 33.8 Discharge Plan Discharge Anticipated Discharge Date/Time: 08/22/25 07:38 Patient Disposition: Home, Self-Care Discharge Diagnosis: s/p L4-5 OLIF Referrals: Physician,Unknown J [Primary Care Provider, Medical] - 1 Week Discharge Medications: New oxycodone 5 mg tablet See Rx Instructions .ROUTE .COMPLEX PRN (Reason: pain) Qty: 30 0RF Rx Instructions: take 1-2 tablets by mouth every 4 hours; Partial Fill upon patient request. Continued lidocaine 5 % adhesive patch,medicated 1 patch topical DAILY 30 Days Qty: 30 6RF Rx Instructions: apply to affected areas up to 12 hours per day mirtazapine 15 mg tablet 15 mg PO BEDTIME Qty: 90 0RF omeprazole 20 mg capsule,delayed release(DR/EC) 20 mg PO DAILY Qty: 90 2RF cetirizine 10 mg tablet 10 mg PO DAILY Qty: 90 0RF pramipexole 0.5 mg tablet 0.5 mg PO QPM Qty: 90 0RF Rx Instructions: administer 2 - 3 hours before bedtime levothyroxine 100 mcg tablet 100 mcg PO DAILY 90 Days Qty: 90 0RF montelukast 10 mg tablet 10 mg PO DAILY Qty: 90 0RF sucralfate 1 gram tablet 1 g PO BID Qty: 180 0RF gabapentin 300 mg capsule See Rx Instructions PO .COMPLEX Qty: 120 5RF Rx Instructions: Take one capsule by mouth every morning, one capsule in afternoon and 2 capsules every evening modafinil 200 mg tablet 200 mg PO DAILY Qty: 90 1RF Rx Instructions: Take in the AM mirabegron [Myrbetriq] 50 mg tablet extended release 24 hr 50 mg PO DAILY clobetasol 0.05 % ointment 1 appl topical BID PRN (Reason: flares) duloxetine 60 mg capsule,delayed release(DR/EC) 60 mg PO DAILY 90 Days Qty: 90 0RF Held naltrexone 4.5 mg capsule 4.5 mg PO .nightly Qty: 90 1RF Hold Instructions: Resume on 09/22/25. Do not take this medication while taking the Oxycodone we prescribed for pain control Discharge Orders: Discharge Order (Routine); Ordered 08/22/25 Ordered By: Fred Hagen Diet: Advance to usual diet Activity on Discharge: As tolerated Stand Alone Forms: Patient Portal Discharge page Print Language: Kittitian Activity Restrictions/Additional Instructions: After your spinal surgery we ask you to observe the following restrictions/guidelines: Activity: It is normal to feel some discomfort as you increase your activity, but that will improve with time. We ask you avoid heavy lifting or acitivities that cause pain. As a general rule, 8lbs is a safe limit for lifting right after surgery. Walk as much as you feel comfortable but not to exhaustion. You will feel extra tired the first few days after surgery. Stay well hydrated. It is OK to walk up and down stairs You may return to driving when you are off narcotics (such as vicodin, oxycodone, dilaudid, etc), and you are back to normal functional capacity. If you have any concerns please check with office before driving. Return to work is specific to each patient and each surgery, so please speak with your doctor/PA at first follow up. Please bring paperwork such as FMLA at that time if you need it filled out. Medications: We sent in a short supply of oxycodone for pain control, please do not take your Naltrexone medication while taking Oxycodone. If you must take your Naltrexone please call the office to discuss alternative pain control regimen that does not interact with this medication. We recommend you take 500mg Tylenol every 4 hours for the first week after surgery, if you do not have any liver issues and can tolerate this medication. Do not exceed 4,000mg daily. We also recommend you take Ibuprofen 600mg every 8 hours for the first week after surgery starting on post op day 1, if you do not have any kidney or sugar control issues and can tolerate this medication. Do not exceed 2,000mg daily. We will give you a short supply of narcotics after surgery (usually one weeks worth). If you need more please call the office but do not use more than prescribed. You will need to give our office 48 hours notice if you need narcotics refilled and we do not fill narcotics on weekends or evenings. If you are on a narcotic, it is a good idea to take a stool softener such as colace or senna to avoid constipation If you take blood thinner such as aspirin, Plavix, Coumadin, Effient, Eliquis etc for conditions such as Afib, DVT, Pulmonary embolus, coronary disease, stents etc please speak with your surgeon about specific details as to when you can resume these medications. You can resume NSAIDs on post op day 1 (eg: Motrin, Naproxen, etc). Follow up: Please call the office, , after surgery to arrange a 3 week follow up for wound check. Wound Care: You may remove your dressing on the first day after surgery. ?You may ?leave open to air. Please do not remove the steri strips underneath. they will fall off on their own in one week. IT IS NORMAL FOR THE WOUND TO OOZE OR BE BLOODY FOR A FEW DAYS AFTER SURGERY. ?IF THIS HAPPENS JUST PLACE NEW DRESSING OVER IT TO AVOID STAINING CLOTHES. You may shower on post op day # 1 We ask that you do not let the water soak the wound. If it does get wet, just towel dry lightly. Please do not scrub your incision or place any type of chemical/ointment on the wound. No tub baths, pools or jacuzzis for one month. If you have any leaking or redness from your wound, or fevers, please call the office. Care Plan Goals: return to normal activity as tolerated Health Concerns: none Plan of Treatment: follow-up in clinic in 2-3 weeks Assessment: POD: 1 Procedure: L4-5 SIOBHAN Ocasio is a pleasant 60-year-old female who underwent the above-mentioned procedure with Dr. Kaur yesterday. She was seen sitting upright in bed on [address] room [address]. She reports she has been up OOB walking up and down the halls and is otherwise doing well. She feels her pain is much better than it was pre-operatively. She reports good coverage of her acute surgical pain with the current pain regimen. She is voiding well, and tolerating her current diet. Afebrile, vital signs stable. Full strength and sensation to light touch of lower extremities on examination this morning. Back dressings have some staining without signs of hematoma. No active sanguineous drainage. Area is dry. Plan: Pleasant 60-year-old female who underwent the above-mentioned procedure with Dr. Kaur yesterday. She is progressing normally as expected. We would like to see her work with physical therapy today and if this goes well we will discharge her home. I will send in a prescription for oxycodone in his stool softener to our pharmacy here at [facility]. She should not take her naltrexone while taking oxycodone. This was discussed with my attending neurosurgeon Dr. Kaur who evaluated the patient alongside me this morning. Fred Kaur MD,PhD [facility]
--- NOTE | 2025-08-22 07:49 | HO.NEURSURPN ---
Subjective Subjective Date of Service: 08/22/25 Critical Care Time (minutes): 14 Physical Exam Vital Signs: Vital Signs: Last Vital Signs Temp 98.6 F 08/22/25 07:38 Pulse 85 08/22/25 07:38 Resp 18 08/22/25 07:38 BP 113/56 L 08/22/25 07:38 Pulse Ox 94 08/22/25 07:38 O2 Del Method Room Air 08/22/25 03:27 O2 Flow Rate 2 08/21/25 15:11 BMI result Body Mass Index 33.8 Progress Note: A&P Assessment and plan (1) S/P lumbar fusion: Status: Acute Plan POD: 1 Procedure: L4-5 SIOBHAN Ocasio is a pleasant 60-year-old female who underwent the above-mentioned procedure with Dr. Kaur yesterday. She was seen sitting upright in bed on [address] room [address]. She reports she has been up OOB walking up and down the halls and is otherwise doing well. She feels her pain is much better than it was pre-operatively. She reports good coverage of her acute surgical pain with the current pain regimen. She is voiding well, and tolerating her current diet. Afebrile, vital signs stable. Full strength and sensation to light touch of lower extremities on examination this morning. Back dressings have some staining without signs of hematoma. No active sanguineous drainage. Area is dry. Plan: Pleasant 60-year-old female who underwent the above-mentioned procedure with Dr. Kaur yesterday. She is progressing normally as expected. We would like to see her work with physical therapy today and if this goes well we will discharge her home. I will send in a prescription for oxycodone in his stool softener to our pharmacy here at [facility]. She should not take her naltrexone while taking oxycodone. This was discussed with my attending neurosurgeon Dr. Kaur who evaluated the patient alongside me this morning. Fred Kaur MD,PhD [facility] Time Spent With Patient Time: Total time managing care of this patient today ____ minutes. Procedures Date of Service Date of Service: 08/22/25 Quality Stroke Does the patient have a stroke diagnosis?: No VTE Prior VTE?: No VTE Risk Level:: Surgical - low VTE Device Contraindication: N/A - Device Ordered VTE Drug Contraindication: Treatment Not Indicated
[2025-08-22] MEDS: Mirabegron 50 MG TAB.ER.24H PO (08:50)
--- NOTE | 2025-08-22 09:39 | HO.POSTANES ---
Post Anesthesia Evaluation Post Anesthesia Evaluation Date of Service: 08/22/25 Vital Signs: Vital Signs Temp Pulse Resp BP Pulse Ox O2 Del Method 08/22/25 07:38 98.6 F 85 18 113/56 L 94 08/22/25 04:40 100/64 08/22/25 03:27 96.8 F 83 16 95 Room Air 08/21/25 23:23 96.9 F 81 18 122/58 L 96 Room Air Anesthesia: General Mental Status: Awake Pain Control: Satisfactory Nausea/Vomiting: None Hydration: Adequate Anesthesia-Related Issues: No Anes. Related Issues
--- NOTE | 2025-08-22 09:41 | MHC.CM.PN ---
Addendum entered by Isidra Hernandez RN 08/22/25 10:16: Patient medically cleared for dc home self care via private transport Original Note: Patient lives at home w/ . Independent w/ care. Uses cane PRN for knee pain. No services. PCP Eddie Parks MD No HCP. Patient declines. DP: Home w/ family support, likely today. will transport.
[2025-08-22 11:30] VITALS: BP 115/60; PULSE 80; RESP 18; TEMP 36.8; O2SAT 97
== END 2025-08-22 11:52 | disposition home or self-care (01) | DRG 304 ==
LOC: HO.SSSA 06:23 → HO.S3 11:43
PROVIDERS: Neurological Surgery; Admitting Provider Physician Assistant; PCP Internal Medicine; Visit Provider Physician Assistant
PROC: 0SG00A0 Fusion of Lumbar Vertebral Joint with Interbody Fusion Device, Anterior Approach, Anterior Column, Open Approach (ICD-10-PCS; principal; 2025-08-21 07:30)
DX: M51.362 Other intervertebral disc degeneration, lumbar region with discogenic back pain and lower extremity pain (principal); M43.16 Spondylolisthesis, lumbar region; Z98.84 Bariatric surgery status; Z79.899 Other long term (current) drug therapy
CPT/HCPCS: 86850; 86900; 86901; 97161; C1713; C1889; J0131; J0665; J0666; J0690; J1100; J1171; J1885; J2250; J2405; J2704; J3010; L8699

== ENCOUNTER → 2025-08-21 06:18 | Outpatient (BNV) | payer OTHER, SELFPAY | PROVIDERS: Admitting Provider Physician Assistant; Visit Provider Neurological Surgery | DX: Z98.1 Arthrodesis status (principal) | CPT/HCPCS: 99024 ==